=== PATIENT | male | born 1950 | race Two or more races ===

== ENCOUNTER 2019-01-28 14:30 | Inpatient (IN) | payer OTHER ==
[2019-01-28] VITALS (7 sets, daily range): BP systolic 115–148; BP diastolic 67–89
[~2019-01-28] VITALS: Ht 170.2 cm; Wt 76.2 kg
[2019-01-28] MEDS ORDERED: CARV25TA2 PO (14:55)
[2019-01-28] MEDS ORDERED: ALLO100T PO (14:55)
[2019-01-28] MEDS ORDERED: CALC100067 PO (14:55)
[2019-01-28] MEDS ORDERED: HYDR100T27 PO (14:55)
[2019-01-28] MEDS ORDERED: AMLO10TA4 PO (14:55)
[2019-01-28] MEDS ORDERED: BISA10SU61 RC (14:55)
[2019-01-28] MEDS ORDERED: PANTOPRAZOLE 40 MG VIAL IV ONE (15:00)
[2019-01-28] MEDS ORDERED: FOLI0.8T2 PO (15:18)
[2019-01-28] MEDS ORDERED: CALC667T2 PO (15:18)
[2019-01-28] MEDS ORDERED: SIMV20TA6 PO (15:18)
[2019-01-28] MEDS ORDERED: CLON0.1T PO (15:18)
[2019-01-28] MEDS ORDERED: NIFE30TA91 PO (15:18)
[2019-01-28] MEDS ORDERED: IPRA3AMP23 IH (15:18)
[2019-01-28] MEDS ORDERED: LOSA100T31 PO (15:18)
[2019-01-28] MEDS ORDERED: LISI40TA4 PO (15:18)
[2019-01-28] MEDS ORDERED: FURO-145 PO (15:18)
[2019-01-28 15:24] LABS: BASOPHILS % (AUTO) 0.3 % (0.0-2.0); EOSINOPHILS % (AUTO) 11.7 % (0.0-6.0); LYMPHOCYTES # (AUTO) 0.8 /CMM (0.8-4.8); LYMPHOCYTES % (AUTO) 6.2 % (20.0-44.0); MEAN CORPUSCULAR HGB CONC 34 g/dl (31.0-36.0); MEAN CORPUSCULAR VOLUME 88 fL (80-96); MONOCYTES % (AUTO) 7.7 % (2.0-12.0); NEUTROPHILS # (AUTO) 9.2 /CMM (1.8-8.9); NEUTROPHILS % (AUTO) 74.1 % (43.0-81.0); PLATELET COUNT (AUTO) 242 /CMM (150-450); RED BLOOD CELL COUNT(AUTO) 1.51 MIL/uL (4.5-6.0); WHITE BLOOD COUNT (AUTO) 12.4 K/uL (4.3-11.0)
[2019-01-28 15:25] LABS: CALCIUM, SERUM 7.8 mg/dL (8.5-10.1); CREATININE 2.8 mg/dL (0.6-1.3); HEMATOCRIT 13 % (39-51); HEMOGLOBIN 4.4 g/dL (13.5-17.5); POTASSIUM 3.3 mmol/L (3.5-5.1)
[2019-01-28 15:28] LABS: OCCULT BLOOD STOOL NEGATIVE (NEGATIVE)
[2019-01-28 15:30] LABS: ALBUMIN 1.8 g/dL (3.4-5.0); BILIRUBIN,DIRECT 0.3 mg/dL (0.0-0.2); BILIRUBIN,TOTAL 0.8 mg/dL (0.2-1.0); TOTAL PROTEIN, SERUM 6.6 g/dL (6.4-8.2)
[2019-01-28] MEDS ORDERED: ACETAMINOPHEN 650 MG/SUPP.RECT RC ONE ×2 (15:30→16:17)
[2019-01-28] MEDS ORDERED: IV NS 0.9% 500 ML BAG IV ONE (15:30)
[2019-01-28] MEDS ORDERED: PIPERACILLIN /TAZOBACTAM 3.375 G in IV D5W 50 ML IV ONE (16:00)
[2019-01-28] MEDS ORDERED: VANCOMYCIN 1 GM in IV D5W 250 ML IV ONE (16:00)
--- NOTE | 2019-01-28 16:11 | NUR ---
CALLED FOR [facility] BED ([phone]), TURNED IN MOVE SHEET
--- NOTE | 2019-01-28 16:14 | NUR ---
PICC Nurse Nolan here for insertion of PICC line XRays done for confirmation
[2019-01-28] MEDS ORDERED: PANTOPRAZOLE 40 MG VIAL ONE (16:17)
--- NOTE | 2019-01-28 17:06 | NUR ---
CALLED FOR DR GURPREET ZENDEJAS IN FLEET MANAGER/DISPATCH
--- NOTE | 2019-01-28 17:30 | NUR ---
Pt going to 112 Dr Glover at bedside to see pt. Blood transfusion pending. Nurse Knowledge Exchange with PETROS Hicks. Transported to floor with RT and PETROS Amaya. No obvious distress
--- NOTE | 2019-01-28 17:40 | NUR ---
RECEIVED PT FROM ER VIA DELORES. NON VERBAL, ON TRACH, VENT, GTUBE IN PLACE, L AC SHUNT, JAYE CATH ON RIGHT UPPER CHEST, PICC LINE PLACED IN ER ON RIGHT UPPER ARM G18. VANCOMYCIN INFUSING INTO YESI. PATIENT IN CONTRACTED POSITION. PHOTOS TAKEN OF ALL SKIN ULCERS, PRINTED, PLACED INTO CHART.
[2019-01-28 17:48] LABS: EOSINOPHILS % (MANUAL) 10 % (0-4); LYMPHOCYTES % (MANUAL) 7 % (16-48); MONOCYTES % (MANUAL) 6 % (0-11.0); NEUTROPHILS % (MANUAL) 77 (42-76)
--- NOTE | 2019-01-28 18:14 | NUR ---
RT Pt transported to [facility]. Vent plugged into red outlet w [facility] @ [facility]. Alarms are set and audible. Pt stable. Will continue to monitor. Addendum: 01/28/19 at 1816 by CAMPOS CHAUDHARY RT Amended: Links added.
--- NOTE | 2019-01-28 19:30 | NUR ---
1902 BEGAN TRANSFUSION OF 1 UNIT RBC INTO RIGHT PICC LINE G18. VERIFIED WITH NURSE KRISHAN. VITALS UPON RBC TRANSFUSION 120/67, HR 86, 02 SAT 100%, TEMP 99.0, RR 18. MONITORED FOR 15MIN. TOLERATING WELL. ENDORSED REPORT TO NOC SHIFT NURSE. PT IN STABLE CONDITION.
[2019-01-28] MEDS ORDERED: DOSING PER PHARMACY-AMIKACI IV XX PRN (20:00)
--- NOTE | 2019-01-28 20:00 | NUR ---
RN ADMITTING NOTE RECEIVED PT ON TRACH, VDRF,MAINTAINED ON VENT SETTING, AC 18 TV 500 FIO2 40% AND PEEP 5, WELL TOLERATED, AWAKE NONVERBAL, ABNORMAL LABS NOTED AND REPORTED, H&H 4.4, AM RN TRANSFUSING PRBC 3 UNITS ORDERED. DIALYSIS NURSE AT BEDSIDE FOR START HD. PRBC TO BE TRANSFUSED BY DIALYSIS NUSRE, 1 UNIT PER 30 MINUTES, VS STABLE, TOLERATING WELL, NO EARLY A/R NOTED. SKIN ISSUES NOTED, PICTURES TAKEN, ALL ADMITTING ORDERS ENTERED BY TINA PERALTA PER PROTOCOL, SAFETY EASURES IN PLACE. WILL CONT' TO MONITOR.
[2019-01-28] MEDS ORDERED: FEE PK DOSING 1 MIN EA MC ONE ×2 (20:03)
[2019-01-28] MEDS ORDERED: AMIKACIN 400 MG in IV D5W 100 ML IV ONE (20:30)
[2019-01-28] MEDS ORDERED: ZOLPIDEM TARTRATE 5 MG TABLET PO PRN (20:30)
[2019-01-28] MEDS ORDERED: Z GUARD REMEDY 2 OZ OINT TP PRN (20:30)
[2019-01-28] MEDS ORDERED: MAGNESIUM HYDROXIDE 30 ML UDC PO PRN (20:30)
[2019-01-28] MEDS ORDERED: ONDANSETRON HCL/PF 4 MG/2 ML VIAL IVP PRN (20:30)
[2019-01-28] MEDS ORDERED: AMIKACIN 400 MG in IV D5W 100 ML IV PRN (20:30)
--- NOTE | 2019-01-28 22:00 | NUR ---
RN [facility] NOTE DIALYSIS DONE 1.5 CC O/P TAKEN OUT, PRBC REPLACED, WELL PRINCESS', WILL CONT' TO MONITOR FOR A/R.
[2019-01-29] MEDS: ACETAMINOPHEN 325 MG TABLET PO PRN ×2 (00:34→16:35)
[2019-01-29] MEDS: PIPERACILLIN /TAZOBACTAM 2.25 G in IV D5W 50 ML IV SCH ×3 (00:34→12:58)
[2019-01-29] MEDS: NEPRO 1,000 ML BOTTLE GT PRN ×2 (00:35→21:46)
--- NOTE | 2019-01-29 06:25 | NUR ---
SUPERVISOR WATERWORKS CLOSING NOTE ENDORSED PT AWAKE NONVERBAL, MAINTAINED ON VENT, NO EPISODE OF DISTRESS, HOB ELEVATED FOR ASPIRATION PRECAUTION, GTF NEPRO RESUMED@50CC/HR WELL TOLERATED, S/P DIALYSIS 1.5 O/P TAKEN, TRANSFUSED 3 UNITS OF PRBC, NO DELAYED A/R NOTED, WOUND CARE DONE, CONSULT AND SPECIAL BED ORDERED.
[2019-01-29 06:46] LABS: ALBUMIN 1.7 g/dL (3.4-5.0); CALCIUM, SERUM 7.9 mg/dL (8.5-10.1); CREATININE 2.6 mg/dL (0.6-1.3); PHOSPHORUS 2.4 mg/dL (2.5-4.9); POTASSIUM 3.6 mmol/L (3.5-5.1); TOTAL PROTEIN, SERUM 6.2 g/dL (6.4-8.2)
[2019-01-29 07:15] LABS: BASOPHILS % (AUTO) 0.3 % (0.0-2.0); EOSINOPHILS % (AUTO) 8.9 % (0.0-6.0); HEMATOCRIT 21 % (39-51); HEMOGLOBIN 7.1 g/dL (13.5-17.5); LYMPHOCYTES # (AUTO) 0.6 /CMM (0.8-4.8); LYMPHOCYTES % (AUTO) 6.6 % (20.0-44.0); MEAN CORPUSCULAR HGB CONC 35 g/dl (31.0-36.0); MEAN CORPUSCULAR VOLUME 87 fL (80-96); MONOCYTES % (AUTO) 10.5 % (2.0-12.0); NEUTROPHILS # (AUTO) 7.2 /CMM (1.8-8.9); NEUTROPHILS % (AUTO) 73.7 % (43.0-81.0); PLATELET COUNT (AUTO) 188 /CMM (150-450); RED BLOOD CELL COUNT(AUTO) 2.35 MIL/uL (4.5-6.0); WHITE BLOOD COUNT (AUTO) 9.7 K/uL (4.3-11.0)
--- NOTE | 2019-01-29 07:30 | NUR ---
911 telecommunicator opening notes received pt in bed, awake, but not responding to name. on mech vent to trach. tolerating vent settings. no sob noted. nepro running at 50ml/hr. franki picc line patent, on 5ml tko. bed in locked/lowest position. call light in reach. will cont to monitor.
[2019-01-29 08:00] VITALS: BP 133/69
[2019-01-29 08:44] LABS: ABG BASE EXCESS 2.2 mmol/L; ABG OXYGEN SATURATION 98.3 % (92.0-98.5); ABG PCO2 34.2 mmHg (35.0-45.0); ABG PH 7.492 (7.350-7.450); ABG PO2 187.3 mmHg (75.0-100.0); AaDO2 58.6 mmHg; COHb 0.3 % (0.5-1.5); MetHb 1.6 % (0.0-1.5); O2Hb 96.4 % (94.0-97.0); PEEP,BG 5 cm H2O; SITE, ABG Right Radial; VT, ABG 500 mL
[2019-01-29] MEDS ORDERED: NEUTRA PHOS 1 POWD.PACKET NG ONE (10:00)
[2019-01-29] MEDS ORDERED: EPOETIN ALFA (10,000 UNIT) 10,000 UNIT/ML VIAL IV ONE (12:00)
[2019-01-29] MEDS: LACTOBACILLUS RHAMNOSUS GG 1 EACH CAP.SPRINK PO SCH ×2 (12:58→16:35)
--- NOTE | 2019-01-29 13:08 | NUR ---
telephone operator notes called dr martinez to make him aware that medications need to be reviewed. said he will reconcile.
--- NOTE | 2019-01-29 15:00 | NUR ---
relay telegrapher notes per pharmacy, hold amikacin post hd d/t trough 15.4.
[2019-01-29] MEDS: VANCOMYCIN 500 MG in IV D5W 100 ML IV PRN (15:17)
--- NOTE | 2019-01-29 19:04 | NUR ---
television writer end of shift notes pt stable on vent. obtunded. tolerated HD today with 1 L out. hgb stable. no s/sx of active bleeding noted. still awaiting med reconciliated. dr martinez aware. will endorse to pm nurse for dana.
--- NOTE | 2019-01-29 19:48 | NUR ---
RN INITIAL TELE NOTE, RECEDED PATIENT ON BED, VDRF, MAINTAINED ON VENT SETTINGS ORDER, WELL TOLERATED, NO EPISODE OF DISTRESS OR FACIAL GRIMACING NOTICED, GT FEEDING RUNNING @50 ML/HR, WELL TOLERATED , HOB ELEVATED FOR ASPIRATION PRECAUTION, HENRIK CHAU, TKO RUNNING, PATIENT CLEAN AND DRY, WELL REPOSITION, SAFETY MASSEURS IN PLACE, WILL CONTINUE MONITOR THE PATIENT.
[2019-01-29] MEDS: HYDROCODONE/APAP 5/325MG 1 EACH TABLET PO PRN (21:42)
[2019-01-29 22:00] VITALS: BP 172/92
[2019-01-30 06:16] LABS: CALCIUM, SERUM 7.9 mg/dL (8.5-10.1); CREATININE 2.6 mg/dL (0.6-1.3); POTASSIUM 3.5 mmol/L (3.5-5.1)
--- NOTE | 2019-01-30 07:04 | NUR ---
RN CLOSING TELE NOTE, ENDORSED PATIENT ON BED, VDRF, MAINTAINED ON VENT SETTINGS ORDER, WELL TOLERATED, NO EPISODE OF DISTRESS OR FACIAL GRIMACING NOTICED, GT FEEDING RUNNING @50 ML/HR, WELL TOLERATED , HOB ELEVATED FOR ASPIRATION PRECAUTION, HENRIK CHAU, TKO RUNNING, PATIENT CLEAN AND DRY, WELL REPOSITION, SAFETY MASSEURS IN PLACE, ENDORSED PATIENT FOR CONTINUOUS MONITOR .
--- NOTE | 2019-01-30 07:30 | NUR ---
telephone instrument supervisor opening notes pt received in bed, awake but not oriented. on mech vent to trach. settings tolerated well. rhonchi auscultated throughout lung vora. anirudh midline flushed/patent/blood return noted. still with pitting edema on extremities. wound consult ordered. on tube feeding at 50ml/hr. no residual at this time. pt has low grade fever. bed in locked/lowest position. call light in reach. will cont to monitor.
--- NOTE | 2019-01-30 07:33 | NUR ---
RT SPARE TRACH AND AMBU BAG PLACED AT BEDSIDE. AIRWAY SECURED AND PATENT. NO SIGNS OF DISTRESS NOTED AT THIS TIME. WILL CONTINUE TO MONITOR THE PATIENT CLOSELY FOR ANY CHANGES. Addendum: 01/30/19 at 1617 by PAUL TINSLEY RT Amended: Links added.
[2019-01-30 08:00] VITALS: BP 151/88
[2019-01-30] MEDS: ACETAMINOPHEN 325 MG TABLET PO PRN (08:15)
[2019-01-30] MEDS: LACTOBACILLUS RHAMNOSUS GG 1 EACH CAP.SPRINK PO SCH ×2 (08:15→16:54)
--- NOTE | 2019-01-30 08:45 | NUR ---
telecommunications officer notes dr martinez rounded with pt. notified of continuing low grade fevers. per md, meds have been reviewed. will cont to monitor.
[2019-01-30] MEDS ORDERED: Medication Not On Formulary EA (Ipratropium/Albuterol Sulfate (Duoneb 2.5-0.5 Mg/3 Ml So IH SCH (09:00)
[2019-01-30] MEDS ORDERED: BISACODYL SUPP (10 MG) 10 MG/SUPP.RECT SUPP.RECT RC PRN (09:00)
[2019-01-30] MEDS: VIT B CMPLX 3/FA/VIT C/BIOTIN 1 TAB TABLET PO SCH (10:23)
[2019-01-30] MEDS: LISINOPRIL (20MG) 20 MG TABLET PO SCH (10:23)
[2019-01-30] MEDS: CARVEDILOL 12.5 MG TABLET PO SCH ×2 (10:24→21:24)
[2019-01-30] MEDS: LOSARTAN POTASSIUM 50 MG TABLET PO SCH (10:24)
[2019-01-30] MEDS: AMLODIPINE BESYLATE 10 MG TABLET PO SCH (10:25)
[2019-01-30] MEDS: ALLOPURINOL 100 MG TABLET PO SCH (10:25)
[2019-01-30] MEDS ORDERED: IPRATROPIUM NEB FS 0.5 MG/2.5 ML AMPUL.NEB NEB PRN (11:30)
[2019-01-30] MEDS ORDERED: ALBUTEROL FS 2.5 MG/3 ML VIAL.NEB NEB PRN (11:30)
[2019-01-30 12:00] VITALS: BP 145/81
[2019-01-30] MEDS: NIFEdipine XL (30MG) 30 MG TAB PO SCH (12:00)
[2019-01-30] MEDS: hydrALAZINE HCL 50 MG TABLET PO SCH ×2 (12:55→16:54)
--- NOTE | 2019-01-30 12:57 | NUR ---
telecommunications facility examiner notes will clarify with re: nifedipine. slow release. pharmacy aware. pt has gt meds crushed.
[2019-01-30] MEDS ORDERED: CALCIUM ACETATE 667 MG TABLET PO SCH (13:00)
[2019-01-30] MEDS: ALBUTEROL FS 2.5 MG/3 ML VIAL.NEB NEB SCH ×2 (13:36→19:35)
[2019-01-30] MEDS: IPRATROPIUM NEB FS 0.5 MG/2.5 ML AMPUL.NEB NEB SCH ×2 (13:36→19:35)
[2019-01-30 16:00] VITALS: BP 151/77
--- NOTE | 2019-01-30 16:00 | NUR ---
telemetry rn notes 3 beats vtach reported by environmental monitoring technician, at 0858. pt is asymptomatic. vs stable. will cont to monitor.
[2019-01-30] MEDS: HYDROCODONE/APAP 5/325MG 1 EACH TABLET PO PRN (16:54)
--- NOTE | 2019-01-30 19:00 | NUR ---
telemetry rn end of shift notes pt resting in bed, asleep but arouses easily. stable on vent. all treatments given as per md order. family updated with poc. endorsed to pm nurse for dana.
--- NOTE | 2019-01-30 19:30 | NUR ---
RN OPENING NOTES, PATIENT IN BED ASLEEP BUT EASILY AROUSES TO VERBAL/TACTILE STIMULI, ON MECHANICAL VENTILATOR, NO SOB/ACUTE DISTRESS NOTED AT THIS TIME, NSR IN THE MONITOR WITH HR IN 90S AT THIS TIME, RIGHT UPPER ARM PICC LIE IN PLACE S/L PATENT AND INTACT, WELL REPOSITIONED, DRY AND CLEAN AT THIS TIME, BED LOCKED AND LOW POSITION, WILL CONTINUE TO MONITOR CLOSELY.
[2019-01-30 20:00] VITALS: BP 111/64
[2019-01-30] MEDS: CALCIUM CARBONATE 500 MG TAB.CHEW PO SCH (21:23)
[2019-01-30] MEDS: SIMVASTATIN 20 MG TABLET PO SCH (22:03)
[2019-01-30] MEDS: NEPRO 1,000 ML BOTTLE GT PRN (22:25)
[2019-01-31] VITALS (10 sets, daily range): BP systolic 106–177; BP diastolic 70–96
[2019-01-31] MEDS: ALBUTEROL FS 2.5 MG/3 ML VIAL.NEB NEB SCH ×4 (01:42→19:45)
[2019-01-31] MEDS: IPRATROPIUM NEB FS 0.5 MG/2.5 ML AMPUL.NEB NEB SCH ×4 (01:42→19:45)
[2019-01-31 06:13] LABS: CALCIUM, SERUM 8.5 mg/dL (8.5-10.1); CREATININE 4.1 mg/dL (0.6-1.3); POTASSIUM 3.9 mmol/L (3.5-5.1)
--- NOTE | 2019-01-31 06:43 | NUR ---
RN NOTES, PATIENT IN BED WITH EYES CLOSED, ON MECHANICAL VENTILATOR, TOLERATED SETTING WELL, NO SOB/ACUTE DISTRESS NOTED AT THIS TIME, NO SIGNIFICANT CHANGE IN CONDITION DURING THE NIGHT, KEPT DRY AND CLEAN BED LOCKED AND LOW POSITION, WILL ENDORSE CONTINUITY OF CARE TO ONCOMING NURSE.
--- NOTE | 2019-01-31 07:30 | NUR ---
LEAD PL SQL DEVELOPER AM NOTES RECEIVED PATIENT IN BED, OBTUNDED, OPENS EYES, ON SHILEY 8 TO [facility] VENT SETTINGS - AC 18 TV 500 FIO2 40% PEEP 5. BREATHING EQUAL AND UNLABORED, NO DISTRESS/NO SIGNS OF PAIN. SINUS TACH HR 104, NO GRIMACING. YESI PICC LINE FLUSHES WELL, SITE CLEAR, CDI DRESSING, HENRIK SHUNT [OLD] WITH THRILL PALPABLE, RCW PERMACATH WITH CDI DRESSING. FOR HD TODAY. NEPRO AT 50 ML/HR ONGOING. CHECKED FOR PLACEMENT. 0 RESIDUAL. SEE NURSING FLOWSHEET FOR SKIN ISSUES. FOR WOUND CONSULT. SAFETY MEASURES IN PLACE. HOB ELEVATED AT ALL TIMES. PRESSURE AREAS OFF LOADED. WITH PILLOWS, WILL TURN AND REPOSITION Q 2HOURS. SAFETY MEASURES IN PLACE. CALL LIGHT WITHIN REACH. WILL CONTINUE TO MONITOR.
[2019-01-31 07:54] LABS: BASOPHILS % (AUTO) 0.3 % (0.0-2.0); EOSINOPHILS % (AUTO) 11.2 % (0.0-6.0); LYMPHOCYTES # (AUTO) 0.9 /CMM (0.8-4.8); LYMPHOCYTES % (AUTO) 6.9 % (20.0-44.0); MEAN CORPUSCULAR HGB CONC 33 g/dl (31.0-36.0); MEAN CORPUSCULAR VOLUME 89 fL (80-96); MONOCYTES # (AUTO) 0.9 /CMM (0.1-1.30); MONOCYTES % (AUTO) 6.9 % (2.0-12.0); NEUTROPHILS % (AUTO) 74.7 % (43.0-81.0); PLATELET COUNT (AUTO) 204 /CMM (150-450); RED BLOOD CELL COUNT(AUTO) 2.15 MIL/uL (4.5-6.0); WHITE BLOOD COUNT (AUTO) 13.5 K/uL (4.3-11.0)
[2019-01-31 07:59] LABS: HEMOGLOBIN 6.4 g/dL (13.5-17.5)
[2019-01-31 08:00] LABS: HEMATOCRIT 19 % (39-51)
--- NOTE | 2019-01-31 08:12 | NUR ---
ERECTOR OPERATOR NOTES HGB LEVEL OF 6.4, DR. RAY NOTIFIED. ORDER TO TRANSFUSE 1 UNIT PRBC WITH HD.
[2019-01-31 08:25] LABS: BAND % (MANUAL) 5 % (0.0-5.0); EOSINOPHILS % (MANUAL) 15 % (0-4); LYMPHOCYTES % (MANUAL) 7 % (16-48); MONOCYTES % (MANUAL) 9 % (0-11.0); NEUTROPHILS % (MANUAL) 64 (42-76)
--- NOTE | 2019-01-31 08:49 | NUR ---
WOUND CARE CONSULT: PT PRESENTS WITH MULTIPLE SKIN ISSUES, SCARS AND WOUNDS, PRESENT ON ADMISSION INCLUDING STAGE 4 ULCER TO SACRUM, STAGE 3 ULCER TO LEFT BUTTOCK, MULTIPLE SCARS ON HIPS, THIGHS AND LEGS WITH SOME CLOSED BLISTERS, 4+ PITTING EDEMA NOTED TO BE GENERALIZED, RT MEDIAL FOOT INTACT DEEP TISSUE INJURY NOTED AND OPEN WOUND NOTED TO LEFT 4TH TOE. RECOMMEND DPM CONSULT AND SURGICAL CONSULT. RECOMMENDATIONS MADE FOR SKIN PROTECTION. DISCUSSED WITH NURSING STAFF. DEFER TO SURGICAL/PODIATRY TEAM FOR WOUND TREATMENT PLAN. FIRST STEP CIRRUS LOW AIRLOSS MATTRESS TO BE PLACED. PT ON DIALYSIS AT THIS TIME. PT NOTED TO HAVE LIQUID STOOL. WILL SEE PRN. MARY IN AGREEMENT WITH PLAN OF CARE. Addendum: 01/31/19 at 0852 by BRAULIO SALINAS Amended: Links added. Addendum: 01/31/19 at [address] LOMAX AND DR BAIRD NOTIFIED OF SURGICAL/DPM CONSULTN REQUESTS.
[2019-01-31] MEDS: LOSARTAN POTASSIUM 50 MG TABLET PO SCH (09:00)
[2019-01-31] MEDS: AMLODIPINE BESYLATE 10 MG TABLET PO SCH (09:00)
[2019-01-31] MEDS: CARVEDILOL 12.5 MG TABLET PO SCH ×2 (09:00→21:43)
[2019-01-31] MEDS: hydrALAZINE HCL 50 MG TABLET PO SCH ×3 (09:00→16:34)
[2019-01-31] MEDS: LISINOPRIL (20MG) 20 MG TABLET PO SCH (09:00)
[2019-01-31] MEDS: ALLOPURINOL 100 MG TABLET PO SCH (09:14)
[2019-01-31] MEDS: VIT B CMPLX 3/FA/VIT C/BIOTIN 1 TAB TABLET PO SCH (09:14)
[2019-01-31] MEDS: LACTOBACILLUS RHAMNOSUS GG 1 EACH CAP.SPRINK PO SCH ×2 (09:19→16:34)
--- NOTE | 2019-01-31 09:30 | NUR ---
ASSISTANT ENGINEER NOTES DUE MEDS GIVEN EXCEPT BLOOD PRESSURE MEDICATION. PT WILL HAVE HD.
[2019-01-31] MEDS: VANCOMYCIN 500 MG in IV D5W 100 ML IV PRN (11:33)
--- NOTE | 2019-01-31 12:48 | NUR ---
TURPENTINE DISTILLER NOTES HD COMPLETED. 3000 ML OUT. 1 UNIT PRBC GIVEN WITH HD VANCOMYCIN IV GIVEN POST HD
[2019-01-31] MEDS ORDERED: NEPRO 1,000 ML BOTTLE GT PRN (14:36)
--- NOTE | 2019-01-31 17:00 | NUR ---
PATCH SETTER NOTES RECHECKED BP 152/78
--- NOTE | 2019-01-31 18:28 | NUR ---
BIOTECHNOLOGIST CLOSING NOTES PATIENT IN BED, OBTUNDED, OPENS EYES, RESTING COMFORTABLY, ON SHILEY 8 TO [facility] VENT SETTINGS - AC 18 TV 500 FIO2 40% PEEP 5. BREATHING EQUAL AND UNLABORED, NO DISTRESS/NO SIGNS OF PAIN. SINUS TACH HR LOW 100s. NO GRIMACING. YESI PICC LINE FLUSHES WELL, SITE CLEAR, CDI DRESSING, HENRIK SHUNT [OLD] WITH THRILL PALPABLE, RCW PERMACATH WITH CDI DRESSING. NEPRO AT 50 ML/HR ONGOING. CHECKED FOR PLACEMENT. 0 RESIDUAL. SAFETY MEASURES IN PLACE. HOB ELEVATED AT ALL TIMES. PRESSURE AREAS OFF LOADED. WITH PILLOWS, TURNED AND REPOSITIONED Q 2HOURS. SAFETY MEASURES IN PLACE. CALL LIGHT WITHIN REACH. ALL NEEDS MET. WILL ENDORSE TO NEXT SHIFT FOR NICKY.
[2019-01-31 20:21] LABS: HEMOGLOBIN 8.1 g/dL (13.5-17.5)
--- NOTE | 2019-01-31 20:38 | NUR ---
RN INITIAL TELE NOTES RECEIVED PATIENT IN BED, OBTUNDED, OPENS EYES, ON TRACH S #8, TO [facility] VENT SETTINGS - AC 18 TV 500 FIO2 40% PEEP 5, NO DISTRESS/NO SIGNS OF PAIN. SINUS TACH HR 109, NO GRIMACING. YESI PICC LINE FLUSHES WELL, SITE CLEAR, CDI DRESSING, HENRIK SHUNT [OLD] WITH THRILL PALPABLE, RCW PERMACATH WITH CDI DRESSING. S/P HD 3 L O/P. NEPRO AT 50 ML/HR ONGOING. CHECKED FOR PLACEMENT. 0 RESIDUAL. SAFETY MEASURES IN PLACE. HOB ELEVATED AT ALL TIMES. WELL REPOSITIONED Q [address] ME[address] IN PL[address]. CALL LIGHT WITHIN REACH. WILL CONTINUE TO MONITOR. Addendum: 01/31/19 at 2102 by LAKHWINDER KELLEY RN S/P 1 UNIT OF PRBC, REPEAT H&H ORDERED START, LAB CALLED WITH 1 UNIT OF PRBC READY, BASED ON AM LAB RESULTS.
--- NOTE | 2019-01-31 21:02 | NUR ---
RN [facility] NOTE CALLED LAB, TO HOLD OFF ON TRANSFUSION OF 1 UNIT OF PRBC, SPOKE TO Bonnie MONTOYA&H 8.1, FLUME MAKER POP NOTIFIED.
--- NOTE | 2019-01-31 21:17 | NUR ---
RN BRAYDEN NOTE MD BEDOYA NOTIFIED OF PENDING TRANSFUSION, NEW H&H OF 8.1 RELAYED OKAY TO CANCEL ORDER.
[2019-01-31] MEDS: CALCIUM CARBONATE 500 MG TAB.CHEW PO SCH (21:43)
[2019-01-31] MEDS: SIMVASTATIN 20 MG TABLET PO SCH (21:43)
[2019-01-31] MEDS: ACETAMINOPHEN 325 MG TABLET PO PRN (21:47)
[2019-01-31] MEDS: HYDROGEL DRESSING 90 GM TUBE TP SCH (22:01)
[2019-02-01] MEDS: IPRATROPIUM NEB FS 0.5 MG/2.5 ML AMPUL.NEB NEB SCH ×3 (00:46→14:09)
[2019-02-01] MEDS: ALBUTEROL FS 2.5 MG/3 ML VIAL.NEB NEB SCH ×3 (00:46→14:10)
[2019-02-01 04:23] VITALS: BP 113/60
--- NOTE | 2019-02-01 06:45 | NUR ---
RN CLOSING TELE NOTES ENDORSED PATIENT IN BED, OBTUNDED, OPENS EYES, ON TRACH S #8, TO [facility] VENT SETTINGS - AC 18 TV 500 FIO2 40% PEEP 5, NO DISTRESS/NO SIGNS OF PAIN. SINUS TACH HR 78, NO GRIMACING. YESI PICC LINE FLUSHES WELL, SITE CLEAR, CDI DRESSING, HENRIK SHUNT [OLD] WITH THRILL PALPABLE, RCW PERMACATH WITH CDI DRESSING. S/P HD 3 L O/P. NEPRO AT 50 ML/HR ONGOING. CHECKED FOR PLACEMENT. 0 RESIDUAL. SAFETY MEASURES IN PLACE. HOB ELEVATED AT ALL TIMES. WELL REPOSITIONED Q [address] H[address] ME[address] IN PLACE. CALL LIGHT WITHIN REACH. WILL ENDORSE TO FOR NICKY.
--- NOTE | 2019-02-01 07:20 | NUR ---
INSPECTOR SALVAGE OPENING NOTES RECEIVED REPORT FROM PM NURSE.PATIENT IN BED. OPENS EYES, MOVE EXTREMITIES.ON TRACH WITH MECH VENT TOLERATING SETTINGS ORDERED.NO DISTRESS/NO SIGNS OF PAIN NOTED. ON TELE MONITOR SR HR 88. YESI PICC LINE FLUSHES WELL, SITE CLEAR, CDI DRESSING, HENRIK SHUNT [OLD] WITH THRILL PALPABLE, RCW PERMCATH WITH CDI DRESSING. ON GT FEEDING NEPRO AT 50 ML/HR ONGOING. SAFETY MEASURES IN PLACE. HOB ELEVATED AT ALL TIMES. CALL LIGHT WITHIN REACH.BED ALARM ON. WILL CONTINUE TO MONITOR.
[2019-02-01 07:41] LABS: CALCIUM, SERUM 8.9 mg/dL (8.5-10.1); CREATININE 3.9 mg/dL (0.6-1.3); POTASSIUM 4.3 mmol/L (3.5-5.1)
[2019-02-01 08:00] VITALS: BP 153/72
[2019-02-01] MEDS: CARVEDILOL 12.5 MG TABLET PO SCH (08:23)
[2019-02-01] MEDS: LACTOBACILLUS RHAMNOSUS GG 1 EACH CAP.SPRINK PO SCH ×2 (08:23→16:23)
[2019-02-01] MEDS: VIT B CMPLX 3/FA/VIT C/BIOTIN 1 TAB TABLET PO SCH (08:23)
[2019-02-01] MEDS: AMLODIPINE BESYLATE 10 MG TABLET PO SCH (08:24)
[2019-02-01] MEDS: ALLOPURINOL 100 MG TABLET PO SCH (08:24)
[2019-02-01] MEDS: hydrALAZINE HCL 50 MG TABLET PO SCH ×3 (08:27→16:23)
[2019-02-01] MEDS: HYDROGEL DRESSING 90 GM TUBE TP SCH (08:28)
[2019-02-01] MEDS: NIFEdipine XL (30MG) 30 MG TAB PO SCH (09:00)
[2019-02-01] MEDS ORDERED: CADEXOMER IODINE 40 GM TUBE TP SCH (09:00)
[2019-02-01] MEDS: LISINOPRIL (20MG) 20 MG TABLET PO SCH (09:52)
[2019-02-01] MEDS: LOSARTAN POTASSIUM 50 MG TABLET PO SCH (09:52)
--- NOTE | 2019-02-01 11:30 | NUR ---
LIGHT INDUSTRIAL SUPERVISOR NOTE SEEN BY UPDATED ABOUT PATIENT CONDITION,GOT NEW ORDER TO DISCHARGE AND DO H/H PRIO TO DISCHARGE.CHIEF LENDING OFFICER IS MADE AWARE .
[2019-02-01 12:00] VITALS: BP_SYST 125; BP_SYST 149; BP_DIAS 62; BP_DIAS 72
--- NOTE | 2019-02-01 12:30 | NUR ---
VIDEO SURVEILLANCE TECHNICIAN NOTE GOT ORDER TO SALES PROMOTION DIRECTOR PATIENT AT 1500,PLACED ORDER FOR H/H @1300.REPORT GIVEN TO DORIAN MORRELL AT ALL SAINTS.TO KEEP PIC LINE IN PER REQUEST.
[2019-02-01 12:50] VITALS: BP 125/62
[2019-02-01 13:04] LABS: HEMOGLOBIN 8.1 g/dL (13.5-17.5)
--- NOTE | 2019-02-01 15:00 | NUR ---
PHOTOGRAPHERS' MODEL NOTE RELAYED H/H RESULT TO .NATHEN TO DISCHARGE.
[2019-02-01 16:00] VITALS: BP 149/72
[2019-02-01 16:23] VITALS: BP 149/72
--- NOTE | 2019-02-01 18:13 | NUR ---
EXECUTIVE MANAGERDIET THERAPIST NOTE PATIENT D/C TO ALL SAINTS IN STABLE CONDITION.NO SOB NO DISTRESS NOTED.NO BELONGINGS EXCEPT THE BOOTS.EXIT CARE GIVEN,PATIENT UNABLE TO UNDERSTAND.DISCHARGE SUMMARY GIVEN TO PARAMEDICS WITH REPORT.GT FLUSHED.IV LINE IS INTACT AND PATENT.WOUND CARE DONE.CALL MADE TO CONTACT IN THE CHART.UNABLE TO REACH FAMILY.UNABLE TO LEAVE MESSAGE.
== END 2019-02-01 18:10 | DRG 470 ==
LOC: ER 14:33 → TELE-TD 17:11 → TELE1 20:51
PROVIDERS: ADMIT Internal Medicine; ATTEND Family Medicine
PROC: 5A1D70Z Performance of Urinary Filtration, Intermittent, Less than 6 Hours Per Day (ICD-10-PCS; principal; 2019-01-28)
PROC: B548ZZA Ultrasonography of Superior Vena Cava, Guidance (ICD-10-PCS; principal; 2019-01-28)
PROC: 30233N1 Transfusion of Nonautologous Red Blood Cells into Peripheral Vein, Percutaneous Approach (ICD-10-PCS; principal; 2019-01-28)
PROC: 5A1955Z Respiratory Ventilation, Greater than 96 Consecutive Hours (ICD-10-PCS; principal; 2019-01-28)
PROC: 02HV33Z Insertion of Infusion Device into Superior Vena Cava, Percutaneous Approach (ICD-10-PCS; principal; 2019-01-28)
PROC: 5A1D70Z Performance of Urinary Filtration, Intermittent, Less than 6 Hours Per Day (ICD-10-PCS; 2019-01-29)
PROC: 0JB70ZZ Excision of Back Subcutaneous Tissue and Fascia, Open Approach (ICD-10-PCS; 2019-01-31)
PROC: 5A1D70Z Performance of Urinary Filtration, Intermittent, Less than 6 Hours Per Day (ICD-10-PCS; 2019-01-31)
DX: I12.0 Hypertensive chronic kidney disease with stage 5 chronic kidney disease or end stage renal disease (principal); I21.A1 Myocardial infarction type 2; Z99.11 Dependence on respirator [ventilator] status; G93.1 Anoxic brain damage, not elsewhere classified; L89.154 Pressure ulcer of sacral region, stage 4; J96.10 Chronic respiratory failure, unspecified whether with hypoxia or hypercapnia; Z93.0 Tracheostomy status; L89.323 Pressure ulcer of left buttock, stage 3; N18.6 End stage renal disease; D63.1 Anemia in chronic kidney disease; Z99.2 Dependence on renal dialysis; I25.10 Atherosclerotic heart disease of native coronary artery without angina pectoris; R13.10 Dysphagia, unspecified; Z93.1 Gastrostomy status; M24.562 Contracture, left knee; M24.561 Contracture, right knee; Z74.01 Bed confinement status; F09 Unspecified mental disorder due to known physiological condition; E88.09 Other disorders of plasma-protein metabolism, not elsewhere classified
CPT/HCPCS: 31720; 36415; 36600; 71045-TC; 80048-TC; 80053-TC; 80061-TC; 80076-TC; 80150; 80202-TC; 82272-TC; 82803-TC; 83540-TC; 83605-TC; 83735-TC; 84100-TC; 84484-TC; 85025-TC; 85027-TC; 85730-TC; 86706; 86850-TC; 86921-TC; 87040-TC; 87081-TC; 87340; 90935-TC; 94002-TC; 94003-TC; 94760-TC; 94762-TC; 94799-TC; 99082-TC; A4623; A6248; A6253; A6403; C1751; C9113; G0378; J0278; J0885; J2543; J3370; J7040; J7060; P9016-BL

== ENCOUNTER 2019-03-14 16:35 | Inpatient (IN) | payer OTHER ==
[~2019-03-14] VITALS: Ht 172.7 cm; Wt 60.8 kg
[~2019-03-14 16:35] MED LIST: ALLO100T PO; AMLO10TA4 GT; BISA10SU61 RC; CALC100067 PO; CALC667T2 GT; CARV25TA2 GT; CLON0.1T GT; FOLI0.8T2 GT; FURO-145 GT; HYDR100T27 GT; IPRA3AMP23 IH; LISI40TA4 PO; LOSA100T31 GT; NIFE30TA91 PO; SIMV-46 GT
--- NOTE | 2019-03-14 16:45 | NUR ---
"BIBPA, FROM [facility], SENT BY PMD DUE TO HGB OF 6.9" PT VENT AND TRACHE DEPENDENT, PT ON MONITOR, VSS, NAD NOTED, PENDING MD ELY
--- NOTE | 2019-03-14 17:06 | NUR ---
BLOOD DRAWN AND SENT TO LAB
[2019-03-14] MEDS ORDERED: LORA-259 GT (17:07)
[2019-03-14] MEDS ORDERED: METO-295 PO (17:07)
[2019-03-14] MEDS ORDERED: PANT40TA4 PO (17:07)
[2019-03-14] MEDS ORDERED: PROT946L PO (17:07)
[2019-03-14] MEDS ORDERED: ACET-73 PO (17:07)
[2019-03-14] MEDS ORDERED: ONDA4TAB5 GT (17:07)
[2019-03-14 17:11] LABS: EOSINOPHILS % (AUTO) 9.8 % (0.0-6.0); HEMATOCRIT 22 % (39-51); HEMOGLOBIN 7.1 g/dL (13.5-17.5); LYMPHOCYTES # (AUTO) 0.4 /CMM (0.8-4.8); LYMPHOCYTES % (AUTO) 3.1 % (20.0-44.0); MEAN CORPUSCULAR HGB CONC 33 g/dl (31.0-36.0); MEAN CORPUSCULAR VOLUME 86 fL (80-96); MONOCYTES # (AUTO) 0.7 /CMM (0.1-1.30); MONOCYTES % (AUTO) 5.2 % (2.0-12.0); NEUTROPHILS # (AUTO) 10.5 /CMM (1.8-8.9); NEUTROPHILS % (AUTO) 81.9 % (43.0-81.0); PLATELET COUNT (AUTO) 219 /CMM (150-450); RED BLOOD CELL COUNT(AUTO) 2.52 MIL/uL (4.5-6.0); WHITE BLOOD COUNT (AUTO) 12.8 K/uL (4.3-11.0)
--- NOTE | 2019-03-14 17:12 | NUR ---
RT NOTE PT PLACED ON VENT PER MD ORDER. SETTINGS ENDORSED BY TRANSPORT RT AC 18 500 40% +5. PT HAS SHILEY 8 DCT CUFFED TRACHEOSTOMY IN PLACE. CUFF INFLATED. TRACH TUBE MIDLINE AND SECURE. ALARMS SET PER PROTOCOL AND AUDIBLE. VENT PLUGGED IN TO RED OUTLET. AMBU BAG AT BED SIDE. NO DISTRESS NOTED. Addendum: 03/14/19 at 1714 by ESHA WILSON RT Amended: Links added.
[2019-03-14 17:21] LABS: CARBON DIOXIDE 29 mmol/L (21-32); CHLORIDE 97 mmol/L (98-107); CREATININE 2.3 mg/dL (0.6-1.3); GLUCOSE 97 mg/dL (74-106); POTASSIUM 3.4 mmol/L (3.5-5.1); SODIUM SERUM 133 mmol/L (136-145); UREA NITROGEN, BLOOD 41 mg/dL (7-18)
[2019-03-14 17:27] LABS: ALANINE AMINOTRANSFERASE 33 U/L (12-78); ALBUMIN 2.2 g/dL (3.4-5.0); ALKALINE PHOSPHATASE 176 U/L (46-116); ASPARTATE AMINOTRANSFERASE 58 U/L (15-37); BILIRUBIN,DIRECT 0.3 mg/dL (0.0-0.2); BILIRUBIN,TOTAL 0.6 mg/dL (0.2-1.0)
--- NOTE | 2019-03-14 17:38 | NUR ---
DR CHATO STEWART
[2019-03-14] MEDS ORDERED: VANCOMYCIN 1 GM in IV D5W 250 ML IV ONE (18:00)
[2019-03-14] MEDS ORDERED: PIPERACILLIN /TAZOBACTAM 3.375 G in IV D5W 50 ML IV ONE (18:00)
--- NOTE | 2019-03-14 18:10 | NUR ---
CALLED NURSING SUP FOR TELE BED
--- NOTE | 2019-03-14 20:30 | NUR ---
PELT SALTER OPENING/ADMITTING NOTES RECEIVED PATIENT VIA GURNEY FROM ER. FAMILY AT BEDSIDE. ON MECHANICAL VENT TRACH SETTINGS ORDERED, NO RESPIRATORY OR CARDIAC DISTRESS NOTED, SATURATING 100%. PT NONVERBAL, UNABLE TO MAKE NEEDS KNOWN. VITAL SIGNS WNL. SKIN ASSESSMENT DONE AND RECORDED (SEE FLOWSHEET AND PICTURES IN CHART). IV SITE LEFT AC 18G, FLUSHING AND PATENT, SITE C/D/I, S/L. PATIENT KEPT CLEAN, DRY, AND COMFORTABLE. SAFETY MEASURES IN PLACE; CALL LIGHT WITHIN REACH, BED LOCKED AND IN LOWEST POSITION, SIDE RAILS UP X2, BED ALARM ON, HOB ELEVATED, SUCTION EQUIPMENT AT BEDSIDE. WILL ATTEND TO MD ADMITTING ORDERS. WILL CONT TO MONITOR PT CLOSELY.
--- NOTE | 2019-03-14 20:39 | NUR ---
REPORT GIVEN TO SCOTT MORRELL FOR NICKY PT WILL BE TRANDPORTED TO [address] [place] [address] [facility]
[2019-03-14 20:52] VITALS: BP 141/42
[2019-03-14] MEDS: PIPERACILLIN /TAZOBACTAM 2.25 G in IV D5W 50 ML IV SCH (21:00)
[2019-03-14] MEDS ORDERED: DEXTROSE 50%-WATER 50 ML DISP.SYRIN IV PRN (21:00)
--- NOTE | 2019-03-14 21:00 | NUR ---
INDUSTRIAL EQUIPMENT MECHANIC NOTES CALLED PHARMACY AFTER HOURS FOR PATIENT ZOSYN DUE AT 2100. PATIENT RECEIVED ZOSYN IN ER BEFORE TRANSFER TO [facility]. PHARMACY STATED TO SKIP THIS DOSE FOR NOW. WILL CONT TO MONITOR PT.
[2019-03-14] MEDS: NEPRO 1,000 ML BOTTLE GT PRN (23:56)
[2019-03-15] VITALS (7 sets, daily range): BP systolic 90–161; BP diastolic 64–84
[2019-03-15] MEDS ORDERED: BLOOD SUGAR DIAGNOSTIC 1 EACH STRIP IN SCH
[2019-03-15] MEDS: BLOOD SUGAR DIAGNOSTIC 1 EACH STRIP IN SCH ×5 (00:06→23:28)
--- NOTE | 2019-03-15 04:32 | NUR ---
SENIOR INSIGHT MANAGER INTERNATIONAL NOTES PATIENT TEMP 101. COOLING MEASURES IN PLACE. WILL ADMINISTER TYLENOL PRN.
[2019-03-15] MEDS ORDERED: PIPERACILLIN /TAZOBACTAM 2.25 G VIAL IV ONE (04:39)
[2019-03-15] MEDS: ACETAMINOPHEN 650 MG/20.3 ML UDC GT PRN ×3 (05:03→22:08)
[2019-03-15] MEDS: PIPERACILLIN /TAZOBACTAM 2.25 G in IV D5W 50 ML IV SCH ×3 (05:03→20:13)
[2019-03-15] MEDS ORDERED: VANCOMYCIN 500 MG in IV D5W 100 ML IV PRN (06:00)
--- NOTE | 2019-03-15 06:31 | NUR ---
NUCLEAR LICENSING ENGINEER NOTES RECHECKED TEMP NOW 98.1. WILL CONT TO MONITOR.
[2019-03-15 06:42] LABS: BASOPHILS % (AUTO) 0.1 % (0.0-2.0); EOSINOPHILS % (AUTO) 13.9 % (0.0-6.0); HEMATOCRIT 22 % (39-51); HEMOGLOBIN 7.1 g/dL (13.5-17.5); LYMPHOCYTES # (AUTO) 0.7 /CMM (0.8-4.8); LYMPHOCYTES % (AUTO) 6.5 % (20.0-44.0); MEAN CORPUSCULAR HGB CONC 33 g/dl (31.0-36.0); MEAN CORPUSCULAR VOLUME 86 fL (80-96); MONOCYTES # (AUTO) 0.8 /CMM (0.1-1.30); MONOCYTES % (AUTO) 7.2 % (2.0-12.0); NEUTROPHILS % (AUTO) 72.3 % (43.0-81.0); PLATELET COUNT (AUTO) 236 /CMM (150-450); RED BLOOD CELL COUNT(AUTO) 2.56 MIL/uL (4.5-6.0); WHITE BLOOD COUNT (AUTO) 11.1 K/uL (4.3-11.0)
[2019-03-15] MEDS ORDERED: IPRATROPIUM NEB SCH (07:00)
[2019-03-15] MEDS ORDERED: MISCELLANEOUS MED 1 EA EA PO PRN (07:00)
[2019-03-15] MEDS ORDERED: ALBUTEROL NEB SCH (07:00)
[2019-03-15] MEDS ORDERED: BISACODYL SUPP (10 MG) 10 MG/SUPP.RECT SUPP.RECT RC PRN (07:00)
[2019-03-15] MEDS ORDERED: LORAZEPAM 1 MG TABLET PO PRN (07:00)
[2019-03-15] MEDS ORDERED: CLONIDINE HCL 0.1 MG TABLET PO PRN (07:00)
--- NOTE | 2019-03-15 07:00 | NUR ---
RN AM SHIFT NOTE PATIENT IN BED IV PATENT AND INTACT. PATIENT UNABLE TO COMMUNICATE. REPOSITIOINED PER PROTOCAL. BED IN LOW POSITION AND CALL LIGHT WITHIN REACH. MULTIPLE WOUNDS NOTED, WOUND TREATMENT TO BE DONE TODAY BY RN. NO DIALYSIS TODAY. ALL NEEDS MET AT THIS TIME CONTINUE TO MONITOR.
--- NOTE | 2019-03-15 07:25 | NUR ---
NUTRITION SERVICES WORKER CLOSING NOTES PATIENT RESTING IN BED, NONVERBAL. ON MECHANICAL VENT TRACH SETTINGS ORDERED, NO RESPIRATORY OR CARDIAC DISTRESS NOTED, SATURATING 100%. PATIENT AFEBRILE. WOUND CONSULT PENDING. IV SITE LEFT AC 18G, FLUSHING AND PATENT, SITE C/D/I, S/L. GTUBE FEEDING RUNNING ORDERED, TOLERATING WELL, MINIMAL RESIDUAL NOTED. PATIENT KEPT CLEAN, DRY, AND COMFORTABLE, REPOSITIONED Q2H. SAFETY MEASURES IN PLACE; CALL LIGHT WITHIN REACH, BED LOCKED AND IN LOWEST POSITION, SIDE RAILS UP X2, BED ALARM ON, HOB ELEVATED, SUCTION EQUIPMENT AT BEDSIDE. ALL ADMITTING ORDERS ATTENDED. ENDORSE TO AM RN FOR NICKY.
[2019-03-15] MEDS ORDERED: FEE PK DOSING 1 MIN EA MC ONE (07:40)
[2019-03-15] MEDS: CARVEDILOL 12.5 MG TABLET PO SCH ×2 (08:04→17:00)
[2019-03-15] MEDS: FUROSEMIDE 20 MG TABLET PO SCH (08:05)
[2019-03-15] MEDS: CALCIUM ACETATE 667 MG TABLET PO SCH ×3 (08:05→18:03)
[2019-03-15] MEDS: AMLODIPINE BESYLATE 10 MG TABLET PO SCH (08:06)
[2019-03-15] MEDS: PANTOPRAZOLE 40 MG TABLET.DR PO SCH ×2 (08:06→17:06)
[2019-03-15 08:07] LABS: CREATININE 3.2 mg/dL (0.6-1.3); MAGNESIUM 2.3 mg/dL (1.8-2.4); PHOSPHORUS 4.2 mg/dL (2.5-4.9); POTASSIUM 3.4 mmol/L (3.5-5.1)
--- NOTE | 2019-03-15 08:56 | NUR ---
WOUND CARE CONSULT: PT PRESENTS WITH MULTIPLE WOUNDS AND SKIN ISSUES, PRESENT ON ADMISSION. DEFER TO SURGICAL TEAM AND PODIATRY TEAM FOR WOUND TREATMENT PLAN. FIRST STEP LOW AIRLOSS MATTRESS ON ORDER. SKIN PROTECTION MEASURES IN PLACE AND DISCUSSED WITH NURSING STAFF. CURRENT PEDRO SCORE IS 10.
[2019-03-15] MEDS ORDERED: Z GUARD REMEDY 2 OZ OINT TP PRN (09:00)
[2019-03-15] MEDS: hydrALAZINE HCL 50 MG TABLET PO SCH ×3 (09:00→16:58)
[2019-03-15] MEDS: LISINOPRIL (20MG) 20 MG TABLET PO SCH (09:00)
[2019-03-15] MEDS: VIT B CMPLX 3/FA/VIT C/BIOTIN 1 TAB TABLET PO SCH (09:11)
[2019-03-15] MEDS: Z GUARD REMEDY 2 OZ OINT TP SCH (09:30)
[2019-03-15] MEDS ORDERED: VANCOMYCIN 1 GM in IV D5W 250 ML IV ONE (10:00)
[2019-03-15] MEDS ORDERED: ALBUTEROL FS 2.5 MG/0.5 ML VIAL.NEB NEB PRN (10:30)
[2019-03-15] MEDS ORDERED: IPRATROPIUM NEB FS 0.5 MG/2.5 ML AMPUL.NEB NEB PRN (10:30)
--- NOTE | 2019-03-15 11:15 | NUR ---
RN NOTE DIALSYSIS CAME FOR TX , AWARE POTASSIUM IS 3.[address] FOR PAST TWO DAYS. DR ARREGUIN WAS HERE THIS AM NO NEW ORDERS FOR POTASSIUM REPLACMENT. HD RN AWARE OF LOW POTASSIUM AND WILL ADJUST HIS LEVELS DURING DIALYSIS TODAY. WOUND TREATMENTS DONE BY RN AND CHOCOLATE PACKER TODAY WHEN CHANGING.
[2019-03-15] MEDS: METOCLOPRAMIDE HCL 10 MG TABLET PO SCH ×3 (11:46→23:30)
--- NOTE | 2019-03-15 12:30 | NUR ---
RN NOTE [facility]TR[facility] WAS CONTACTED ABOUT [facility] AND ARRIVAL. CENTRAL SUPPPLY STATED THE BED IS NOT IN AND WILL ARRIVE TONIGHT.
--- NOTE | 2019-03-15 14:40 | NUR ---
RN NOTE MOTOR BIKE MECHANIC DIALYSIS NURSE VERBALIZED TO RN HE REMOVED 0.8 LITERS DURING TX. BLOOD PRESSURE IS 122/68. PATIENT IS ASLEEP AT THIS TIME. RN ASSESSED PATIENT AFTER TX. FEEDING PATENT AND NO RESIDUAL, IV PATENT AND FLUSHING. CONTINUE TO MONITOR, PATIENT IN BED CALL LIGHT WITHIN REACH BED IN LOW POSITION.
--- NOTE | 2019-03-15 17:03 | NUR ---
RN NOTE C-DIFF SPECIMEN RN NOTED BOWEL MOVEMENT VERY FOWEL SMELL, LIQUID CONSISTENCY AND LARGE AMOUNT. STOOL SAMPLE COLLECTED AND SENT TO LAB FOR C-DIFF SPECIMEN
--- NOTE | 2019-03-15 17:15 | NUR ---
RN CONTACT MD MORRELL CALLED MD CHATO VÁZQUEZ OFFICE TO INFORM OF CIFF COLLLECTION AND ISOLATION OF PATIENT. MESSAGING SERVICE INFORMED RN THE WILL CONTACT CATHERINE HERNANDEZ WHEN SHE GETS THE MESSAGE.
--- NOTE | 2019-03-15 18:04 | NUR ---
RN CLOSING NOTE RN TO ENDORSE X2 MORE STOOL SAMPLES FFOR C-DIFF TO OYSTER CULTIVATOR. INFECTION CONTROLLED WAS NOTIFED AT 1810 OF ORDERS AND ISOLATION. PATIENT IN BED, ATIVAN VIA GTUBE HAS BEEN EFFECTIVE IN RELAXING PATIENT. HE APPEARS MORE CALM NOT PULLING AT TUBES. BED IN LOW POSITION, SIDE RAILS UP , ALL NEEDS MET AT THIS TIME. DIALYSIS NURSE REMOVED 0.88 LITERS DURING TX. LABS WILL BE DRAWN TOMORROW AND THERE IS STANDING ORDER TO TRANSFUSE IF HEMOGLOBIN DROPS BELOW 7.0. PATIENTS CURRRENT LABS TODAY WERE 7.1 HEMOGLOBIN, NO TRANSFUSION INITIATED PER MD ORDER. ALL NEEDS MET AT THIS TIME.
--- NOTE | 2019-03-15 19:15 | NUR ---
SENIOR MEDICAL TECHNOLOGIST NOTE PATIENT IN BED NON VERBAL IN VEGETATIVE STATE. PATIENT RESPONDS OCCASIONALLY TO LIGHT PAIN. PATIENT TOLERATING VENT SETTINGS NO S/S OF RESP DISTRESS. PATIENT SR ON THE MONITOR HR 98. PATIENT HAS 24 G IN LFA PATENT AND INTACT NO S/S OF INFECTION OR INFILTRATION. BED IN LOWEST LOCKED POSITION, HEELS OFFLOADED. PATIENT ON GTUBE FEEDING WITH MINIMAL RESIDUAL. RN WILL CONTINUE TO MONITOR NO S/S OF DISTRESS.
[2019-03-15] MEDS: NEOMY SULF/BACITRAC ZN/POLY 15 GM TUBE TP SCH (20:14)
[2019-03-15] MEDS: SIMVASTATIN 20 MG TABLET PO SCH (21:53)
--- NOTE | 2019-03-15 22:00 | NUR ---
HAND CLOTH EXAMINER NOTE PATIENT HYPERTENSIVE CLONIDINE GIVEN PRN.
--- NOTE | 2019-03-15 22:12 | NUR ---
SURVEYOR HELPER DURING REPOSITIONING PATIENT NOTED TO HAVE A FEVER OF 103, COOLING MEASURES IMPLEMENTED AND TYLENOL GIVEN. RN WILL EVALUATE TEMPERATURE IN 45 MIN
[2019-03-16] VITALS (7 sets, daily range): BP systolic 94–179; BP diastolic 56–94
--- NOTE | 2019-03-16 03:30 | NUR ---
PLATE GRAINER APPRENTICE NOTE WOUND CARE GIVEN ORDERED, BED BATH AND COMPLETE LINEN CHANGE DONE
[2019-03-16] MEDS: PIPERACILLIN /TAZOBACTAM 2.25 G in IV D5W 50 ML IV SCH ×2 (05:51→13:27)
[2019-03-16] MEDS: BLOOD SUGAR DIAGNOSTIC 1 EACH STRIP IN SCH ×4 (05:53→23:40)
[2019-03-16] MEDS: METOCLOPRAMIDE HCL 10 MG TABLET PO SCH ×4 (05:55→23:40)
[2019-03-16] MEDS ORDERED: VANCOMYCIN 500 MG in IV D5W 100 ML IV PRN (06:00)
[2019-03-16 07:08] LABS: BASOPHILS % (AUTO) 0.2 % (0.0-2.0); EOSINOPHILS % (AUTO) 21.4 % (0.0-6.0); HEMATOCRIT 25 % (39-51); HEMOGLOBIN 8.2 g/dL (13.5-17.5); LYMPHOCYTES # (AUTO) 0.9 /CMM (0.8-4.8); LYMPHOCYTES % (AUTO) 5.7 % (20.0-44.0); MEAN CORPUSCULAR HGB CONC 32 g/dl (31.0-36.0); MEAN CORPUSCULAR VOLUME 87 fL (80-96); MONOCYTES % (AUTO) 6.2 % (2.0-12.0); NEUTROPHILS # (AUTO) 10.7 /CMM (1.8-8.9); NEUTROPHILS % (AUTO) 66.5 % (43.0-81.0); PLATELET COUNT (AUTO) 241 /CMM (150-450); RED BLOOD CELL COUNT(AUTO) 2.91 MIL/uL (4.5-6.0); WHITE BLOOD COUNT (AUTO) 16.1 K/uL (4.3-11.0)
[2019-03-16 07:17] LABS: BILIRUBIN,TOTAL 0.4 mg/dL (0.2-1.0); CALCIUM, SERUM 10.1 mg/dL (8.5-10.1); CREATININE 2.8 mg/dL (0.6-1.3); MAGNESIUM 2.2 mg/dL (1.8-2.4); PHOSPHORUS 3.7 mg/dL (2.5-4.9); POTASSIUM 4.2 mmol/L (3.5-5.1); TOTAL PROTEIN, SERUM 7.8 g/dL (6.4-8.2)
--- NOTE | 2019-03-16 07:30 | NUR ---
RN OPENING NOTES REPORT RECEIVED FROM CONTRACT PARALEGAL RN. PT IS IN BED NO SIGNS OF PAIN OR SOB NOTED AT PRESENT TIME. WILL CONTINUE TO MONITOR PT. BED IS LOCKED AND IN LOWEST POSITION.
[2019-03-16] MEDS: CALCIUM ACETATE 667 MG TABLET PO SCH ×3 (08:27→17:23)
[2019-03-16] MEDS: FUROSEMIDE 20 MG TABLET PO SCH (08:27)
[2019-03-16] MEDS: PANTOPRAZOLE 40 MG TABLET.DR PO SCH ×2 (08:27→17:21)
[2019-03-16] MEDS: VIT B CMPLX 3/FA/VIT C/BIOTIN 1 TAB TABLET PO SCH (08:28)
[2019-03-16] MEDS: LISINOPRIL (20MG) 20 MG TABLET PO SCH (08:28)
[2019-03-16] MEDS: hydrALAZINE HCL 50 MG TABLET PO SCH ×3 (08:29→17:23)
[2019-03-16] MEDS: AMLODIPINE BESYLATE 10 MG TABLET PO SCH (08:29)
[2019-03-16] MEDS: CARVEDILOL 12.5 MG TABLET PO SCH ×2 (08:30→17:22)
[2019-03-16] MEDS: NEOMY SULF/BACITRAC ZN/POLY 15 GM TUBE TP SCH (08:30)
[2019-03-16] MEDS: Z GUARD REMEDY 2 OZ OINT TP SCH (08:30)
[2019-03-16] MEDS: NEPRO 1,000 ML BOTTLE GT PRN (12:24)
[2019-03-16] MEDS: ACETAMINOPHEN 650 MG/20.3 ML UDC GT PRN (17:22)
[2019-03-16] MEDS ORDERED: FEE PK DOSING 1 MIN EA MC ONE (18:56)
[2019-03-16] MEDS ORDERED: AMIKACIN 400 MG in IV D5W 100 ML IV PRN (19:00)
[2019-03-16] MEDS ORDERED: DOSING PER PHARMACY-AMIKACI IV XX PRN (19:00)
--- NOTE | 2019-03-16 19:20 | NUR ---
SHOWROOM MANAGER NOTE PATIENT IN BED NON VERBAL IN VEGETATIVE STATE. PATIENT RESPONDS OCCASIONALLY TO LIGHT PAIN. PATIENT TOLERATING VENT SETTINGS NO S/S OF RESP DISTRESS. PATIENT SR ON THE MONITOR HR 89. PATIENT HAS YESI MIDLINE PATENT AND INTACT NO S/S OF INFECTION OR INFILTRATION. BED IN LOWEST LOCKED POSITION, HEELS OFFLOADED. PATIENT ON GTUBE FEEDING WITH MINIMAL RESIDUAL. RN WILL CONTINUE TO MONITOR NO S/S OF DISTRESS.
--- NOTE | 2019-03-16 19:24 | NUR ---
RN CLOSING NOTES PT IS TOLERATING VENT SETTINGS WELL. REPORT GIVEN TO HAND PROFILER RN FOR CONTINUATION OF CARE.
[2019-03-16] MEDS ORDERED: AMIKACIN 400 MG in IV D5W 100 ML IV ONE (20:00)
--- NOTE | 2019-03-16 21:12 | NUR ---
DECKHAND NOTE TELEPHONE CONSENT OBTAINED FROM OF PATIENT MERA DOVE. CONSENT WAS WITNESSED BY PETROS BENNETT. CONSENT FILED IN CHART. Addendum: 03/16/19 at 2137 by CASEY BIRD RN CONSENT WAS FOR SERIAL DEBRIDEMENT OF SACRUM AND BUTTOCKS
[2019-03-16] MEDS: METRONIDAZOLE 500 MG TABLET PO SCH (21:22)
[2019-03-16] MEDS: HYDROGEL DRESSING 90 GM TUBE TP SCH (21:22)
[2019-03-16] MEDS: SIMVASTATIN 20 MG TABLET PO SCH (21:22)
[2019-03-17] VITALS (9 sets, daily range): BP systolic 75–139; BP diastolic 45–80
--- NOTE | 2019-03-17 00:30 | NUR ---
NURSING ASSISTANT NOTE CDIFF RECOLLECTION AND STOOL OB SAMPLES BROUGHT TO LAB, PATIENT GIVEN BATH AND WOUND CARE GIVEN.
[2019-03-17 02:27] LABS: OCCULT BLOOD STOOL NEGATIVE (NEGATIVE)
[2019-03-17] MEDS: METOCLOPRAMIDE HCL 10 MG TABLET PO SCH (05:22)
[2019-03-17] MEDS: BLOOD SUGAR DIAGNOSTIC 1 EACH STRIP IN SCH ×4 (05:22→23:48)
[2019-03-17] MEDS: METRONIDAZOLE 500 MG TABLET PO SCH (05:22)
[2019-03-17 06:57] LABS: EOSINOPHILS % (AUTO) 20.9 % (0.0-6.0); HEMATOCRIT 21 % (39-51); LYMPHOCYTES # (AUTO) 0.7 /CMM (0.8-4.8); LYMPHOCYTES % (AUTO) 4.4 % (20.0-44.0); MEAN CORPUSCULAR HGB CONC 32 g/dl (31.0-36.0); MEAN CORPUSCULAR VOLUME 87 fL (80-96); MONOCYTES # (AUTO) 0.3 /CMM (0.1-1.30); MONOCYTES % (AUTO) 2.1 % (2.0-12.0); NEUTROPHILS # (AUTO) 11.8 /CMM (1.8-8.9); NEUTROPHILS % (AUTO) 72.6 % (43.0-81.0); PLATELET COUNT (AUTO) 217 /CMM (150-450); RED BLOOD CELL COUNT(AUTO) 2.41 MIL/uL (4.5-6.0); WHITE BLOOD COUNT (AUTO) 16.3 K/uL (4.3-11.0)
--- NOTE | 2019-03-17 07:15 | NUR ---
JEWEL CORNER BRUSHING MACHINE OPERATOR NOTES RECIEVED BEDSIDE REPORT. PATIENT NON VERBAL VEGETATIVE STATE. TRACH AND VENT TOLERATING SETTINGS ORDERED.NO PAIN NOTED. SINUS ON MONITOR. GTF JEVITY 1.2 @ 55 ML/HR OFF AT THIS TIME TO RESUME @ 1000. LAV FISTULA CLOTTED RCW HD CATH FRO HD. YESI MIDLINE #18 GAUGE . SAFETY AND ASPIRATION PRECAUTIONS IN PLACE ON CDIFF PRECAUTION D/T HISTORY. WILL CONT TO MONITOR ACCORDINGLY Addendum: 03/17/19 at 1021 by SILVERIO SMILEY RN CORRECTION GTF NEPRO @ 55ML/HR X 18 HRS
[2019-03-17 07:24] LABS: HEMOGLOBIN 6.7 g/dL (13.5-17.5)
--- NOTE | 2019-03-17 07:28 | NUR ---
CRITICAL LAB HGB 6.7 WILL F/U WITH
[2019-03-17 07:29] LABS: CALCIUM, SERUM 9.8 mg/dL (8.5-10.1); CREATININE 4.1 mg/dL (0.6-1.3); MAGNESIUM 2.2 mg/dL (1.8-2.4); POTASSIUM 3.8 mmol/L (3.5-5.1)
[2019-03-17] MEDS: CALCIUM ACETATE 667 MG TABLET PO SCH (08:36)
[2019-03-17] MEDS: VIT B CMPLX 3/FA/VIT C/BIOTIN 1 TAB TABLET PO SCH (08:37)
[2019-03-17] MEDS: FUROSEMIDE 20 MG TABLET PO SCH (08:37)
[2019-03-17] MEDS: LISINOPRIL (20MG) 20 MG TABLET PO SCH (08:37)
[2019-03-17] MEDS: CARVEDILOL 12.5 MG TABLET PO SCH (08:38)
[2019-03-17] MEDS: hydrALAZINE HCL 50 MG TABLET PO SCH (08:38)
[2019-03-17] MEDS: AMLODIPINE BESYLATE 10 MG TABLET PO SCH (08:38)
[2019-03-17] MEDS: HYDROGEL DRESSING 90 GM TUBE TP SCH (08:39)
[2019-03-17] MEDS: Z GUARD REMEDY 2 OZ OINT TP SCH (08:39)
[2019-03-17] MEDS: NEOMY SULF/BACITRAC ZN/POLY 15 GM TUBE TP SCH (08:39)
--- NOTE | 2019-03-17 09:10 | NUR ---
LEFT MESSAGE WITH DR CHATO VÁZQUEZ IN REGARDS TO CRITICAL LAB OF HGB 6.7 STATED SHE IS NOT DOING ROUNDS ANT SOH CALL SERVICE
[2019-03-17 09:17] LABS: EOSINOPHILS % (MANUAL) 19 % (0-4); LYMPHOCYTES % (MANUAL) 7 % (16-48); MONOCYTES % (MANUAL) 1 % (0-11.0); NEUTROPHILS % (MANUAL) 73 (42-76)
[2019-03-17] MEDS: ESOMEPRAZOLE MAGNESIUM 40 MG SUSPDR.PKT GT SCH ×2 (10:06→21:27)
[2019-03-17] MEDS: NEPRO 1,000 ML BOTTLE GT PRN (10:07)
--- NOTE | 2019-03-17 10:24 | NUR ---
LEFT MESSAGE WITH [facility] IN REGARDS TO LOW HGB 6.7 DR KWONG PAGED
[2019-03-17] MEDS ORDERED: EPOETIN ALFA (10,000 UNIT) 10,000 UNIT/ML VIAL IV ONE (11:30)
[2019-03-17] MEDS: INSULIN REGULAR, HUMAN 100 UNIT/ML 3 ML VIAL SQ PRN ×2 (12:37→18:16)
[2019-03-17] MEDS ORDERED: LORAZEPAM 1 MG TABLET GT PRN (12:55)
[2019-03-17] MEDS ORDERED: CLONIDINE HCL 0.1 MG TABLET GT PRN (12:56)
[2019-03-17] MEDS ORDERED: PHARMACY TO CHANGE PO MEDS TO GT/NG XX PRN (13:00)
[2019-03-17] MEDS: METRONIDAZOLE 500 MG TABLET GT SCH ×2 (13:32→21:20)
[2019-03-17] MEDS: hydrALAZINE HCL 50 MG TABLET GT SCH ×2 (13:32→16:22)
[2019-03-17] MEDS: CALCIUM ACETATE 667 MG TABLET GT SCH ×2 (13:32→17:39)
--- NOTE | 2019-03-17 15:29 | NUR ---
RT RECEIVED PT TRACH'D ON [facility] VENT WITH SETTINGS PER MD ORDER. DERMATOLOGY SPECIALIST DONE. VENT PLUGGED INTO RED OUTLET. ALARMS ON AND AUDIBLE. SPARE TRACH AND AMBU BAG AT BEDSIDE. NO SOB OR SIGNS OF DISTRESS NOTED. WILL CONTINUE TO MONITOR FOR ANY CHANGES. Addendum: 03/17/19 at 1753 by PAUL TINSLEY RT Amended: Links added.
[2019-03-17] MEDS: CARVEDILOL 12.5 MG TABLET GT SCH (16:22)
[2019-03-17] MEDS: LACTOBACILLUS RHAMNOSUS GG 1 EACH CAP.SPRINK GT SCH (16:23)
--- NOTE | 2019-03-17 17:30 | NUR ---
BLOOD PICKED UP FROM LAB AND GIVEN TO HD TO ADMINISTER
[2019-03-17] MEDS: METOCLOPRAMIDE HCL 10 MG TABLET GT SCH ×2 (17:38→23:48)
--- NOTE | 2019-03-17 17:54 | NUR ---
BLOOD TRANSFUSION COMPLETE NO ADVERSE REACTION NOTED B/P IMPROVED
--- NOTE | 2019-03-17 18:43 | NUR ---
LABEL OPERATOR NOTES NO SIGNIFICANT CHANGES THROUGHOUT SHIFT PATIENT NON VERBAL VEGETATIVE STATE. TRACH AND VENT TOLERATING SETTINGS ORDERED.NO PAIN NOTED. SINUS ON MONITOR. GTF NEPRO @ 55 ML/HR NO VOMITING OR RESIDUAL NOTED BED BATH GIVEN ORAL CARE DONE ALL WOUND CARE DONE ORDERED.. LAV FISTULA CLOTTED RCW HD CATH FRO HD. YESI MIDLINE #18 GAUGE HD CURRENTLY IN PROGRESS 1 UNIT PRBC GIVEN DURING DIALYSIS ORDERED SAFETY AND ASPIRATION PRECAUTIONS IN PLACE BED IN LOW LOCKED POSITION WILL ENDORSE TO NOC
--- NOTE | 2019-03-17 19:55 | NUR ---
RN INITIAL TELE NOTES RECIEVED PATIENT NON VERBAL VEGETATIVE STATE. TRACH AND VENT TOLERATING SETTINGS ORDERED.NO PAIN NOTED, ON GOING DIALYSIS, WITH PRBC TRANSFUSED. SINUS ON MONITOR. GTF JEVITY 1.2 @ 55 ML/HR GOAL 18 HRS. LAV FISTULA CLOTTED RCW HD CATH FRO HD. YESI MIDLINE #18 GAUGE . SAFETY AND ASPIRATION PRECAUTIONS IN PLACE ON CDIFF PRECAUTION D/T HISTORY. WILL CONT TO MONITOR ACCORDINGLY
[2019-03-17] MEDS ORDERED: VANCOMYCIN 1 GM in IV D5W 250 ML IV ONE (20:00)
[2019-03-17] MEDS: SIMVASTATIN 20 MG TABLET GT SCH (21:20)
[2019-03-18 00:29] VITALS: BP 128/72
[2019-03-18 04:00] VITALS: BP 145/64
[2019-03-18] MEDS: METOCLOPRAMIDE HCL 10 MG TABLET GT SCH ×4 (05:25→23:25)
[2019-03-18] MEDS: METRONIDAZOLE 500 MG TABLET GT SCH ×3 (05:25→21:05)
[2019-03-18] MEDS ORDERED: VANCOMYCIN 500 MG in IV D5W 100 ML IV PRN (06:00)
[2019-03-18] MEDS: BLOOD SUGAR DIAGNOSTIC 1 EACH STRIP IN SCH ×4 (06:18→23:57)
--- NOTE | 2019-03-18 07:00 | NUR ---
MS RN CLOSING NOTE RECIEVED PATEINT IN BED AT 0400. AROUSABLE WHEN NAME CALLED. ON VENTILATOR. NO MANIFESTATION OF PAIN NOTED. IN NO APPARENT DISTRESS THROUGHOUT SHIFT. IV ACCESS IN YESI MIDLINE PATENT AND RUNING TKO. GTUBE IS MAINTAINED, NO RESIDUAL, POSITIVE PALCEMENT, NO FEEDING. BED IS LOW AND LOCKED, SIDE RAILS UP X2, HOB ELEVATED 40 DEGREES. ALL NURSING NEEDS MET, TURNED AND REPOSITIONED Q2HR. CALL LIGHT WITHIN REACH. WILL ENDORSE TO NEXT SHIFT FOR NICKY.
[2019-03-18 07:10] LABS: HEMATOCRIT 25 % (39-51); HEMOGLOBIN 8.1 g/dL (13.5-17.5); LYMPHOCYTES # (AUTO) 0.7 /CMM (0.8-4.8); LYMPHOCYTES % (AUTO) 5.1 % (20.0-44.0); MEAN CORPUSCULAR HGB CONC 32 g/dl (31.0-36.0); MEAN CORPUSCULAR VOLUME 87 fL (80-96); MONOCYTES # (AUTO) 0.6 /CMM (0.1-1.30); MONOCYTES % (AUTO) 4.1 % (2.0-12.0); NEUTROPHILS # (AUTO) 9.3 /CMM (1.8-8.9); NEUTROPHILS % (AUTO) 64.4 % (43.0-81.0); PLATELET COUNT (AUTO) 196 /CMM (150-450); RED BLOOD CELL COUNT(AUTO) 2.87 MIL/uL (4.5-6.0); WHITE BLOOD COUNT (AUTO) 14.4 K/uL (4.3-11.0)
[2019-03-18 07:13] LABS: EOSINOPHILS % (AUTO) 26.4 % (0.0-6.0)
--- NOTE | 2019-03-18 07:25 | NUR ---
RN OPENING NOTES PT IS IN BED TOLERATING VENT SETTING AND SHOWS NO SIGNS OF APPARENT DISTRESS. PT HAS A YESI MIDLINE TKO. PT IS ON MONITOR SR. PT HAS LAV FISTULA THAT IS CLOTTED AND HAS A RCW WHERE HE RECEIVES DIALYSIS. BED IS LOCKED AND IN LOWEST POSITION. WILL CONTINUE TO MONITOR.
[2019-03-18 07:27] LABS: CALCIUM, SERUM 9.3 mg/dL (8.5-10.1); CREATININE 3.1 mg/dL (0.6-1.3); MAGNESIUM 2.1 mg/dL (1.8-2.4); PHOSPHORUS 2.9 mg/dL (2.5-4.9); POTASSIUM 3.9 mmol/L (3.5-5.1)
[2019-03-18 07:50] LABS: EOSINOPHILS % (MANUAL) 28 % (0-4); LYMPHOCYTES % (MANUAL) 4 % (16-48); MONOCYTES % (MANUAL) 3 % (0-11.0); NEUTROPHILS % (MANUAL) 65 (42-76)
[2019-03-18 08:00] VITALS: BP 148/80
[2019-03-18] MEDS: FUROSEMIDE 20 MG TABLET GT SCH (08:24)
[2019-03-18] MEDS: VIT B CMPLX 3/FA/VIT C/BIOTIN 1 TAB TABLET GT SCH (08:24)
[2019-03-18] MEDS: CALCIUM ACETATE 667 MG TABLET GT SCH ×3 (08:24→17:53)
[2019-03-18] MEDS: LACTOBACILLUS RHAMNOSUS GG 1 EACH CAP.SPRINK GT SCH ×2 (08:24→16:53)
[2019-03-18] MEDS: LISINOPRIL (20MG) 20 MG TABLET GT SCH (08:25)
[2019-03-18] MEDS: AMLODIPINE BESYLATE 10 MG TABLET GT SCH (08:25)
--- NOTE | 2019-03-18 08:25 | NUR ---
RT NOTE PT RECEIVED ON [facility] VENT ON THE FOLLOWING NOTED SETTINGS. PT SX'D. PT'S TRACH IS PATENT AND SECURE. VENT IS PLUGGED INTO RED OUTLET AND ALARMS ARE ON AND AUDIBLE. AMBU BAG AND SPARE TRACH ARE AT BEDSIDE. WILL CONT TO MONITOR PT. Addendum: 03/18/19 at 0826 by LEMUEL HOPKINS RT Amended: Links added.
[2019-03-18] MEDS: CARVEDILOL 12.5 MG TABLET GT SCH ×2 (08:26→16:54)
[2019-03-18] MEDS: hydrALAZINE HCL 50 MG TABLET GT SCH ×3 (08:27→16:53)
[2019-03-18] MEDS: HYDROGEL DRESSING 90 GM TUBE TP SCH (08:27)
[2019-03-18] MEDS: NEOMY SULF/BACITRAC ZN/POLY 15 GM TUBE TP SCH (08:28)
[2019-03-18] MEDS: Z GUARD REMEDY 2 OZ OINT TP SCH (08:28)
[2019-03-18] MEDS: ESOMEPRAZOLE MAGNESIUM 40 MG SUSPDR.PKT GT SCH ×2 (08:35→21:05)
[2019-03-18 08:59] LABS: IRON, SERUM 35 ug/dl (50-175); TOTAL IRON BINDING CAPACITY 102 ug/dl (250-450)
--- NOTE | 2019-03-18 09:00 | NUR ---
DR. SNYDER REQUESTING ANOTHER OCCULT BLOOD SAMPLE. AWARE OF PREVIOUS SAMPLE. ALSO ORDERED IRON PANEL.
[2019-03-18] MEDS: NEPRO 1,000 ML BOTTLE GT PRN (10:33)
[2019-03-18 12:00] VITALS: BP 128/78
[2019-03-18 14:56] LABS: OCCULT BLOOD STOOL NEGATIVE (NEGATIVE)
[2019-03-18 16:00] VITALS: BP 140/80
--- NOTE | 2019-03-18 18:41 | NUR ---
RN CLOSING NOTES PT IS RESTING IN BED WITH G-TUBE RUNNING AT 55 MLS/HR . PT TOLERATING VENT SETTING AND YESI MIDLINE RUNNING NS TKO. PT HAD 2 BM. PT CARE DONE AND REPOSITIONING DONE. FAMILY WAS PRESENT AT BEDSIDE AND QUESTIONS ANSWERED. WOUND CARE DONE. WILL ENDORSE CONTINUATION OF CARE TO INSURANCE VERIFICATION SPECIALIST RN.
--- NOTE | 2019-03-18 19:30 | NUR ---
WOOD FURNITURE ASSEMBLER OPENING NOTE RECEIVED PATIENT A/O X1. PATIENT SHOWS NO SIGNS OF DISTRESS OR ANY SOB AT THE MOMENT. PATIENT IS ON VENT WITH AC 18, TV 550, FI02 AT 40%, AND PEEP AT 5. TOLERATING VENT WELL. PATIENT ON THE MONITOR IS SINUS RHYTHM. PATIENT HAS G-TUBE WITH NEPRO RUNNING AT 55ML/HR AND TOLERATING WELL. HAS A RIGHT CHEST WALL CATH ALL INTACT. YESI MIDLINE WITH TKO. ALL SAFETY PRECAUTIONS ARE APPLIED. SIDE RAILS UP X2. WILL CONTINUE TO MONITOR PATIENT.
[2019-03-18 20:00] VITALS: BP 132/69
[2019-03-18] MEDS: SIMVASTATIN 20 MG TABLET GT SCH (21:05)
[2019-03-18] MEDS: ACETAMINOPHEN 650 MG/20.3 ML UDC GT PRN (23:24)
[2019-03-19] VITALS: BP 145/74
[2019-03-19 04:00] VITALS: BP 131/76
[2019-03-19] MEDS: METOCLOPRAMIDE HCL 10 MG TABLET GT SCH ×3 (05:06→17:50)
[2019-03-19] MEDS: METRONIDAZOLE 500 MG TABLET GT SCH ×3 (05:06→21:17)
[2019-03-19] MEDS: BLOOD SUGAR DIAGNOSTIC 1 EACH STRIP IN SCH ×3 (05:06→18:07)
--- NOTE | 2019-03-19 07:30 | NUR ---
CARBON CUTTER INITIAL NOTES RECEIVED PT IN BED, TRACH TO VENT SETTINGS MD ORDERED. NO S/SX OF RESP DISTRESS. ON TELE SR. PT ASLEEP. ON TELE SR. YESI MIDLINE PATENT/FLUSHED. SAFETY MEASURES IN PLACE. CALL LIGHT IN REACH. WILL CONT TO MONITOR.
--- NOTE | 2019-03-19 07:41 | NUR ---
PHYSICIAN RELATIONS SPECIALIST CLOSING NOTE PATIENT IN BED WITH NO SIGNS OF DISTRESS. PATIENT TOLERATING THE VENT WELL AND NO SIGNS OF SOB. ALL SAFETY PRECAUTIONS ARE APPLIED. ENDORSED PATIENT TO MORNING NURSE.
[2019-03-19 07:56] LABS: CALCIUM, SERUM 9.7 mg/dL (8.5-10.1); CREATININE 4.1 mg/dL (0.6-1.3)
[2019-03-19 08:00] VITALS: BP 147/85
[2019-03-19] MEDS: ACETAMINOPHEN 650 MG/20.3 ML UDC GT PRN ×2 (09:23→21:16)
[2019-03-19] MEDS: FUROSEMIDE 20 MG TABLET GT SCH (09:23)
[2019-03-19] MEDS: VIT B CMPLX 3/FA/VIT C/BIOTIN 1 TAB TABLET GT SCH (09:23)
[2019-03-19] MEDS: CALCIUM ACETATE 667 MG TABLET GT SCH ×3 (09:24→17:49)
[2019-03-19] MEDS: ESOMEPRAZOLE MAGNESIUM 40 MG SUSPDR.PKT GT SCH ×2 (09:24→21:16)
[2019-03-19] MEDS: LISINOPRIL (20MG) 20 MG TABLET GT SCH (09:25)
[2019-03-19] MEDS: CARVEDILOL 12.5 MG TABLET GT SCH ×2 (09:25→17:50)
[2019-03-19] MEDS: hydrALAZINE HCL 50 MG TABLET GT SCH ×3 (09:26→17:50)
[2019-03-19] MEDS: LACTOBACILLUS RHAMNOSUS GG 1 EACH CAP.SPRINK GT SCH ×2 (09:27→17:49)
[2019-03-19] MEDS: AMLODIPINE BESYLATE 10 MG TABLET GT SCH (09:27)
[2019-03-19] MEDS: HYDROGEL DRESSING 90 GM TUBE TP SCH (09:40)
[2019-03-19] MEDS: Z GUARD REMEDY 2 OZ OINT TP SCH (09:40)
[2019-03-19] MEDS: NEPRO 1,000 ML BOTTLE GT PRN (11:29)
[2019-03-19 12:00] VITALS: BP 103/51
[2019-03-19] MEDS: NEOMY SULF/BACITRAC ZN/POLY 15 GM TUBE TP SCH (14:32)
[2019-03-19 16:00] VITALS: BP 121/67
--- NOTE | 2019-03-19 16:00 | NUR ---
HARD METALS ENGRAVER HAND NOTES PER PHARMACY, VANCO RANDOM TOO HIGH TO INFUSE POST HD. AMIKACIN TROUGH PENDING; PHARMACY WILL SEND ONCE LAB RESULT READ.
--- NOTE | 2019-03-19 16:31 | NUR ---
PRIVATE DUTY AIDE NOTES PER , PT HAS APPT 03/22/2019 TO PUT IN NEW HD ACCESS AT [facility]. NOTIFIED DR VÁZQUEZ, PER PT IS NOT STABLE TO BE DISCHARGED D/T [facility]. WANTED ME TO CALL ALL SAINTS AND UPDATE THEM SO THAT APPT AT [facility] CAN BE CANCELLED. SPOKE TO PETROS GAMEZ AT ALL [facility], HE WILL CANCEL APPT.
--- NOTE | 2019-03-19 19:16 | NUR ---
CHEMICAL PRODUCTION MACHINE OPERATOR END OF SHIFT NOTES PT STABLE ON VENT. NO S/SX OF RESP DISTRESS. SR ON TELE. NO SIGNIFICANT CHANGES NOTED. ENDORSED TO PM NURSE FOR NICKY. SAFETY MEASURES IN PLACE. CALL LIGHT IN REACH.
--- NOTE | 2019-03-19 19:41 | NUR ---
RT NOTE PT RECEIVED TRACHED ON [facility] VENT ON CHARTED SETTINGS. NO SIGNS OF RESP DISTRESS/SOB NOTED AT THIS TIME. AIRWAY PATENT AND SECURED. VICE SQUAD POLICE OFFICER DONE. PT SUCTIONED. ALARMS SET AND AUDIBLE. AMBUBAG AT BEDSIDE. VENT CONNECTED TO RED OUTLET. WILL CONT TO MONITOR. Addendum: 03/19/19 at 2020 by GAIL MATAMOROS RT Amended: Links added.
[2019-03-19 20:00] VITALS: BP 135/72
[2019-03-19] MEDS: SIMVASTATIN 20 MG TABLET GT SCH (21:17)
[2019-03-20] VITALS: BP 123/71
[2019-03-20] MEDS: BLOOD SUGAR DIAGNOSTIC 1 EACH STRIP IN SCH ×4 (00:43→17:03)
[2019-03-20] MEDS: METOCLOPRAMIDE HCL 10 MG TABLET GT SCH ×4 (00:45→17:04)
[2019-03-20 04:00] VITALS: BP 137/81
[2019-03-20] MEDS: METRONIDAZOLE 500 MG TABLET GT SCH ×3 (05:23→21:27)
[2019-03-20 07:10] LABS: BASOPHILS % (AUTO) 0.1 % (0.0-2.0); HEMATOCRIT 24 % (39-51); HEMOGLOBIN 7.8 g/dL (13.5-17.5); LYMPHOCYTES # (AUTO) 0.9 /CMM (0.8-4.8); LYMPHOCYTES % (AUTO) 5.7 % (20.0-44.0); MEAN CORPUSCULAR HGB CONC 33 g/dl (31.0-36.0); MEAN CORPUSCULAR VOLUME 88 fL (80-96); MONOCYTES # (AUTO) 0.7 /CMM (0.1-1.30); MONOCYTES % (AUTO) 4.1 % (2.0-12.0); NEUTROPHILS # (AUTO) 8.3 /CMM (1.8-8.9); NEUTROPHILS % (AUTO) 51.2 % (43.0-81.0); PLATELET COUNT (AUTO) 177 /CMM (150-450); RED BLOOD CELL COUNT(AUTO) 2.68 MIL/uL (4.5-6.0); WHITE BLOOD COUNT (AUTO) 16.3 K/uL (4.3-11.0)
[2019-03-20 07:14] LABS: CREATININE 3.5 mg/dL (0.6-1.3); MAGNESIUM 2.1 mg/dL (1.8-2.4); PHOSPHORUS 2.6 mg/dL (2.5-4.9)
[2019-03-20 07:19] LABS: EOSINOPHILS % (AUTO) 38.9 % (0.0-6.0)
[2019-03-20 08:00] VITALS: BP 120/72
--- NOTE | 2019-03-20 08:00 | NUR ---
TELE1/RN AM SHIFT INITIAL NOTES RECEIVED PT SLEEP IN BED, PT ALERT X 1, NON-VERBAL, NO GRIMACING OR NO ACUTE DISTRESS NOTED, ON VENTILATOR RATES SET PRESCRIBED, SATURATING @ 100%, RESPIRATIONS EVEN AND UNLABORED, SUCTIONED FOR AIRWAY CLEARANCE. ON TELE MONITORING, SINUS RHYTHM, HR 88. WITH ON GOING GTF @ 55CC/HR, NO GASTRIC RESIDUAL, FLUSHED, PATENT. IV SITE FLUSHED, PATENT WITH NO S/S, SL. PT IS COMFORTABLE, SCHEDULED AM MEDS TO BE GIVEN. CL WITHIN REACHED AND SAFETY MAINTAINED. ON GOING MONITORING.
[2019-03-20] MEDS: LACTOBACILLUS RHAMNOSUS GG 1 EACH CAP.SPRINK GT SCH ×2 (08:32→16:51)
[2019-03-20] MEDS: ESOMEPRAZOLE MAGNESIUM 40 MG SUSPDR.PKT GT SCH ×2 (08:32→21:27)
[2019-03-20] MEDS: VIT B CMPLX 3/FA/VIT C/BIOTIN 1 TAB TABLET GT SCH (08:33)
[2019-03-20] MEDS: CARVEDILOL 12.5 MG TABLET GT SCH ×2 (08:33→16:51)
[2019-03-20] MEDS: FUROSEMIDE 20 MG TABLET GT SCH (08:33)
[2019-03-20] MEDS: hydrALAZINE HCL 50 MG TABLET GT SCH ×3 (08:33→16:50)
[2019-03-20] MEDS: CALCIUM ACETATE 667 MG TABLET GT SCH ×3 (08:34→17:04)
[2019-03-20] MEDS: LISINOPRIL (20MG) 20 MG TABLET GT SCH (08:34)
[2019-03-20] MEDS: AMLODIPINE BESYLATE 10 MG TABLET GT SCH (08:34)
[2019-03-20] MEDS: HYDROGEL DRESSING 90 GM TUBE TP SCH (08:35)
[2019-03-20] MEDS: Z GUARD REMEDY 2 OZ OINT TP SCH (08:35)
[2019-03-20] MEDS: NEOMY SULF/BACITRAC ZN/POLY 15 GM TUBE TP SCH (08:35)
[2019-03-20] MEDS: NEPRO 1,000 ML BOTTLE GT PRN (09:54)
[2019-03-20 11:10] LABS: NEUTROPHILS % (MANUAL) 47 (42-76)
[2019-03-20 11:11] LABS: EOSINOPHILS % (MANUAL) 44 % (0-4); LYMPHOCYTES % (MANUAL) 5 % (16-48); MONOCYTES % (MANUAL) 4 % (0-11.0)
[2019-03-20 12:00] VITALS: BP 111/63
[2019-03-20] MEDS: ACETAMINOPHEN 650 MG/20.3 ML UDC GT PRN (12:15)
[2019-03-20 16:00] VITALS: BP 124/72
--- NOTE | 2019-03-20 19:23 | NUR ---
TELE1/RN AM SHIFT END NOTES ALL NEEDS MET. NO ACUTE CHANGE OF CONDITION NOTED DURING THE SHIFT. PT ENDORSED TO PM NURSE TO CONTINUE CARE. CL WITHIN REACHED AND SAFETY MAINTAINED.
--- NOTE | 2019-03-20 19:53 | NUR ---
CARBON FURNACE OPERATOR NOTE: RECEIVED PT ON BED ASLEEP BUT AROUSES EASILY TO VERBAL AND TACTILE STIMULI, PT NON VERBAL. NO ACUTE DISTRESS NOTED. NO FACIAL GRIMACING OR ANY SIGNS OF PAIN NOTED. ON [facility] VENT, SETTINGS ORDERED. SINUS RHYTHM ON TELE MONITOR HR 89 BPM. GT INTACT AND PATENT, NO RESIDUAL NOTED AT THIS TIME. RIGHT UPPER ARM MIDLINE INTACT AND PATENT, FLUSHING WELL. KEPT CLEAN, DRY AND COMFORTABLE. SAFETY AND FALL PRECAUTIONS OBSERVED AND MAINTAINED. WILL CONTINUE TO MONITOR PT.
[2019-03-20 20:00] VITALS: BP 127/74
[2019-03-20] MEDS: SIMVASTATIN 20 MG TABLET GT SCH (21:27)
[2019-03-21] VITALS: BP 139/77
[2019-03-21] MEDS: METOCLOPRAMIDE HCL 10 MG TABLET GT SCH ×4 (00:06→17:51)
[2019-03-21] MEDS: BLOOD SUGAR DIAGNOSTIC 1 EACH STRIP IN SCH ×4 (00:06→17:48)
[2019-03-21 04:00] VITALS: BP 127/69
[2019-03-21] MEDS: METRONIDAZOLE 500 MG TABLET GT SCH ×2 (05:37→12:36)
--- NOTE | 2019-03-21 05:48 | NUR ---
PATIENT RECEIVED ON TRACH TO VENT WITH SETTINGS OF AC 18, 500 VT, 40%, +5. SUCTIONED FOR MINIMAL, THIN, YELLOW SECRETIONS. AMBU BAG AT BEDSIDE. VENT AND PULSE OXIMETER ALARMS AUDIBLE AND VISIBLE. VENT IS PLUGGED INTO RED OUTLET. Addendum: 03/21/19 at 0549 by CHARLES MOELLER RT Amended: Links added.
[2019-03-21 06:14] LABS: CALCIUM, SERUM 9.6 mg/dL (8.5-10.1); CREATININE 4.6 mg/dL (0.6-1.3); MAGNESIUM 2.1 mg/dL (1.8-2.4); PHOSPHORUS 2.9 mg/dL (2.5-4.9)
[2019-03-21 06:33] LABS: BASOPHILS % (AUTO) 0.1 % (0.0-2.0); HEMATOCRIT 24 % (39-51); HEMOGLOBIN 7.8 g/dL (13.5-17.5); LYMPHOCYTES # (AUTO) 1.1 /CMM (0.8-4.8); LYMPHOCYTES % (AUTO) 6.2 % (20.0-44.0); MEAN CORPUSCULAR HGB CONC 33 g/dl (31.0-36.0); MEAN CORPUSCULAR VOLUME 89 fL (80-96); MONOCYTES # (AUTO) 0.6 /CMM (0.1-1.30); MONOCYTES % (AUTO) 3.4 % (2.0-12.0); NEUTROPHILS # (AUTO) 8.7 /CMM (1.8-8.9); NEUTROPHILS % (AUTO) 48.4 % (43.0-81.0); PLATELET COUNT (AUTO) 187 /CMM (150-450); RED BLOOD CELL COUNT(AUTO) 2.71 MIL/uL (4.5-6.0)
[2019-03-21 06:36] LABS: EOSINOPHILS % (AUTO) 41.9 % (0.0-6.0)
--- NOTE | 2019-03-21 06:36 | NUR ---
YARD PIPE GRADER NOTE: NO CHANGES NOTED THROUGHOUT THE SHIFT. NO APPARENT DISTRESS NOTED. NO FACIAL GRIMACING OR ANY SIGNS OF PAIN NOTED. SINUS RHYTHM ON TELE MONITOR HR 97 BPM. GT INTACT AND PATENT, ABLE TO TOLERATE FEEDING WELL. NO RESIDUAL NOTED AT THIS TIME. WOUND TX DONE. KEPT CLEAN, DRY AND COMFORTABLE. ALL NEEDS ATTENDED. WILL ENDORSE TO DAY SHIFT RN FOR CONTINUITY OF CARE
--- NOTE | 2019-03-21 07:59 | NUR ---
TELE1/RN AM SHIFT INITIAL NOTES RECEIVED PT SLEEP IN BED, PT ALERT, NON-VERBAL, NO GRIMACING OR NO ACUTE DISTRESS NOTED, ON VENTILATOR RATES SET PRESCRIBED, SATURATING @ 99%, RESPIRATIONS EVEN AND UNLABORED, SUCTIONED FOR AIRWAY CLEARANCE. ON TELE MONITORING, SINUS RHYTHM, HR 98. WITH ON GOING GTF @ 55CC/HR, NO GASTRIC RESIDUAL, FLUSHED, PATENT. IV SITE FLUSHED, PATENT WITH NO S/S, SL. PT IS COMFORTABLE, SCHEDULED AM BP MEDS TO BE HELD D/T SCHEDULED DIALYSIS TODAY. PT IS COMFORTABLE. CL WITHIN REACHED AND SAFETY MAINTAINED. ON GOING MONITORING.
[2019-03-21 08:00] VITALS: BP 117/67
--- NOTE | 2019-03-21 08:50 | NUR ---
TELE1/SPINDLE FRAME CARVER PT STARTED DIALYSIS TX, MONITORING.
[2019-03-21] MEDS: hydrALAZINE HCL 50 MG TABLET GT SCH ×3 (09:00→17:52)
[2019-03-21] MEDS: AMLODIPINE BESYLATE 10 MG TABLET GT SCH (09:00)
[2019-03-21] MEDS: CARVEDILOL 12.5 MG TABLET GT SCH ×2 (09:00→17:51)
--- NOTE | 2019-03-21 09:10 | NUR ---
TELE1/RN AMIKACIN LEVEL RECEIVED A CALL FROM SAM (LABORATORY) GAVE RESULT OF AMIKACIN LEVEL 14.2, DR. NEFF AND PHARMACIST NOTIFIED.
[2019-03-21] MEDS: CALCIUM ACETATE 667 MG TABLET GT SCH ×3 (09:12→17:51)
[2019-03-21] MEDS: FUROSEMIDE 20 MG TABLET GT SCH (09:13)
[2019-03-21] MEDS: LACTOBACILLUS RHAMNOSUS GG 1 EACH CAP.SPRINK GT SCH ×2 (09:13→17:51)
[2019-03-21] MEDS: VIT B CMPLX 3/FA/VIT C/BIOTIN 1 TAB TABLET GT SCH (09:14)
[2019-03-21] MEDS: ESOMEPRAZOLE MAGNESIUM 40 MG SUSPDR.PKT GT SCH ×2 (09:14→21:23)
[2019-03-21] MEDS: HYDROGEL DRESSING 90 GM TUBE TP SCH (09:14)
[2019-03-21] MEDS: NEOMY SULF/BACITRAC ZN/POLY 15 GM TUBE TP SCH (09:15)
[2019-03-21] MEDS: Z GUARD REMEDY 2 OZ OINT TP SCH (09:15)
[2019-03-21 10:13] LABS: EOSINOPHILS % (MANUAL) 31 % (0-4); LYMPHOCYTES % (MANUAL) 7 % (16-48); MONOCYTES % (MANUAL) 3 % (0-11.0); NEUTROPHILS % (MANUAL) 59 (42-76)
[2019-03-21 12:00] VITALS: BP 124/73
[2019-03-21] MEDS: SILVER SULFADIAZINE CREAM 25 GM TUBE TP SCH (12:36)
[2019-03-21] MEDS: NEPRO 1,000 ML BOTTLE GT PRN (14:15)
[2019-03-21] MEDS: EPOETIN ALFA (10,000 UNIT) 10,000 UNIT/ML VIAL SQ ONE ×2 (14:54→14:56)
[2019-03-21 16:00] VITALS: BP 125/68
[2019-03-21] MEDS: ACETAMINOPHEN 650 MG/20.3 ML UDC GT PRN (17:50)
--- NOTE | 2019-03-21 19:30 | NUR ---
VIDEO SURVEILLANCE TECHNICIAN NOTE: RECEIVED PT ON BED, NON VERBAL. AT BEDSIDE. NO ACUTE DISTRESS NOTED. NO FACIAL GRIMACING OR ANY SIGNS OF PAIN NOTED. ON [facility] VENT, SETTINGS ORDERED. SINUS RHYTHM ON TELE MONITOR HR 88 BPM. GT INTACT AND PATENT, NO RESIDUAL NOTED AT THIS TIME. RIGHT UPPER ARM MIDLINE FLUSHING WELL. KEPT CLEAN, DRY AND COMFORTABLE. SAFETY AND FALL PRECAUTIONS OBSERVED AND MAINTAINED. WILL CONTINUE TO MONITOR PT.
--- NOTE | 2019-03-21 19:45 | NUR ---
TELE1/RN AM SHIFT END NOTES ALL NEEDS MET, NO ACUTE CHANGE OF CONDITION NOTED DURING THE SHIFT. PT ENDORSED TO PM NURSE TO CONTINUE CARE. CL WITHIN REACHED AND SAFETY MAINTAINED.
--- NOTE | 2019-03-21 19:51 | NUR ---
RT NOTE PT RECEIVED TRACHED ON [facility] VENT ON CHARTED SETTINGS. NO SIGNS OF RESP DISTRESS/SOB NOTED AT THIS TIME. AIRWAY PATENT AND SECURED. SUPERVISOR SALVAGE DONE. PT SUCTIONED. ALARMS SET AND AUDIBLE. AMBUBAG AT BEDSIDE. VENT CONNECTED TO RED OUTLET. WILL CONT TO MONITOR. Addendum: 03/21/19 at 1950 by NEAL BECERRA RT Amended: Links added.
[2019-03-21 20:00] VITALS: BP 102/55
[2019-03-21] MEDS: SIMVASTATIN 20 MG TABLET GT SCH (21:23)
[2019-03-22] VITALS: BP_SYST 124; BP_SYST 146; BP_DIAS 82; BP_DIAS 84
[2019-03-22] MEDS: BLOOD SUGAR DIAGNOSTIC 1 EACH STRIP IN SCH ×5 (00:05→23:17)
[2019-03-22] MEDS: METOCLOPRAMIDE HCL 10 MG TABLET GT SCH ×5 (00:05→23:16)
[2019-03-22 04:00] VITALS: BP_SYST 117; BP_SYST 147; BP_DIAS 86; BP_DIAS 91
[2019-03-22 06:21] LABS: CALCIUM, SERUM 9.8 mg/dL (8.5-10.1); CREATININE 3.5 mg/dL (0.6-1.3); POTASSIUM 3.8 mmol/L (3.5-5.1)
--- NOTE | 2019-03-22 06:54 | NUR ---
LABORATORY ASSOCIATE NOTE: NO CHANGES NOTED THROUGHOUT THE SHIFT. NO APPARENT DISTRESS NOTED. NO FACIAL GRIMACING OR ANY SIGNS OF PAIN NOTED. SINUS RHYTHM ON TELE MONITOR HR 88 BPM. GT INTACT AND PATENT, ABLE TO TOLERATE FEEDING WELL. NO RESIDUAL NOTED AT THIS TIME. WOUND TX DONE. KEPT CLEAN, DRY AND COMFORTABLE. ALL NEEDS ATTENDED. WILL ENDORSE TO DAY SHIFT RN FOR CONTINUITY OF CARE
--- NOTE | 2019-03-22 07:48 | NUR ---
RT Pt received trached on the vent with noted settings. Pt is awake but does not follow commands. Vent alarms are set and audible with BVM by bedside. Vent is plugged into red outlet. No respiratory distress noted at this time. Addendum: 03/22/19 at 1914 by STEPHIE SMILEY RT Amended: Links added.
[2019-03-22 08:00] VITALS: BP 167/87
--- NOTE | 2019-03-22 08:00 | NUR ---
TELE1/RN AM SHIFT INITIAL NOTES RECEIVED PT SLEEP IN BED, PT ALERT, NON-VERBAL, NO ACUTE DISTRESS OR GRIMACING OR NOTED, ON VENTILATOR RATES SET PRESCRIBED, SATURATING @ 100%, RESPIRATIONS EVEN AND UNLABORED, SUCTIONED FOR AIRWAY CLEARANCE. ON TELE MONITORING, SINUS RHYTHM, HR 90. WITH ON GOING GTF @ 55CC/HR, NO GASTRIC RESIDUAL, FLUSHED, PATENT. IV SITE FLUSHED, PATENT WITH NO S/S, SL. PT IS COMFORTABLE, SCHEDULED AM MEDS TO BE GIVEN. CL WITHIN REACHED AND SAFETY MAINTAINED. ON GOING MONITORING.
[2019-03-22] MEDS: AMLODIPINE BESYLATE 10 MG TABLET GT SCH (08:22)
[2019-03-22] MEDS: CALCIUM ACETATE 667 MG TABLET GT SCH ×3 (08:22→17:26)
[2019-03-22] MEDS: FUROSEMIDE 20 MG TABLET GT SCH (08:22)
[2019-03-22] MEDS: ESOMEPRAZOLE MAGNESIUM 40 MG SUSPDR.PKT GT SCH ×2 (08:22→20:36)
[2019-03-22] MEDS: hydrALAZINE HCL 50 MG TABLET GT SCH ×3 (08:23→17:26)
[2019-03-22] MEDS: NEOMY SULF/BACITRAC ZN/POLY 15 GM TUBE TP SCH (08:23)
[2019-03-22] MEDS: HYDROGEL DRESSING 90 GM TUBE TP SCH (08:23)
[2019-03-22] MEDS: CARVEDILOL 12.5 MG TABLET GT SCH ×2 (08:23→17:27)
[2019-03-22] MEDS: LACTOBACILLUS RHAMNOSUS GG 1 EACH CAP.SPRINK GT SCH ×2 (08:23→17:27)
[2019-03-22] MEDS: VIT B CMPLX 3/FA/VIT C/BIOTIN 1 TAB TABLET GT SCH (08:23)
[2019-03-22] MEDS: Z GUARD REMEDY 2 OZ OINT TP SCH (08:24)
[2019-03-22] MEDS: SILVER SULFADIAZINE CREAM 25 GM TUBE TP SCH (08:30)
[2019-03-22 12:00] VITALS: BP 139/68
[2019-03-22] MEDS: PROSOURCE / PROSTAT (PYXIS) 30 ML UDC GT SCH ×2 (13:02→17:27)
[2019-03-22 16:00] VITALS: BP 131/69
[2019-03-22] MEDS: ACETAMINOPHEN 650 MG/20.3 ML UDC GT PRN (17:26)
[2019-03-22] MEDS: NEPRO 1,000 ML BOTTLE GT PRN (17:27)
--- NOTE | 2019-03-22 19:38 | NUR ---
TELE1/RN AM SHIFT END NOTES ALL NEEDS MET. NO ACUTE CHANGE OF CONDITION NOTED DURING THE SHIFT, PT ENDORSED TO PM NURSE TO CONTINUE CARE. CL WITHIN REACHED AND SAFETY MAINTAINED.
[2019-03-22 20:00] VITALS: BP 113/58
[2019-03-22] MEDS: SIMVASTATIN 20 MG TABLET GT SCH (21:39)
[2019-03-23] VITALS (9 sets, daily range): BP systolic 79–159; BP diastolic 41–79
--- NOTE | 2019-03-23 00:19 | NUR ---
SURVEILLANCE OBSERVER NOTE PATIENT REPOSITIONED. PATIENT HAD LARGE BOWEL MOVEMENT. PATIENT GIVEN BED BATH, COMPLETE LINEN CHANGE DONE AND WOUND CARE GIVEN.
[2019-03-23] MEDS: METOCLOPRAMIDE HCL 10 MG TABLET GT SCH ×4 (05:07→23:35)
[2019-03-23] MEDS: BLOOD SUGAR DIAGNOSTIC 1 EACH STRIP IN SCH ×4 (05:07→23:35)
--- NOTE | 2019-03-23 07:20 | NUR ---
SUPERINTENDENT SALES OPENING NOTES RECEIVED REPORT FROM PM NURSE.PATIENT IN BED,AWAKE, NON-VERBAL, OPEN EYES.NO ACUTE DISTRESS OR GRIMACING OR NOTED.ON VENTILATOR .TOLERATING SETTINGS ORDERED. RESPIRATIONS EVEN AND UNLABORED. ON TELE MONITOR. SINUS RHYTHM,HR 87. ON GTF @ 55CC/HR. IV SITE PATENT WITH NO S/S INFECTION OR INFILTRATION NOTED. BED IS LOW AND IN LOCKED POSITION.CALL LIGHT IN REACH.BED ALARM ON.WILL CONTINUE TO MONITOR.
[2019-03-23] MEDS: ESOMEPRAZOLE MAGNESIUM 40 MG SUSPDR.PKT GT SCH ×2 (09:01→21:14)
[2019-03-23] MEDS: CALCIUM ACETATE 667 MG TABLET GT SCH ×3 (09:02→17:58)
[2019-03-23] MEDS: LACTOBACILLUS RHAMNOSUS GG 1 EACH CAP.SPRINK GT SCH ×2 (09:02→17:58)
[2019-03-23] MEDS: FUROSEMIDE 20 MG TABLET GT SCH (09:02)
[2019-03-23] MEDS: CARVEDILOL 12.5 MG TABLET GT SCH ×2 (09:03→17:59)
[2019-03-23] MEDS: AMLODIPINE BESYLATE 10 MG TABLET GT SCH (09:03)
[2019-03-23] MEDS: VIT B CMPLX 3/FA/VIT C/BIOTIN 1 TAB TABLET GT SCH (09:04)
[2019-03-23] MEDS: PROSOURCE / PROSTAT (PYXIS) 30 ML UDC GT SCH ×2 (09:04→17:58)
[2019-03-23] MEDS: hydrALAZINE HCL 50 MG TABLET GT SCH ×3 (09:06→17:59)
[2019-03-23] MEDS: HYDROGEL DRESSING 90 GM TUBE TP SCH (09:07)
[2019-03-23] MEDS: SILVER SULFADIAZINE CREAM 25 GM TUBE TP SCH (09:08)
[2019-03-23] MEDS: Z GUARD REMEDY 2 OZ OINT TP SCH (09:08)
[2019-03-23] MEDS: NEOMY SULF/BACITRAC ZN/POLY 15 GM TUBE TP SCH (09:08)
[2019-03-23 09:42] LABS: BASOPHILS % (AUTO) 0.1 % (0.0-2.0); HEMATOCRIT 23 % (39-51); HEMOGLOBIN 7.5 g/dL (13.5-17.5); LYMPHOCYTES # (AUTO) 1.2 /CMM (0.8-4.8); LYMPHOCYTES % (AUTO) 7.1 % (20.0-44.0); MEAN CORPUSCULAR HGB CONC 32 g/dl (31.0-36.0); MEAN CORPUSCULAR VOLUME 89 fL (80-96); MONOCYTES # (AUTO) 0.6 /CMM (0.1-1.30); PLATELET COUNT (AUTO) 141 /CMM (150-450); RED BLOOD CELL COUNT(AUTO) 2.64 MIL/uL (4.5-6.0); WHITE BLOOD COUNT (AUTO) 16.3 K/uL (4.3-11.0)
[2019-03-23 09:58] LABS: EOSINOPHILS % (AUTO) 51.8 % (0.0-6.0)
[2019-03-23 10:15] LABS: ALBUMIN 1.8 g/dL (3.4-5.0); BILIRUBIN,TOTAL 0.4 mg/dL (0.2-1.0); CALCIUM, SERUM 9.9 mg/dL (8.5-10.1); CREATININE 4.8 mg/dL (0.6-1.3); MAGNESIUM 2.2 mg/dL (1.8-2.4); PHOSPHORUS 3.2 mg/dL (2.5-4.9); POTASSIUM 4.3 mmol/L (3.5-5.1)
[2019-03-23 10:53] LABS: EOSINOPHILS % (MANUAL) 55 % (0-4); LYMPHOCYTES % (MANUAL) 6 % (16-48); MONOCYTES % (MANUAL) 4 % (0-11.0); NEUTROPHILS % (MANUAL) 35 (42-76)
[2019-03-23] MEDS: ACETAMINOPHEN 650 MG/20.3 ML UDC GT PRN (12:06)
--- NOTE | 2019-03-23 14:00 | NUR ---
BPM ANALYST NOTE GOT NEW ORDER FOR BLOOD TRANSFUSION FROM [facility]GOT CONSENT FOR BLOOD TRANSFUSION FROM .2 RN CONSENTED.
--- NOTE | 2019-03-23 19:24 | NUR ---
MANAGER DRIVE CLOSING NOTES PATIENT IN BED,AWAKE, NON-VERBAL, OPEN EYES.NO ACUTE DISTRESS OR GRIMACING OR NOTED.ON VENTILATOR .TOLERATING SETTINGS ORDERED. RESPIRATIONS EVEN AND UNLABORED. ON TELE MONITOR. SINUS RHYTHM,HR 86. ON GTF @ 55CC/HR. IV SITE PATENT WITH NO S/S INFECTION OR INFILTRATION NOTED. BED IS LOW AND IN LOCKED POSITION.CALL LIGHT IN REACH.BED ALARM ON.FAMILY VISITED.ANSWERED ALL QUESTIONS.S/P HD AND BLOOD TRANSFUSION WITH HD.NO REACTIONS NOTED.VITAL SIGNS STABLE.H/H TRO BE DONE @1900.ENDORSED TO PM NURSE FOR NICKY.
--- NOTE | 2019-03-23 19:45 | NUR ---
GAS ENGINE OPERATOR NOTE: RECEIVED PT ON BED, NON VERBAL. NO ACUTE DISTRESS NOTED. NO FACIAL GRIMACING OR ANY SIGNS OF PAIN NOTED. ON [facility] VENT, SETTINGS ORDERED. SINUS RHYTHM ON TELE MONITOR HR 95 BPM. GT INTACT AND PATENT, NO RESIDUAL NOTED AT THIS TIME. RIGHT UPPER ARM MIDLINE INTACT AND PATENT, FLUSHING WELL. KEPT CLEAN, DRY AND COMFORTABLE. SAFETY AND FALL PRECAUTIONS OBSERVED AND MAINTAINED. WILL CONTINUE TO MONITOR PT.
[2019-03-23 21:07] LABS: HEMATOCRIT 26 % (39-51); HEMOGLOBIN 8.5 g/dL (13.5-17.5); MEAN CORPUSCULAR HGB CONC 33 g/dl (31.0-36.0); MEAN CORPUSCULAR VOLUME 86 fL (80-96); PLATELET COUNT (AUTO) 112 /CMM (150-450); RED BLOOD CELL COUNT(AUTO) 3.03 MIL/uL (4.5-6.0); WHITE BLOOD COUNT (AUTO) 11.9 K/uL (4.3-11.0)
[2019-03-23] MEDS: SIMVASTATIN 20 MG TABLET GT SCH (21:13)
[2019-03-24] VITALS: BP 128/89
--- NOTE | 2019-03-24 00:23 | NUR ---
RT NOTE PT REMAINS MECHANICALLY VENTILATED VIA CUFFED TRACHEOSTOMY TUBE. CUFF INFLATED. TRACH TUBE MIDLINE AND SECURE. VENTILATOR SETTINGS PRESCRIBED. ALARMS SET PER PROTOCOL AND AUDIBLE. VENT PLUGGED IN TO RED OUTLET. AMBU BAG AT BED SIDE. NO DISTRESS NOTED. Addendum: 03/24/19 at 0024 by ESHA WILSON RT Amended: Links added.
[2019-03-24 04:00] VITALS: BP 122/56
[2019-03-24] MEDS: NEPRO 1,000 ML BOTTLE GT PRN (04:34)
[2019-03-24] MEDS: METOCLOPRAMIDE HCL 10 MG TABLET GT SCH ×2 (05:06→12:21)
[2019-03-24] MEDS: BLOOD SUGAR DIAGNOSTIC 1 EACH STRIP IN SCH ×2 (05:06→12:21)
--- NOTE | 2019-03-24 06:34 | NUR ---
PROVIDER ENGAGEMENT EXECUTIVE NOTE: NO CHANGES NOTED THROUGHOUT THE SHIFT. NO APPARENT DISTRESS NOTED. NO FACIAL GRIMACING OR ANY SIGNS OF PAIN NOTED. SINUS RHYTHM ON TELE MONITOR HR 85 BPM. GT INTACT AND PATENT, ABLE TO TOLERATE FEEDING WELL. NO RESIDUAL NOTED AT THIS TIME. WOUND TX DONE. KEPT CLEAN, DRY AND COMFORTABLE. ALL NEEDS ATTENDED. WILL ENDORSE TO DAY SHIFT RN FOR CONTINUITY OF CARE
[2019-03-24] MEDS ORDERED: METO-295 PO (06:37)
[2019-03-24] MEDS ORDERED: Hydrogel Dressing TP (06:37)
--- NOTE | 2019-03-24 07:15 | NUR ---
STORE STANDARDS ASSOCIATE OPENING NOTES RECEIVED REPORT FROM PM NURSE.PATIENT IN BED,AWAKE, NON-VERBAL, OPEN EYES.NO ACUTE DISTRESS OR GRIMACING OR NOTED.ON VENTILATOR .TOLERATING SETTINGS ORDERED. RESPIRATIONS EVEN AND UNLABORED. ON TELE MONITOR. SINUS RHYTHM,HR 86. ON GTF @ 55CC/HR. IV SITE PATENT WITH NO S/S INFECTION OR INFILTRATION NOTED. BED IS LOW AND IN LOCKED POSITION.CALL LIGHT IN REACH.BED ALARM ON.WILL CONTINUE TO MONITOR.
[2019-03-24 08:00] VITALS: BP 143/83
--- NOTE | 2019-03-24 08:00 | NUR ---
SHERIFF DEPUTY NOTE SEEN BY [facility]GOT ORDER FOR DISCHARGE THE PATIENT.
[2019-03-24] MEDS: PROSOURCE / PROSTAT (PYXIS) 30 ML UDC GT SCH (08:45)
[2019-03-24] MEDS: LACTOBACILLUS RHAMNOSUS GG 1 EACH CAP.SPRINK GT SCH (08:45)
[2019-03-24] MEDS: VIT B CMPLX 3/FA/VIT C/BIOTIN 1 TAB TABLET GT SCH (08:45)
[2019-03-24] MEDS: ESOMEPRAZOLE MAGNESIUM 40 MG SUSPDR.PKT GT SCH (08:45)
[2019-03-24] MEDS: CALCIUM ACETATE 667 MG TABLET GT SCH ×2 (08:45→12:21)
[2019-03-24] MEDS: CARVEDILOL 12.5 MG TABLET GT SCH (08:46)
[2019-03-24] MEDS: AMLODIPINE BESYLATE 10 MG TABLET GT SCH (08:46)
[2019-03-24] MEDS: hydrALAZINE HCL 50 MG TABLET GT SCH ×2 (08:47→12:21)
[2019-03-24] MEDS: HYDROGEL DRESSING 90 GM TUBE TP SCH (08:47)
[2019-03-24] MEDS: Z GUARD REMEDY 2 OZ OINT TP SCH (08:48)
[2019-03-24] MEDS: NEOMY SULF/BACITRAC ZN/POLY 15 GM TUBE TP SCH (08:48)
[2019-03-24] MEDS: SILVER SULFADIAZINE CREAM 25 GM TUBE TP SCH (08:48)
[2019-03-24] MEDS: FUROSEMIDE 20 MG TABLET GT SCH (09:04)
[2019-03-24 12:00] VITALS: BP 126/81
[2019-03-24 12:21] VITALS: BP 126/81
--- NOTE | 2019-03-24 15:35 | NUR ---
CREEL OPERATOR OPENING NOTES RECEIVED REPORT FROM PM NURSE.PATIENT IN BED,AWAKE, NON-VERBAL, OPEN EYES.NO ACUTE DISTRESS OR GRIMACING OR NOTED.ON VENTILATOR .TOLERATING SETTINGS ORDERED. RESPIRATIONS EVEN AND UNLABORED. ON TELE MONITOR. SINUS RHYTHM,HR 86. ON GTF @ 55CC/HR. IV SITE PATENT WITH NO S/S INFECTION OR INFILTRATION NOTED. BED IS LOW AND IN LOCKED POSITION.CALL LIGHT IN REACH.BED ALARM ON.D/C PLANNING.WILL CONTINUE TO MONITOR. Addendum: 03/24/19 at 1536 by NIRU FLORENCE RN WRONG TIME [id number]
--- NOTE | 2019-03-24 15:40 | NUR ---
DEPUTY DISTRICT CUSTOMS DIRECTOR NOTE PATIENT DISCHARGED TO [facility] IN STABLE CONDITION,NO SOB NO DISTRESS NOTED.VITAL SIGNS STABLE.H/H 8.11/14.ALL BELONGINGS TAKEN.REPORT GIVEN TO ERICKA RN AT FACILITY. VENANCIO MADE AWARE ABOUT TRANSFER.WOUND CARE DONE.PATIENT CLEAN AND DRY.MIDLINE KEPT IN PLACE PER REQUEST FROM NURSE.DRESSING INTACT AND CLEAN.
[2019-04-28] MEDS ORDERED: EPOE200011 IJ (11:59)
== END 2019-03-24 15:45 | DRG 470 ==
LOC: ER 16:43 → TELE1 19:40
PROVIDERS: ADMIT Internal Medicine; ATTEND Internal Medicine
PROC: 5A1955Z Respiratory Ventilation, Greater than 96 Consecutive Hours (ICD-10-PCS; 2019-03-14)
PROC: 5A1D70Z Performance of Urinary Filtration, Intermittent, Less than 6 Hours Per Day (ICD-10-PCS; 2019-03-15)
PROC: 05H533Z Insertion of Infusion Device into Right Subclavian Vein, Percutaneous Approach (ICD-10-PCS; 2019-03-16)
PROC: 30233N1 Transfusion of Nonautologous Red Blood Cells into Peripheral Vein, Percutaneous Approach (ICD-10-PCS; principal; 2019-03-17)
PROC: 0JB70ZZ Excision of Back Subcutaneous Tissue and Fascia, Open Approach (ICD-10-PCS; principal; 2019-03-17)
PROC: 0JB90ZZ Excision of Buttock Subcutaneous Tissue and Fascia, Open Approach (ICD-10-PCS; principal; 2019-03-17)
DX: I12.0 Hypertensive chronic kidney disease with stage 5 chronic kidney disease or end stage renal disease (principal); Z99.11 Dependence on respirator [ventilator] status; G93.1 Anoxic brain damage, not elsewhere classified; L89.154 Pressure ulcer of sacral region, stage 4; J96.11 Chronic respiratory failure with hypoxia; R40.3 Persistent vegetative state; L89.323 Pressure ulcer of left buttock, stage 3; R13.10 Dysphagia, unspecified; N18.6 End stage renal disease; L89.610 Pressure ulcer of right heel, unstageable; L89.622 Pressure ulcer of left heel, stage 2; D64.9 Anemia, unspecified; B35.1 Tinea unguium; Z93.1 Gastrostomy status; I25.10 Atherosclerotic heart disease of native coronary artery without angina pectoris; Z86.73 Personal history of transient ischemic attack (TIA), and cerebral infarction without residual deficits; Z99.2 Dependence on renal dialysis; F09 Unspecified mental disorder due to known physiological condition; M24.542 Contracture, left hand; M24.541 Contracture, right hand; S70.322A Blister (nonthermal), left thigh, initial encounter; S70.321A Blister (nonthermal), right thigh, initial encounter; S50.822A Blister (nonthermal) of left forearm, initial encounter; X58.XXXA Exposure to other specified factors, initial encounter; Y93.9 Activity, unspecified; S60.422A Blister (nonthermal) of right middle finger, initial encounter; S20.319A Abrasion of unspecified front wall of thorax, initial encounter; L98.8 Other specified disorders of the skin and subcutaneous tissue; S90.511A Abrasion, right ankle, initial encounter; S90.822A Blister (nonthermal), left foot, initial encounter; S81.811A Laceration without foreign body, right lower leg, initial encounter; D72.829 Elevated white blood cell count, unspecified; D63.1 Anemia in chronic kidney disease; Y92.129 Unspecified place in nursing home as the place of occurrence of the external cause
CPT/HCPCS: 31720; 36415; 36569; 71045-TC; 80048-TC; 80053-TC; 80076-TC; 80150; 80202-TC; 82272-TC; 82962-TC; 83540-TC; 83605-TC; 83735-TC; 84100-TC; 84484-TC; 85025-TC; 85027-TC; 85730-TC; 86706; 86850-TC; 86921-TC; 87040-TC; 87081-TC; 87340; 90935-TC; 94002-TC; 94003-TC; 94760-TC; 94762-TC; 99082-TC; A4623; A6248; A6253; A6403; A7526; G0378; J0278; J0885; J1815; J2543; J3370; J7030; J7050; J7060; J8597; P9016-BL

== ENCOUNTER 2019-03-28 14:58 | Inpatient (IN) | payer OTHER ==
[~2019-03-28] VITALS: Ht 167.6 cm; Wt 75.1 kg
[~2019-03-28 14:58] MED LIST changes: +ACET-73 PO; -ALLO100T PO; -CALC100067 PO; +Hydrogel Dressing TP; +LORA-259 GT; +METO-295 PO; -NIFE30TA91 PO; +ONDA4TAB5 GT; +PANT40TA4 PO; +PROT946L PO
--- NOTE | 2019-03-28 15:10 | NUR ---
RT Pt brought into ER by ambulance, pt received trached on vent vent with noted settings. Pt switched over to hospital ventilator, alarms are set and audible with BVM by bedside. Pt does not follow commands. Vent is plugged into red outlet. No respiratory distress noted at this time. Addendum: 03/28/19 at 1534 by STEPHIE SMILEY RT Amended: Links added.
--- NOTE | 2019-03-28 15:20 | NUR ---
CHRISTOPH RODRIGUEZ FROM [facility] 68 YEAR OLD MALE SECONDARY TO HYPOTENSION PER REPORT. ALERT TO TACTILE STIMULI NON VERBAL. VENT/TRACH DEPENDENT SETTINGS AT 18/500/40%/5. NOTED WITH MUTILPLE SKIN SORES WITH TX DRESSINGS AND DISCOLORATION. WAITING TO BE SEEN BY
--- NOTE | 2019-03-28 15:45 | NUR ---
SANITARY AIDE AT BEDSIDE FOR CHEST X-RAY
[2019-03-28 15:48] LABS: BASOPHILS % (AUTO) 0.3 % (0.0-2.0); HEMATOCRIT 22 % (39-51); HEMOGLOBIN 7.2 g/dL (13.5-17.5); LYMPHOCYTES # (AUTO) 0.9 /CMM (0.8-4.8); MEAN CORPUSCULAR HGB CONC 33 g/dl (31.0-36.0); MEAN CORPUSCULAR VOLUME 87 fL (80-96); MONOCYTES % (AUTO) 6.5 % (2.0-12.0); NEUTROPHILS # (AUTO) 7.6 /CMM (1.8-8.9); NEUTROPHILS % (AUTO) 51.4 % (43.0-81.0); PLATELET COUNT (AUTO) 94 /CMM (150-450); RED BLOOD CELL COUNT(AUTO) 2.51 MIL/uL (4.5-6.0); WHITE BLOOD COUNT (AUTO) 14.8 K/uL (4.3-11.0)
[2019-03-28 15:49] LABS: EOSINOPHILS % (AUTO) 35.8 % (0.0-6.0)
[2019-03-28 15:51] LABS: CALCIUM, SERUM 8.4 mg/dL (8.5-10.1); CARBON DIOXIDE 31 mmol/L (21-32); CHLORIDE 98 mmol/L (98-107); CREATININE 3.9 mg/dL (0.6-1.3); GLUCOSE 102 mg/dL (74-106); POTASSIUM 3.5 mmol/L (3.5-5.1); SODIUM SERUM 134 mmol/L (136-145); UREA NITROGEN, BLOOD 63 mg/dL (7-18)
[2019-03-28 15:57] LABS: ALANINE AMINOTRANSFERASE 29 U/L (12-78); ALKALINE PHOSPHATASE 165 U/L (46-116); ASPARTATE AMINOTRANSFERASE 59 U/L (15-37); BILIRUBIN,DIRECT 0.2 mg/dL (0.0-0.2); BILIRUBIN,TOTAL 0.4 mg/dL (0.2-1.0); TOTAL PROTEIN, SERUM 7.2 g/dL (6.4-8.2)
--- NOTE | 2019-03-28 16:03 | NUR ---
CALLED [facility]PHR. PAGED PUBLIC ADDRESS TECHNICIAN
--- NOTE | 2019-03-28 16:07 | NUR ---
CALLED NURSING SUP FOR TELE BED
--- NOTE | 2019-03-28 16:36 | NUR ---
US TECH AT BEDSIDE
[2019-03-28] MEDS ORDERED: ONDANSETRON HCL/PF 4 MG/2 ML VIAL IVP PRN (17:00)
[2019-03-28] MEDS ORDERED: MAGNESIUM HYDROXIDE 30 ML UDC PO PRN (17:00)
[2019-03-28] MEDS ORDERED: Z GUARD REMEDY 2 OZ OINT TP PRN (17:00)
[2019-03-28] MEDS ORDERED: MAG HYDROX/AL HYDROX/SIMETH 30 ML UDC PO PRN (17:00)
[2019-03-28] MEDS: PANTOPRAZOLE 40 MG VIAL IV SCH (17:00)
[2019-03-28 17:15] LABS: EOSINOPHILS % (MANUAL) 33 % (0-4); LYMPHOCYTES % (MANUAL) 6 % (16-48); MONOCYTES % (MANUAL) 2 % (0-11.0); NEUTROPHILS % (MANUAL) 59 (42-76)
--- NOTE | 2019-03-28 17:18 | NUR ---
REPORT GIVEN TO TATO TO CONTINUE NICKY
--- NOTE | 2019-03-28 17:33 | NUR ---
US TECH AT [facility] FOR ECHO
[2019-03-28] MEDS ORDERED: NUTR100037 GT (17:35)
[2019-03-28] MEDS: CALCIUM ACETATE 667 MG TABLET PO SCH (18:00)
[2019-03-28] MEDS: PROSOURCE / PROSTAT (PYXIS) 30 ML UDC PO SCH (18:00)
[2019-03-28 18:02] VITALS: BP 144/80
[2019-03-28 18:17] VITALS: BP 149/79
--- NOTE | 2019-03-28 18:28 | NUR ---
BLOOD INITATED AT 1802 PATIENT IN STABLE CONDITION NO REACTIONS NOTED
--- NOTE | 2019-03-28 18:28 | NUR ---
TRANSPORTED PATIENT WITH RT TO BED 329 TATO REPORT WAS ALREADY GIVEN TO CONTINUE NICKY
[2019-03-28] MEDS ORDERED: ONDANSETRON 4 MG TAB.RAPDIS PO PRN (18:30)
[2019-03-28] MEDS ORDERED: IPRATROPIUM NEB FS 0.5 MG/2.5 ML AMPUL.NEB NEB PRN (18:30)
[2019-03-28] MEDS ORDERED: ALBUTEROL FS 2.5 MG/0.5 ML VIAL.NEB NEB PRN (18:30)
[2019-03-28 18:35] VITALS: BP 146/84
[2019-03-28] MEDS ORDERED: Medication Not On Formulary EA (Ipratropium/Albuterol Sulfate (Duoneb 2.5-0.5 Mg/3 Ml So IH SCH (19:00)
[2019-03-28 19:02] VITALS: BP 144/91
--- NOTE | 2019-03-28 19:40 | NUR ---
POSTAL SUPERINTENDENT NOTES Received patient A/O x1, nonverbal. On high Butler's position on bed with trach, vent settings noted, no SOB/respiratory distress noted, saturating well. With on going BT 1 unit PRBC @ 100ml/hr as ordered, no ASE noted at this time, vital signs stable, will monitor accordingly. With G-tube in place, no feeding noted at this time. Per AM RN, held feeding at this time due to possible GI Bleed. Put on tele monitor with NSR noted. No discomfort noted at this time. Kept on bed clean dry and comfortable. On fall precautions, call light at bedside. Will continue to monitor accordingly.
--- NOTE | 2019-03-28 19:45 | NUR ---
PIPE LAYER ADMITTING NOTES ADMITTED PATIENT TO UNIT [facility]IA [facility] FROM ER AT 1830 ACCOMPANIED BY Paramjit PRADHAN AND RESPIRATORY THERAPIST. PT NON-VERBAL, OPEN HIS EYES AND RESPONSIVE TO TACTILE STIMULI. ON MECHANICAL VENTILATOR @ PRESCRIBED PARAMETERS, TOLERATING SETTINGS WELL WITH NO SOB NOTED, SP02 NOTED AT 100%. PT WITH YESI MIDLINE IN PLACE WITH ONGOING BLOOD TRANSFUSION WITH NO ADVERSE REACTIONS NOTED. PT PLACED ON TELE-MONITORING WITH CURRENT READING OF SINUS RHYTHM AND HR ON THE 80'S, NO CARDIAC DISTRESS NOTED. PT WITH G-TUBE IN PLACE AND PATENT. SAFETY MEASURES INITIATED: BED PLACED IN LOW LOCKED POSITION WITH SIDE-RAILS UP X3. CALL LIGHT WITHIN REACH. CORPORATE ADMINISTRATIVE ASSISTANT ALEKSANDRA EL AWARE OF ADMISSION. ENDORSED TO LABORATORY ADMINISTRATIVE DIRECTOR NURSE TO CONTINUE ADMITTION PROCESS.
[2019-03-28 20:00] VITALS: BP 157/95
--- NOTE | 2019-03-28 20:48 | NUR ---
PT RCVD TRACH'D SHILEY 8 ON VENT WITH NOTED SETTINGS. SX DONE PRN. PT IS NON VERBAL AND RESPONDS TO STIMULI WHEN SUCTIONED NO RESPIRATORY DISTRESS NOTED. ANNEALING OVEN OPERATOR DONE. VENT PLUGGED INTO RED OUTLET, ALARMS SET AND AUDIBLE, AMBU BAG AT BEDSIDE. WILL CONTINUE TO MONITOR THE PT FOR ANY CHANGES.
--- NOTE | 2019-03-28 20:48 | NUR ---
BRAZING MACHINE SETTER NOTES SKIN ASSESSMENT DONE, PHOTOS TAKEN AND DOCUMENTED. PATIENT ON CONTINUOUS PULSE OX, SATURATING 100%. RCW PERMA CATH NOTED, COVERED WITH CLEAN DRY DRESSING, REMAINED INTACT.
--- NOTE | 2019-03-28 20:56 | NUR ---
HOSPICE HOME HEALTH AIDE NOTES TRANSFER OF CARE, ENDORSED TO PETROS MONK.
[2019-03-28 21:20] VITALS: BP 131/90
--- NOTE | 2019-03-28 21:20 | NUR ---
END BLOOD TRANSFUSION, TOLERATED WELL. NO RESPIRATORY DISTRESS OR SKIN RASHES NOTED. VITALS WNL. WILL CONTINUE TO MONITOR.
[2019-03-28] MEDS ORDERED: SIMVASTATIN 20 MG TABLET PO SCH (22:00)
[2019-03-29] VITALS: BP 133/75
[2019-03-29 04:00] VITALS: BP 136/80
--- NOTE | 2019-03-29 07:06 | NUR ---
JTAC NOTES PATIENT ASLEEP IN BED WITH NO DISTRESS NOTED. CALL LIGHT WITHIN REACH. TRACH INTACT AND PATENT AND BREATHING EASILY ON VENTILATOR. GT IN PLACE AND CLAMPED. NPO STATUS MAINTAINED. URINE AND STOOL COLLECTED AND AWAITING LAB HIGH SCHOOL TUTOR. SPUTUM SPECIMEN OBTAINED BY RT. LEFT ARM AV SHUNT IN PLACE WITH +4 EDEMA AND ELEVATED VIA PILLOWS. RUC PERMA CATH INTACT WITH NO BLEEDING, REDNESS, OR SWELLING NOTED. YESI MIDLINE INTACT AND PATENT. BED IN LOW LOCK SETTING. ROOM FREE OF CLUTTER AND BELONGINGS KEPT NEAR BEDSIDE. WILL CONTINUE TO MONITOR
--- NOTE | 2019-03-29 07:10 | NUR ---
MONTESSORI TEACHER OPENING NOTES RECEIVED PT LYING ON BED,ALERT/ORIENTED X0,NONVERBAL BUT REACTING TO TACTILE STIMULI.ON TELE HR IS 83 WITH NSR WITH MECHANICAL VENTILATOR,SATURATING WELL.NO SOB AND ACUTE DISTRESS NOTED.RIGHT UA MIDLINE,LEFT UA AV SHUNT AND RIGHT UA PERMA CATH PRESENT,SITE IS CLEAN,DRY AND INTACT.NO INFILTRATION NOTED.NO ACTIVE BLEEDING NOTED.SAFETY IS MAINTAINED AT ALL TIMES.BED IS IN LOW POSITION AND LOCKED,SIDERAILSX4.WILL CONTINUE TO MONITOR THE PT CLOSELY.
[2019-03-29 07:35] LABS: CALCIUM, SERUM 8.7 mg/dL (8.5-10.1); CREATININE 4.6 mg/dL (0.6-1.3); MAGNESIUM 2.2 mg/dL (1.8-2.4); PHOSPHORUS 3.3 mg/dL (2.5-4.9); POTASSIUM 3.9 mmol/L (3.5-5.1)
[2019-03-29 07:37] LABS: BASOPHILS % (AUTO) 0.3 % (0.0-2.0); HEMATOCRIT 27 % (39-51); HEMOGLOBIN 9.2 g/dL (13.5-17.5); LYMPHOCYTES # (AUTO) 0.9 /CMM (0.8-4.8); MEAN CORPUSCULAR HGB CONC 34 g/dl (31.0-36.0); MEAN CORPUSCULAR VOLUME 86 fL (80-96); MONOCYTES # (AUTO) 0.7 /CMM (0.1-1.30); MONOCYTES % (AUTO) 6.9 % (2.0-12.0); NEUTROPHILS # (AUTO) 4.6 /CMM (1.8-8.9); NEUTROPHILS % (AUTO) 43.6 % (43.0-81.0); PLATELET COUNT (AUTO) 163 /CMM (150-450); RED BLOOD CELL COUNT(AUTO) 3.14 MIL/uL (4.5-6.0); WHITE BLOOD COUNT (AUTO) 10.6 K/uL (4.3-11.0)
[2019-03-29 07:45] LABS: OCCULT BLOOD STOOL NEGATIVE (NEGATIVE)
[2019-03-29 07:49] LABS: EOSINOPHILS % (AUTO) 41.2 % (0.0-6.0)
[2019-03-29 08:00] VITALS: BP 128/73
[2019-03-29] MEDS: CALCIUM ACETATE 667 MG TABLET PO SCH ×3 (08:00→17:02)
[2019-03-29 08:05] LABS: THYROID STIMULATING HORMONE 6.024 uIU/mL (0.358-3.74)
[2019-03-29 08:09] LABS: APPEARANCE,URINE Clear (CLEAR); BILIRUBIN,URINE Negative (NEGATIVE); BLOOD, URINE Moderate Ery/uL (NEGATIVE); COLOR,URINE Yellow (YELLOW); KETONES,URINE Negative (NEGATIVE); LEUKOCYTE ESTERASE ,URINE Negative (NEGATIVE); NITRITE, URINE Negative (NEGATIVE); PROTEIN,URINE >=300 mg/dl (NEGATIVE); UGLUCOSE Negative (NEGATIVE); UROBILINOGEN,URINE 0.2 EU/dL (0.2)
[2019-03-29 08:10] LABS: PH,URINE >9.0 (5.0-8.0)
[2019-03-29] MEDS: PROSOURCE / PROSTAT (PYXIS) 30 ML UDC PO SCH ×2 (08:31→17:00)
[2019-03-29] MEDS: VIT B CMPLX 3/FA/VIT C/BIOTIN 1 TAB TABLET PO SCH (08:31)
[2019-03-29] MEDS: PANTOPRAZOLE 40 MG VIAL IV SCH ×2 (08:35→16:24)
[2019-03-29] MEDS ORDERED: PANTOPRAZOLE 40 MG TABLET.DR PO SCH (09:00)
[2019-03-29 10:49] LABS: EOSINOPHILS % (MANUAL) 35 % (0-4); LYMPHOCYTES % (MANUAL) 4 % (16-48); NEUTROPHILS % (MANUAL) 61 (42-76)
[2019-03-29 12:00] VITALS: BP 128/73
[2019-03-29 13:56] LABS: BACTERIA,URINE Rare /HPF (None Seen); SQUAMOUS EPITHELIAL CELL,UR Rare /HPF (None Seen)
[2019-03-29 16:00] VITALS: BP 140/86
[2019-03-29] MEDS: HYDROGEL DRESSING 90 GM TUBE TP SCH (17:05)
[2019-03-29] MEDS: SILVER SULFADIAZINE CREAM 25 GM TUBE TP SCH (17:05)
--- NOTE | 2019-03-29 17:30 | NUR ---
CRANE CREW SUPERVISOR NOTES RELAYED KUB RESULT TO MORRIS ABURTO,ORDERED TO RESUME THE TUBE FEEDING NEPRO @55 ML/HR STARTS AT LOW RATE AND REACH THE RATE TOLERATED AND RESUME THE G TUBE MEDICATIONS,RD CONSULTATION IN AM.NEW ORDERS NOTED AND CARRIED OUT.
--- NOTE | 2019-03-29 17:40 | NUR ---
HAND SCUDDER NOTES SO PHARMACIST OLENA ORDERED TO CHANGE ALL THE MEDICATIONS FROM PO TO G TUBE ROUTE IN Aug.
--- NOTE | 2019-03-29 17:47 | NUR ---
RT Patient received trach'd and on ventilator with ordered settings. Vent is plugged into the red outlet w bmv @ hob. Patient suctioned with no adverse reactions. Patient is stable. No respiratory distress noted though out shift. Peep and fio2 titrated per Dr. Funk. Will pass on report to studio hand RT. Addendum: 03/29/19 at 1849 by CAMPOS CHAUDHARY RT Amended: Links added.
[2019-03-29] MEDS: NEPRO 1,000 ML BOTTLE GT PRN (18:07)
--- NOTE | 2019-03-29 18:07 | NUR ---
LOG CHAIN FEEDER NOTES TUBE FEEDING NEPRO @10CC/HR IS STARTED,TOLERATING WELL.MINIMAL GASTRIC RESIDUAL NOTED.
--- NOTE | 2019-03-29 18:36 | NUR ---
LITERATURE TEACHER CLOSING NOTES PT IS LYING ON BED WITH MECHANICAL VENTILATOR,TOLERATING WELL.NO SOB AND ACUTE DISTRESS NOTED.G TUBE FEEDING IS RUNNING,TOLERATING WELL.MINIMAL GASTRIC RESIDUAL NOTED.MIDLINE AND PERMA CATH IS IN PLACE.NO SIGNIFICANT CHANGES NOTED IN THE SHIFT.VITAL SIGNS ARE STABLE.WILL ENDORSE TO CONFIGURATION CONSULTANT RN FOR NICKY.
--- NOTE | 2019-03-29 19:48 | NUR ---
DENTAL THERAPIST NOTES PATIENT AWAKE IN BED WITH NO DISTRESS NOTED. CALL LIGHT WITHIN REACH. DIALYSIS INITIATED BY DIALYSIS NURSE. TRACH INTACT AND PATENT AND BREATHING EASILY ON VENTILATOR. GTF NEPHRO RUNNING @ 10ML/HR AND TOLERATING WELL. LEFT ARM AV SHUNT IN PLACE WITH +4 EDEMA AND ELEVATED VIA PILLOWS. RUC PERMA CATH INTACT WITH NO BLEEDING, REDNESS, OR SWELLING NOTED. YESI MIDLINE INTACT AND PATENT. BED IN LOW LOCK SETTING. ROOM FREE OF CLUTTER AND BELONGINGS KEPT NEAR BEDSIDE. WILL CONTINUE TO MONITOR
--- NOTE | 2019-03-29 20:06 | NUR ---
OBTAINED POLST ORDER FROM [facility]. SPOKE WITH , VENANCIO DOVE, AND PER WOULD LIKE TO MAINTAIN DNR/DNI ORDER. DR. HIGH MADE AWARE WITH ORDER FOR DNR/DNI AND COSIGNED WITH CHARGE NURSE. POLST FILED IN CHART.
--- NOTE | 2019-03-29 22:00 | NUR ---
END DIALYSIS, 500ML OUT. PATIENT IN STABLE CONDITION. VITALS WNL. AND SON AT BEDSIDE.
[2019-03-29] MEDS: SIMVASTATIN 20 MG TABLET GT SCH (22:54)
[2019-03-30 00:18] VITALS: BP 159/86
[2019-03-30 04:01] VITALS: BP 174/93
[2019-03-30] MEDS: HYDROCODONE/APAP 5/325MG 1 EACH TABLET PO PRN (05:31)
--- NOTE | 2019-03-30 05:49 | NUR ---
RT NOTE PATIENT RECEIVED ON MECHANICAL VENT. WITH NOTED SETTINGS. VENTILATOR IS PLUGGED TO RED OUTLET AND ALARMS ARE SET AND AUDIBLE. TRACH IS PATENT AND SECURED. SPARE TRACH AND BMV AT BEDSIDE. SUCTION SMALL WHITE THIN SECRETIONS THROUGH OUT THE NIGHT. BREATH SOUNDS WERE COARSE BEFORE SUCTION AND CLEAR AFTER SUCTION. PATIENT MAINTAINED HEART RATE, RESPIRATORY RATE, AND O2 SATURATIONS WITHIN NORMAL RANGES. NO SOB NOTED. REPORT WILL BE GIVEN TO DAY SHIFT. Addendum: 03/30/19 at 0551 by NIELS DICKINSON RT Amended: Links added.
--- NOTE | 2019-03-30 06:48 | NUR ---
FUEL CONVERSION TECHNICIAN NOTES PATIENT ASLEEP IN BED WITH NO DISTRESS NOTED. CALL LIGHT WITHIN REACH. TRACH INTACT AND PATENT AND BREATHING EASILY ON VENTILATOR. GTF NEPHRO RUNNING @ 30ML/HR AND TOLERATING WELL. LEFT ARM AV SHUNT IN PLACE WITH +4 EDEMA AND ELEVATED VIA PILLOWS. RUC PERMA CATH INTACT WITH NO BLEEDING, REDNESS, OR SWELLING NOTED. YESI MIDLINE INTACT AND PATENT. WOUND CARE RENDERED AND TOLERATED WELL. BED IN LOW LOCK SETTING. ROOM FREE OF CLUTTER AND BELONGINGS KEPT NEAR BEDSIDE. WILL CONTINUE TO MONITOR
--- NOTE | 2019-03-30 06:55 | NUR ---
WOUND CARE CONSULT WOUND CARE RECEIVED CONSULT FOR WOUNDS. WOUND CARE WILL DEFER CONSULT AND ALL TREATMENT PLANS TO PLASTIC SURGICAL TEAM INCLUDING DPHellen CLARK WHO ARE ALL CURRENTLY FOLLOWING THIS PATIENT. PATIENT WITH PEDRO AT 9, ALL PRESSURE ULCER PREVENTION MEASURES ARE NOTED TO BE IN PLACE. WILL SEE PRN.
--- NOTE | 2019-03-30 07:30 | NUR ---
RN MS NOTES PT IN BED, AWAKE, NON VERBAL, NO SIGN OF PAIN OR DISTRESS, ON TRACH/VENT, GT FEEDING INFUSING WELL, TURNED AND REPOSITIONED FOR COMFORT, KEPT WARM AND COMFORTABLE IN BED.
[2019-03-30 08:00] VITALS: BP 145/75
[2019-03-30 08:12] LABS: ALBUMIN 2.1 g/dL (3.4-5.0); BILIRUBIN,DIRECT 0.2 mg/dL (0.0-0.2); BILIRUBIN,TOTAL 0.4 mg/dL (0.2-1.0); TOTAL PROTEIN, SERUM 7.5 g/dL (6.4-8.2)
[2019-03-30] MEDS ORDERED: SILVER SULFADIAZINE CREAM 25 GM TUBE TP SCH (09:00)
[2019-03-30] MEDS: VIT B CMPLX 3/FA/VIT C/BIOTIN 1 TAB TABLET PO SCH (09:07)
[2019-03-30] MEDS: PANTOPRAZOLE 40 MG VIAL IV SCH ×2 (09:07→17:52)
[2019-03-30] MEDS: CALCIUM ACETATE 667 MG TABLET PO SCH ×3 (09:07→19:27)
[2019-03-30] MEDS: PROSOURCE / PROSTAT (PYXIS) 30 ML UDC PO SCH ×2 (09:08→17:52)
[2019-03-30] MEDS: HYDROGEL DRESSING 90 GM TUBE TP SCH (09:08)
[2019-03-30] MEDS: SILVER SULFADIAZINE CREAM 25 GM TUBE TP SCH (09:08)
--- NOTE | 2019-03-30 11:41 | NUR ---
DIRECTOR OF MARKETING NOTES PT IN BED, ASLEEP, EASY TO AROUSE, NOT IN DISTRESS, NO FACIAL GRIMACING, GT FEEDING TOLERATING WELL, REPOSITIONED FOR COMFORT.
[2019-03-30 16:00] VITALS: BP 154/81
[2019-03-30] MEDS: ACETAMINOPHEN 325 MG TABLET PO PRN (18:07)
--- NOTE | 2019-03-30 18:44 | NUR ---
DURABLE MEDICAL EQUIPMENT TECHNICIAN NOTES PT IN BED, RESTING, NO SIGN OF PAIN OR DISTRESS, TOLERATING GT FEEDING WELL, SEEN BY DR. CLARK, SKIN TREATMENTS DONE, PM CARE PROVIDED, TURNED AND REPOSITIONED Q2 HOURS, PM MEDS GIVEN, ALL NEEDS ATTENDED.
--- NOTE | 2019-03-30 19:35 | NUR ---
RN Notes Received patient asleep, on mechanical vent with settings in place and tolerated well. No signs of distress and discomfort noted. Telemonitor reads Sinus rhythm with PVC's with heart rate at 94. Right upper arm midline patent and intact.. GT intact with ongoing feeding and tolerated well. Noted with multiple scattered blisters. Laft arm edema noted and kept elevated on pillows. Bilateral heels dressing intact and kept offloaded, will turn and reposition per protocol. Multiple scattered small wound covered with mepilex. Kept patient clean and dry. Will continue to monitor.
[2019-03-30 20:30] VITALS: BP 163/96
[2019-03-30] MEDS: SIMVASTATIN 20 MG TABLET GT SCH (21:15)
[2019-03-30 22:00] VITALS: BP 163/96
[2019-03-30] MEDS ORDERED: SIMVASTATIN 20 MG TABLET GT SCH (22:00)
[2019-03-31] VITALS (7 sets, daily range): BP systolic 155–181; BP diastolic 90–104
[2019-03-31] MEDS: NEPRO 1,000 ML BOTTLE GT PRN ×2 (00:17→22:34)
--- NOTE | 2019-03-31 00:48 | NUR ---
PT RCVD CHUCK'D ON MECHANICAL VENT WITH CHARTED SETTINGS. SX DONE. PT CHUCK IS PATENT AND SECURE. VENT PLUGGED INTO RED OUTLET. VENT ALARMS ARE ON AND AUDIBLE. AMBU BAG AT BEDSIDE. Addendum: 03/31/19 at 0049 by VIVIANE COLLIER RT Amended: Links added.
[2019-03-31] MEDS: HYDROCODONE/APAP 5/325MG 1 EACH TABLET PO PRN ×3 (04:59→17:17)
--- NOTE | 2019-03-31 04:59 | NUR ---
RN Notes Vinton 5/325 mg tab given via GT prior to wound care and sponge bath. Will continue to monitor patient.
--- NOTE | 2019-03-31 05:48 | NUR ---
RN Notes Patient stable overnight, afebrile. Mechanical vent tolerated well, suction secretions PRN. Tele monitor reads Sinus Rhythm with heart rate at 92. GT feeding tolerated well, increase feeding to goal rate 55ml/hr. Wound care done, turned and repositioned per protocol. Premedicated prior to wound care and sponge bath. Kept patient clean and dry.All needs attended. Will continue to monitor.
--- NOTE | 2019-03-31 08:00 | NUR ---
SINGLE RESOURCE BOSS Notes Received patient asleep, on mechanical vent with settings in place and tolerated well. No signs of distress and discomfort noted. Telemonitor reads Sinus rhythm with PVC's with heart rate at 94. Right upper arm midline patent and intact.. GT intact with ongoing feeding and tolerated well. HOB elevated.Suctioned secretions orally and via trach as needed. Noted with multiple scattered blisters. Left arm edema noted and kept elevated on pillows. Bilateral heels dressing intact and kept offloaded, will turn and reposition per protocol. Multiple scattered small wound covered with mepilex. Kept patient clean and dry. Will continue to monitor.
[2019-03-31] MEDS: PANTOPRAZOLE 40 MG VIAL IV SCH ×2 (08:32→17:02)
[2019-03-31] MEDS: CALCIUM ACETATE 667 MG TABLET PO SCH ×3 (08:32→17:02)
[2019-03-31] MEDS: PROSOURCE / PROSTAT (PYXIS) 30 ML UDC PO SCH ×2 (08:32→17:02)
[2019-03-31] MEDS: VIT B CMPLX 3/FA/VIT C/BIOTIN 1 TAB TABLET PO SCH (08:32)
[2019-03-31] MEDS: HYDROGEL DRESSING 90 GM TUBE TP SCH (08:33)
[2019-03-31] MEDS: SILVER SULFADIAZINE CREAM 25 GM TUBE TP SCH (08:33)
[2019-03-31] MEDS: LORAZEPAM 1 MG TABLET PO PRN (12:00)
--- NOTE | 2019-03-31 12:45 | NUR ---
PT IS HAVING EPISODESOF A FLUTTER WITH V RUNS,HIGH PVCS WITH HR 149 THEN GOES BACK TO HR 90'S,ASYMPTOMATIC.NOTIFIED DR ERASMO KWONG WITH ORDER TO DO STAT EKG.PT IS AWAKE BUT CALM WITH NO SOB OR ANY DISTRESS NOTED.
--- NOTE | 2019-03-31 15:30 | NUR ---
PT IS HAVING A FLUTTER WITH V RUNS MOSTLY FLUTTER WITH HR 147 THE HIGHEST.STAT EKG DONE SAYING ABNORMAL EKG WITH POSSIBLE LATERAL INFARCT. IT'S SR AT THIS TIME HR 87 AND ALTERNATES TO A FLUTTER.BP 156/97 HR 88 RR 18 O2 SAT 100%.PT IS ASYMPTOMATIC WITH NO S/S OF PAIN OR DISTRESS. NOTIFIED DR ERASMO KWONG WITH ORDERS TO NOTIFY THE MASTER FIRE CONTROL TECHNICIAN,DR VASQUES.PAGED DR VASQUES.AWAITING TO RETURN CALL.
--- NOTE | 2019-03-31 15:39 | NUR ---
DR VASQUES RETURNED CALL AND MADE AWARE OF PT'S CONDITION WITH NO NEW ORDER.
--- NOTE | 2019-03-31 18:51 | NUR ---
PT MADE SOFT YELLOW BM 2X.GOOD PERICARE DONE.WOUND TX DONE AGAIN DUE TO SOILAGE. TURNED AND REPOSITIONED EVERY TWO HRS.HOB ELEVATED.SUCTIONED ORAL AND TRACH SECRETIONS PRN.NO S/S OF PAIN OR DISTRESS.ON TELE MONITOR WITH SR HR 97.
--- NOTE | 2019-03-31 19:00 | NUR ---
pneumatic riveter notes Received Pt from morning nurse. Pt is resting in bed comfortably. Pt is on mechanical vent with settings in placed. No SOB. No S/S of distress noted. clinical research monitor showed sinus rhytm 92 bpm. Right upper arm midline is intact, and patent. Right upper chest permacath is intact and patent. GT is intact, patent and running nephro 55 ml/hr. Pt tolerated well. Repositioning and turning Q 2hr. bilateral heels and elbow kept offloaded. Noted with multiple blisters and edema on left arm and keep elevated with pillows. Suctions secretion orally and via trach as needed. Pt is schedule to have hemodialysis today and consent is signed and placed in Pt's chart. Safety precautions is maintained. Bed at low position, brakes locked, side rails up X3 and call light is within reach. Will continue to monitor.
--- NOTE | 2019-03-31 20:04 | NUR ---
drama critic notes HD at bedside. head golf professional is PETROS Alvarenga.
[2019-03-31] MEDS: SIMVASTATIN 20 MG TABLET GT SCH (22:07)
--- NOTE | 2019-03-31 22:10 | NUR ---
marketing lead notes Hemodialysis is done. Output 1.5 L per dialysis nurse. Pt tolerated activity well. VS is stable. Cardiac monitored showed sinus rhytm 92 bpm. Will continue to monitor.
[2019-04-01] VITALS (8 sets, daily range): BP systolic 144–175; BP diastolic 78–103
[2019-04-01] MEDS: HYDROCODONE/APAP 5/325MG 1 EACH TABLET PO PRN
--- NOTE | 2019-04-01 06:20 | NUR ---
PETROS [place] notes Contacted and informed Dr. Marin to get an order for ENT to change trach to XLT. Charge nurse Maribell is informed and aware. Will continue to monitor. Addendum: 04/01/19 at 0624 by DEISY FORREST RN It's wrong Pt.
--- NOTE | 2019-04-01 07:00 | NUR ---
FASHION DIRECTOR closing notes Pt is resting in bed comfortably. Pt is on mechanical vent. No SOB. No S/S of distress noted. Suctions oral and vent as needed. GT is intact, patent and running nephro @ 55 ml/hr. Pt tolerated well. Routine meds were given as ordered. Tele monitor showed sinus rhytm 85 bpm. Wound care is provided.Turned and repositioned Q 2hr. Kept Pt clean, dry, warm and comfortable. All needs met and attended. Safety precautions is maintained. Will endorse to morning nurse for NICKY.
--- NOTE | 2019-04-01 08:00 | NUR ---
LAND EXAMINER Notes Received patient asleep, on mechanical vent with settings in place and tolerated well. No signs of distress and discomfort noted. Telemonitor reads Sinus rhythm heart rate at 94. Right upper arm midline patent and intact.. GT intact with ongoing feeding and tolerated well. HOB elevated.Suctioned secretions orally and via trach as needed. Noted with multiple scattered blisters. Left arm edema noted and kept elevated on pillows. Bilateral heels dressing intact and kept offloaded, will turn and reposition per protocol. Multiple scattered small wound covered with mepilex. Kept patient clean and dry. Will continue to monitor.
--- NOTE | 2019-04-01 08:08 | NUR ---
PT RCVD CHUCK'D ON MECHANICAL VENT WITH CHARTED SETTINGS. SX DONE. PT CHUCK IS PATENT AND SECURE. VENT PLUGGED INTO RED OUTLET. VENT ALARMS ARE ON AND AUDIBLE. AMBU BAG AT BEDSIDE. Addendum: 04/01/19 at 0808 by VIVIANE COLLIER RT Amended: Links added.
[2019-04-01] MEDS: PANTOPRAZOLE 40 MG VIAL IV SCH (09:00)
[2019-04-01] MEDS: CALCIUM ACETATE 667 MG TABLET PO SCH ×3 (09:00→17:14)
[2019-04-01] MEDS: PROSOURCE / PROSTAT (PYXIS) 30 ML UDC PO SCH ×2 (09:00→17:14)
[2019-04-01] MEDS: VIT B CMPLX 3/FA/VIT C/BIOTIN 1 TAB TABLET PO SCH (09:00)
[2019-04-01] MEDS: SILVER SULFADIAZINE CREAM 25 GM TUBE TP SCH (09:02)
[2019-04-01] MEDS: HYDROGEL DRESSING 90 GM TUBE TP SCH (09:02)
[2019-04-01 09:29] LABS: BASOPHILS # (AUTO) 0.1 /CMM (0.0-0.2); BASOPHILS % (AUTO) 0.6 % (0.0-2.0); HEMATOCRIT 27 % (39-51); HEMOGLOBIN 8.9 g/dL (13.5-17.5); LYMPHOCYTES # (AUTO) 0.7 /CMM (0.8-4.8); LYMPHOCYTES % (AUTO) 6.6 % (20.0-44.0); MEAN CORPUSCULAR HGB CONC 33 g/dl (31.0-36.0); MEAN CORPUSCULAR VOLUME 87 fL (80-96); MONOCYTES % (AUTO) 9.3 % (2.0-12.0); NEUTROPHILS # (AUTO) 4.8 /CMM (1.8-8.9); NEUTROPHILS % (AUTO) 42.7 % (43.0-81.0); PLATELET COUNT (AUTO) 176 /CMM (150-450); RED BLOOD CELL COUNT(AUTO) 3.13 MIL/uL (4.5-6.0); WHITE BLOOD COUNT (AUTO) 11.2 K/uL (4.3-11.0)
[2019-04-01 09:32] LABS: EOSINOPHILS % (AUTO) 40.8 % (0.0-6.0)
[2019-04-01 09:41] LABS: BILIRUBIN,TOTAL 0.4 mg/dL (0.2-1.0); CALCIUM, SERUM 9.4 mg/dL (8.5-10.1); CREATININE 4.1 mg/dL (0.6-1.3); PHOSPHORUS 2.9 mg/dL (2.5-4.9); POTASSIUM 3.5 mmol/L (3.5-5.1)
[2019-04-01 09:49] LABS: LYMPHOCYTES % (MANUAL) 8 % (16-48); MONOCYTES % (MANUAL) 3 % (0-11.0); NEUTROPHILS % (MANUAL) 45 (42-76)
[2019-04-01 09:50] LABS: EOSINOPHILS % (MANUAL) 44 % (0-4)
--- NOTE | 2019-04-01 11:07 | NUR ---
PHARMACIST,TERRY WAS ASKING IF WE NEED TO TREAT PT WITH PT'S MICROBIO C/S RESULTS FROM RESP C/S :NIKOLAS POTTS. NOTIFIED DR ERASMO KWONG WHO STATED THAT HE WILL.
[2019-04-01] MEDS ORDERED: FEE PK DOSING 1 MIN EA MC ONE (16:28)
[2019-04-01] MEDS ORDERED: VANCOMYCIN 500 MG in IV D5W 100 ML IV PRN (16:30)
[2019-04-01] MEDS ORDERED: PIPERACILLIN /TAZOBACTAM 2.25 G in IV D5W 50 ML IV SCH (17:00)
[2019-04-01] MEDS ORDERED: VANCOMYCIN 1 GM in IV D5W 250 ML IV ONE (18:00)
[2019-04-01] MEDS ORDERED: DOSING PER PHARMACY-AMIKACI IV XX PRN (18:30)
[2019-04-01] MEDS ORDERED: AMPICILLIN 1 GM in IV NS 0.9% 50 ML IV ONE (18:30)
[2019-04-01] MEDS ORDERED: AMIKACIN 400 MG in IV D5W 100 ML IV PRN (18:30)
[2019-04-01] MEDS: NEPRO 1,000 ML BOTTLE GT PRN (18:37)
[2019-04-01] MEDS ORDERED: AMIKACIN 400 MG in IV D5W 100 ML IV ONE (20:00)
--- NOTE | 2019-04-01 20:58 | NUR ---
TELE/RN ON INITIAL ROUNDING AT 1930, PATIENT APPEARED SLEEPING, APPEAR COMFORTABLE, NO DISTRESS NOTED, ON [facility] VENTILATOR, HOB ELEVATED, GT FEEDING INFUSING, WILL MONITOR.
[2019-04-02] VITALS: BP 148/87
[2019-04-02] MEDS: AMPICILLIN 1 GM in IV NS 0.9% 50 ML IV SCH ×4 (00:13→17:43)
[2019-04-02 04:00] VITALS: BP 150/84
--- NOTE | 2019-04-02 06:24 | NUR ---
MS/RN PATIENT IS AWAKE AT THIS TIME, APPEAR COMFORTABLE, NO SIGNS OF DISTRESS NOTED, HOB ELEVATED, MECH VENT WORKING WELL, ALL NEEDS ATTENDED AT THIS TIME, WILL CONTINUE TO MONITOR.
[2019-04-02 07:30] VITALS: BP 140/89
--- NOTE | 2019-04-02 08:00 | NUR ---
COOKIE PADDER Notes Received patient asleep, on mechanical vent with settings in place and tolerated well. No signs of distress and discomfort noted. Telemonitor reads Sinus rhythm with heart rate at 95. Right upper arm midline patent and intact.. GT intact with ongoing feeding and tolerated well. HOB elevated.Suctioned secretions orally and via trach as needed. Noted with multiple scattered blisters. Left arm edema noted and kept elevated on pillows. Bilateral heels dressing intact and kept offloaded, will turn and reposition per protocol. Multiple scattered small wound covered with mepilex. Kept patient clean and dry. Will continue to monitor.
[2019-04-02] MEDS: CALCIUM ACETATE 667 MG TABLET PO SCH ×3 (09:58→17:43)
[2019-04-02] MEDS: VIT B CMPLX 3/FA/VIT C/BIOTIN 1 TAB TABLET PO SCH (09:58)
[2019-04-02] MEDS: PROSOURCE / PROSTAT (PYXIS) 30 ML UDC PO SCH ×2 (09:58→16:30)
[2019-04-02] MEDS: ACIDOPHILUS/BULGARICUS 1 EACH TAB.CHEW PO SCH ×3 (09:59→16:30)
[2019-04-02] MEDS: SILVER SULFADIAZINE CREAM 25 GM TUBE TP SCH (09:59)
[2019-04-02] MEDS: HYDROGEL DRESSING 90 GM TUBE TP SCH (10:00)
[2019-04-02] MEDS ORDERED: EPOETIN ALFA (10,000 UNIT) 10,000 UNIT/ML VIAL IV ONE (11:00)
--- NOTE | 2019-04-02 12:57 | NUR ---
Pt will have his hemodialysis soon.We'll administer epogen during hemodialysis
[2019-04-02] MEDS ORDERED: AMIKACIN 500 MG in IV D5W 100 ML IV PRN (13:00)
--- NOTE | 2019-04-02 14:47 | NUR ---
BLOOD DRAWN FOR AMIKACIN TROUGH WAS TAKEN DURING HEMODIALYSIS.
--- NOTE | 2019-04-02 15:08 | NUR ---
Pt undergoing hemodialysis at this time.
[2019-04-02 16:00] VITALS: BP 146/65
--- NOTE | 2019-04-02 16:19 | NUR ---
PT COMPLETED HIS HEMODIALYSIS PROCEDURE.WITH 1 LITER OUTPUT.STABLE V/S AND PT TOLERATED WELL.
--- NOTE | 2019-04-02 17:03 | NUR ---
RT NOTE PATIENT RECEIVED ON MECHANICAL VENT WITH NOTED SETTINGS. VENTILATOR IS PLUGGED TO RED OUTLET AND ALARMS ARE SET AND AUDIBLE. BVM IS AT BEDSIDE WITH SPARE TRACH. TRACH IS PATENT AND SECURED. PATIENT WAS PRODUCTIVE THROUGH OUT THE DAY SUCTIONED SMALL THIN WHITE SECRETIONS. PATIENT HAS EQUAL BILATERAL CHEST RISE WITH COARSE BILATERAL BREATH SOUNDS. SUCTION MODERATE AMOUNT OF CLEAR THIN ORAL SECRETIONS. NO SOB NOTED. REPORT WILL BE PASSED TO DIETARY TECH. Addendum: 04/02/19 at 1705 by NEILS DICKINSON RT Amended: Links added.
[2019-04-02] MEDS: NEPRO 1,000 ML BOTTLE GT PRN (17:16)
--- NOTE | 2019-04-02 18:00 | NUR ---
DR SIN VASCULAR SURGEON CALLED AND GAVE ORDERS FOR CATHETER REMOVAL TOMORROW AND TO OBTAIN CONSENT AND PREPARE LIDOCAINE AND LACERATION TRAY AT THE BEDSIDE.PT'S DAUGHTER ARRIVED AND MADE AWARE OF THE PROCEDURE.DAUGHTER STATED TO WAIT FOR HER MOM TO SIGN THE CONSENT.ENDORSED TO NIGHT NURSE CARE.
[2019-04-02] MEDS ORDERED: LIDOCAINE HCL/PF 1% 30 ML SDV IJ ONE (18:30)
[2019-04-02 20:00] VITALS: BP 124/88
--- NOTE | 2019-04-02 20:27 | NUR ---
TELE/RN AT 1930, RECEIVED PATIENT APPEAR SLEEPING, APPEAR COMFORTABLE, NO DISTRESS NOTED, MECH VENT WORKING, GT FEEDING INFUSING, HOB ELEVATED, WILL MONITOR.
--- NOTE | 2019-04-02 22:08 | NUR ---
MS/RN PATIENT ATTEMPTING TO REMOVE TRACH AND PERM CATH, OBTAINED ORDER FOR MITTENS RT. HAND. WILL MONITOR PER PROTOCOL.
--- NOTE | 2019-04-02 22:37 | NUR ---
MS/RN ASSISTED DR. SIN TO REMOVE THE PERMA CATH. WILL MONITOR FOR BLEEDING.
[2019-04-03 00:18] VITALS: BP 171/96
[2019-04-03] MEDS: AMPICILLIN 1 GM in IV NS 0.9% 50 ML IV SCH ×4 (00:30→17:14)
[2019-04-03 04:26] VITALS: BP 155/95
--- NOTE | 2019-04-03 05:10 | NUR ---
RT NOTE: RECEIVED PT ON CURRENT ORDERED NOTED 2 VENT SETTINGS. NO RESPIRATORY DISTRESS NOTED. TRACH CHECKED SECURE AND PATENT. SXD AND LAVAGED PT Q ROUND AND NEEDED. TRACH CARE DONE. EMERGENCY EQUIPMENT @ BEDSIDE. ALARMS CHECKED AND AUDIBLE. VENT PLUGGED INTO RED OUTLET.
--- NOTE | 2019-04-03 06:30 | NUR ---
MS/RN PATIENT IS AWAKE, APPEAR COMFORTABLE, NO SIGNS OF DISTRESS NOTED, MECH VENT WORKING WELL, GT FEEDING INFUSING, HOB ELEVATED, MORNING CARE HAS BEEN DONE, WOUND CARE DONE, REPOSITIONED TO COMFORT, ALL NEEDS ATTENDED AT THIS TIME, WILL CONTINUE TO MONITOR.
--- NOTE | 2019-04-03 07:16 | NUR ---
MS/RN TERRY, PHARMACIST, WAS MADE AWARE ABOUT THE AMIKACIN THAT WAS GIVEN YESTERDAY POST DIALYSIS WITH AMIKACIN TROUGH OF 9.2. PER TERRY, IT IS OK.
[2019-04-03 07:27] LABS: CALCIUM, SERUM 10.9 mg/dL (8.5-10.1); CREATININE 4.4 mg/dL (0.6-1.3); MAGNESIUM 2.3 mg/dL (1.8-2.4); PHOSPHORUS 2.4 mg/dL (2.5-4.9); POTASSIUM 4.1 mmol/L (3.5-5.1)
--- NOTE | 2019-04-03 07:30 | NUR ---
CRYSTAL FINISHER OPENING NOTES RECEIVED PATIENT IN BED RESTING COMFORTABLY IN MODERATE HIGH BACK REST. OBTUNDED. ON MECH VENT, WORKING WELL. NO S/S OF DISTRESS NOTED AT THIS TIME. ON GT FEEDING INFUSING @55 ML/HR. IV ACCESS ON YESI, PATENT AND INTACT. SAFETY MEASURES IN PLACE, BED IN LOW LOCKED POSITION WITH SIDE RAILS UP X 2. CALL LIGHT WITHIN EASY REACH. WILL CONTINUE TO MONITOR.
[2019-04-03 07:45] LABS: BASOPHILS # (AUTO) 0.1 /CMM (0.0-0.2); BASOPHILS % (AUTO) 0.5 % (0.0-2.0); HEMATOCRIT 29 % (39-51); HEMOGLOBIN 9.4 g/dL (13.5-17.5); LYMPHOCYTES # (AUTO) 1.1 /CMM (0.8-4.8); LYMPHOCYTES % (AUTO) 9.5 % (20.0-44.0); MEAN CORPUSCULAR HGB CONC 32 g/dl (31.0-36.0); MEAN CORPUSCULAR VOLUME 88 fL (80-96); MONOCYTES # (AUTO) 0.8 /CMM (0.1-1.30); MONOCYTES % (AUTO) 7.5 % (2.0-12.0); NEUTROPHILS # (AUTO) 4.9 /CMM (1.8-8.9); NEUTROPHILS % (AUTO) 43.9 % (43.0-81.0); PLATELET COUNT (AUTO) 167 /CMM (150-450); RED BLOOD CELL COUNT(AUTO) 3.34 MIL/uL (4.5-6.0); WHITE BLOOD COUNT (AUTO) 11.2 K/uL (4.3-11.0)
[2019-04-03 08:00] VITALS: BP 155/98
[2019-04-03 08:06] LABS: EOSINOPHILS % (AUTO) 38.6 % (0.0-6.0)
[2019-04-03] MEDS: ACIDOPHILUS/BULGARICUS 1 EACH TAB.CHEW PO SCH ×3 (08:34→17:14)
[2019-04-03] MEDS: hydrALAZINE HCL 25 MG TABLET GT PRN (08:34)
[2019-04-03] MEDS: VIT B CMPLX 3/FA/VIT C/BIOTIN 1 TAB TABLET PO SCH (08:35)
[2019-04-03] MEDS: CALCIUM ACETATE 667 MG TABLET PO SCH ×2 (08:35→12:14)
[2019-04-03] MEDS: PROSOURCE / PROSTAT (PYXIS) 30 ML UDC PO SCH ×2 (08:35→17:15)
[2019-04-03] MEDS: HYDROGEL DRESSING 90 GM TUBE TP SCH (08:36)
[2019-04-03] MEDS: SILVER SULFADIAZINE CREAM 25 GM TUBE TP SCH (08:36)
[2019-04-03 09:31] LABS: EOSINOPHILS % (MANUAL) 38 % (0-4); LYMPHOCYTES % (MANUAL) 4 % (16-48); MONOCYTES % (MANUAL) 5 % (0-11.0); NEUTROPHILS % (MANUAL) 53 (42-76)
--- NOTE | 2019-04-03 13:10 | NUR ---
RN NOTES PATIENT'S BP IS ELEVATED: 170/100 WITH HR OF 104. NOTED WITH EPISODE OF V-TACH. DR. VÁZQUEZ MADE AWARE WITH ORDERS OF BLOOD CULTURE X2 AND TRANDATE 100 MG Q12H GT. ORDERS MADE AND CARRIED OUT. WILL CONTINUE TO MONITOR.
[2019-04-03] MEDS: LABETALOL HCL (100MG) 100 MG TABLET GT SCH ×2 (13:17→20:41)
[2019-04-03] MEDS: NEPRO 1,000 ML BOTTLE GT PRN (13:37)
--- NOTE | 2019-04-03 14:00 | NUR ---
RN NOTES CHECKED THE BP AND IT WENT DOWN TO 120/90, HR OF 97. WILL CONTINUE TO MONITOR.
[2019-04-03 16:00] VITALS: BP 122/97
--- NOTE | 2019-04-03 18:51 | NUR ---
DEEP FRYER ASSEMBLER CLOSING NOTES PATIENT IN BED RESTING COMFORTABLY IN MODERATE HIGH BACK REST. OBTUNDED. ON [facility], WORKING WELL. NO S/S OF DISTRESS NOTED AT THIS TIME. ON TELE MONITORING WITH CURRENT READING OF SR, HR OF 90'S. ON GT FEEDING INFUSING @55 ML/HR. IV ACCESS ON YESI, PATENT AND INTACT. SAFETY MEASURES IN PLACE, BED IN LOW LOCKED POSITION WITH SIDE RAILS UP X 2. CALL LIGHT WITHIN EASY REACH. WILL ENDORSE TO MEDICAL RECEPTION NURSE FOR NICKY.
--- NOTE | 2019-04-03 19:30 | NUR ---
RN OPEN NOTES RECEIVED PATIENT RESTING IN BED WITH FAMILY AT BEDSIDE. OBTUNDED. NO SIGNS OF DISTRESS OR DISCOMFORT. BREATHING EVEN AND UNLABORED. [facility] WITH SETTINGS ORDERED. HAS YESI MIDLINE, PATENT AND INTACT, NO SIGNS OF REDNESS OR INFILTRATION. HAS HENRIK AV SHUNT INTACT. HAS GTUBE INTACT WITH FEEDING RUNNING, PATIENT TOLERATING WELL. ON TELE MONITORING WITH SR 95 NOTED. BED IN LOW LOCKED POSITION WITH SIDE RAILS X2. CALL LIGHT WITHIN REACH. WILL CONTINUE TO MONITOR.
[2019-04-03 20:00] VITALS: BP 182/96
--- NOTE | 2019-04-03 20:10 | NUR ---
RT NOTES: PT RECEIVED TRACHED ON [facility] VENT ON CHARTED SETTINGS. NO SIGNS OF REP DISTRESS/SOB NOTED AT THIS TIME. AIRWAY PATENT AND SECURED. CARE COORDINATOR DONE. PT SUCTIONED. ALARMS SET AND AUDIBLE. AMBUBABG AT BEDSIDE. VENT CONNECTED TO RED OUTLET. WILL CONT TO MONITOR. Addendum: 04/03/19 at 2105 by GAIL MATAMOROS RT Amended: Links added.
[2019-04-03 21:15] VITALS: BP 124/93
[2019-04-04] VITALS (8 sets, daily range): BP systolic 150–179; BP diastolic 84–105
[2019-04-04] MEDS: hydrALAZINE HCL 25 MG TABLET GT PRN ×2 (00:52→14:54)
[2019-04-04] MEDS: AMPICILLIN 1 GM in IV NS 0.9% 50 ML IV SCH ×4 (00:53→17:50)
[2019-04-04] MEDS: HYDROCODONE/APAP 5/325MG 1 EACH TABLET PO PRN ×2 (02:36→14:55)
[2019-04-04] MEDS: LORAZEPAM 1 MG TABLET PO PRN (03:41)
--- NOTE | 2019-04-04 07:25 | NUR ---
RN CLOSING NOTES PATIENT RESTING IN BED. OBTUNDED. NO SIGNS OF DISTRESS OR DISCOMFORT. BREATHING EVEN AND UNLABORED. ON MECH VENT WITH SETTINGS ORDERED. HAS YESI MIDLINE, PATENT AND INTACT, NO SIGNS OF REDNESS OR INFILTRATION. HAS H[employer] AV SHUNT INTACT. HAS GTUBE INTACT WITH FEEDING RUNNING, PATIENT TOLERATING WELL. ON TELE MONITORING WITH SR 90 NOTED. ALL NEEDS MET. NO SIGNIFICANT CHANGES THROUGH THE NIGHT. PATIENT REPOSITIONED Q2H AND PRN. BED IN LOW LOCKED POSITION WITH SIDE RAILS X2. CALL LIGHT WITHIN REACH. ENDORSED TO AM SHIFT FOR NICKY.
[2019-04-04 07:28] LABS: BASOPHILS # (AUTO) 0.1 /CMM (0.0-0.2); BASOPHILS % (AUTO) 0.5 % (0.0-2.0); HEMATOCRIT 28 % (39-51); LYMPHOCYTES % (AUTO) 8.3 % (20.0-44.0); MEAN CORPUSCULAR HGB CONC 32 g/dl (31.0-36.0); MEAN CORPUSCULAR VOLUME 87 fL (80-96); MONOCYTES # (AUTO) 1.1 /CMM (0.1-1.30); MONOCYTES % (AUTO) 8.8 % (2.0-12.0); NEUTROPHILS % (AUTO) 49.8 % (43.0-81.0); PLATELET COUNT (AUTO) 144 /CMM (150-450); RED BLOOD CELL COUNT(AUTO) 3.23 MIL/uL (4.5-6.0)
[2019-04-04 07:29] LABS: EOSINOPHILS % (AUTO) 32.6 % (0.0-6.0)
[2019-04-04 07:52] LABS: CALCIUM, SERUM 12.2 mg/dL (8.5-10.1); CREATININE 5.3 mg/dL (0.6-1.3); MAGNESIUM 2.4 mg/dL (1.8-2.4); PHOSPHORUS 3.2 mg/dL (2.5-4.9)
[2019-04-04 07:59] LABS: EOSINOPHILS % (MANUAL) 30 % (0-4); LYMPHOCYTES % (MANUAL) 10 % (16-48); MONOCYTES % (MANUAL) 12 % (0-11.0); NEUTROPHILS % (MANUAL) 48 (42-76)
[2019-04-04] MEDS: SILVER SULFADIAZINE CREAM 25 GM TUBE TP SCH (09:27)
[2019-04-04] MEDS: LABETALOL HCL (100MG) 100 MG TABLET GT SCH ×2 (09:27→21:08)
[2019-04-04] MEDS: ACIDOPHILUS/BULGARICUS 1 EACH TAB.CHEW PO SCH ×3 (09:27→17:45)
[2019-04-04] MEDS: HYDROGEL DRESSING 90 GM TUBE TP SCH (09:27)
[2019-04-04] MEDS: VIT B CMPLX 3/FA/VIT C/BIOTIN 1 TAB TABLET PO SCH (09:27)
[2019-04-04] MEDS: NEPRO 1,000 ML BOTTLE GT PRN ×2 (09:59→14:55)
[2019-04-04] MEDS: PROSOURCE / PROSTAT (PYXIS) 30 ML UDC PO SCH ×2 (09:59→17:45)
--- NOTE | 2019-04-04 10:27 | NUR ---
RT NOTE RECEIVED PT MECHANICALLY VENTILATED VIA CUFFED TRACHEOSTOMY TUBE. CUFF INFLATED. TRACH TUBE MIDLINE AND SECURE. VENTILATOR SETTINGS PRESCRIBED. ALARMS SET PER PROTOCOL AND AUDIBLE. VENT PLUGGED IN TO RED OUTLET. AMBU BAG AT BED SIDE. NO DISTRESS NOTED AT MOMENT. Addendum: 04/04/19 at 1027 by ESHA WILSON RT Amended: Links added.
--- NOTE | 2019-04-04 19:30 | NUR ---
RN OPEN NOTES RECEIVED PATIENT RESTING IN BED. OBTUNDED. NO SIGNS OF DISTRESS OR DISCOMFORT. BREATHING EVEN AND UNLABORED. [facility] WITH SETTINGS ORDERED. HAS YESI MIDLINE, PATENT AND INTACT, NO SIGNS OF REDNESS OR INFILTRATION. HAS HENRI[employer] AV SHUNT INTACT. HAS GTUBE INTACT WITH FEEDING RUNNING, PATIENT TOLERATING WELL. ON TELE MONITORING WITH SR 94 NOTED. BED IN LOW LOCKED POSITION WITH SIDE RAILS X2. CALL LIGHT WITHIN REACH. WILL CONTINUE TO MONITOR.
[2019-04-05] VITALS: BP 173/91
[2019-04-05 00:01] VITALS: BP 169/93
[2019-04-05] MEDS: AMPICILLIN 1 GM in IV NS 0.9% 50 ML IV SCH ×5 (00:13→23:26)
[2019-04-05] MEDS: hydrALAZINE HCL 25 MG TABLET GT PRN ×2 (00:30→23:23)
[2019-04-05] MEDS: LORAZEPAM 1 MG TABLET PO PRN (03:46)
[2019-04-05 04:00] VITALS: BP_SYST 160; BP_SYST 163; BP_DIAS 90; BP_DIAS 97
[2019-04-05 06:35] LABS: BILIRUBIN,TOTAL 0.5 mg/dL (0.2-1.0); CALCIUM, SERUM 11.7 mg/dL (8.5-10.1); CREATININE 6.2 mg/dL (0.6-1.3); MAGNESIUM 2.4 mg/dL (1.8-2.4); PHOSPHORUS 4.1 mg/dL (2.5-4.9); POTASSIUM 4.3 mmol/L (3.5-5.1); TOTAL PROTEIN, SERUM 7.5 g/dL (6.4-8.2)
[2019-04-05 06:40] LABS: BASOPHILS # (AUTO) 0.1 /CMM (0.0-0.2); BASOPHILS % (AUTO) 0.7 % (0.0-2.0); HEMATOCRIT 28 % (39-51); HEMOGLOBIN 8.9 g/dL (13.5-17.5); LYMPHOCYTES # (AUTO) 1.1 /CMM (0.8-4.8); MEAN CORPUSCULAR HGB CONC 32 g/dl (31.0-36.0); MEAN CORPUSCULAR VOLUME 86 fL (80-96); MONOCYTES # (AUTO) 0.8 /CMM (0.1-1.30); MONOCYTES % (AUTO) 6.8 % (2.0-12.0); NEUTROPHILS # (AUTO) 4.7 /CMM (1.8-8.9); NEUTROPHILS % (AUTO) 41.1 % (43.0-81.0); PLATELET COUNT (AUTO) 119 /CMM (150-450); RED BLOOD CELL COUNT(AUTO) 3.21 MIL/uL (4.5-6.0); WHITE BLOOD COUNT (AUTO) 11.4 K/uL (4.3-11.0)
[2019-04-05 06:44] LABS: EOSINOPHILS % (AUTO) 41.4 % (0.0-6.0)
--- NOTE | 2019-04-05 07:25 | NUR ---
COMMUNITY SUPPORT ASSOCIATE NOTES PATIENT IN BED ALERT, OBTUNDED. NO ACUTE DISTRESS NOTED, BREATHING UNLABORED. NO SOB NOTED. IV ACCESS PATENT AND INTACT, NO REDNESS OR SWELLING NOTED.SAFETY MEASURES IN PLACE. CALL LIGHT WITHIN REACH. WILL CONTINUE TO MONITOR ACCORDINGLY.
--- NOTE | 2019-04-05 07:28 | NUR ---
RN CLOSING NOTES PATIENT RESTING IN BED. OBTUNDED. NO SIGNS OF DISTRESS OR DISCOMFORT. BREATHING EVEN AND UNLABORED. ON MECH VENT WITH SETTINGS ORDERED. HAS YESI MIDLINE, PATENT AND INTACT, NO SIGNS OF REDNESS OR INFILTRATION. HAS H[employer]RI[employer] AV SHUNT INTACT. HAS GTUBE INTACT WITH FEEDING RUNNING, PATIENT TOLERATING WELL. ON TELE MONITORING WITH SR 87 NOTED. ALL NEEDS MET. NO SIGNIFICANT CHANGES THROUGH THE NIGHT. PATIENT REPOSITIONED Q2H AND PRN. BED IN LOW LOCKED POSITION WITH SIDE RAILS X2. CALL LIGHT WITHIN REACH. WILL ENDORSE TO AM SHIFT FOR NICKY.
[2019-04-05 07:38] LABS: EOSINOPHILS % (MANUAL) 41 % (0-4); LYMPHOCYTES % (MANUAL) 11 % (16-48); MONOCYTES % (MANUAL) 1 % (0-11.0); NEUTROPHILS % (MANUAL) 47 (42-76)
[2019-04-05 08:00] VITALS: BP 179/111
[2019-04-05] MEDS: VIT B CMPLX 3/FA/VIT C/BIOTIN 1 TAB TABLET PO SCH (08:32)
[2019-04-05] MEDS: ACIDOPHILUS/BULGARICUS 1 EACH TAB.CHEW PO SCH ×3 (08:32→17:12)
[2019-04-05] MEDS: LABETALOL HCL (100MG) 100 MG TABLET GT SCH ×2 (08:33→20:18)
[2019-04-05] MEDS: PROSOURCE / PROSTAT (PYXIS) 30 ML UDC PO SCH ×2 (08:34→17:13)
[2019-04-05] MEDS: SILVER SULFADIAZINE CREAM 25 GM TUBE TP SCH (08:35)
[2019-04-05] MEDS: HYDROGEL DRESSING 90 GM TUBE TP SCH (08:36)
--- NOTE | 2019-04-05 09:30 | NUR ---
AUTOMOBILE WASHER STEAM NOTES PATIENT SEEN AND EVALUATED BY DR JACE NEFF, MADE AWARE OF LABORATORY TEST RESULT TODAY INCLUDING ELEVATED BUN, NO NEW ORDERS MADE AT THIS TIME.
[2019-04-05] MEDS: NEPRO 1,000 ML BOTTLE GT PRN (14:17)
[2019-04-05 16:00] VITALS: BP 174/109
--- NOTE | 2019-04-05 18:50 | NUR ---
CREATIVE PRODUCER NOTES PATIENT IN BED ALERT, OBTUNDED. NO ACUTE DISTRESS NOTED, BREATHING UNLABORED. NO SOB NOTED. IV ACCESS PATENT AND INTACT, NO REDNESS OR SWELLING NOTED.NEEDS ATTENDED AND ANTICIPATED. KEPT CLEAN DRY AND COMFORTABLE. REPOSITIONED EVERY 2 HOURS AND NEEDED. SAFETY MEASURES IN PLACE. CALL LIGHT WITHIN REACH. WILL ENDORSED TO NIGHT NURSE FOR CONTINUITY OF CARE.
[2019-04-05 20:00] VITALS: BP 154/88
--- NOTE | 2019-04-05 20:00 | NUR ---
TELE/RN NOTES RECEIVED PATIENT IN BED, HOB ELEVATED, OBTUNDED, CAN OPEN EYES AND REQUIRING EXTENSIVE ASSISTANCE IN REPOSITONING AND TURNING ON MECHANICAL VENT WITH REQUIRED SETTING,, GTUBE FEEDING LATER TODAY REPORTED BU AM RN, PATIENT WITH WOUND ON VARIOUS PART OF BODY AND NEED TO BE CHANGED, WILL MONITOR FOR ANY CHANGES. BED LOCKED, CALL LIGHTS WITHIN REACH, PATIENT ON SOFT RESTRAINT PULLING OUT TUBINGS,WILL MONITOR. TELE READING SR 87.
--- NOTE | 2019-04-05 23:34 | NUR ---
TELE/RN NOTES BLOOD PRESSURE CHECK PRIOR TO MIDNIGHT ELEVATED AT 176/101, SINUS RYTHM, PATIENT NEED MEDICATION FOR BLOOD PRESSURE GIVEN VIA GTUBE HYDRALAZINE 25 MG. WILL MONITOR AND RECHECK BLOOD PRESSURE.
[2019-04-06] VITALS (8 sets, daily range): BP systolic 151–180; BP diastolic 83–98
[2019-04-06] MEDS: HYDROCODONE/APAP 5/325MG 1 EACH TABLET PO PRN (00:42)
--- NOTE | 2019-04-06 00:42 | NUR ---
TELE/RN NOTES PATIENT RECHECK BLOOD PRESSURE STILL ELEVATE ABOVE SBP 170, OBSERVE SOME GRIMACE ABD TEARS IN EYES,NORCO 5-325 MG VIA GTUBE GIVEN TO MONITOR FOR ANY RELIEF.
--- NOTE | 2019-04-06 01:54 | NUR ---
TELE/RN NOTES RECHECK BLOOD PRESSURE AT 169/93.
--- NOTE | 2019-04-06 03:20 | NUR ---
MS/RN NOTES PATIENT WITH NEEDED ATIVAN 0.5 MG FOR S/S UNABLE TO RELAX, BLOOD PRESSURE ELEVATED WILL MONITOR.
[2019-04-06] MEDS: LORAZEPAM 1 MG TABLET PO PRN (03:23)
[2019-04-06] MEDS: AMPICILLIN 1 GM in IV NS 0.9% 50 ML IV SCH ×4 (05:07→23:40)
--- NOTE | 2019-04-06 08:15 | NUR ---
MS RN RECEIVED ON BED, TRACH PATIENT, VENT DEPENDENT,NOT IN ANY FORM OF DISTRESS, RESPIRATIONS EVEN AND UNLABORED,NO SOB NOTED. REPOSITIONED FOR COMFORT,ALL NEEDS ATTENDED.
--- NOTE | 2019-04-06 09:00 | NUR ---
MS RN HELD AM MEDS, THEY MIGHT PUT HD LINE TODAY AND HAVE HD.
--- NOTE | 2019-04-06 10:00 | NUR ---
MS RN WAS SEEN BY JACE HIDALGO, WILL NOT HAVE HD TODAY, WS ABLE TO SPOKE W/ THE .
--- NOTE | 2019-04-06 10:30 | NUR ---
MS MORRELL AM MEDS GIVEN VIA G TUBE,TOLERATED WELL.
[2019-04-06] MEDS: ACIDOPHILUS/BULGARICUS 1 EACH TAB.CHEW PO SCH ×3 (10:47→18:34)
[2019-04-06] MEDS: VIT B CMPLX 3/FA/VIT C/BIOTIN 1 TAB TABLET PO SCH (10:47)
[2019-04-06 11:16] LABS: BASOPHILS % (AUTO) 0.5 % (0.0-2.0); HEMATOCRIT 24 % (39-51); LYMPHOCYTES # (AUTO) 1.3 /CMM (0.8-4.8); LYMPHOCYTES % (AUTO) 12.1 % (20.0-44.0); MEAN CORPUSCULAR HGB CONC 33 g/dl (31.0-36.0); MEAN CORPUSCULAR VOLUME 86 fL (80-96); MONOCYTES # (AUTO) 0.9 /CMM (0.1-1.30); MONOCYTES % (AUTO) 8.4 % (2.0-12.0); NEUTROPHILS % (AUTO) 38.2 % (43.0-81.0); PLATELET COUNT (AUTO) 117 /CMM (150-450); WHITE BLOOD COUNT (AUTO) 10.6 K/uL (4.3-11.0)
[2019-04-06 11:33] LABS: BILIRUBIN,TOTAL 0.4 mg/dL (0.2-1.0); CALCIUM, SERUM 10.7 mg/dL (8.5-10.1); CREATININE 7.4 mg/dL (0.6-1.3); MAGNESIUM 2.6 mg/dL (1.8-2.4); PHOSPHORUS 4.6 mg/dL (2.5-4.9); POTASSIUM 4.3 mmol/L (3.5-5.1); TOTAL PROTEIN, SERUM 7.3 g/dL (6.4-8.2)
[2019-04-06] MEDS: PROSOURCE / PROSTAT (PYXIS) 30 ML UDC PO SCH ×2 (11:44→18:35)
[2019-04-06 11:52] LABS: EOSINOPHILS % (AUTO) 40.8 % (0.0-6.0)
[2019-04-06] MEDS: hydrALAZINE HCL 25 MG TABLET GT SCH ×3 (12:00→23:40)
[2019-04-06 12:26] LABS: EOSINOPHILS % (MANUAL) 43 % (0-4); LYMPHOCYTES % (MANUAL) 15 % (16-48); MONOCYTES % (MANUAL) 5 % (0-11.0); NEUTROPHILS % (MANUAL) 37 (42-76)
[2019-04-06] MEDS: NEPRO 1,000 ML BOTTLE GT PRN (18:35)
[2019-04-06] MEDS: HYDROGEL DRESSING 90 GM TUBE TP SCH (18:52)
[2019-04-06] MEDS: SILVER SULFADIAZINE CREAM 25 GM TUBE TP SCH (18:53)
--- NOTE | 2019-04-06 19:00 | NUR ---
ms rn on bed, no distress noted.
--- NOTE | 2019-04-06 19:48 | NUR ---
TELE/RN OPENING NOTES RECEIVED PATIENT IN BED, HOB ELEVATED, OBTUNDED, OPENS EYES, ON MECHANICAL VENT WITH PRESCRIBED SETTING, FAMILY WAS AT BEDSIDE. ON GTUBE FEEDING RUNNING AT 50CC/HR, PATIENT WITH NEEDED BREATHING TX, WITH MIDLINE ON RIGHT UPPER ARM, INCONTINENT, HAD BM AND ANURIC, WAS ON HD LAST October NEED FOLLOW UP WITH MD FOR HD SCHEDULE AND HD CATHETER PLACEMENT, RERQUIRE TREATMENT AND DRESSING OF WOUND IN AREAS OF BODY. WILL MONITOR.
--- NOTE | 2019-04-06 20:01 | NUR ---
RT NOTE: RECEIVED TRACH PT ON [facility] VENT ON NOTED SETTINGS PER MD ORDERS. TRACH IS PATENT AND SECURED. TRACH CARE DONE. GAS ENGINEER DONE. SX DONE PRN. VENT PLUGGED INTO RED OUTLET. ALARMS ON AND AUDIBLE. NATAN STAFFORD @ BEDSIDE. NO RESP DISTRESS AT THIS TIME. WILL CONT TO MONITOR PT. Addendum: 04/07/19 at 0514 by JODIE CHEW RT Amended: Links added.
[2019-04-06] MEDS: LABETALOL HCL (100MG) 100 MG TABLET GT SCH (20:03)
[2019-04-07 00:01] VITALS: BP 181/109
[2019-04-07] MEDS: LORAZEPAM 1 MG TABLET PO PRN (01:55)
[2019-04-07] MEDS: HYDROCODONE/APAP 5/325MG 1 EACH TABLET PO PRN (02:03)
--- NOTE | 2019-04-07 02:03 | NUR ---
MS/RN NOTES PATIENT PULLING OUT AND MOVING WITH ELEVATED BLOOD PRESSURE, REQUIRNG MEDICATION TO HELP HIM RELAX AND IMPROVE COMFORT.
--- NOTE | 2019-04-07 03:16 | NUR ---
TELE/RN NOTES PATIENT BP STILL ELEVATED EVEN AFTER GIVING BLOOD PRESSURE MEDICATION, ATIVAN AND NORCO 5-325 MG, MD WILLOUGHBY WAS MADE AWARE AND ORER TO MONITOR, REPOSITION AT THIS TIME/
[2019-04-07 04:00] VITALS: BP 177/117
[2019-04-07] MEDS: AMPICILLIN 1 GM in IV NS 0.9% 50 ML IV SCH ×4 (05:04→23:25)
[2019-04-07] MEDS: hydrALAZINE HCL 25 MG TABLET GT SCH ×3 (05:04→17:39)
--- NOTE | 2019-04-07 06:17 | NUR ---
329-1 TELE/RN NOTES PATIENT HOB ELECVATED, OBTUNDED, EXTENSIVE ASSISTANCE DUE TO BED BOUND, ON MECHANICAL VENT WITH PRESCRIBED SETTING, RESPIRATIONS EVEN AND UNLABORED, WITH DRY AND MULTIPLE SKIN BLISTERS, REQUIRE REPOSITIONING FOR COMFORT. INCONTINENT CARE PROVIDED. BD LOCKED, CALL LIGHTS WITHIN TRACH. WILL ENDORSE TO AM RN FOR NICKY
[2019-04-07 06:56] LABS: BASOPHILS % (AUTO) 0.4 % (0.0-2.0); HEMATOCRIT 25 % (39-51); HEMOGLOBIN 8.2 g/dL (13.5-17.5); LYMPHOCYTES # (AUTO) 1.1 /CMM (0.8-4.8); LYMPHOCYTES % (AUTO) 10.3 % (20.0-44.0); MEAN CORPUSCULAR HGB CONC 32 g/dl (31.0-36.0); MEAN CORPUSCULAR VOLUME 86 fL (80-96); MONOCYTES # (AUTO) 1.1 /CMM (0.1-1.30); MONOCYTES % (AUTO) 9.7 % (2.0-12.0); NEUTROPHILS # (AUTO) 4.9 /CMM (1.8-8.9); NEUTROPHILS % (AUTO) 44.2 % (43.0-81.0); PLATELET COUNT (AUTO) 90 /CMM (150-450); RED BLOOD CELL COUNT(AUTO) 2.95 MIL/uL (4.5-6.0); WHITE BLOOD COUNT (AUTO) 11.1 K/uL (4.3-11.0)
[2019-04-07 07:01] LABS: EOSINOPHILS % (AUTO) 35.4 % (0.0-6.0)
[2019-04-07 07:03] LABS: BILIRUBIN,TOTAL 0.5 mg/dL (0.2-1.0); CALCIUM, SERUM 10.5 mg/dL (8.5-10.1); MAGNESIUM 2.8 mg/dL (1.8-2.4); PHOSPHORUS 5.1 mg/dL (2.5-4.9); POTASSIUM 4.5 mmol/L (3.5-5.1); TOTAL PROTEIN, SERUM 7.5 g/dL (6.4-8.2)
[2019-04-07 07:06] LABS: CREATININE 8.2 mg/dL (0.6-1.3)
[2019-04-07 08:00] VITALS: BP 178/96
--- NOTE | 2019-04-07 08:20 | NUR ---
ms rn received on bed, awake, non verbal,vent dependent patient,not in any form of ditres, noted to have a g tube feeding, tolerating well,noted to have multiple wounds at this time, all needs attended.
[2019-04-07 08:43] LABS: EOSINOPHILS % (MANUAL) 36 % (0-4); LYMPHOCYTES % (MANUAL) 11 % (16-48); MONOCYTES % (MANUAL) 10 % (0-11.0); NEUTROPHILS % (MANUAL) 43 (42-76)
--- NOTE | 2019-04-07 10:00 | NUR ---
ms rn due meds given via g tube feeding, tolerated well.
[2019-04-07] MEDS: VIT B CMPLX 3/FA/VIT C/BIOTIN 1 TAB TABLET PO SCH (11:08)
[2019-04-07] MEDS: ACIDOPHILUS/BULGARICUS 1 EACH TAB.CHEW PO SCH ×3 (11:08→17:38)
[2019-04-07] MEDS: hydrALAZINE HCL 25 MG TABLET GT PRN (11:09)
[2019-04-07] MEDS: LABETALOL HCL (100MG) 100 MG TABLET GT SCH ×2 (11:10→21:43)
[2019-04-07] MEDS: HYDROGEL DRESSING 90 GM TUBE TP SCH (11:19)
[2019-04-07] MEDS: SILVER SULFADIAZINE CREAM 25 GM TUBE TP SCH (11:19)
[2019-04-07] MEDS: PROSOURCE / PROSTAT (PYXIS) 30 ML UDC PO SCH ×2 (11:19→17:39)
[2019-04-07 11:30] VITALS: BP 152/83
[2019-04-07 16:00] VITALS: BP 158/100
--- NOTE | 2019-04-07 16:11 | NUR ---
ms rn on bed, no distress noted,all needs attended.
[2019-04-07] MEDS: NEPRO 1,000 ML BOTTLE GT PRN (17:39)
--- NOTE | 2019-04-07 18:34 | NUR ---
MS RN RECEIVED A CALL FROM DR. SIN, WILL PUT PERMACATH TOMORROW AFTERNOON.
[2019-04-07 20:00] VITALS: BP 157/96
--- NOTE | 2019-04-07 20:01 | NUR ---
MS RN RECEIVE PT IN BED OBTUNDED, OPENS EYES, STABLE AND NOT IN DISTRESS. AT BEDSIDE, TOLERATING VENT SETTINGS ORDERED. 02 SAT AT 100%. GT FEEDING INFUSING. WILL CONT TO MTR
[2019-04-08] VITALS: BP 156/99
[2019-04-08] MEDS: hydrALAZINE HCL 25 MG TABLET GT SCH ×4 (00:57→18:37)
[2019-04-08 04:00] VITALS: BP 143/99
--- NOTE | 2019-04-08 06:00 | NUR ---
CALLED LAB FOR DRAW OF AMIKACIN LEVEL WILL CONT TO MTR UNABLE TO INFUSE ATB AWAITING RESULTS Addendum: 04/08/19 at 0620 by BRANDON FRANK RN MISTAKEN ENTRY DISREGARD THIS DOCUMENTATION MISTAKEN INTERVENTION
--- NOTE | 2019-04-08 06:16 | NUR ---
COUNSELING SPECIALIST NO SIGNIFICANT CHANGES. SR 87 HR IN TELE MONITOR. TOLERATING VENT SETTINGS ORDERED. AM CARE RENDERED. WOUND CARE ORDERED. REPOSITION Q2HR. NO S/S OF DISTRESS, NURSING CARE RENDERED, KEPT CLEAN AND DRY AND COMFORTABLE. NEEDS ATTENDED AND ANTICIPATED. SAFETY MEASURES AT ALL TIMES. ENDORSE TO THE NEXT SHIFT.
[2019-04-08] MEDS: AMPICILLIN 1 GM in IV NS 0.9% 50 ML IV SCH ×3 (06:24→18:37)
[2019-04-08 07:30] VITALS: BP 168/76
--- NOTE | 2019-04-08 07:30 | NUR ---
ELECTROTYPE FINISHER OPENING NOTES RECEIVED PATIENT IN BED RESTING COMFORTABLY IN MODERATE HIGH BACK REST. OBTUNDED. ON [facility] VENT, WORKING WELL. NO S/S OF DISTRESS NOTED AT THIS TIME. ON GT FEEDING CURRENTLY ON HOLD FOR PROCEDURE. IV ACCESS ON YESI, PATENT AND INTACT. SAFETY MEASURES IN PLACE, BED IN LOW LOCKED POSITION WITH SIDE RAILS UP X 2. CALL LIGHT WITHIN EASY REACH. WILL CONTINUE TO MONITOR.
[2019-04-08] MEDS ORDERED: hydrALAZINE HCL IV 20 MG VIAL IV ONE (08:30)
[2019-04-08] MEDS: ACIDOPHILUS/BULGARICUS 1 EACH TAB.CHEW PO SCH ×3 (08:55→17:00)
[2019-04-08] MEDS: PROSOURCE / PROSTAT (PYXIS) 30 ML UDC PO SCH ×2 (08:55→17:00)
[2019-04-08] MEDS: LABETALOL HCL (100MG) 100 MG TABLET GT SCH ×2 (08:55→21:00)
[2019-04-08] MEDS: VIT B CMPLX 3/FA/VIT C/BIOTIN 1 TAB TABLET PO SCH (08:55)
[2019-04-08] MEDS: HYDROGEL DRESSING 90 GM TUBE TP SCH (09:01)
[2019-04-08] MEDS: SILVER SULFADIAZINE CREAM 25 GM TUBE TP SCH (09:02)
--- NOTE | 2019-04-08 13:00 | NUR ---
AUTO FINANCE SALES REP NOTES RECEIVED A REPORT FROM LAB OF AMIKACIN TROUGH LEVEL OF 5.0. DR ARREGUIN MADE AWARE. NO NEW ORDERS AT THIS TIME.
[2019-04-08 16:15] VITALS: BP 161/91
[2019-04-08] MEDS ORDERED: HEPARIN SODIUM, PORCINE 1,000 UNIT/ML VIAL ONE (16:48)
[2019-04-08] MEDS ORDERED: LIDOCAINE HCL/PF 1% 30 ML SDV ONE (16:48)
--- NOTE | 2019-04-08 17:05 | NUR ---
SENIOR FIRMWARE ENGINEER NOTES PATIENT WAS PICKED UP BY 2 O.R STAFF FOR PERMA CATH INSERTION VIA HOSPITAL BED, ALSO ACCOMPANIED BY RT. PATIENT IN NO SIGNS OF DISTRESS.
[2019-04-08] MEDS ORDERED: IOHEXOL 240MG/ML 50 ML IV ONE (17:30)
--- NOTE | 2019-04-08 18:30 | NUR ---
HEATING UNIT INSTALLER NOTES PATIENT ARRIVED FROM O.R. ACCOMPANIED BY 3 O.R STAFF AND RT VIA HOSPITAL BED. S/P PERMA CATH INSERTION. NOT IN ANY SIGNS OF DISTRESS. WILL CONTINUE TO MONITOR.
[2019-04-08] MEDS: NEPRO 1,000 ML BOTTLE GT PRN (18:51)
--- NOTE | 2019-04-08 19:01 | NUR ---
FACING CUTTING MACHINE OPERATOR CLOSING NOTES PATIENT IN BED RESTING COMFORTABLY IN MODERATE HIGH BACK REST. OBTUNDED. [facility], WORKING WELL. NO S/S OF DISTRESS NOTED. ON GT FEEDING WITH NEPHRO @ 50ML/HR. S/P PERMA CATH INSERTION ON RIGHT UPPER CHEST. ON TELE MONITORING WITH CURRENT READING OF SR WITH HR OF 80'S. IV ACCESS ON YESI, PATENT AND INTACT. SAFETY MEASURES IN PLACE, BED IN LOW LOCKED POSITION WITH SIDE RAILS UP X 2. CALL LIGHT WITHIN EASY REACH. WILL ENDORSE TO PARALEGAL LEGAL SECRETARY NURSE FOR NICKY.
--- NOTE | 2019-04-08 19:15 | NUR ---
SITE MONITOR NOTES RECEIVED PT IN BED AND RESTING COMFORTABLY. PT OBTUNDED AND ON MECH VENT WITH NO S/S OF ACUTE DISTRESS NOTED. PT ON ON GT FEEDING WITH NEPHRO @ 50ML/HR. PT S/P PERMA CATH INSERTION ON RIGHT UPPER CHEST. PT TO HAVE DIALYSIS WITH DIALYSIS NUSRE AT BEDSIDE. PT ON TELE MONITORING AT SR WITH HR 90S. PT WITH IV ACCESS ON YESI, PATENT AND INTACT. SAFETY MEASURES IN PLACE, BED IN LOW LOCKED POSITION WITH SIDE RAILS UP X 2. CALL LIGHT WITHIN REACH. WILL CONTINUE TO MONITOR.
[2019-04-08 20:00] VITALS: BP 118/69
--- NOTE | 2019-04-08 22:10 | NUR ---
COMPUTER FORENSIC EXAMINER NOTES PT S/P DIALYSIS, 2L REMOVED. WILL CONTINUE TO MONITOR.
[2019-04-09] VITALS: BP 139/99
[2019-04-09] MEDS: AMPICILLIN 1 GM in IV NS 0.9% 50 ML IV SCH ×5 (00:15→23:48)
[2019-04-09] MEDS: hydrALAZINE HCL 25 MG TABLET GT SCH ×4 (00:16→17:36)
[2019-04-09 04:00] VITALS: BP 167/103
--- NOTE | 2019-04-09 07:35 | NUR ---
THREADER NOTES PT IN BED AND RESTING COMFORTABLY. PT OBTUNDED AND ON MECH VENT WITH NO S/S OF ACUTE DISTRESS NOTED THROUGHOUT SHIFT. PT ON ON GT FEEDING WITH NEPHRO @ 50ML/HR. PT S/P PERMA CATH INSERTION ON RIGHT UPPER CHEST. PT S/P DIALYSIS. PT ON TELE MONITORING AT SR WITH HR 90S. PT KEPT CLEAN, DRY, AND COMFORTABLE. TURNED PT Q2 HOURS THROUGHOUT SHIFT. PT WITH IV ACCESS ON YESI, PATENT AND INTACT. SAFETY MEASURES IN PLACE, BED IN LOW LOCKED POSITION WITH SIDE RAILS UP X 2. CALL LIGHT WITHIN REACH. WILL ENDORSE TO ONCOMING NURSE FOR NICKY.
--- NOTE | 2019-04-09 07:49 | NUR ---
BRICK SETTER OPERATOR OPENING NOTE PATIENT IN BED RESTING COMFORTABLY. PATIENT IN NO ACUTE DISTRESS. NO SOB NOTED. PATIENT BREATHING IS EVEN AND UNLABORED. PATIENT TOLERATING VENT SETTINGS WELL. SHILEY 5, PEEP 5, AC 18, FIO2 30 TV 500. PATIENT ON CARDIAC MONITORING SINUS RHYTHM HR 91. PATIENT HOB IS ELEVATED. SAFETY PRECAUTIONS IN PLACE. PATIENT ON GTUBE FEEDING WITH NEPHRO AT 50ML/ HR. PATIENT PERMACATH IN PLACE AND INTACT. PATIENT BED IS LOCKED AND IN LOWEST POSITION. CALL LIGHT WITHIN REACH. WILL CONTINUE TO MONITOR.
[2019-04-09 08:00] VITALS: BP 163/90
[2019-04-09] MEDS: PROSOURCE / PROSTAT (PYXIS) 30 ML UDC PO SCH ×2 (08:16→17:35)
[2019-04-09] MEDS: VIT B CMPLX 3/FA/VIT C/BIOTIN 1 TAB TABLET PO SCH (08:17)
[2019-04-09] MEDS: ACIDOPHILUS/BULGARICUS 1 EACH TAB.CHEW PO SCH ×3 (08:17→17:35)
[2019-04-09] MEDS: LABETALOL HCL (100MG) 100 MG TABLET GT SCH ×2 (08:17→20:33)
[2019-04-09] MEDS: HYDROGEL DRESSING 90 GM TUBE TP SCH (08:18)
[2019-04-09] MEDS: SILVER SULFADIAZINE CREAM 25 GM TUBE TP SCH (08:18)
[2019-04-09 12:00] VITALS: BP 162/90
--- NOTE | 2019-04-09 13:04 | NUR ---
MS MORRELL NOTE PATIENT IN NO ACUTE DISTRESS. FREQUENT CHECKS WITH RIGHT HAND MITTEN Q15 MINS. CIRCULATION PRESENT. NO REDNESS. NO SWELLING. PATIENT WITHOUT HAND MITTEN AT THIS TIME. Addendum: 04/09/19 at 1557 by ASHISH KIM RN KURT ALDRIDGE
--- NOTE | 2019-04-09 15:53 | NUR ---
SHEATHER NOTE PER DIALYSIS, DIALYSIS WILL COME AROUND 2030 TO PERFORM HEMODIALYSIS. Addendum: 04/09/19 at 1851 by ASHISH KIM RN EVERETT MCKEON RN DIALYSIS NURSE Addendum: 04/09/19 at 1858 by ASHISH KIM RN WILL ENDORSE FOR MOVEMENT ASSEMBLY FINAL INSPECTOR TO FOLLOW UP WITH HEMODIALYSIS.
[2019-04-09 16:00] VITALS: BP 147/86
[2019-04-09] MEDS: NEPRO 1,000 ML BOTTLE GT PRN (18:21)
--- NOTE | 2019-04-09 18:33 | NUR ---
SEATER GRINDER CLOSING NOTE PATIENT IN BED RESTING COMFORTABLY. PATIENT AT THE BEDSIDE. PATIENT BREATHING IS EVEN AND UNLABORED. PATIENT IN NO ACUTE DISTRESS. NO SOB NOTED. PATIENT TOLERATING VENT SETTINGS WELL. SHILEY 5, PEEP 5, AC 18, FIO2 30 TV 500. PATIENT WAS REPOSITIONED Q2H AND EXTREMITIES OFFLOADED ON PILLOWS. PATIENT HAS RIGHT HAND MITTEN, CHECKED Q15 MINS. PATIENT WITH NO REDNESS OR SWELLING. CIRCULATION PRESENT. PATIENT WOUND CARE PERFORMED ORDERED. PATIENT KEPT CLEAN DRY AND COMFORTABLE THROUGHOUT SHIFT. PATIENT PERMACATH IN PLACE AND INTACT. PATIENT IV INTACT. PATIENT ON CARDIAC MONITORING, SINUS RHYTHM HR 94. SAFETY PRECAUTIONS IN PLACE. WILL ENDORSE TO WORKERS COMPENSATION CLAIMS SUPERVISOR OF HEMODIALYSIS TO BE DONE AROUND 2029 BY LINDA MORRELL. HOB IS ELEVATED. PATIENT BED IS LOCKED AND IN LOWEST POSITION. CALL LIGHT WITHIN REACH. WILL ENDORSE CARE TO PM SHIFT FOR NICKY. Addendum: 04/09/19 at 1901 by ASHISH KIM RN ENDORSED TO WORKERS COMPENSATION CLAIMS SUPERVISOR RN FOR FOLLOW UP WITH HEMODIALYSIS TONIGHT AT 2029.
--- NOTE | 2019-04-09 19:15 | NUR ---
MS RN RECEIVE PT IN BED AWAKE OPENS EYES OBTUNDED, TOLERATING GT FEEDING, INFUSING ORDERED. TOLERATING VENT SETTINGS ORDERED. 02 SAT AT 100%. STABLE. WILL CONT TO MTR
--- NOTE | 2019-04-09 19:15 | NUR ---
ON CARDIAC MONITORING SR 89 IN TELE MTR
[2019-04-09 20:00] VITALS: BP 132/62
[2019-04-10] VITALS: BP 158/94
[2019-04-10] MEDS: hydrALAZINE HCL 25 MG TABLET GT SCH ×5 (00:12→23:35)
[2019-04-10 04:00] VITALS: BP 154/101
[2019-04-10] MEDS: AMPICILLIN 1 GM in IV NS 0.9% 50 ML IV SCH ×4 (05:00→23:35)
--- NOTE | 2019-04-10 05:42 | NUR ---
RT NOTES TRACH TUBE IN PLACE, PATENT, AND SECURED WITH TRACH TIE. ALARMS ON AND AUDIBLE. VENT PLUGGED IN TO THE RED OUTLET. BACK TRACH AND AMBU BAG BY THE BEDSIDE. NO SIGNS OF ANY DISTRESS AT THIS TIME. Addendum: 04/10/19 at 0542 by KEMAR SANCHEZ RT Amended: Links added.
--- NOTE | 2019-04-10 06:21 | NUR ---
MANAGER GAS PT ASLEEP, EASILY AWAKEN, OPENS EYES, ON CARDIAC MONITORING SR 89 HR IN TELE MONITOR. 02 SAT AT 100% TOLERATING VENT SETTINGS ORDERED. WOUND CARE ORDERED, AM CARE RENDERED, KEPT CLEAN AND DRY AND COMFORTABLE. NEEDS ATTENDED AND ANTICIPATED. SAFETY MEASURES AT ALL TIMES. ENDORSE TO THE NEXT SHIFT.
--- NOTE | 2019-04-10 07:27 | NUR ---
LINUX DEVOPS ENGINEER OPENING NOTES Patient received on a ventilator, shiley 8, and intact. Patient obtunded, anuric and had HD 1019. YESI midline remains present at this time. No s/s of pain at this time, no sob noted. Bed at the lowest setting, call light within reach, side rails up x2.
[2019-04-10 07:33] LABS: BASOPHILS % (AUTO) 0.3 % (0.0-2.0); HEMATOCRIT 23 % (39-51); HEMOGLOBIN 7.3 g/dL (13.5-17.5); LYMPHOCYTES # (AUTO) 0.7 /CMM (0.8-4.8); LYMPHOCYTES % (AUTO) 8.2 % (20.0-44.0); MEAN CORPUSCULAR HGB CONC 32 g/dl (31.0-36.0); MEAN CORPUSCULAR VOLUME 86 fL (80-96); MONOCYTES # (AUTO) 0.9 /CMM (0.1-1.30); MONOCYTES % (AUTO) 10.2 % (2.0-12.0); NEUTROPHILS # (AUTO) 5.1 /CMM (1.8-8.9); NEUTROPHILS % (AUTO) 60.3 % (43.0-81.0); PLATELET COUNT (AUTO) 52 /CMM (150-450); RED BLOOD CELL COUNT(AUTO) 2.61 MIL/uL (4.5-6.0); WHITE BLOOD COUNT (AUTO) 8.5 K/uL (4.3-11.0)
[2019-04-10 07:45] LABS: CALCIUM, SERUM 8.7 mg/dL (8.5-10.1); CREATININE 4.6 mg/dL (0.6-1.3); MAGNESIUM 2.3 mg/dL (1.8-2.4); PHOSPHORUS 3.8 mg/dL (2.5-4.9)
[2019-04-10 07:52] LABS: BAND % (MANUAL) 1 % (0.0-5.0); EOSINOPHILS % (MANUAL) 22 % (0-4); LYMPHOCYTES % (MANUAL) 8 % (16-48); MONOCYTES % (MANUAL) 9 % (0-11.0); NEUTROPHILS % (MANUAL) 60 (42-76)
[2019-04-10 08:00] VITALS: BP 144/82
[2019-04-10] MEDS: ACIDOPHILUS/BULGARICUS 1 EACH TAB.CHEW PO SCH ×3 (08:44→16:35)
[2019-04-10] MEDS: LABETALOL HCL (100MG) 100 MG TABLET GT SCH ×2 (08:45→20:01)
[2019-04-10] MEDS: VIT B CMPLX 3/FA/VIT C/BIOTIN 1 TAB TABLET PO SCH (08:45)
[2019-04-10] MEDS: HYDROGEL DRESSING 90 GM TUBE TP SCH (08:46)
[2019-04-10] MEDS: SILVER SULFADIAZINE CREAM 25 GM TUBE TP SCH (08:48)
[2019-04-10] MEDS: PROSOURCE / PROSTAT (PYXIS) 30 ML UDC PO SCH ×2 (08:49→16:39)
[2019-04-10 16:00] VITALS: BP 163/102
--- NOTE | 2019-04-10 18:24 | NUR ---
MS VINEYARD WORKER NOTES Patient remains on ventilator, SH 8, no sob noted, vital signs within patients baseline. SR 90's in the tele monitor. YESI midline remains patent. All needs attended to. Patient comfortable on his bed. Bed at the lowest setting, call light within reach, side rails up x2. Will give report to NOC RN for NICKY bedside.
[2019-04-10] MEDS: NEPRO 1,000 ML BOTTLE GT PRN (18:35)
--- NOTE | 2019-04-10 19:47 | NUR ---
TELE/RN OPENING NOTES RECEIVED PATIENT IN BED, OBTUNDED, ON VENT, REQUIRE EXTENSIVE ASSISTANCE IN VEGETATIVE STATE WITH MULTIPLE WOUNDS IN SACRAL AND UPPER AND LOWER EXTREMITIES, PATIENT ANURIC AND MORBID OBESE, ON GTUBE FEEDING , NEPHRO 50ML/R, MONITORING FOR ANY RESIDUAL. WIILL CONTINUE TO PROVIDE CARE AND MANAGE KEEP BLOOD PRESSURE IN STABLE READING WITH MD ORDER TO CHECK LABS IN AM WITH ORDER FOR HD IN AM. WILL MONITOR. BED LOCKED, CALL LIGHTS WITHIN REACH.
[2019-04-10 19:52] VITALS: BP 178/100
[2019-04-10] MEDS: HYDROCODONE/APAP 5/325MG 1 EACH TABLET PO PRN (22:24)
--- NOTE | 2019-04-10 22:29 | NUR ---
tele/rn notes observe patient with grimace and guarding . pain medication as needed given for comfort.
[2019-04-11] VITALS (14 sets, daily range): BP systolic 145–186; BP diastolic 0–108
[2019-04-11] MEDS: AMPICILLIN 1 GM in IV NS 0.9% 50 ML IV SCH ×4 (05:19→23:47)
[2019-04-11] MEDS: hydrALAZINE HCL 25 MG TABLET GT SCH ×4 (05:19→23:05)
--- NOTE | 2019-04-11 07:50 | NUR ---
MANAGER DISASTER RECOVERY NOTES PATIENT RESTING IN BED, HOB AT SEMI FOWLERS. PATIENT IN NO RESPIRATORY DISTRESS, VENT SETTINGS PRESCRIBED. PATIENT IN NO S/S OF PAIN AT THIS TIME. IV ACCESS SITE INTACT AND PATENT, NO REDNESS, NO INFILTRATION. GT FEEDING OF NEPHRO RUNNING AT 50ML/HR, TOLERATING WELL. PATIENT'S NEEDS ATTENDED. BED ON LOWEST LOCKED POSITION, CALL LIGHT WITHIN REACH. WILL CONTINUE TO MONITOR.
[2019-04-11] MEDS: ACIDOPHILUS/BULGARICUS 1 EACH TAB.CHEW PO SCH ×3 (08:09→17:41)
[2019-04-11] MEDS: LABETALOL HCL (100MG) 100 MG TABLET GT SCH ×2 (08:09→21:16)
[2019-04-11] MEDS: VIT B CMPLX 3/FA/VIT C/BIOTIN 1 TAB TABLET PO SCH (08:09)
[2019-04-11] MEDS: PROSOURCE / PROSTAT (PYXIS) 30 ML UDC PO SCH ×2 (08:13→17:43)
[2019-04-11] MEDS: HYDROGEL DRESSING 90 GM TUBE TP SCH (08:21)
[2019-04-11] MEDS: SILVER SULFADIAZINE CREAM 25 GM TUBE TP SCH (08:21)
--- NOTE | 2019-04-11 12:20 | NUR ---
PRACTICAL NURSE NOTES PATIENT GETTING DIALYSIS BY PETROS ALMONTE. HELD MEDICATIONS HYDRALAZINE AND LACTOBACILLUS. WILL GIVE AMPICILLIN IV AFTER DIALYSIS.
[2019-04-11 15:44] LABS: HEMOGLOBIN 7.1 g/dL (13.5-17.5)
--- NOTE | 2019-04-11 19:25 | NUR ---
MARKETING ACCOUNT MANAGER NOTES PATIENT RESTING IN BED, HOB ELEVATED. PATIENT IN NO RESPIRATORY DISTRESS, VENT SETTINGS PRESCRIBED. PATIENT'S SKIN WARM TO TOUCH. STILL WAITING FOR 1 UNIT OF PRBC ORDERED BY DR. KWONG. GT FEEDING OF NEPHRO RUNNING AT 50ML/HR, TOLERATING WELL. BED ON LOWEST LOCKED POSITION, CALL LIGHT WITHIN REACH. WILL ENDORSE TO ONCOMING NURSE.
--- NOTE | 2019-04-11 19:34 | NUR ---
PROGRAM ADVOCATE OPENING NOTES RECEIVED PT IN BED, OBTUNDED, OPENS EYES. TOLERATING CURRENT VENT SETTINGS, SR IN THE 80S. R UPPER ARM MIDLINE I PLACE, UPPER R CHEST WALL HD CATH. TOLERATING GT FEEDING NO RESIDUAL. IN NO APPARENT PAIN OR DISCOMFORT AT THIS TIME, BED IN LOWEST LOCKED POSITION, REPOSITION FOR COMFORT, WILL CONTINUE TO MONITOR
[2019-04-11] MEDS: ACETAMINOPHEN 325 MG TABLET PO PRN (23:05)
[2019-04-12 00:08] VITALS: BP 161/91
[2019-04-12] MEDS: NEPRO 1,000 ML BOTTLE GT PRN (01:36)
[2019-04-12 04:00] VITALS: BP 159/87
[2019-04-12] MEDS: AMPICILLIN 1 GM in IV NS 0.9% 50 ML IV SCH ×2 (05:42→12:13)
[2019-04-12] MEDS: hydrALAZINE HCL 25 MG TABLET GT SCH ×3 (05:44→17:04)
--- NOTE | 2019-04-12 06:09 | NUR ---
CANE PILER CLOSING NOTES PT REMAINS IN BED, OBTUNDED, OPENS EYES. TOLERATING CURRENT VENT SETTINGS, SR IN THE 80S. R UPPER ARM MIDLINE I PLACE, UPPER R CHEST WALL HD CATH. TOLERATING GT FEEDING NO RESIDUAL. IN NO APPARENT PAIN OR DISCOMFORT AT THIS TIME, BED IN LOWEST LOCKED POSITION, REPOSITION FOR COMFORT, WOUND DRESSINGS CHANGED, WILL ENDORSE TO DAY NURSE FOR NICKY
[2019-04-12 08:00] VITALS: BP 175/112
--- NOTE | 2019-04-12 08:00 | NUR ---
MS RN NOTES PATIENT IN BED RESTING OBTUNDED. PATIENT VENT DEPENDENT. VENT SETTINGS NOTED. PATIENT WITH MIDLINE INTACT PATENT ON RIGHT UPPER ARM. BED IN LOW LOCKED POSITION. CALL LIGHT WITHIN REACH. G- TUBE FEEDING ON CONTINUES FEEDING ORDERED. WILL CONTINUE TO MONITOR.
[2019-04-12] MEDS: LABETALOL HCL (100MG) 100 MG TABLET GT SCH (09:43)
[2019-04-12] MEDS: PROSOURCE / PROSTAT (PYXIS) 30 ML UDC PO SCH ×2 (09:44→17:05)
[2019-04-12] MEDS: ACIDOPHILUS/BULGARICUS 1 EACH TAB.CHEW PO SCH ×3 (09:44→17:01)
[2019-04-12] MEDS: VIT B CMPLX 3/FA/VIT C/BIOTIN 1 TAB TABLET PO SCH (09:44)
[2019-04-12] MEDS: HYDROGEL DRESSING 90 GM TUBE TP SCH (09:48)
[2019-04-12] MEDS: SILVER SULFADIAZINE CREAM 25 GM TUBE TP SCH (09:49)
[2019-04-12 12:06] LABS: HEMOGLOBIN 7.8 g/dL (13.5-17.5)
[2019-04-12] MEDS: hydrALAZINE HCL 25 MG TABLET GT PRN (14:38)
[2019-04-12 16:00] VITALS: BP 160/88
[2019-04-12] MEDS ORDERED: DOSING PER PHARMACY-AMIKACI IV XX PRN (17:00)
[2019-04-12 17:04] VITALS: BP 160/88
[2019-04-12] MEDS ORDERED: FEE PK DOSING 1 MIN EA MC ONE (17:14)
--- NOTE | 2019-04-12 17:30 | NUR ---
SELF SEALING FUEL TANK REPAIRER NOTES SPOKE TO ALFREDO INFECTION DISEASE TO CLARIFY ORDERS FOR DISCHARGE IV ATB. ORDERS OBTAINED TO DISREGARD NEW ORDERS, DISCHARGE PATIENT ON AMPICILLIN 1GM FOR 7 DAYS. ORDERS NOTED, PROCEEDED WITH DISCHARGE.
--- NOTE | 2019-04-12 17:45 | NUR ---
ADVISOR TO COMMAND IN COMBAT NOTES PATIENT DISCHARGED TO SNF PATIENT OBTUNDED. IN STABLE CONDITION. REPORT GIVEN TO MARY CARMEN MORRELL. PATIENTS MIDLINE LEFT IN PLACE FOR IV ATB AT SNF. DISCHARGE PROTOCOL FOLLOWED. DISCHARGE EDUCTION PROVED TO RN AT [facility] F[facility]ILITY. ALL WOUND CARE PERFORMED. PATIENT WITH NO BELONGINGS. PATIENT TRANSFERRED TO SNF VIA AMBULANCE.
[2019-04-12] MEDS ORDERED: VANCOMYCIN 1 GM in IV D5W 250 ML IV ONE (18:00)
[2019-04-12] MEDS ORDERED: AMIKACIN 400 MG in IV D5W 100 ML IV ONE (20:00)
[2019-04-13] MEDS ORDERED: VANCOMYCIN 500 MG in IV D5W 100 ML IV PRN (17:30)
[2019-04-13] MEDS ORDERED: AMIKACIN 500 MG in IV D5W 100 ML IV PRN (17:30)
[2019-04-28] MEDS ORDERED: EPOE200011 IJ (11:59)
== END 2019-04-12 18:11 | DRG 721 ==
LOC: ER 15:00 → TELE 17:49
PROVIDERS: ADMIT Registered Nurse; ATTEND Internal Medicine Nephrology
PROC: 30233N1 Transfusion of Nonautologous Red Blood Cells into Peripheral Vein, Percutaneous Approach (ICD-10-PCS; principal; 2019-03-28)
PROC: 5A1955Z Respiratory Ventilation, Greater than 96 Consecutive Hours (ICD-10-PCS; principal; 2019-03-28)
PROC: 05HC33Z Insertion of Infusion Device into Left Basilic Vein, Percutaneous Approach (ICD-10-PCS; 2019-03-29)
PROC: 5A1D70Z Performance of Urinary Filtration, Intermittent, Less than 6 Hours Per Day (ICD-10-PCS; 2019-03-29)
PROC: 05HM33Z Insertion of Infusion Device into Right Internal Jugular Vein, Percutaneous Approach (ICD-10-PCS; 2019-04-08)
PROC: 0JHD3XZ Insertion of Tunneled Vascular Access Device into Right Upper Arm Subcutaneous Tissue and Fascia, Percutaneous Approach (ICD-10-PCS; 2019-04-08)
PROC: B5131ZA Fluoroscopy of Right Jugular Veins using Low Osmolar Contrast, Guidance (ICD-10-PCS; 2019-04-08)
PROC: B50 Imaging, Veins, Plain Radiography (ICD-10-PCS; 2019-04-08)
DX: T80.211A Bloodstream infection due to central venous catheter, initial encounter (principal); A41.81 Sepsis due to Enterococcus; R65.21 Severe sepsis with septic shock; Z99.11 Dependence on respirator [ventilator] status; G93.1 Anoxic brain damage, not elsewhere classified; J90 Pleural effusion, not elsewhere classified; J96.11 Chronic respiratory failure with hypoxia; L89.323 Pressure ulcer of left buttock, stage 3; I95.3 Hypotension of hemodialysis; R40.3 Persistent vegetative state; D69.59 Other secondary thrombocytopenia; I12.0 Hypertensive chronic kidney disease with stage 5 chronic kidney disease or end stage renal disease; K92.2 Gastrointestinal hemorrhage, unspecified; N18.6 End stage renal disease; R13.10 Dysphagia, unspecified; F09 Unspecified mental disorder due to known physiological condition; D63.8 Anemia in other chronic diseases classified elsewhere; B35.1 Tinea unguium; I25.10 Atherosclerotic heart disease of native coronary artery without angina pectoris; Z99.2 Dependence on renal dialysis; Z86.73 Personal history of transient ischemic attack (TIA), and cerebral infarction without residual deficits; Z79.899 Other long term (current) drug therapy; D69.6 Thrombocytopenia, unspecified; L89.622 Pressure ulcer of left heel, stage 2; L89.890 Pressure ulcer of other site, unstageable; L89.520 Pressure ulcer of left ankle, unstageable; M62.462 Contracture of muscle, left lower leg; M62.461 Contracture of muscle, right lower leg; I48.92 Unspecified atrial flutter; L97.419 Non-pressure chronic ulcer of right heel and midfoot with unspecified severity; Z66 Do not resuscitate; M85.9 Disorder of bone density and structure, unspecified; S90.519A Abrasion, unspecified ankle, initial encounter; S81.811A Laceration without foreign body, right lower leg, initial encounter; S20.319A Abrasion of unspecified front wall of thorax, initial encounter; X58.XXXA Exposure to other specified factors, initial encounter; Y92.129 Unspecified place in nursing home as the place of occurrence of the external cause; Z93.0 Tracheostomy status; Z93.1 Gastrostomy status; Y84.8 Other medical procedures as the cause of abnormal reaction of the patient, or of later complication, without mention of misadventure at the time of the procedure
CPT/HCPCS: 31720; 36415; 71045-TC; 74018; 80048-TC; 80053-TC; 80061-TC; 80076-TC; 80150; 81000-TC; 82247-TC; 82248-TC; 82272-TC; 82962-TC; 83605-TC; 83735-TC; 84100-TC; 84443-TC; 84484-TC; 85025-TC; 85027-TC; 85730-TC; 86704; 86706; 86850-TC; 86921-TC; 87040-TC; 87070-TC; 87081-TC; 87086-TC; 87186-TC; 87340; 90935-TC; 93307-TC; 93971-TC; 94002-TC; 94003-TC; 94760-TC; 94762-TC; 94799-TC; A4216; A4623; A6248; A6253; A6403; A7526; C1750; C1769; C9113; G0378; J0278; J0290; J0360; J0885; J1644; J2543; J3370; J3490; J7050; J7060; P9016-BL; Q9966

== ENCOUNTER 2019-04-27 12:53 | Inpatient (IN) | payer OTHER ==
[~2019-04-27] VITALS: Ht 170.2 cm; Wt 59.0 kg
[~2019-04-27 12:53] MED LIST changes: -ACET-73 PO; -BISA10SU61 RC; -Hydrogel Dressing TP; -LISI40TA4 PO; -METO-295 PO; +NUTR100037 GT
--- NOTE | 2019-04-27 12:55 | NUR ---
RT Pt brought into ER trached on mechanical ventilation. Pt switched over to hospital ventilator with noted settings by transport RT. Pt is awake but does not follow commands. Vent is plugged into red outlet. No SOB or respiratory distress noted. Addendum: 04/27/19 at 1324 by STEPHIE SMILEY RT Amended: Links added.
--- NOTE | 2019-04-27 12:58 | NUR ---
AMELIA FROM ALL [facility] C/O LOW HEMOGLOBIN 6.6, TO ER BED 8, RT AT BEDSIDE, HOOKED PATIENT TO VENTILATOR. PATIENT IN HOSP GOWN, HOOKED TO MONITOR, VSS. AWAITING MD ELY
--- NOTE | 2019-04-27 12:58 | NUR ---
DR WOLFF AT BEDSIDE
--- NOTE | 2019-04-27 13:00 | NUR ---
VENTILATOR SETTINGS: AC 18 VT 500 O2 40% PEEP 5.0
[2019-04-27 13:32] LABS: MONOCYTES # (AUTO) 0.7 /CMM (0.1-1.30); MONOCYTES % (AUTO) 6.7 % (2.0-12.0)
[2019-04-27 13:35] LABS: BASOPHILS % (AUTO) 0.4 % (0.0-2.0); EOSINOPHILS % (AUTO) 12.9 % (0.0-6.0); HEMATOCRIT 21 % (39-51); LYMPHOCYTES # (AUTO) 0.9 /CMM (0.8-4.8); LYMPHOCYTES % (AUTO) 8.2 % (20.0-44.0); MEAN CORPUSCULAR HGB CONC 33 g/dl (31.0-36.0); MEAN CORPUSCULAR VOLUME 91 fL (80-96); NEUTROPHILS # (AUTO) 7.5 /CMM (1.8-8.9); NEUTROPHILS % (AUTO) 71.8 % (43.0-81.0); PLATELET COUNT (AUTO) 103 /CMM (150-450); WHITE BLOOD COUNT (AUTO) 10.5 K/uL (4.3-11.0)
[2019-04-27 13:45] LABS: ALBUMIN 2.4 g/dL (3.4-5.0); BILIRUBIN,DIRECT 0.2 mg/dL (0.0-0.2); BILIRUBIN,TOTAL 0.5 mg/dL (0.2-1.0); CALCIUM, SERUM 9.3 mg/dL (8.5-10.1); CREATININE 6.6 mg/dL (0.6-1.3); POTASSIUM 3.8 mmol/L (3.5-5.1); TOTAL PROTEIN, SERUM 7.4 g/dL (6.4-8.2)
--- NOTE | 2019-04-27 13:57 | NUR ---
CALLED NURSING SUP FOR BED
--- NOTE | 2019-04-27 14:06 | NUR ---
CALLED [facility] V[facility]ZQUE[facility] STATES DR KWONG IS CUSTOMER RELATIONS SPECIALIST AND PAGED.
--- NOTE | 2019-04-27 14:57 | NUR ---
SPOKE TO SUSIE (ADMISSION NURSE OF [facility]) FOR CLINICAL INFORMATION
--- NOTE | 2019-04-27 15:00 | NUR ---
COMMERCIAL SPECIALIST/MED RECON UNABLE TO UPDATE HOME MEDICATION LIST AT THIS TIME. PATIENT FROM ALL [facility] [phone], SPOKE WITH RN-TOLL GATE TENDER FOR MEDICATION LIST. CALLED X2, STILL WAITING FOR FAX.
[2019-04-27] MEDS ORDERED: MAGN400O6 GT (15:21)
[2019-04-27] MEDS ORDERED: ACID1TAB12 GT (15:21)
[2019-04-27] MEDS ORDERED: AMIN30LI2 GT (15:21)
[2019-04-27] MEDS ORDERED: PANT40SU2 GT (15:21)
[2019-04-27] MEDS ORDERED: HYDR100T27 GT (15:21)
[2019-04-27] MEDS ORDERED: ACET650S26 GT (15:21)
[2019-04-27] MEDS ORDERED: BISA10SU11 RC (15:21)
--- NOTE | 2019-04-27 15:28 | NUR ---
REPORT GIVEN TO DEMARCO OF MS UNIT
--- NOTE | 2019-04-27 16:11 | NUR ---
PATIENT WHEELED OUT VIA GURNEY TO TELE UNIT, WITH RN, KONG AND RT.
--- NOTE | 2019-04-27 16:20 | NUR ---
RN AM SHIFT NOTE PATIENT BROUGHT FROM EMERGENCY ROOM VIA GURNEY. VITAL WNL RESPIRATORY AT BEDSIDE. SIDE RAILS UP PICC LINE PATENT AND FLUSHING WELL. DR LUIS FONG ON THE CASE. SPREADER OPERATOR SASKIA AWARE OF ADMITTING ORDERS TO BE PUT IN. TYPE AND SCREEN DONE EPOOGEN TO BE GIVEN WITH DIALYSIS. MEDICATON RECON DONE BY ER NURSE FRANSICO. ALL NEEDS MET DIALYSIS NURSE ARRIVED AT 1620 TODAY . RN UNABLE TO DOCUMENT WOUNDS SITES DUE TO TREATMENT. ENDORSED TO NIGHT NURSE, AWARE OF DOCUMENTATION NEED AND AGREE TO FINISH WOUND PICTURES.
[2019-04-27] MEDS ORDERED: ONDANSETRON HCL/PF 4 MG/2 ML VIAL IVP PRN (16:30)
[2019-04-27] MEDS ORDERED: Z GUARD REMEDY 2 OZ OINT TP PRN (16:30)
[2019-04-27] MEDS ORDERED: ACETAMINOPHEN 325 MG TABLET PO PRN (16:30)
[2019-04-27 17:00] VITALS: BP 134/74
[2019-04-27] MEDS ORDERED: EPOETIN ALFA (10,000 UNIT) 10,000 UNIT/ML VIAL IV ONE (17:00)
--- NOTE | 2019-04-27 17:00 | NUR ---
BLADDER TRIMMER NOTE PATIENT TX COMPLETED VITALS WNL. NO FLUID TAKEN OFF BY DIALYSIS NURSE. ALL NEEDS MET.
--- NOTE | 2019-04-27 19:05 | NUR ---
HEAVY EQUIPMENT SALES MANAGER NOTE PATIENT TRANSFERED FROM ER UPON ARRIVAL EMERGENCY DIALYSIS WAS ORDERED, RN UNABLE TO TAKE WOUND PICTURES ON ADMISSION AND ENDORSED TO NIGHT NURSE.
--- NOTE | 2019-04-27 19:06 | NUR ---
RN SHIFT NOTE PATIENT BROUGHT FROM EMERGENCY ROOM VIA GURNEY. VITAL WNL RESPIRATORY AT BEDSIDE. SIDE RAILS UP PICC LINE PATENT AND FLUSHING WELL. DR LUIS FONG ON THE CASE. PASTA PRESS OPERATOR SASKIA AWARE OF ADMITTING ORDERS TO BE PUT IN. TYPE AND SCREEN DONE EPOOGEN TO BE GIVEN WITH DIALYSIS. MEDICATON RECON DONE BY ER NURSE FRANSICO. ALL NEEDS MET DIALYSIS NURSE ARRIVED AT 1620 TODAY . RN UNABLE TO DOCUMENT WOUNDS SITES DUE TO TREATMENT. ENDORSED TO NIGHT NURSE, AWARE OF DOCUMENTATION NEED AND AGREE TO FINISH WOUND PICTURES.
--- NOTE | 2019-04-27 19:20 | NUR ---
OIL WELL ENGINEER NOTES RECEIVED PT ON BED. A/O X 1. ON TELE MONITOR SR 80. ON [facility] VENT SETTING NO RESPIRATORY DISTRESS NOTED.IV ACCESS ON RIGHT UPPER ARM PICC AND HD ACCESS ON RIGHT CHEST WALL. HEAD OF BED ELEVATED. SIDE RAILS UP. CALL LIGHT WITHIN REACH. BED ALARM ON. WILL CONTINUE TO MONITOR PT CLOSELY.
[2019-04-27] MEDS ORDERED: INSULIN REGULAR, HUMAN 100 UNIT/ML 3 ML VIAL SQ PRN (20:30)
[2019-04-27] MEDS ORDERED: DEXTROSE 50%-WATER 50 ML DISP.SYRIN IV PRN (20:30)
[2019-04-27 21:00] VITALS: BP 119/88
[2019-04-27] MEDS ORDERED: NEPRO 1,000 ML BOTTLE GT PRN (21:00)
[2019-04-27] MEDS: BLOOD SUGAR DIAGNOSTIC 1 EACH STRIP IN SCH (23:12)
[2019-04-28] VITALS (8 sets, daily range): BP systolic 148–186; BP diastolic 75–101
[2019-04-28] MEDS: BLOOD SUGAR DIAGNOSTIC 1 EACH STRIP IN SCH ×2 (05:06→12:24)
--- NOTE | 2019-04-28 07:08 | NUR ---
COTTON CHOPPER NOTES NO ACUTE CHANGES NOTED DURING THE SHIFT. PROVIDED COMFORT AND SAFETY. NO ACTIVE BLEEDING NOTED. WILL ENDORSE TO THE AM NURSE FOR CONTINUITY OF CARE.
--- NOTE | 2019-04-28 07:15 | NUR ---
CARD ROOM MANAGER OPENING NOTE: RECEIVED PATIENT IN BED. AWAKE, ALERT AND ORIENTED X1. EYE TRACKING NOTED. NO PAIN NOTED WITH PATIENT. APPEARS, RELAXED AND COMFORTABLE. NOT IN ACUTE DISTRESS. WITH CARDIAC MONITORING WITH RHYTHM @ 80S NOTED. PERMACATH AT RIGHT SHOULDER AREA, DRESSING IS CLEAN AND INTACT. ON MECHANICAL VENTILATOR WITH SHILEY 8 WITH SETTINGS OF AC:18. TV:500, FIO2:40%, PEEP:5 AND TOLERATING WELL. WITH GTUBE, IN PLACE AND PATENT, NO RESIDUAL NOTED. FEEDING OG NOVASOURCE ORDERED @ 55CC/HR @ 18HRS, CURRENTLY ON 40CC/HR TO START, TOLERATING WELL. RIGHT UPPER ARM PICC LINE IN PLACE AND PATENT, SITE CLEAN, INTACT AND DRY. LUNG SOUNDS CLEAR, NORMOACTIVE BOWEL SOUNDS PRESENT. PATIENT WITH MULTIPLE WOUND SITES, L HAND AND ARM NOTED WITH PITTING +2 EDEMA, CONTRACTED ON BILATERAL LEGS AND RIGHT ARM RIGIDITY NOTED. WILL CONTINUE TO MONITOR PATIENT CLOSELY ON SHIFT. Addendum: 04/28/19 at 0823 by BENI ARMENTA RN BED IN LOW POSITION, LOCKED AND AT SEMI-FOWLERS. CALL LIGHT IN REACH.
[2019-04-28 07:25] LABS: BASOPHILS % (AUTO) 0.5 % (0.0-2.0); EOSINOPHILS % (AUTO) 11.5 % (0.0-6.0); HEMATOCRIT 22 % (39-51); HEMOGLOBIN 7.2 g/dL (13.5-17.5); LYMPHOCYTES % (AUTO) 10.5 % (20.0-44.0); MEAN CORPUSCULAR HGB CONC 33 g/dl (31.0-36.0); MEAN CORPUSCULAR VOLUME 91 fL (80-96); MONOCYTES # (AUTO) 0.8 /CMM (0.1-1.30); MONOCYTES % (AUTO) 8.5 % (2.0-12.0); NEUTROPHILS # (AUTO) 6.4 /CMM (1.8-8.9); PLATELET COUNT (AUTO) 106 /CMM (150-450); RED BLOOD CELL COUNT(AUTO) 2.36 MIL/uL (4.5-6.0); WHITE BLOOD COUNT (AUTO) 9.3 K/uL (4.3-11.0)
[2019-04-28 07:33] LABS: ALBUMIN 2.4 g/dL (3.4-5.0); BILIRUBIN,TOTAL 0.5 mg/dL (0.2-1.0); CREATININE 5.5 mg/dL (0.6-1.3); MAGNESIUM 2.3 mg/dL (1.8-2.4); PHOSPHORUS 4.6 mg/dL (2.5-4.9); POTASSIUM 3.9 mmol/L (3.5-5.1); TOTAL PROTEIN, SERUM 7.4 g/dL (6.4-8.2)
[2019-04-28 07:43] LABS: THYROID STIMULATING HORMONE 7.823 uIU/mL (0.358-3.74)
[2019-04-28] MEDS ORDERED: SILVER SULFADIAZINE 50 GM JAR TP SCH (09:00)
[2019-04-28] MEDS ORDERED: EPOE200011 IJ (11:59)
[2019-04-28] MEDS ORDERED: AMLODIPINE BESYLATE 10 MG TABLET GT SCH (12:00)
[2019-04-28] MEDS ORDERED: SILVER SULFADIAZINE CREAM 25 GM TUBE TP SCH (12:16)
[2019-04-28] MEDS ORDERED: hydrALAZINE HCL 50 MG TABLET GT ONE (12:30)
--- NOTE | 2019-04-28 13:24 | NUR ---
teletypesetter note per dilatation feeding rate changed to 40 ml per hour ,will f\u
[2019-04-28] MEDS ORDERED: NEPRO 1,000 ML BOTTLE GT PRN (13:30)
--- NOTE | 2019-04-28 13:58 | NUR ---
television agent note called to snf report given to pola gonzalez
[2019-04-28] MEDS ORDERED: HYDROGEL DRESSING 90 GM TUBE TP SCH (14:00)
[2019-04-28] MEDS ORDERED: SILVER SULFADIAZINE 50 GM JAR TP PRN (14:00)
--- NOTE | 2019-04-28 15:12 | NUR ---
ART CRITIC NOTE: SPOKE WITH DR. HIGH AND NOTIFIED THAT BP IS 180/96. HYDRALAZINE WAS GIVEN EARLIER ALREADY. STILL OK TO TRANSFER SNF. WILL CONTINUE TO MONITOR PATIENT'S CONDITION.
--- NOTE | 2019-04-28 15:46 | NUR ---
DIE REPAIRER FORGING NOTE: LEFT VM FOR TO INFORM PATIENT OF DISCHARGE. AWAITING FOR CALL BACK
--- NOTE | 2019-04-28 15:57 | NUR ---
AUTOMATION AND CONTROLS MANAGER NOTE AMBULANCE ARRIVED, REPORT GIBRM OK TO LEAVE PICC LINE , BP CHECKED 148/78 SAT 100 %
--- NOTE | 2019-04-28 16:05 | NUR ---
IMPORTER OR EXPORTERAGRICULTURAL AIRCRAFT PILOT NOTE: PATIENT LEFT WITH 2 EMT AND 1 RT IN STABLE CONDITION. PATIENT'S STILL HAS NOT CALLED BACK.
--- NOTE | 2019-04-28 16:45 | NUR ---
MUD PLANT OPERATOR NOTE PATIENT TRANSFERRED TO SNF WITH STABLE CONDITION
[2019-04-28] MEDS ORDERED: PROSOURCE / PROSTAT (PYXIS) 30 ML UDC GT SCH (17:00)
[2019-04-29] MEDS ORDERED: VIT B CMPLX 3/FA/VIT C/BIOTIN 1 TAB TABLET GT SCH (09:00)
== END 2019-04-28 16:45 | DRG 194 ==
LOC: ER 12:57 → TELE1 15:48
PROVIDERS: ADMIT Nurse Practitioner Acute Care; ATTEND Nurse Practitioner Acute Care
PROC: 5A1D70Z Performance of Urinary Filtration, Intermittent, Less than 6 Hours Per Day (ICD-10-PCS; principal; 2019-04-27)
PROC: 5A1945Z Respiratory Ventilation, 24-96 Consecutive Hours (ICD-10-PCS; principal; 2019-04-27)
PROC: 0JB70ZZ Excision of Back Subcutaneous Tissue and Fascia, Open Approach (ICD-10-PCS; 2019-04-28)
DX: I13.2 Hypertensive heart and chronic kidney disease with heart failure and with stage 5 chronic kidney disease, or end stage renal disease (principal); Z99.11 Dependence on respirator [ventilator] status; G93.1 Anoxic brain damage, not elsewhere classified; L89.154 Pressure ulcer of sacral region, stage 4; J96.11 Chronic respiratory failure with hypoxia; Z93.0 Tracheostomy status; L89.323 Pressure ulcer of left buttock, stage 3; L89.519 Pressure ulcer of right ankle, unspecified stage; L89.623 Pressure ulcer of left heel, stage 3; L89.613 Pressure ulcer of right heel, stage 3; N18.6 End stage renal disease; I50.32 Chronic diastolic (congestive) heart failure; Z99.2 Dependence on renal dialysis; Z93.1 Gastrostomy status; D63.1 Anemia in chronic kidney disease; I25.10 Atherosclerotic heart disease of native coronary artery without angina pectoris; Z86.73 Personal history of transient ischemic attack (TIA), and cerebral infarction without residual deficits; R13.10 Dysphagia, unspecified; L98.8 Other specified disorders of the skin and subcutaneous tissue; L89.899 Pressure ulcer of other site, unspecified stage; M24.574 Contracture, right foot; M24.575 Contracture, left foot; S70.322A Blister (nonthermal), left thigh, initial encounter; S70.321A Blister (nonthermal), right thigh, initial encounter; S50.822A Blister (nonthermal) of left forearm, initial encounter; S50.821A Blister (nonthermal) of right forearm, initial encounter; S30.821A Blister (nonthermal) of abdominal wall, initial encounter; S20.329A Blister (nonthermal) of unspecified front wall of thorax, initial encounter; X58.XXXA Exposure to other specified factors, initial encounter; Y93.9 Activity, unspecified; Y92.129 Unspecified place in nursing home as the place of occurrence of the external cause
CPT/HCPCS: 31720; 36415; 71045-TC; 80048-TC; 80053-TC; 80061-TC; 80076-TC; 82962-TC; 83540-TC; 83735-TC; 84100-TC; 84443-TC; 85025-TC; 85730-TC; 86704; 86706; 86850-TC; 87081-TC; 87340; 90935-TC; 94002-TC; 99082-TC; A6248; A6253; A6403; G0378; J0885; J1815

== ENCOUNTER 2019-05-16 12:59 | Inpatient (IN) | payer OTHER ==
[~2019-05-16] VITALS: Ht 170.2 cm; Wt 72.6 kg
[2019-05-16] VITALS (8 sets, daily range): BP systolic 114–151; BP diastolic 60–86
[~2019-05-16 12:59] MED LIST changes: +ACET650S26 GT; +ACID1TAB12 GT; +AMIN30LI2 GT; +BISA10SU11 RC; +EPOE200011 IJ; +MAGN400O6 GT; +PANT40SU2 GT; -PANT40TA4 PO; -PROT946L PO
--- NOTE | 2019-05-16 13:10 | NUR ---
PT AMELIA, FROM [facility], SNF CALLED DUE TO ABNORMAL LAB HGB OF 6.6. PT LETHARGIC, VSS, RT AT BEDSIDE. BLOOD DRAWN FROM PICC LINE. PT CONNECTED TO THE GRAIN TRIMMER AND POX.
--- NOTE | 2019-05-16 13:11 | NUR ---
BLOOD DRAWN AND SENT TO LAB
--- NOTE | 2019-05-16 13:27 | NUR ---
RT NOTE, PT. REC @0596 69 Y OLD MALE AWAKE NON VERBAL, TRACH'D SHILEY # 8, PLACED ON VENT WITH NOTED AC SETTINGS. PER MD ORDER. EQUAL CHEST RISE NOTED B/S BILATERALLY RALES SUX'D FOR MINIMAL AMT OF WHITE THICK SECRETIONS, ROLL SLICING MACHINE TENDER DONE. ALARMS ARE SET AND FUNCTIONAL. PT. VENT PLUGGED INTO RED OUT LET. AMBU BAG AT THE BEDSIDE. WILL CONTINUE TO MONITOR. PT. STABLE AND VITAL SIGN WITHIN NORMAL RANGE. Addendum: 05/16/19 at 1328 by ANJELICA SHAH RT Amended: Links added.
[2019-05-16 13:35] LABS: BASOPHILS # (AUTO) 0.1 /CMM (0.0-0.2); BASOPHILS % (AUTO) 0.6 % (0.0-2.0); EOSINOPHILS % (AUTO) 17.3 % (0.0-6.0); LYMPHOCYTES # (AUTO) 0.8 /CMM (0.8-4.8); LYMPHOCYTES % (AUTO) 9.2 % (20.0-44.0); MEAN CORPUSCULAR HGB CONC 34 g/dl (31.0-36.0); MEAN CORPUSCULAR VOLUME 89 fL (80-96); MONOCYTES # (AUTO) 0.7 /CMM (0.1-1.30); MONOCYTES % (AUTO) 8.2 % (2.0-12.0); NEUTROPHILS # (AUTO) 5.8 /CMM (1.8-8.9); NEUTROPHILS % (AUTO) 64.7 % (43.0-81.0); PLATELET COUNT (AUTO) 168 /CMM (150-450); RED BLOOD CELL COUNT(AUTO) 2.23 MIL/uL (4.5-6.0); WHITE BLOOD COUNT (AUTO) 8.9 K/uL (4.3-11.0)
[2019-05-16 13:37] LABS: HEMOGLOBIN 6.8 g/dL (13.5-17.5)
[2019-05-16 13:38] LABS: HEMATOCRIT 20 % (39-51)
[2019-05-16 13:51] LABS: ALANINE AMINOTRANSFERASE 44 U/L (12-78); ALBUMIN 2.3 g/dL (3.4-5.0); ALKALINE PHOSPHATASE 152 U/L (46-116); ASPARTATE AMINOTRANSFERASE 76 U/L (15-37); BILIRUBIN,DIRECT 0.1 mg/dL (0.0-0.2); BILIRUBIN,TOTAL 0.4 mg/dL (0.2-1.0); CALCIUM, SERUM 9.5 mg/dL (8.5-10.1); CARBON DIOXIDE 28 mmol/L (21-32); CHLORIDE 91 mmol/L (98-107); CREATININE 5.3 mg/dL (0.6-1.3); GLUCOSE 83 mg/dL (74-106); POTASSIUM 3.6 mmol/L (3.5-5.1); SODIUM SERUM 125 mmol/L (136-145); TOTAL PROTEIN, SERUM 7.8 g/dL (6.4-8.2)
[2019-05-16 13:53] LABS: UREA NITROGEN, BLOOD 105 mg/dL (7-18)
[2019-05-16] MEDS ORDERED: SEVE0.8P3 PO (13:56)
[2019-05-16] MEDS ORDERED: ACID1TAB12 GT (13:56)
[2019-05-16 14:07] LABS: EOSINOPHILS % (MANUAL) 11 % (0-4); LYMPHOCYTES % (MANUAL) 9 % (16-48); MONOCYTES % (MANUAL) 7 % (0-11.0); NEUTROPHILS % (MANUAL) 73 (42-76)
--- NOTE | 2019-05-16 14:10 | NUR ---
Dr. Wanda grewal for consult
--- NOTE | 2019-05-16 15:01 | NUR ---
called nursing sup for bed
--- NOTE | 2019-05-16 15:50 | NUR ---
REPORT GIVEN TO [facility].
--- NOTE | 2019-05-16 16:15 | NUR ---
PT TRANSFERRED TO BED 119 W/ EMT, RT, AND RN
--- NOTE | 2019-05-16 16:25 | NUR ---
TD ADMITTING NOTES RECEIVED PATIENT FROM ER VIA REOLIA, FROM [facility] AND ALL [facility], DX SEVERE ANEMIA PER DR. LAWSON. OBTUNDED, WITH SHILEY 8 TO MECHANICAL VENT. SETTING AC 18, TV 500, FIO2 40% PEEP 5. BREATHING EVEN AND UNLABORED. SINUS RHYTHM ON MONITOR. NO SIGNS OF PAIN. WITH YESI PICC LINE, CDI DRESSING, RCW JAYE CATH CDI DRESSING, HENRIK OLD SHUNT THRILL PRESENT. PATIENT IS CONTRACTED WITH MULTIPLE SKIN ISSUES. SEE NURSING FLOWSHEET. PHOTOS TAKEN AND PLACED IN CHART, GT CLAMPED, CHECKED FOR PLACEMENT, O RESIDUAL. DR. STALEY AWARE OF ADMISSION. ORDERS CARRIED OUT. PATIENT MADE COMFORTABLE, VITAL SIGNS TAKEN, STABLE AT THIS TIME. ALL NEEDS ANTICIPATED. WILL CONTINUE TO MONITOR.
[2019-05-16] MEDS ORDERED: CARVEDILOL 25 MG TABLET GT SCH (17:00)
[2019-05-16] MEDS ORDERED: CLONIDINE HCL 0.1 MG TABLET GT PRN (17:00)
[2019-05-16] MEDS ORDERED: Z GUARD REMEDY 2 OZ OINT TP PRN (17:30)
[2019-05-16] MEDS ORDERED: HYDROCODONE/APAP 5/325MG 1 EACH TABLET PO PRN (17:30)
[2019-05-16] MEDS ORDERED: ONDANSETRON HCL/PF 4 MG/2 ML VIAL IVP PRN (17:30)
[2019-05-16] MEDS ORDERED: MAG HYDROX/AL HYDROX/SIMETH 30 ML UDC PO PRN (17:30)
[2019-05-16] MEDS ORDERED: ACETAMINOPHEN 325 MG TABLET PO PRN (17:30)
[2019-05-16] MEDS ORDERED: hydrALAZINE HCL 50 MG TABLET GT PRN (17:30)
[2019-05-16] MEDS ORDERED: ZOLPIDEM TARTRATE 5 MG TABLET PO PRN (17:30)
[2019-05-16] MEDS ORDERED: MAGNESIUM HYDROXIDE 30 ML UDC PO PRN (17:30)
[2019-05-16] MEDS: PANTOPRAZOLE 40 MG/PACK PACK GT SCH (18:33)
[2019-05-16] MEDS: ACIDOPHILUS/BULGARICUS 1 EACH TAB.CHEW GT SCH (18:33)
[2019-05-16] MEDS: SEVELAMER CARBONATE 0.8 GM POWD.PACK PO SCH (18:33)
[2019-05-16] MEDS: LOSARTAN POTASSIUM 50 MG TABLET GT SCH (18:34)
[2019-05-16 18:45] LABS: IRON, SERUM 41 ug/dl (50-175); TOTAL IRON BINDING CAPACITY 157 ug/dl (250-450)
--- NOTE | 2019-05-16 19:25 | NUR ---
RN NOTES PATIENT MADE COMFORTABLE. RESTING. PLACED A CALL TO ALL [facility] DUE TO CONCERNS OF GENERALIZED SCARRING FROM BLISTER AND CURRENT WOUNDS. PER THEIR STAFF, PATIENT IF FOR DERMATOLOGY CONSULT IF POSSIBLE AND THEY JUST CONTINUOUSLY TREATING THE WOUND. PICTURES OF RIGHT CHEST WALL AND BOTH FOOT/HEELS PICTURES OF SKIN ISSUES ENDORSED AND TO BE TAKEN BY DANNA MORRELL PIECE HAND. PATIENT FOR TRANSFUSION 2 UNITS PRBC. PER CHARGE NURSE SOON, OKAY FOR NEXT SHIFT TO GIVE. ALL NEEDS MET AT THIS TIME. ENDORSED TO DANNA MORRELL FOR NICKY.
[2019-05-16] MEDS ORDERED: ALBUTEROL FS 2.5 MG/0.5 ML VIAL.NEB NEB PRN (19:30)
[2019-05-16] MEDS: HEPARIN SODIUM, PORCINE 5000 UNITS/1 ML VIAL SQ SCH (21:00)
[2019-05-16] MEDS: SIMVASTATIN 20 MG TABLET GT SCH (22:18)
[2019-05-16] MEDS: CARVEDILOL 12.5 MG TABLET PO SCH (22:20)
[2019-05-17] VITALS (8 sets, daily range): BP systolic 90–145; BP diastolic 55–76
--- NOTE | 2019-05-17 | NUR ---
RN NOTES DR CRAIG IS IN THE UNIT AND WE DISCUSSED PATIENT'S DIET ORDER. PER DR CRAIG ORDER WE SHOULD FOLLOW DR LUÍS DE OLIVEIRA'S NOTES AND RESUME GTF. WILL RESUME GTF AND F/U WITH THE DR. STALEY IN THE MORNING.
[2019-05-17] MEDS: NEPRO 1,000 ML BOTTLE GT PRN (00:30)
--- NOTE | 2019-05-17 05:49 | NUR ---
RT NOTE Pt rec'd trached on [facility] vent on AC mode. No resp distress or sob noted. trach is patent and secured. sx'd for mod amt of pale yellow secretions. alarms are set and audible. vent plugged into red outlet. ambu bag bedside. will continue to monitor. Addendum: 05/17/19 at 0553 by ALAINA SUTTON RT Amended: Links added.
[2019-05-17 06:16] LABS: BASOPHILS # (AUTO) 0.1 /CMM (0.0-0.2); BASOPHILS % (AUTO) 0.9 % (0.0-2.0); EOSINOPHILS % (AUTO) 20.1 % (0.0-6.0); HEMATOCRIT 22 % (39-51); HEMOGLOBIN 7.6 g/dL (13.5-17.5); LYMPHOCYTES % (AUTO) 12.4 % (20.0-44.0); MEAN CORPUSCULAR HGB CONC 35 g/dl (31.0-36.0); MEAN CORPUSCULAR VOLUME 88 fL (80-96); MONOCYTES # (AUTO) 0.7 /CMM (0.1-1.30); MONOCYTES % (AUTO) 8.8 % (2.0-12.0); NEUTROPHILS # (AUTO) 4.6 /CMM (1.8-8.9); NEUTROPHILS % (AUTO) 57.8 % (43.0-81.0); PLATELET COUNT (AUTO) 153 /CMM (150-450); RED BLOOD CELL COUNT(AUTO) 2.49 MIL/uL (4.5-6.0)
[2019-05-17 06:37] LABS: CALCIUM, SERUM 8.7 mg/dL (8.5-10.1); CREATININE 5.9 mg/dL (0.6-1.3); MAGNESIUM 2.8 mg/dL (1.8-2.4); PHOSPHORUS 5.6 mg/dL (2.5-4.9)
--- NOTE | 2019-05-17 07:00 | NUR ---
MEN'S LEATHER DRESS BELT MAKER NOTES PATIENT IS OBTUNDED. ON TELE MONITOR SR IN THE 70'S PATIENT IS ON TRACH SA# 8 AC18 TV500 FIO2 40% PEEP 5 . PATIENT IS SATURATING WELL AT 100 %. PATIENT HAS BILATERAL EDEMA. PATIENT IS CURRENTLY BED BOUND. PATIENT IS CURRENTLY NEPRO @ 45 ML AN HOUR AND TOLERATING WELL. PATIENT HAS ZERO RESIDUAL. PATIENT WAS ON BEARHUGGER / WARMING BLANKET PATIENT CURRENT TEAM WAS 95 . PATIENT SHOWS NO SIGNS OF RESPIRATORY . NO PAIN ON FLACC SCALE. BED LOWEST AND LOCKED POSITION. 2X RAILS UP CALL LIGHT WITH IN REACH . SAFETY PRECAUTION PRE HOSPITAL PROTOCOL
[2019-05-17 07:53] LABS: EOSINOPHILS % (MANUAL) 21 % (0-4); LYMPHOCYTES % (MANUAL) 15 % (16-48); MONOCYTES % (MANUAL) 5 % (0-11.0); NEUTROPHILS % (MANUAL) 59 (42-76)
[2019-05-17] MEDS: HEPARIN SODIUM, PORCINE 5000 UNITS/1 ML VIAL SQ SCH ×2 (09:00→21:04)
[2019-05-17] MEDS: LOSARTAN POTASSIUM 50 MG TABLET GT SCH (09:00)
[2019-05-17] MEDS: SEVELAMER CARBONATE 0.8 GM POWD.PACK PO SCH ×3 (09:35→17:15)
[2019-05-17] MEDS: CARVEDILOL 12.5 MG TABLET PO SCH ×2 (09:36→20:56)
[2019-05-17] MEDS: VIT B CMPLX 3/FA/VIT C/BIOTIN 1 TAB TABLET GT SCH (09:36)
[2019-05-17] MEDS: AMLODIPINE BESYLATE 10 MG TABLET GT SCH (09:37)
[2019-05-17] MEDS: PANTOPRAZOLE 40 MG/PACK PACK GT SCH ×2 (09:38→17:15)
[2019-05-17] MEDS: ACIDOPHILUS/BULGARICUS 1 EACH TAB.CHEW GT SCH ×3 (09:38→17:15)
[2019-05-17] MEDS: PROSOURCE / PROSTAT (PYXIS) 30 ML UDC GT SCH ×3 (09:43→17:15)
[2019-05-17] MEDS: FUROSEMIDE 20 MG TABLET GT SCH (09:55)
--- NOTE | 2019-05-17 09:55 | NUR ---
PIECE JOBBER NOTES NON ADMINISTER COZAAR DUE TO BP 105/55
--- NOTE | 2019-05-17 12:57 | NUR ---
CAPACITY MANAGER NOTES HELD HEPARIN , NOTIFIED MEAT BUTCHER ASSIGNED TO PATIENT.
--- NOTE | 2019-05-17 15:00 | NUR ---
ERECTION SHOP SUPERVISOR NOTES FANTASMA REMOVED PATIENT TEMP 99.6
[2019-05-17] MEDS: HYDROGEL DRESSING 90 GM TUBE TP SCH (15:07)
[2019-05-17] MEDS: SILVER SULFADIAZINE CREAM 25 GM TUBE TP SCH (15:07)
--- NOTE | 2019-05-17 19:30 | NUR ---
GLASS CUT OFF TENDER NOTES PATIENT SHOWS NO SIGNS OF RESPIRATORY DISTRESS. PATIENT IS SATURATING WELL. PATIENT IS ON TELE MONITOR SR 70'S .PATIENTS WOUNDS CHANGED PER MD ORDER. TURNED AND REPOSITION Q2H . BED LOWEST AND LOCK POSITION, CALL LIGHT WITH IN REACH . SAFETY PRECAUTION MAINTAINED. ENDORSED TO PM SHIFT
--- NOTE | 2019-05-17 19:45 | NUR ---
METAL INSPECTOR NOTE: RECEIVED PT ON BED OBTUNDED WITH NO APPARENT DISTRESS NOTED. NO FACIAL GRIMACING OR ANY SIGNS OF PAIN NOTED. ON [facility] VENT, SETTINGS ORDERED. NO SOB NOTED. SATURATING WELL. SINUS RHYTHM ON TELE MONITOR HR 85 BPM. GT INTACT AND PATENT, NO RESIDUAL NOTED AT THIS TIME. GTF NEPRO RUNNING AT 45ML/HR, GOAL 55ML/HR. KEPT CLEAN, DRY AND COMFORTABLE. SAFETY AND FALL PRECAUTIONS OBSERVED AND MAINTAINED. WILL CONTINUE TO MONITOR PT.
[2019-05-17] MEDS: SIMVASTATIN 20 MG TABLET GT SCH (21:05)
[2019-05-18] VITALS: BP 109/61
[2019-05-18 04:00] VITALS: BP 125/63
[2019-05-18 06:38] LABS: BASOPHILS % (AUTO) 0.5 % (0.0-2.0); EOSINOPHILS % (AUTO) 11.5 % (0.0-6.0); HEMATOCRIT 22 % (39-51); HEMOGLOBIN 7.4 g/dL (13.5-17.5); LYMPHOCYTES # (AUTO) 1.7 /CMM (0.8-4.8); LYMPHOCYTES % (AUTO) 17.4 % (20.0-44.0); MEAN CORPUSCULAR HGB CONC 34 g/dl (31.0-36.0); MEAN CORPUSCULAR VOLUME 88 fL (80-96); MONOCYTES # (AUTO) 1.1 /CMM (0.1-1.30); MONOCYTES % (AUTO) 11.2 % (2.0-12.0); NEUTROPHILS # (AUTO) 5.8 /CMM (1.8-8.9); NEUTROPHILS % (AUTO) 59.4 % (43.0-81.0); PLATELET COUNT (AUTO) 161 /CMM (150-450); RED BLOOD CELL COUNT(AUTO) 2.45 MIL/uL (4.5-6.0); WHITE BLOOD COUNT (AUTO) 9.8 K/uL (4.3-11.0)
[2019-05-18 06:41] LABS: CALCIUM, SERUM 8.9 mg/dL (8.5-10.1); CREATININE 6.9 mg/dL (0.6-1.3); MAGNESIUM 3.1 mg/dL (1.8-2.4); PHOSPHORUS 6.7 mg/dL (2.5-4.9); POTASSIUM 4.3 mmol/L (3.5-5.1)
--- NOTE | 2019-05-18 07:00 | NUR ---
STUDIO MODEL NOTES RECIVED PT ON BED, PATIENT IS OBTUNDED BUT RESPONSED TO LIGHT PAIN. PATIENT HAS NO SIGNS OF ACUTE DISTRESS, PATIENT IS ON MECH VENT , SETTINGS ORDERED BY MD. PATIENT SATURTING WELL AT 100%, WITH NO SIGNS ON SOB. . PATIENT IS ON POULTRY CULLER ON TELE AT SR 80'S PATIENT HAS GTUBE FEEDING AT 45 ML/HR WITH GOAL OF 55 ML/HR. NO RESIDUAL NOTED AT THIS TIME . PATIENT KEPT COMFORABLE, BED LOCKED AND LOWEST POSITION, CALL LIGHT WITH IN REACH 2X SIDE RAILS UP
--- NOTE | 2019-05-18 07:42 | NUR ---
PLYWOOD MATCHER NOTES PT IN BED OBTUNDED WITH NO APPARENT DISTRESS NOTED. NO S/S OF PAIN NOTED AT THIS TIME. ON [facility] VENT, SETTINGS ORDERED. NO SOB NOTED. GT INTACT AND PATENT, NO RESIDUAL NOTED AT THIS INFUSING GTF NEPRO AT 45ML/HR, GOAL 55ML/HR. PT KEPT CLEAN, DRY AND COMFORTABLE. PT TURNED Q2 HRS THROUGHOUT SHIFT. SAFETY MEASURES IN PLACE WITH BED IN LOWEST LOCKED POSITION WITH SIDE RAILS UP X2. CALL LIGHT WITHIN REACH. WILL ENDORSE TO ONCOMING NURSE FOR NICKY.
[2019-05-18 08:00] VITALS: BP 126/69
--- NOTE | 2019-05-18 08:30 | NUR ---
SUPERVISOR WRAPPING ROOM NOTES PATIENT CURRENTLY ON HD . MEDICATIONS HELD
--- NOTE | 2019-05-18 08:36 | NUR ---
WOUND CARE CONSULT: PT FOLLOWED BY PLASTIC SURGERY AND PODIATRY TEAMS FOR WOUND CARE. DEFER TO SURGICAL TEAMS FOR WOUND TREATMENT PLAN. WILL SEE PRN. DISCUSSED SKIN PROTECTION WITH NURSING STAFF. PT ON TARIK ISOFLEX LOW AIRLOSS BED.
[2019-05-18] MEDS: HEPARIN SODIUM, PORCINE 5000 UNITS/1 ML VIAL SQ SCH ×2 (08:42→20:19)
[2019-05-18] MEDS: LOSARTAN POTASSIUM 50 MG TABLET GT SCH (09:00)
[2019-05-18] MEDS: SEVELAMER CARBONATE 0.8 GM POWD.PACK PO SCH ×4 (09:00→17:24)
[2019-05-18] MEDS: PANTOPRAZOLE 40 MG/PACK PACK GT SCH ×3 (09:00→17:24)
[2019-05-18] MEDS: CARVEDILOL 12.5 MG TABLET PO SCH ×3 (09:00→20:27)
[2019-05-18] MEDS: PROSOURCE / PROSTAT (PYXIS) 30 ML UDC GT SCH ×4 (09:00→17:24)
[2019-05-18] MEDS: ACIDOPHILUS/BULGARICUS 1 EACH TAB.CHEW GT SCH ×4 (09:00→17:24)
[2019-05-18] MEDS: AMLODIPINE BESYLATE 10 MG TABLET GT SCH (09:51)
[2019-05-18] MEDS: FUROSEMIDE 20 MG TABLET GT SCH (09:51)
[2019-05-18] MEDS: VIT B CMPLX 3/FA/VIT C/BIOTIN 1 TAB TABLET GT SCH (09:51)
[2019-05-18] MEDS: HYDROGEL DRESSING 90 GM TUBE TP SCH ×2 (10:07)
[2019-05-18] MEDS: SILVER SULFADIAZINE CREAM 25 GM TUBE TP SCH (10:08)
[2019-05-18 12:00] VITALS: BP 133/61
[2019-05-18] MEDS: NEPRO 1,000 ML BOTTLE GT PRN (12:33)
[2019-05-18 16:00] VITALS: BP_SYST 134; BP_DIAS 71; BP_DIAS 92
--- NOTE | 2019-05-18 17:00 | NUR ---
CANDLE WRAPPING MACHINE OPERATOR NOTES PATIENT COMPLETED HD - 1 L
--- NOTE | 2019-05-18 19:16 | NUR ---
FINANCIAL INVESTIGATOR NOTES PATIENT OBTUNDED, PATIENT SHOWS NO SIGNS OF DISTRESS BREATH EVEN AND UNLABORDED. PATIENT WOUNDS CHANGED PER MD ORDER. MEDICATIONS GIVEN PER MD ORDERS , PATIENT TURN Q2H . BED LOCKED AND LOWEST POSTION. CALL LIGHT WITH IN REACH 2X SIDE RAILS UP. STOPPED BY AND ASK FOR UPDATES. PATIENT WAS UPDATED WITH PLAN OF CARE AND TREATMENT PLAN
[2019-05-18 20:00] VITALS: BP 136/69
--- NOTE | 2019-05-18 20:19 | NUR ---
BACK TENDER CYLINDER NOTE PER COATER ASSOCIATE FARTUN NOTE HOLDING BLOOD THINNERS UNTIL RESULTS FOR OB COME BACK FOR POSSIBLE BLEED.
--- NOTE | 2019-05-18 20:21 | NUR ---
CALCINE FURNACE LOADER NOTE PATIENT NOTED TO HAVE MINOR FEVER, COOLING MEASURES AND TYLENOL GIVEN.
--- NOTE | 2019-05-18 20:34 | NUR ---
DIGITAL MEDIA PLANNER NOTE PATIENT RECEIVED IN BED OBTUNDED. NO S/S OF RESP DISTRESS. PATIENT TOLERATING CURRENT VENT SETTINGS. BREATHING EVEN AND UNLABORED TRACH MIDLINE. PATIENT HR SR ON THE MONITOR HR IN THE 90'S. NO S/S OF ACUTE DISTRESS AT THIS TIME. PATIENT FEEDING AT 55 ML/HR NO NOTED RESIDUAL. PATIENT REPOSITIONED FOR COMFORT. ORAL CARE AND TRACH CARE GIVEN. RN WILL CONTINUE TO MONITOR FOR CHANGES. SAFETY/ ASPIRATION PRECAUTIONS IN PLACE. RESTRAINT CIRCULATION CHECK DONE. R SOFT WRIST RESTRAINT IN PLACE. R HAND AND ARM WARM AND DRY. SIDE RAILS UP X 2.
[2019-05-18] MEDS: SIMVASTATIN 20 MG TABLET GT SCH (22:08)
[2019-05-18 22:21] LABS: OCCULT BLOOD STOOL NEGATIVE (NEGATIVE)
[2019-05-19] VITALS: BP 125/64
[2019-05-19 04:00] VITALS: BP 141/70
--- NOTE | 2019-05-19 05:08 | NUR ---
RT NOTE PATIENT RECEIVED ON TRACH WITH MECHANICAL VENT. WITH NOTED SETTINGS. TRACH IS PATENT AND SECURED. ALARMS ARE SET AND AUDIBLE. VENT IS PLUGGED TO RED OUTLET. AMBU BAG AND SPARE TRACH IS AT BEDSIDE. TRACH CARE WAS PERFORMED. SUCTION MODERATE AMOUNT OF THICK BLOOD TINGED SECRETIONS. PATIENT HAS EQUAL CHEST RISE WITH COARSE AND CLEAR BILATERAL BREATH SOUNDS. NO SOB NOTED AND PATIENT IS IN SYNC AND COMFORTABLE ON THE VENT. WILL PASS REPORT TO DAY SHIFT. Addendum: 05/19/19 at 0509 by NIELS DICKINSON RT Amended: Links added.
--- NOTE | 2019-05-19 07:00 | NUR ---
OUTSOLE FLEXER NOTES OPENING . PATIENT RECIVED IN BED OBTUNDED . PATIENT SHOWS NO SIGNS OF RESPIRATORY DISTRESS. PATIENT IS CURRENTLY TOLERATING VENT SETTINGS. PATIENTS CHEST EQUAL RISE AND FALL, UNLABORDED BREATHING. SATURATING 100 % PATIENT ON TELE MONITOR WITH SR IN THE 90'S . PATIENT SHOWS NO SIGNS OF ACUTE DISTRESS AT THIS TIME. PATIENT FEEING AT 55 ML/HR ORDERED. PATIENT REPOSITION PER HOSPITAL PROTOCOL. R SOFT WRIST RESTAINT IN PLACE. RIGHT HAND AND ARM WARM AND DRY. PATIENT BED LOCKED AND LOWEST POSITION CALL LIGHT WITH IN REACH. BED SIDE RAILS UP 2 X
[2019-05-19 07:16] LABS: BASOPHILS % (AUTO) 0.4 % (0.0-2.0); EOSINOPHILS % (AUTO) 14.5 % (0.0-6.0); HEMATOCRIT 24 % (39-51); LYMPHOCYTES # (AUTO) 1.1 /CMM (0.8-4.8); LYMPHOCYTES % (AUTO) 13.2 % (20.0-44.0); MEAN CORPUSCULAR HGB CONC 34 g/dl (31.0-36.0); MEAN CORPUSCULAR VOLUME 89 fL (80-96); MONOCYTES % (AUTO) 11.7 % (2.0-12.0); NEUTROPHILS # (AUTO) 5.2 /CMM (1.8-8.9); NEUTROPHILS % (AUTO) 60.2 % (43.0-81.0); PLATELET COUNT (AUTO) 132 /CMM (150-450); RED BLOOD CELL COUNT(AUTO) 2.65 MIL/uL (4.5-6.0); WHITE BLOOD COUNT (AUTO) 8.5 K/uL (4.3-11.0)
[2019-05-19 07:48] LABS: CREATININE 5.6 mg/dL (0.6-1.3); MAGNESIUM 2.8 mg/dL (1.8-2.4); PHOSPHORUS 5.4 mg/dL (2.5-4.9); POTASSIUM 3.7 mmol/L (3.5-5.1)
[2019-05-19 08:00] VITALS: BP 146/76
[2019-05-19] MEDS: HEPARIN SODIUM, PORCINE 5000 UNITS/1 ML VIAL SQ SCH (09:00)
--- NOTE | 2019-05-19 09:24 | NUR ---
REAL ESTATE OFFICER NOTES MEDICATIONS HELD DUE TO HD
[2019-05-19] MEDS: PANTOPRAZOLE 40 MG/PACK PACK GT SCH ×2 (10:51→18:08)
[2019-05-19] MEDS: VIT B CMPLX 3/FA/VIT C/BIOTIN 1 TAB TABLET GT SCH (10:53)
[2019-05-19] MEDS: ACIDOPHILUS/BULGARICUS 1 EACH TAB.CHEW GT SCH ×3 (10:53→18:08)
[2019-05-19] MEDS: CARVEDILOL 12.5 MG TABLET PO SCH (10:55)
[2019-05-19] MEDS: LOSARTAN POTASSIUM 50 MG TABLET GT SCH (10:56)
[2019-05-19] MEDS: FUROSEMIDE 20 MG TABLET GT SCH (10:56)
[2019-05-19] MEDS: SEVELAMER CARBONATE 0.8 GM POWD.PACK PO SCH ×3 (10:56→18:09)
[2019-05-19] MEDS: AMLODIPINE BESYLATE 10 MG TABLET GT SCH (10:57)
[2019-05-19] MEDS: PROSOURCE / PROSTAT (PYXIS) 30 ML UDC GT SCH ×3 (10:58→18:08)
--- NOTE | 2019-05-19 11:27 | NUR ---
LEGAL BILLING CLERK NOTES HEPRIN HOLD PER HOSPITALIST ORDERS - WAITING FOR STOOL RESULTS
[2019-05-19] MEDS: SILVER SULFADIAZINE CREAM 25 GM TUBE TP SCH (11:29)
[2019-05-19] MEDS: HYDROGEL DRESSING 90 GM TUBE TP SCH ×2 (11:29→11:30)
[2019-05-19 12:00] VITALS: BP 153/81
[2019-05-19 16:00] VITALS: BP 141/61
[2019-05-19] MEDS ORDERED: Hydrogel Dressing TP (17:15)
[2019-05-19] MEDS ORDERED: Silver Sulfadiazine Cream TP (17:15)
[2019-05-19] MEDS: NEPRO 1,000 ML BOTTLE GT PRN (18:09)
--- NOTE | 2019-05-19 19:30 | NUR ---
MANAGER VAN NOTES PATIENT DISCHARGE TO ALL [facility]. PATIENT WAS ENDORSED TO [facility]ICK[facility] AT FACILITY .
== END 2019-05-19 20:30 | DRG 470 ==
LOC: ER 13:01 → TELE-TD 16:34 → TELE1 20:48
PROVIDERS: ADMIT Hospitalist; ATTEND Nurse Practitioner Acute Care
PROC: 5A1945Z Respiratory Ventilation, 24-96 Consecutive Hours (ICD-10-PCS; principal; 2019-05-16)
PROC: 5A1D70Z Performance of Urinary Filtration, Intermittent, Less than 6 Hours Per Day (ICD-10-PCS; principal; 2019-05-16)
PROC: 30233N1 Transfusion of Nonautologous Red Blood Cells into Peripheral Vein, Percutaneous Approach (ICD-10-PCS; principal; 2019-05-16)
DX: I12.0 Hypertensive chronic kidney disease with stage 5 chronic kidney disease or end stage renal disease (principal); E43 Unspecified severe protein-calorie malnutrition; Z99.11 Dependence on respirator [ventilator] status; L89.154 Pressure ulcer of sacral region, stage 4; G93.1 Anoxic brain damage, not elsewhere classified; J96.11 Chronic respiratory failure with hypoxia; R40.3 Persistent vegetative state; L89.323 Pressure ulcer of left buttock, stage 3; D50.9 Iron deficiency anemia, unspecified; L89.623 Pressure ulcer of left heel, stage 3; L89.613 Pressure ulcer of right heel, stage 3; L89.893 Pressure ulcer of other site, stage 3; N18.6 End stage renal disease; E87.1 Hypo-osmolality and hyponatremia; Z99.2 Dependence on renal dialysis; I25.10 Atherosclerotic heart disease of native coronary artery without angina pectoris; R53.2 Functional quadriplegia; J98.11 Atelectasis; Z93.0 Tracheostomy status; Z93.1 Gastrostomy status; R13.10 Dysphagia, unspecified; D63.8 Anemia in other chronic diseases classified elsewhere; Z68.25 Body mass index [BMI] 25.0-25.9, adult; M24.571 Contracture, right ankle; M24.572 Contracture, left ankle; S20.329A Blister (nonthermal) of unspecified front wall of thorax, initial encounter; S80.222A Blister (nonthermal), left knee, initial encounter; S80.221A Blister (nonthermal), right knee, initial encounter; S40.822A Blister (nonthermal) of left upper arm, initial encounter; S40.821A Blister (nonthermal) of right upper arm, initial encounter; X58.XXXA Exposure to other specified factors, initial encounter; Y93.9 Activity, unspecified; Y92.129 Unspecified place in nursing home as the place of occurrence of the external cause; D63.1 Anemia in chronic kidney disease
CPT/HCPCS: 31720; 36415; 71045-TC; 80048-TC; 80061-TC; 80076-TC; 82272-TC; 82962-TC; 83540-TC; 83735-TC; 84100-TC; 84484-TC; 85025-TC; 85730-TC; 86850-TC; 86921-TC; 87081-TC; 90935-TC; 94002-TC; 94003-TC; 94760-TC; 94762-TC; 99082-TC; A4217; A4623; A6248; A6253; A6403; A7526; G0378; J1644; J7030; J7050; P9016-BL

== ENCOUNTER 2019-06-06 16:16 | Inpatient (IN) | payer OTHER ==
[~2019-06-06] VITALS: Ht 170.2 cm; Wt 62.1 kg
--- NOTE | 2019-06-06 08:10 | NUR ---
RN NOTES, ENDORSED PATIENT TO [facility] FOR CONTINUATION OF CARE.
[~2019-06-06 16:16] MED LIST changes: -ACET650S26 GT; -BISA10SU11 RC; -CALC667T2 GT; -EPOE200011 IJ; +Hydrogel Dressing TP; -LORA-259 GT; -MAGN400O6 GT; -ONDA4TAB5 GT; +SEVE0.8P3 PO; +Silver Sulfadiazine Cream TP
--- NOTE | 2019-06-06 16:20 | NUR ---
JASON RODRIGUEZ FROM DIALYSIS CENTER DUE TO LOW H/H. PATIENT OBTUNDED, NOTED WITH RIGHT CHEST WALL JAYE CATH, TRACHE VENT DEPENDENT, NEEDS ATTENDED.
--- NOTE | 2019-06-06 16:32 | NUR ---
RT Pt received from EMT. Brought in from dialysis for abnormal labs. Placed on [facility] vent with charted settings. Pt sx'd w no adverse reactions. Thick white secretions noted. Vent is plugged into red outlet w [facility]. Alarms are set and audible. Will continue to monitor. Addendum: 06/06/19 at 1705 by CAMPOS CHAUDHARY RT Amended: Links added.
[2019-06-06 16:47] LABS: BASOPHILS % (AUTO) 0.2 % (0.0-2.0); EOSINOPHILS % (AUTO) 0.5 % (0.0-6.0); LYMPHOCYTES # (AUTO) 0.2 /CMM (0.8-4.8); LYMPHOCYTES % (AUTO) 1.2 % (20.0-44.0); MEAN CORPUSCULAR HGB CONC 33 g/dl (31.0-36.0); MEAN CORPUSCULAR VOLUME 87 fL (80-96); MONOCYTES # (AUTO) 0.4 /CMM (0.1-1.30); MONOCYTES % (AUTO) 2.5 % (2.0-12.0); NEUTROPHILS # (AUTO) 16.4 /CMM (1.8-8.9); NEUTROPHILS % (AUTO) 95.6 % (43.0-81.0); PLATELET COUNT (AUTO) 146 /CMM (150-450); RED BLOOD CELL COUNT(AUTO) 2.15 MIL/uL (4.5-6.0); WHITE BLOOD COUNT (AUTO) 17.2 K/uL (4.3-11.0)
[2019-06-06 16:50] LABS: HEMATOCRIT 19 % (39-51); HEMOGLOBIN 6.2 g/dL (13.5-17.5)
[2019-06-06 16:57] LABS: CALCIUM, SERUM 7.9 mg/dL (8.5-10.1)
[2019-06-06 16:58] LABS: POTASSIUM 2.8 mmol/L (3.5-5.1)
[2019-06-06] MEDS ORDERED: IPRA3AMP23 IH (17:16)
[2019-06-06] MEDS ORDERED: ZINC1CAP2 GT (17:16)
[2019-06-06] MEDS ORDERED: ACET-868 GT (17:16)
[2019-06-06] MEDS ORDERED: BISA10SU11 RC (17:16)
[2019-06-06] MEDS ORDERED: ONDA4TAB5 GT (17:16)
[2019-06-06] MEDS ORDERED: LORA-259 GT (17:16)
--- NOTE | 2019-06-06 17:17 | NUR ---
CONTACT # FOR VENANCIO DOVE (SPOUSE) [phone]
--- NOTE | 2019-06-06 17:20 | NUR ---
ATTEMPTED TO CONTACT SPOUSE, LEFT A VOICEMAIL ON HER CELLPHONE.
--- NOTE | 2019-06-06 17:21 | NUR ---
CALLED [facility]ED DR AJY
--- NOTE | 2019-06-06 17:45 | NUR ---
PATIENT ACCEPTED BY GISSELLE RODRIGUEZ DNP. SEEN AND EVALUATED.
--- NOTE | 2019-06-06 17:46 | NUR ---
ICU 253
--- NOTE | 2019-06-06 18:06 | NUR ---
REQUESTED [facility]
--- NOTE | 2019-06-06 18:17 | NUR ---
REPORT GIVEN TO RASHI MORRELL. BLOOD UNIT NOT READY YET.
[2019-06-06] MEDS ORDERED: MORPHINE SULFATE INJ 2 MG/ML DISP.SYRIN IV PRN (18:30)
[2019-06-06] MEDS ORDERED: ONDANSETRON HCL/PF 4 MG/2 ML VIAL IVP PRN (18:30)
[2019-06-06] MEDS ORDERED: MAG HYDROX/AL HYDROX/SIMETH 30 ML UDC PO PRN (18:30)
[2019-06-06] MEDS ORDERED: MAGNESIUM HYDROXIDE 30 ML UDC PO PRN (18:30)
[2019-06-06 18:37] LABS: BAND % (MANUAL) 26 % (0.0-5.0); LYMPHOCYTES % (MANUAL) 1 % (16-48); METAMYELOCYTES % 2 % (0-0); MONOCYTES % (MANUAL) 3 % (0-11.0); NEUTROPHILS % (MANUAL) 68 (42-76)
--- NOTE | 2019-06-06 18:39 | NUR ---
PATIENT TRANSFERRED TO [facility] BED 111-1 VIA ACLS PROTOCOL.NO DISTRESS NOTED. ENDORSED TO RASHI MORRELL.
--- NOTE | 2019-06-06 18:47 | NUR ---
APPLICATIONS SYSTEM ANALYST NOTE RECEIVED REPORT FROM PETROS BUSTAMANTE. PATIENT CAME IN VIA GURNEY. ON VENT, SATING WELL AT 100%. OBTUNDED. HGB WAS AT 6.2. CONSENT SIGNED AND OBTAINED BY ER NURSE VIA PHONE. WAITING FOR BLOOD FROM LAB. LAST HD TODAY. [facility]. HAS MULTIPLE WOUNDS. HAS A RIGHT KNEE #18 SL. HAS A RIGHT CW JAYE CATH AND AND OLD LEFT ARM AV SHUNT. PATIENT WAS CLEANED. CHANGED TO A NEW GOWN. BED LOCKED AND IN LOWEST POSITION. WILL ENDORSE TO PETROS PARRY FOR NICKY AND ADMISSION.
[2019-06-06] MEDS ORDERED: LORAZEPAM INJ 2 MG/ML VIAL IV PRN (19:30)
--- NOTE | 2019-06-06 19:30 | NUR ---
COPY MANAGER NOTE RECEIVED PT IN BED, OBTUNDED. ON VENT/TRACH TOLERATING THE SETTINGS WELL. SUCTIONED HIM WHITE THICK SECRETIONS NOTED. HOB ELEVATED. ADMITTED PT WITH THE DX OF ACUTE ANEMIA AND POSSIBLE GI BLEED. ON TELE MONITOR SR 89. JAYE CATH ON [facility] WALL. INTACT. SL IN RT BELOW KNEE. #18 G INTACT AND PATENT. WILL DO SKIN ASSESSMENT LATER. GT INTACT AND PATENT CLAMPED. ADMITTING ORDERS CHECKED AND CARRIED OUT. SIDE RAILS UP X 2 AND CALL LIGHT WITHIN REACH. VSS. CONTINUE TO MONITOR HIM.
--- NOTE | 2019-06-06 19:35 | NUR ---
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
--- NOTE | 2019-06-06 21:00 | NUR ---
MIXER OPERATOR RAW SALT NOTE SKIN ASSESSMENT DONE. PICTURES TAKEN AND PLACE THEM IN THE CHART. ALSO WOUND AND DIETARY CONSULT TRIGGERED.
--- NOTE | 2019-06-06 21:10 | NUR ---
2110 RECEIVED ORDERS FROM MORRIS RODRIGUEZ TO START PATIENT ON ZOSYN AND DO BLOOD AND SPUTUM CULTURE. ORDERS NOTED. Addendum: 06/07/19 at 0206 by MOHSEN RIVERA RN GISSELLE ALSO INFORMED K 2.8 AND PROCALCITONIN 84.42
[2019-06-06] MEDS: PANTOPRAZOLE 40 MG VIAL IV SCH (23:19)
[2019-06-06] MEDS ORDERED: PIPERACILLIN /TAZOBACTAM 2.25 G in IV D5W 50 ML IV SCH (23:30)
[2019-06-06] MEDS ORDERED: PIPERACILLIN /TAZOBACTAM 2.25 G VIAL IV ONE (23:43)
[2019-06-06] MEDS: ACETAMINOPHEN 325 MG TABLET PO PRN (23:57)
[2019-06-07] VITALS (12 sets, daily range): BP systolic 91–134; BP diastolic 49–77
--- NOTE | 2019-06-07 01:10 | NUR ---
IRRIGATION EQUIPMENT MECHANIC NOTE 1 UNIT OF PRBC STARTED. VSS.
--- NOTE | 2019-06-07 01:15 | NUR ---
GOVERNMENT SERVICES PROFESSIONAL NOTE START 1 UNIT OF PRBC. VSS. CONTINUE TO MONITOR HIM.
--- NOTE | 2019-06-07 03:10 | NUR ---
CHRONIC MANAGER NOTE BLOOD TRANSFUSION FINISHED. NO A/R NOTED. VSS. PT IN NO DISTRESS OR DISCOMFORT NOTED.
[2019-06-07] MEDS ORDERED: PIPERACILLIN /TAZOBACTAM 2.25 G in IV D5W 50 ML IV SCH ×5 (05:00→09:00)
[2019-06-07 07:54] LABS: CALCIUM, SERUM 8.1 mg/dL (8.5-10.1); CREATININE 3.7 mg/dL (0.6-1.3); MAGNESIUM 2.1 mg/dL (1.8-2.4); PHOSPHORUS 2.7 mg/dL (2.5-4.9); POTASSIUM 3.3 mmol/L (3.5-5.1)
[2019-06-07] MEDS: PANTOPRAZOLE 40 MG VIAL IV SCH ×2 (08:24→16:02)
[2019-06-07 08:52] LABS: BASOPHILS % (AUTO) 0.1 % (0.0-2.0); EOSINOPHILS % (AUTO) 0.4 % (0.0-6.0); HEMATOCRIT 21 % (39-51); LYMPHOCYTES # (AUTO) 0.7 /CMM (0.8-4.8); LYMPHOCYTES % (AUTO) 3.8 % (20.0-44.0); MEAN CORPUSCULAR HGB CONC 32 g/dl (31.0-36.0); MEAN CORPUSCULAR VOLUME 89 fL (80-96); MONOCYTES # (AUTO) 1.8 /CMM (0.1-1.30); MONOCYTES % (AUTO) 9.5 % (2.0-12.0); NEUTROPHILS % (AUTO) 86.2 % (43.0-81.0); PLATELET COUNT (AUTO) 121 /CMM (150-450); RED BLOOD CELL COUNT(AUTO) 2.35 MIL/uL (4.5-6.0); WHITE BLOOD COUNT (AUTO) 18.6 K/uL (4.3-11.0)
[2019-06-07 08:57] LABS: HEMOGLOBIN 6.8 g/dL (13.5-17.5)
--- NOTE | 2019-06-07 09:06 | NUR ---
WOUND CARE CONSULT: PT FOLLOWED BY SURGICAL AND PODIATRY TEAMS FOR WOUNDS. DEFER TO SURGICAL TEAMS FOR WOUND TREATMENT PLAN. DISCUSSED SKIN PROTECTION WITH NURSING STAFF. WILL SEE PRN. FIRST STEP LOW AIRLOSS MATTRESS ON ORDER.
[2019-06-07] MEDS ORDERED: DEXTROSE 50%-WATER 50 ML DISP.SYRIN ONE (09:13)
[2019-06-07] MEDS ORDERED: Z GUARD REMEDY 2 OZ OINT TP PRN (09:30)
[2019-06-07] MEDS ORDERED: DEXTROSE 50%-WATER 50 ML DISP.SYRIN IV PRN (09:30)
[2019-06-07] MEDS ORDERED: DEXTROSE 50%-WATER 50 ML DISP.SYRIN IVP ONE (09:30)
--- NOTE | 2019-06-07 09:32 | NUR ---
CHASSIS ENGINEER NOTE GOT CALL FROM LAB PATIENT BLOOD SUGAR LOW.ACCU CHECK DONE.BS 30 SECOND TOME 31.DEXTROSE 50% IVP GIVEN FROM [employer].REPEATED ACCU CHECK.BS 246.DR MCCORMICK MADE AWARE.GOT NEW ORDERS.WILL CONTINUE TO MONITOR.
[2019-06-07 10:22] LABS: BAND % (MANUAL) 11 % (0.0-5.0); EOSINOPHILS % (MANUAL) 2 % (0-4); LYMPHOCYTES % (MANUAL) 3 % (16-48); MONOCYTES % (MANUAL) 11 % (0-11.0); NEUTROPHILS % (MANUAL) 73 (42-76)
[2019-06-07] MEDS: Z GUARD REMEDY 2 OZ OINT TP SCH (10:35)
[2019-06-07] MEDS: Sodium Chloride 77 MEQ in IV 10% DEXTROSE 1,000 ML IV PRN (10:50)
[2019-06-07] MEDS ORDERED: FEE PK DOSING 1 MIN EA MC ONE (11:18)
--- NOTE | 2019-06-07 11:30 | NUR ---
LEAD RIDER NOTE GOT CALL FROM .UPDATED ABOUT PATIENT CONDITION WITH LABS.NOT PLANNING ANY PROCEDURE NOW.F/U WITH PRIMARY DOCTOR FOR BLOOD TRANSFUSION.WILL CONTINUE TO MONITOR.
[2019-06-07] MEDS ORDERED: CEFEPIME 2 GM in IV NS 0.9% 50 ML IV SCH (12:00)
--- NOTE | 2019-06-07 12:00 | NUR ---
GLOBAL COMPENSATION ANALYST NOTE SEEN BY .UPDATED ABOUT PATIENT CONDITION WITH LABS.GOT NEW ORDERS FOR TRANSFUSE 1 PRBC AND OK TO START GT FEEDING.MADE AWARE ABOUT GI OPINION FORM PRASHANT.NOT PLANNING TO DO ANY PROCEDURE THIS TIME.WILL CONTINUE E TO MONITOR
[2019-06-07] MEDS: BLOOD SUGAR DIAGNOSTIC 1 EACH STRIP IN SCH ×2 (12:29→17:42)
[2019-06-07] MEDS ORDERED: VANCOMYCIN 1 GM in IV D5W 250 ML IV ONE (13:00)
[2019-06-07] MEDS: CEFEPIME 2 GM in IV D5W 100 ML IV SCH (13:44)
--- NOTE | 2019-06-07 14:30 | NUR ---
EQUIPMENT STERILIZER NOTE ON GOING DIALYSIS.BLOOD GIVEN TO DIALYSIS NURSE FOR TRANSFUSION.STARTED TRANSFUSION 1350.COMPLETED 1420.VITAL SIGNS STABLE.NO REACTIONS NOTED.WILL CONTINUE TO MONITOR.
--- NOTE | 2019-06-07 15:00 | NUR ---
NITROGLYCERIN NITRATOR OPERATOR BATCH NOTE SEEN BY SYSTEMS ANALYST ENGINEER.GOT ORDER FOR CONSENT FOR WOUND DEBRIDEMENT.LEFT MESSAGE TO .AWAITING TO CALL BACK.
[2019-06-07] MEDS: NEPRO 1,000 ML BOTTLE GT PRN (16:00)
[2019-06-07] MEDS: HYDROGEL DRESSING 90 GM TUBE TP SCH (17:42)
[2019-06-07] MEDS: HYDROCODONE/APAP 5/325MG 1 EACH TABLET GT PRN (17:44)
[2019-06-07 18:43] LABS: HEMOGLOBIN 8.8 g/dL (13.5-17.5)
--- NOTE | 2019-06-07 19:00 | NUR ---
plate inspector notes Received Pt from morning nurse. Pt is obtunded, non verbal and on vent and sat 100% . Pt is resting in bed comfortably. No SOB. No S/S of distress noted. Right below knee# 18 is clean, intact, patent. Right CW thomas cath clean, intact and patent. left upper arm old av shunt. R upperarm midline is clean, intact and patent and infusing well sodium chloride @30 ml/hr. G-tube feeding nephro @ 30 ml/hr. Tele monitor showed sinus rhytm. Safety precautions is maintained. Bed at low position, brakes locked, side rails upX3 and call light is within reach. Will continue to monitor.
--- NOTE | 2019-06-07 19:10 | NUR ---
BOAT LOADER CLOSING NOTE PATIENT IN BED.AWAKE.NO SOB NO DISTRESS NOTED.IV LINES ARE INTACT AND PATENT.HAS TRACH.VENT DEPENDANT.TOLERATING SETTINGS WELL.S/P MIDLINE INSERTION ON YESI.BED IS LOCKED AND IN LOW POSITION.CALL LIGHT IN REACH.BED ALARM ON .SRX3.LEFT MESSAGE FOR TO CALL BACK FOR CONSENT FOR DIALYSIS AND WOUND DEBRIDEMENT.ENDORSED TO PM NURSE FOR NICKY.
--- NOTE | 2019-06-07 20:13 | NUR ---
core maker helper notes Got a phone call from harshad Dominguez. Pt's blood culture preliminary + gram cocci in cluster on gram stain. Charge nurse is aware and informed.
--- NOTE | 2019-06-07 21:26 | NUR ---
rn otolaryngology notes Pt procalcitonin was 84.42 and now 66.45. Charge nurse is informed and aware. Will continue to monitor.
--- NOTE | 2019-06-07 21:33 | NUR ---
director of programming notes Informed and called Dr. Forman regarding Pt procalcitonin and positive blood culture preliminary + gram cocci in cluster on gram stain. Md stated just continue on ABX. No order received. Will continue to monitor. Charge nurse is aware and informed.
[2019-06-08] VITALS: BP 121/67
[2019-06-08] MEDS: BLOOD SUGAR DIAGNOSTIC 1 EACH STRIP IN SCH ×4 (00:47→18:34)
[2019-06-08 04:00] VITALS: BP_SYST 97; BP_DIAS 51; BP_DIAS 57
[2019-06-08] MEDS: ACETAMINOPHEN 325 MG TABLET PO PRN ×2 (04:38→17:23)
--- NOTE | 2019-06-08 04:39 | NUR ---
monitoring manager notes Pt has a fever 100.2. Administered tylenol 325 mg/2 tabs as ordered for fever. Cooling measured is in placed. Will continue to monitor.
[2019-06-08 04:45] LABS: BASOPHILS % (AUTO) 0.3 % (0.0-2.0); EOSINOPHILS % (AUTO) 2.8 % (0.0-6.0); HEMATOCRIT 24 % (39-51); HEMOGLOBIN 8.3 g/dL (13.5-17.5); LYMPHOCYTES # (AUTO) 0.7 /CMM (0.8-4.8); LYMPHOCYTES % (AUTO) 5.9 % (20.0-44.0); MEAN CORPUSCULAR HGB CONC 34 g/dl (31.0-36.0); MEAN CORPUSCULAR VOLUME 88 fL (80-96); MONOCYTES % (AUTO) 8.5 % (2.0-12.0); NEUTROPHILS % (AUTO) 82.5 % (43.0-81.0); PLATELET COUNT (AUTO) 106 /CMM (150-450); RED BLOOD CELL COUNT(AUTO) 2.74 MIL/uL (4.5-6.0); WHITE BLOOD COUNT (AUTO) 12.1 K/uL (4.3-11.0)
[2019-06-08 04:58] LABS: CALCIUM, SERUM 8.3 mg/dL (8.5-10.1); CREATININE 3.5 mg/dL (0.6-1.3)
--- NOTE | 2019-06-08 05:33 | NUR ---
track repairer helper notes Pt's temp 98.5. VS is stable. Will continue to monitor
--- NOTE | 2019-06-08 06:05 | NUR ---
bead machine operator notes Contacted Dr. Baker regarding Pt's potassium is 3.0. Received order for K dur 40 meq/po/one time. Order carried out.
[2019-06-08] MEDS ORDERED: POTASSIUM CHLORIDE 20 MEQ TAB.PRT.SR PO ONE (06:30)
--- NOTE | 2019-06-08 06:45 | NUR ---
mica miner closing notes Pt is resting in bed comfortably. No SOB. No S/S of distress noted. YESI midline is clean, intact and patent. peripheral IV is clean, intact and patent. RCW thomas cath is clean, intact and patent. VS is stable. Afebrile. Tele monitor showed sinus rhtym at 92. G-tube feeding nephro @ 45 ml/hr. Pt tolerated well. Kept Pt clean, dry and comfortable. Skin care provided. Safety precautions is maintained. Bed at low position, brakes locked, side rails upX3 and call light is within reach. Will endorse to morning nurse for NICKY.
[2019-06-08 08:00] VITALS: BP 122/62
--- NOTE | 2019-06-08 08:04 | NUR ---
RN OPENING NOTES RECEIVED PATIENT RESTING IN BED COMFORTABLY. HE IS OBTUNDED, NON-VERBAL, AND BED BOUND. HE IS ON MECHANICAL VENT VIA SHILEY 8 TRACH, TOLERATING VENT SETTINGS WELL, NO S/SX OF RESP DISTRESS OR SOB. TELE MONITOR SHOWING SR. PT HAS MULTIPLE WOUNDS, WILL ADDRESS PER WOUNDCARE. HE IS ON GTUBE FEEDING, NEPRO AT 45 ML/HR, TOLERATING WELL NO RESIDUAL. R BELOW KNEE 18 G IS PATENT AND INTACT, R SUBCLAVIAN JAYE CAR IS INTACT. L UPPER ARM AV SHUNT. R UPPERARM MIDLINE 18 G INFUSING SODIUM CHLORIDE AT 30 ML.HR. SAFETY MEASURES HAVE BEEN IMPLEMENTED, CALL LIGHT IS WITHIN REACH, BED IS IN LOWEST AND LOCKED POSITION, SIDE RAILS UP X2, WILL CONTINUE TO MONITOR FOR ANY CHANGE.
[2019-06-08] MEDS: PANTOPRAZOLE 40 MG VIAL IV SCH ×2 (08:57→17:23)
[2019-06-08] MEDS: DAKINS QUARTER STRENGTH (0.125%) 480 ML BOTTLE TOP SCH (08:59)
[2019-06-08] MEDS: HYDROGEL DRESSING 90 GM TUBE TP SCH (09:00)
[2019-06-08] MEDS: Z GUARD REMEDY 2 OZ OINT TP SCH (09:00)
--- NOTE | 2019-06-08 09:00 | NUR ---
RN NOTES ATTEMPTED TO CALL PT TO OBTAIN CONSENT FOR DIALYSIS AND DEBRIDEMENT OF WOUNDS, NO ANSWER. WILL TRY AGAIN LATER
--- NOTE | 2019-06-08 10:39 | NUR ---
RN NOTES BLOOD CULTURE RESULTED, TESTED POSITIVE FOR MRSA. DR. CRAIG MADE AWARE.
[2019-06-08] MEDS: CEFEPIME 2 GM in IV D5W 100 ML IV SCH (11:50)
[2019-06-08 12:00] VITALS: BP 102/60
[2019-06-08] MEDS ORDERED: VANCOMYCIN 500 MG in IV D5W 100 ML IV ONE (13:00)
[2019-06-08 16:00] VITALS: BP 100/55
[2019-06-08] MEDS: INSULIN REGULAR, HUMAN 100 UNIT/ML 3 ML VIAL SQ PRN (18:34)
--- NOTE | 2019-06-08 19:02 | NUR ---
RN CLOSING NOTES PATIENT IS RESTING COMFORTABLY IN BED AT THIS TIME WITH AT BEDSIDE. CONSENT FORMS FOR WOUND CARE AND HD HAVE BEEN DONE. PT TEMP SLIGHTLY ELEVATED, COOLING MEASURES IMPLEMENTED. NO ACUTE CHANGES OCCURRED THROUGHOUT THE SHIFT, PT NEEDS HAVE BEEN MET. TOLERATING VENT SETTINGS WELL. SAFETY MEASURES HAVE BEEN IMPLEMENTED, CALL LIGHT IS WITHIN REACH, SIDE RAILS UP X2, BED IS IN LOWEST AND LOCKED POSITION, PT HAS BEEN ENDORSED TO NIGHTSHIFT RN FOR CONTINUITY OF CARE.
--- NOTE | 2019-06-08 19:20 | NUR ---
TELE TN Addendum: 06/08/19 at 1927 by NORMAN TAYLOR RN PHOTORESIST CONTACT PRINTER OPENING NOTE RECEIVED PATIENT IN BED. PATIENT ON CONTACT ISOLATION FOR MRSA IN BLOOD. PATIENT OBTUNDED. ON MECHANICAL VENTILATOR, SHILEY #8, AC 18, TV 500 FIO2 30% PEEP 5. NO S/S OF ANY PAIN. IV ACCESS RIGHT BELOW THE KNEE #18 PATENT AND SL, YESI MIDLINE PATENT AND SL, RIGHT SUBCLAVIAN JAYE CATH, HENRIK OLD AV SHUNT. GTUBE IS PRESENT, ASPIRATED, NO RESIDUAL, AUSCULTATED, POSITIVE PLACEMENT, RUNNING NEPRO @50ML/HR. FAMILY AT [facility], BED IS LOW AND LOCKED, HOB ELEVATED IN SEMIFOWLERS, SIDE RAILS UP X2, BED ALARM ON, CALL LIGHT WITHIN REACH. WILL CONTINUE TO MONITOR. Addendum: 06/08/19 at 1933 by NORMAN TAYLOR RN EXTERNAL TELE MONITOR MARY SR WITH 1ST DEGREE AVB, IN NO APPARENT DISTRESS AT THIS TIME.
[2019-06-08 20:00] VITALS: BP 110/55
[2019-06-08] MEDS: NEPRO 1,000 ML BOTTLE GT PRN (23:36)
[2019-06-09] VITALS: BP 104/57
[2019-06-09 04:00] VITALS: BP 112/63
[2019-06-09] MEDS: BLOOD SUGAR DIAGNOSTIC 1 EACH STRIP IN SCH ×4 (05:41→18:33)
[2019-06-09 06:25] LABS: BASOPHILS % (AUTO) 0.2 % (0.0-2.0); EOSINOPHILS % (AUTO) 2.8 % (0.0-6.0); HEMATOCRIT 25 % (39-51); HEMOGLOBIN 8.4 g/dL (13.5-17.5); LYMPHOCYTES # (AUTO) 1.1 /CMM (0.8-4.8); LYMPHOCYTES % (AUTO) 6.9 % (20.0-44.0); MEAN CORPUSCULAR HGB CONC 33 g/dl (31.0-36.0); MEAN CORPUSCULAR VOLUME 90 fL (80-96); MONOCYTES # (AUTO) 1.4 /CMM (0.1-1.30); MONOCYTES % (AUTO) 8.5 % (2.0-12.0); NEUTROPHILS # (AUTO) 13.3 /CMM (1.8-8.9); NEUTROPHILS % (AUTO) 81.6 % (43.0-81.0); PLATELET COUNT (AUTO) 106 /CMM (150-450); RED BLOOD CELL COUNT(AUTO) 2.83 MIL/uL (4.5-6.0); WHITE BLOOD COUNT (AUTO) 16.4 K/uL (4.3-11.0)
--- NOTE | 2019-06-09 06:40 | NUR ---
RADIOGRAPHER MAMMOGRAPHER CLOSING NOTE PATIENT IN BED. PATIENT EMAINS ON CONTACT ISOLATION FOR MRSA IN BLOOD. PATIENT REMAINS OBTUNDED. ON MECHANICAL VENTILATOR, SHILEY #8, AC 18, TV 500 FIO2 30% PEEP 5. NO S/S OF ANY PAIN THROUGHOUT SHIFT . EXTERNAL TELE MONITOR READS SR WITH 1ST DEGREE AVB. IV ACCESS MAINTAINED RIGHT BELOW THE KNEE #18 PATENT AND SL, YESI MIDLINE PATENT AND SL, RIGHT SUBCLAVIAN JAYE CATH, HENRIK OLD AV SHUNT. GTUBE IS MAINTAINED, FEEDING TOLERATED RUNNING NEPRO @50ML/HR. BED IS LOW AND LOCKED, HOB ELEVATED IN SEMI FOWLERS, SIDE RAILS UP X2, BED ALARM ON, CALL LIGHT WITHIN REACH. WILL ENDORSE TO NEXT SHIFT
[2019-06-09 06:57] LABS: CALCIUM, SERUM 9.3 mg/dL (8.5-10.1); CREATININE 4.4 mg/dL (0.6-1.3); POTASSIUM 3.2 mmol/L (3.5-5.1)
--- NOTE | 2019-06-09 07:20 | NUR ---
DEVELOPMENT EXPERT OPENING NOTE: RECEIVED PATIENT IN BED. OBTUNDED AND NON-VERBAL. ON CONTACT ISOLATION FOR MRSA OF BLOOD, STAFF AWARE AND COMPLIANCE OBSERVED. ON MECHANICAL VENTILATION AND SETTINGS BEING TOLERATED WELL. GTUBE IN PLACE, PATENT WITH NEPRO @ 50MLS/HR, NO RESIDUAL NOTED. RIGHT SUBCLAVIAN JAYE CATHETER SITE FOR HD CLEAN AND SECURE. IV SITE ON R BELOW THE KNEE G18 AND R UPPER ARM MIDLINE PATENT, CLEAN AND SECURE. NO PAIN NOTED. ON CARDIAC MONITORING WITH SINUS RHYTHM NOTED. CALL LIGHT IN REACH, SIDE RAILS UP, BED LOCKED, LOW AND AT SEMI-STEVENS'S POSITION. WILL CONTINUE TO MONITOR.
[2019-06-09 08:00] VITALS: BP_SYST 112; BP_DIAS 61; BP_DIAS 63
[2019-06-09] MEDS: PANTOPRAZOLE 40 MG VIAL IV SCH ×2 (08:58→17:13)
[2019-06-09] MEDS: Z GUARD REMEDY 2 OZ OINT TP SCH (09:11)
[2019-06-09] MEDS: HYDROGEL DRESSING 90 GM TUBE TP SCH (09:11)
[2019-06-09] MEDS: DAKINS QUARTER STRENGTH (0.125%) 480 ML BOTTLE TOP SCH (09:11)
[2019-06-09] MEDS: CEFEPIME 2 GM in IV D5W 100 ML IV SCH (11:12)
[2019-06-09 12:00] VITALS: BP 120/76
[2019-06-09] MEDS ORDERED: POTASSIUM CHLORIDE 20 MEQ POWDER PACKET GT ONE (12:30)
[2019-06-09 16:00] VITALS: BP 118/68
[2019-06-09] MEDS: HYDROCODONE/APAP 5/325MG 1 EACH TABLET GT PRN (17:13)
[2019-06-09] MEDS: VANCOMYCIN 500 MG in IV D5W 100 ML IV PRN (17:16)
[2019-06-09] MEDS: Sodium Chloride 77 MEQ in IV 10% DEXTROSE 1,000 ML IV PRN (17:16)
--- NOTE | 2019-06-09 19:15 | NUR ---
PRINT LINE INSPECTOR CLOSING NOTE: PATIENT IN BED. OBTUNDED AND NON-VERBAL. ON CONTACT ISOLATION FOR MRSA OF BLOOD, STAFF AWARE AND COMPLIANCE OBSERVED. ON MECHANICAL VENTILATION AND SETTINGS BEING TOLERATED WELL. GTUBE IN PLACE, PATENT WITH NEPRO @ 50MLS/HR, NO RESIDUAL NOTED. RIGHT SUBCLAVIAN JAYE CATHETER SITE FOR HD CLEAN AND SECURE. IV SITE ON R BELOW THE KNEE G18 AND R UPPER ARM MIDLINE PATENT, CLEAN AND SECURE. NO PAIN NOTED. ON CARDIAC MONITORING WITH SINUS RHYTHM NOTED. HEMODIALYSIS DONE ON SHIFT, 1300ML OUT. CALL LIGHT IN REACH, SIDE RAILS UP, BED LOCKED, LOW AND AT SEMI-STEVENS'S POSITION. ENDORSED TO ONCOMING SHIFT FOR NICKY.
--- NOTE | 2019-06-09 19:30 | NUR ---
FINANCE ASSISTANT NOTES RECEIVED ON BED NON VERBAL,OBTUNDED,DNR/DNI STATUS.ON TRACH TO VENT,SETTINGS TOLERATED WELL, WITH RIGHT SUB CLAVIAN JAYE CATH FOR HD ACCESS.HAD TREATMENT TODAY,TOOK OUT 1300ML .WITH LEFT UPPER ARM OLD AV SHUNT,RIGHT UPPER ARM MIDLINE #18 FOR MEDS,RIGHT BELOW KNEE#18 INTACT AND PATENT.IVF D10 AT 30ML/HR RATE INFUSING VIA IV PUMP.WITH GT FEEDING OF NEPRO AT 50ML/HR RATE,HOB ELEVATED FOR ASPIRATION PRECAUTION.WILL CONTINUE TO MONITOR STATUS.
[2019-06-09 20:00] VITALS: BP 118/69
--- NOTE | 2019-06-09 20:00 | NUR ---
GLOVE WRAPPER NOTES MITTENS NOTED ON RIGHT HAND,FOR SAFETY ,PULLING TUBES,IV TUBINGS
[2019-06-10] MEDS: BLOOD SUGAR DIAGNOSTIC 1 EACH STRIP IN SCH ×4 (00:15→18:26)
--- NOTE | 2019-06-10 00:27 | NUR ---
PAGINATOR NOTES ACCU-CHECK BLOOD SUGAR CHECK 100,NO INSULIN COVERAGE.
[2019-06-10 04:00] VITALS: BP 121/71
--- NOTE | 2019-06-10 05:37 | NUR ---
RT NOTES: PT REMAIN TRACHED ON [facility] VENT ON CHARTED SETTINGS W/O SIGNS OF RESP DISTRESS/SOB NOTED T/O SHIFT. AIRWAY PATENT AND SECURED. PT SUCTIONED. ALARMS SET AND AUDIBLE. AMBUBAG AND SPARE TRACH AT BEDSIDE. VENT CONT TO RED OUTLET. WILL CONT TO MONITOR. Addendum: 06/10/19 at 0543 by GAIL MATAMOROS RT Amended: Links added.
[2019-06-10] MEDS: NEPRO 1,000 ML BOTTLE GT PRN (05:44)
--- NOTE | 2019-06-10 06:37 | NUR ---
AD OPERATIONS SPECIALIST NOTES NO SIGNIFICANT CHANGE IN STATUS.GT FEEDING TOLERATED WELL.NO N/V/D NOTED.REPOITION PER PROTOCOL,IN NO ACUTE DISTRESS.WILL ENDORSE TO DAY NURSE FOR NICKY.
[2019-06-10 07:09] LABS: BASOPHILS % (AUTO) 0.2 % (0.0-2.0); HEMATOCRIT 24 % (39-51); HEMOGLOBIN 8.1 g/dL (13.5-17.5); LYMPHOCYTES # (AUTO) 1.2 /CMM (0.8-4.8); LYMPHOCYTES % (AUTO) 9.6 % (20.0-44.0); MEAN CORPUSCULAR HGB CONC 34 g/dl (31.0-36.0); MEAN CORPUSCULAR VOLUME 89 fL (80-96); MONOCYTES # (AUTO) 1.1 /CMM (0.1-1.30); MONOCYTES % (AUTO) 9.2 % (2.0-12.0); NEUTROPHILS # (AUTO) 9.2 /CMM (1.8-8.9); PLATELET COUNT (AUTO) 103 /CMM (150-450); RED BLOOD CELL COUNT(AUTO) 2.73 MIL/uL (4.5-6.0); WHITE BLOOD COUNT (AUTO) 12.3 K/uL (4.3-11.0)
[2019-06-10 07:28] LABS: CALCIUM, SERUM 9.4 mg/dL (8.5-10.1); CREATININE 4.3 mg/dL (0.6-1.3); POTASSIUM 3.9 mmol/L (3.5-5.1)
[2019-06-10 08:00] VITALS: BP 139/75
[2019-06-10] MEDS: PANTOPRAZOLE 40 MG VIAL IV SCH ×2 (09:32→18:22)
[2019-06-10] MEDS: DAKINS QUARTER STRENGTH (0.125%) 480 ML BOTTLE TOP SCH (09:33)
[2019-06-10] MEDS: HYDROGEL DRESSING 90 GM TUBE TP SCH (09:33)
[2019-06-10] MEDS: Z GUARD REMEDY 2 OZ OINT TP SCH (09:33)
--- NOTE | 2019-06-10 11:40 | NUR ---
RT NOTE RECEIVED PT MECHANICALLY VENTILATED VIA CUFFED TRACHEOSTOMY TUBE. CUFF INFLATED. TRACH TUBE MIDLINE AND SECURE. VENTILATOR SETTINGS PRESCRIBED. ALARMS SET PER PROTOCOL AND AUDIBLE. VENT PLUGGED IN TO RED OUTLET. AMBU BAG AT BED SIDE. NO DISTRESS NOTED. Addendum: 06/10/19 at 1142 by ESHA WILSON RT Amended: Links added.
[2019-06-10] MEDS: CEFEPIME 2 GM in IV D5W 100 ML IV SCH (11:53)
[2019-06-10 12:00] VITALS: BP 147/82
[2019-06-10 16:00] VITALS: BP 142/74
[2019-06-10] MEDS: INSULIN REGULAR, HUMAN 100 UNIT/ML 3 ML VIAL SQ PRN (18:33)
[2019-06-10 20:00] VITALS: BP 143/86
--- NOTE | 2019-06-10 20:37 | NUR ---
VICE PRESIDENT OF ACADEMIC AFFAIRS NOTES RECEIVED PATIENT ASLEEP IN BED WITH NO DISTRESS NOTED. CALL LIGHT WITHIN REACH. AT BEDSIDE. TRACH INTACT ANT PATENT WITH VENT SETTING SAME ORDERED. FLEXI SEAL INTACT AND PATENT. HENRIK AV SHUNT IN PLACE. RUC P. CATH INTACT, STERILE DRESSING IN PLACE WITH NO BLEEDING, SWELLING, OR REDNESS NOTED. MIDLINE INTACT AND PATENT. GTF RUNNING AT 50ML/HR AND TOLERATING WELL. CONTACT ISOLATION MAINTAINED AT ALL TIMES. BED IN LOW LOCK SETTING. ALL BELONGINGS KEPT NEAR BEDSIDE. WILL CONTINUE TO MONITOR.
[2019-06-11 00:18] VITALS: BP 154/82
[2019-06-11] MEDS: BLOOD SUGAR DIAGNOSTIC 1 EACH STRIP IN SCH ×4 (00:18→17:19)
--- NOTE | 2019-06-11 02:26 | NUR ---
RT NOTE Pt rec'd trached on [facility] vent on AC mode. No resp distress or sob noted. Trach is patent and secured. Pt sx'd for thick mod amt of blood tinged secretions. Alarms are set and audible. Vent plugged into red outlet. Ambu bag bedside. Will continue to monitor. Addendum: 06/11/19 at 0228 by ALAINA SUTTON RT Amended: Links added.
[2019-06-11 04:00] VITALS: BP 161/82
[2019-06-11] MEDS: NEPRO 1,000 ML BOTTLE GT PRN (04:30)
[2019-06-11] MEDS: ACETAMINOPHEN 325 MG TABLET PO PRN ×2 (04:30→21:50)
[2019-06-11] MEDS: Sodium Chloride 77 MEQ in IV 10% DEXTROSE 1,000 ML IV PRN (04:30)
--- NOTE | 2019-06-11 07:00 | NUR ---
PUBLIC AFFAIRS MANAGER NOTES PATIENT IS OBTUNDED. PATIENT DOES OPEN OPEN HIS EYES WHEN YOU WAKE THE PATIENT. PATIENT IS ON VENT WITH MAIK # 8 . PATIENT IS ANURIC . AND HAS A FLEXISEAL IT INTACT AND PATENT. PATIENT IS ON ISOLATION. PATIENT HAS MULTIPLE WOUNDS . AND BLISTERS. PATIENT HAS RIGHT HAND RESTRAINT. PATIENT IS ON 50@ ML/HR. PATIENT HAS A YESI MIDLINE. AND R KNEE 18 PATENT AND INTACT. BED LOCKED AND LOWEST POSITION. ALL SAFETY MEASURE IMPLEMENTED PER HOSPITAL PROTOCOL.
[2019-06-11 08:00] VITALS: BP 142/76
[2019-06-11 08:12] LABS: BASOPHILS % (AUTO) 0.2 % (0.0-2.0); EOSINOPHILS % (AUTO) 11.1 % (0.0-6.0); HEMATOCRIT 27 % (39-51); HEMOGLOBIN 8.9 g/dL (13.5-17.5); LYMPHOCYTES # (AUTO) 1.1 /CMM (0.8-4.8); LYMPHOCYTES % (AUTO) 9.4 % (20.0-44.0); MEAN CORPUSCULAR HGB CONC 33 g/dl (31.0-36.0); MEAN CORPUSCULAR VOLUME 90 fL (80-96); NEUTROPHILS # (AUTO) 8.1 /CMM (1.8-8.9); NEUTROPHILS % (AUTO) 70.3 % (43.0-81.0); PLATELET COUNT (AUTO) 113 /CMM (150-450); RED BLOOD CELL COUNT(AUTO) 3.04 MIL/uL (4.5-6.0); WHITE BLOOD COUNT (AUTO) 11.5 K/uL (4.3-11.0)
[2019-06-11 08:21] LABS: CALCIUM, SERUM 9.7 mg/dL (8.5-10.1); CREATININE 5.3 mg/dL (0.6-1.3)
[2019-06-11] MEDS: PANTOPRAZOLE 40 MG VIAL IV SCH ×2 (11:01→17:21)
[2019-06-11] MEDS: DAKINS QUARTER STRENGTH (0.125%) 480 ML BOTTLE TOP SCH (11:03)
[2019-06-11] MEDS: Z GUARD REMEDY 2 OZ OINT TP SCH (11:03)
[2019-06-11] MEDS: HYDROGEL DRESSING 90 GM TUBE TP SCH (11:03)
[2019-06-11 12:00] VITALS: BP 131/76
[2019-06-11] MEDS: INSULIN REGULAR, HUMAN 100 UNIT/ML 3 ML VIAL SQ PRN (12:23)
--- NOTE | 2019-06-11 13:48 | NUR ---
FINANCIAL SERVICES OFFICER - HD BP 131/70 DIALYSIS NURSE TOOK 1LITER OUT
[2019-06-11] MEDS: CEFEPIME 2 GM in IV D5W 100 ML IV SCH (13:50)
[2019-06-11 14:02] LABS: BAND % (MANUAL) 3 % (0.0-5.0); EOSINOPHILS % (MANUAL) 10 % (0-4); LYMPHOCYTES % (MANUAL) 11 % (16-48); MONOCYTES % (MANUAL) 6 % (0-11.0); NEUTROPHILS % (MANUAL) 70 (42-76)
[2019-06-11 16:00] VITALS: BP 145/74
--- NOTE | 2019-06-11 19:19 | NUR ---
UTILIZATION MANAGEMENT RN NOTES PATIENT IS OBTUNDED . PATIENT IS ON VENT. WITH VENT SETTING PER DOCTORS ORDERS . NO SOB, EVEN AND UNLABORED BREATHING . BED LOCKED AND LOWEST POSITION CALL LIGHT WITH IN REACH. ALL SAFETY MEASURE IMPLEMENTED PER HOSPITAL POLICY
--- NOTE | 2019-06-11 19:25 | NUR ---
TELE/RN NOTES, PATIENT RECEIVED IN BED, OBTUNDED, OPEN EYES, IN NO ACUTE DISTRESS, BREATHING EVEN AND UNLABORED. NO SHORTNESS OF BREATH NOTED. TRACH INTACT, PATENT CONNECTED TO VENT WITH PRESCRIBED SETTINGS, NO S/S OF OF PAIN NOTED, NO FACIAL GRIMACING, ON TELE MONITORING WITH SINUS RHYTHM/SINUS TACHY. PATIENT WITH MULTIPLE WOUNDS, NOTED ACTIVE BLEEDING FROM HIS MOUTH, PER DAY SHIFT NURSE PATIENT BITE ON HIS LIPS, CLEAN SITE WILL CONTINUE TO MONITOR. RECTAL TUBE IN PLACE, PATENT, IV LINES PATENT, SITE WITH NO S/S OF INFECTION/INFILTRATION. G-TUBE IN PLACE, PATENT CONNECTED TO FEEDING ORDERED. HOB ELEVATED. SAFETY MAINTAINED, BED AT THE LOWEST LOCKED POSITION. CALL LIGHT WITHIN REACH. WILL CONTINUE TO MONITOR PER PLAN OF CARE.
[2019-06-11 20:00] VITALS: BP_SYST 146; BP_SYST 154; BP_DIAS 76; BP_DIAS 83
--- NOTE | 2019-06-11 21:49 | NUR ---
PATIENT TEMPERATURE 101.4 AXILLARY AT THIS TIME, PRN TYLENOL GIVEN, COOLING MEASURES INITIATED
--- NOTE | 2019-06-11 22:20 | NUR ---
PATIENT TEMPERATURE DOWN TO 99.4 AXILLARY AT THIS TIME, CONTINUE WITH COOLING MEASURES, IN NO ACUTE DISTRESS
[2019-06-12] VITALS (7 sets, daily range): BP systolic 109–197; BP diastolic 66–105
[2019-06-12] MEDS: BLOOD SUGAR DIAGNOSTIC 1 EACH STRIP IN SCH ×4 (00:15→17:04)
[2019-06-12] MEDS: INSULIN REGULAR, HUMAN 100 UNIT/ML 3 ML VIAL SQ PRN ×2 (00:17→12:23)
[2019-06-12] MEDS: NEPRO 1,000 ML BOTTLE GT PRN (02:59)
[2019-06-12 06:29] LABS: BASOPHILS % (AUTO) 0.1 % (0.0-2.0); EOSINOPHILS % (AUTO) 12.2 % (0.0-6.0); HEMATOCRIT 26 % (39-51); HEMOGLOBIN 8.8 g/dL (13.5-17.5); MEAN CORPUSCULAR HGB CONC 33 g/dl (31.0-36.0); MEAN CORPUSCULAR VOLUME 89 fL (80-96); MONOCYTES % (AUTO) 9.2 % (2.0-12.0); NEUTROPHILS # (AUTO) 7.7 /CMM (1.8-8.9); NEUTROPHILS % (AUTO) 69.5 % (43.0-81.0); PLATELET COUNT (AUTO) 107 /CMM (150-450); RED BLOOD CELL COUNT(AUTO) 2.96 MIL/uL (4.5-6.0); WHITE BLOOD COUNT (AUTO) 11.1 K/uL (4.3-11.0)
[2019-06-12 06:37] LABS: CALCIUM, SERUM 9.3 mg/dL (8.5-10.1); CREATININE 4.6 mg/dL (0.6-1.3); POTASSIUM 3.7 mmol/L (3.5-5.1)
--- NOTE | 2019-06-12 06:52 | NUR ---
TELE/RN EXIT NOTES, PATIENT REMAINED IN BED, OBTUNDED, OPEN EYES, IN NO ACUTE DISTRESS, BREATHING EVEN AND UNLABORED. NO SHORTNESS OF BREATH NOTED. TRACH INTACT, PATENT CONNECTED TO VENT WITH PRESCRIBED SETTINGS, NO S/S OF OF PAIN NOTED, NO FACIAL GRIMACING, ON TELE MONITORING WITH SINUS RHYTHM/SINUS TACHY. RECTAL TUBE IN PLACE, PATENT, IV LINES PATENT, SITE WITH NO S/S OF INFECTION/INFILTRATION. G-TUBE IN PLACE, PATENT CONNECTED TO FEEDING ORDERED. HOB ELEVATED. SAFETY MAINTAINED, BED AT THE LOWEST LOCKED POSITION. CALL LIGHT WITHIN REACH. WILL ENDORSE TO AM SHIFT NURSE FOR NICKY.
[2019-06-12 07:38] LABS: BAND % (MANUAL) 1 % (0.0-5.0); EOSINOPHILS % (MANUAL) 18 % (0-4); LYMPHOCYTES % (MANUAL) 7 % (16-48); MONOCYTES % (MANUAL) 7 % (0-11.0); NEUTROPHILS % (MANUAL) 67 (42-76)
--- NOTE | 2019-06-12 08:00 | NUR ---
TELE 1/RN AM INITIAL NOTES RECEIVED PATIENT IN BED. PT IN SUPINE POSITION. OBTUNDED WITH OCCASIONAL EYE OPENING. PT HAS A TRACH WITH VENT SETTING. O2 SAT @ 100%. PT SUCTIONED AND ORAL CARE PROVIDED. PT IS OOZING BLOOD FROM HIS MOUTH. PT IS ON TELE MONITOR. SR WITH FIRST DEGREE AV BLOCK. MULTIPLE WOUNDS NOTED, APPROPRIATE SKIN CARE WILL BE PROVIDED. PITTING EDEMA NOTED. PT HAS A FLEXI SEAL. G TUBE FEEDING IN PLACE. TOLERATING WELL. ANURIC. IV SITES INTACT. FLUSHED AND PATENT. D10 @ 30 ML/HR. SAFETY MAINTAINED. BED ON THE LOWEST SETTING. CL IN REACH. WILL CONTINUE MONITORING.
[2019-06-12] MEDS: PANTOPRAZOLE 40 MG VIAL IV SCH ×2 (09:17→16:07)
[2019-06-12] MEDS: HYDROCODONE/APAP 5/325MG 1 EACH TABLET GT PRN (09:21)
[2019-06-12] MEDS: DAKINS QUARTER STRENGTH (0.125%) 480 ML BOTTLE TOP SCH (09:27)
[2019-06-12] MEDS: Z GUARD REMEDY 2 OZ OINT TP SCH (09:27)
[2019-06-12] MEDS: HYDROGEL DRESSING 90 GM TUBE TP SCH (09:28)
--- NOTE | 2019-06-12 11:00 | NUR ---
senior telecommunications engineer note andbeni aware that noted bleeding from mouth, no other order given at this time , mouth care done
[2019-06-12] MEDS: CEFEPIME 2 GM in IV D5W 100 ML IV SCH (11:46)
[2019-06-12] MEDS ORDERED: RXVAN XX (12:11)
[2019-06-12] MEDS ORDERED: CEFE2PIG2 IV (12:11)
--- NOTE | 2019-06-12 12:32 | NUR ---
CRYPTOLOGICAL TECHNICIAN NOTES DR CRAIG NOTIFIED THAT BP 197/92 AND MANUAL BP IS 165/78. WITH ORDER GIVE CLONIDINE 0.2MG IF SYSTOLIC BP IS ABOVE 160 PRIOR TO DISCHARGE TO SNF. WILL FOLLOW UP.
[2019-06-12] MEDS: VANCOMYCIN 500 MG in IV D5W 100 ML IV PRN (12:52)
--- NOTE | 2019-06-12 14:07 | NUR ---
telephone order clerk note report given to ricardo gonzalez from snf ,ok to leave mid line fo d\c to snf
--- NOTE | 2019-06-12 14:25 | NUR ---
television parts tester note called to daughter notified that will be transfer to snf
[2019-06-12] MEDS ORDERED: CLONIDINE HCL 0.1 MG TABLET GT ONE (14:30)
--- NOTE | 2019-06-12 16:29 | NUR ---
VEHICLE FARE COLLECTOR NOTE RT AT BEDSIDE .RR 30 .BP 151/78 SAT 100 % ATIVAN IVP GIVEN ORDERED WILL CONT TO MONITOR
--- NOTE | 2019-06-12 18:58 | NUR ---
tele rnnnote per dr taylor cardenas to change to d51/2 ns at 30 ml perrr hour, will f\u, called to shelter case manager omer notified that ambulance not here, stated will check it out Addendum: 06/12/19 at 1905 by MOSES DU RN Received call from ambulance they will be an hour late. Unable to remove restraint because pt is still at risk of pulling the lines.
[2019-06-12] MEDS ORDERED: IV D5/0.45 NACL 1,000 ML IV PRN (19:00)
--- NOTE | 2019-06-12 19:15 | NUR ---
CELLULAR PHONE REPAIRER NOTE PATIENT RECEIVED IN BED OBTUNDED OPENS EYES, RESPONDS TO PAIN. PATIENT TOLERATING CURRENT VENT SETTINGS. NO S/S OF RESP DISTRESS. PATIENT NOTED TO HAVE PINK TINGED ORAL SECRETIONS FROM CUT ON UPPER LIP. MD AWARE. PATIENT HR 95 ON MONITOR. PATIENT TOLERATING TUB FEEDING. FLEXI SEAL DRAINING TO GRAVITY. RN AWRE OF PATIENTS PLAN FOR D/C. TRANSPORTATION SCHEDULED TO ARRIVE AT 1999. REPORT GIVEN TO OLAYINKA AT ALL SAINTS. RN WILL CONTINUE TO MONITOR FOR CHANGES. SAFETY/ ASPIRATION PRECAUTIONS IN PLACE.
--- NOTE | 2019-06-12 22:30 | NUR ---
RAG BALER NOTE TRANSPORTATION TEAM ARRIVED. REPORT GIVEN TO RN, PATIENT D/C VITAL SIGNS 151/76, HR HR 95. TEMP 98 SATURATION 99%. PATIENT TOLERATING TRANSPORTATION VENT. TRANSFER OF CARE GIVEN OVER. SPOKE TO ANCELMO REY THE AIRCRAFT INSTRUMENT TESTER AT [facility] TO NOTIFY OF PATIENT WIRE MESH GATE ASSEMBLER AND PENDING ARRIVAL. PATIENT D/C'D FROM UNIT.
== END 2019-06-12 22:43 | DRG 951 ==
LOC: ER 16:18 → TELE-TD 18:25 → TELE1 20:58
PROVIDERS: ADMIT Nurse Practitioner Acute Care; ATTEND Family Medicine
PROC: 5A1955Z Respiratory Ventilation, Greater than 96 Consecutive Hours (ICD-10-PCS; 2019-06-06)
PROC: 05H533Z Insertion of Infusion Device into Right Subclavian Vein, Percutaneous Approach (ICD-10-PCS; principal; 2019-06-07)
PROC: 5A1D70Z Performance of Urinary Filtration, Intermittent, Less than 6 Hours Per Day (ICD-10-PCS; principal; 2019-06-07)
PROC: 30233N1 Transfusion of Nonautologous Red Blood Cells into Peripheral Vein, Percutaneous Approach (ICD-10-PCS; principal; 2019-06-07)
PROC: B546ZZA Ultrasonography of Right Subclavian Vein, Guidance (ICD-10-PCS; principal; 2019-06-07)
PROC: 0KBM0ZZ Excision of Perineum Muscle, Open Approach (ICD-10-PCS; 2019-06-09)
PROC: 0JB70ZZ Excision of Back Subcutaneous Tissue and Fascia, Open Approach (ICD-10-PCS; 2019-06-09)
PROC: 0JBQ0ZZ Excision of Right Foot Subcutaneous Tissue and Fascia, Open Approach (ICD-10-PCS; 2019-06-10)
DX: K92.2 Gastrointestinal hemorrhage, unspecified (principal); G93.41 Metabolic encephalopathy; Z99.11 Dependence on respirator [ventilator] status; I13.2 Hypertensive heart and chronic kidney disease with heart failure and with stage 5 chronic kidney disease, or end stage renal disease; G93.1 Anoxic brain damage, not elsewhere classified; J15.6 Pneumonia due to other Gram-negative bacteria; J96.11 Chronic respiratory failure with hypoxia; L89.154 Pressure ulcer of sacral region, stage 4; L89.623 Pressure ulcer of left heel, stage 3; L89.613 Pressure ulcer of right heel, stage 3; N18.6 End stage renal disease; D64.9 Anemia, unspecified; R53.2 Functional quadriplegia; I25.10 Atherosclerotic heart disease of native coronary artery without angina pectoris; Z99.2 Dependence on renal dialysis; E87.1 Hypo-osmolality and hyponatremia; E87.6 Hypokalemia; D72.829 Elevated white blood cell count, unspecified; R13.10 Dysphagia, unspecified; M24.571 Contracture, right ankle; R40.3 Persistent vegetative state; M24.572 Contracture, left ankle; M24.542 Contracture, left hand; M24.541 Contracture, right hand; L90.5 Scar conditions and fibrosis of skin; S70.322A Blister (nonthermal), left thigh, initial encounter; S70.321A Blister (nonthermal), right thigh, initial encounter; S30.820A Blister (nonthermal) of lower back and pelvis, initial encounter; S80.222A Blister (nonthermal), left knee, initial encounter; S80.221A Blister (nonthermal), right knee, initial encounter; S40.822A Blister (nonthermal) of left upper arm, initial encounter; S40.821A Blister (nonthermal) of right upper arm, initial encounter; X58.XXXA Exposure to other specified factors, initial encounter; Y93.9 Activity, unspecified; Y92.129 Unspecified place in nursing home as the place of occurrence of the external cause; S31.501A Unspecified open wound of unspecified external genital organs, male, initial encounter; Z74.01 Bed confinement status; Z93.1 Gastrostomy status; D62 Acute posthemorrhagic anemia; D63.1 Anemia in chronic kidney disease
CPT/HCPCS: 31720; 36415; 71045-TC; 80048-TC; 80202-TC; 82962-TC; 83605-TC; 83735-TC; 84100-TC; 85025-TC; 85027-TC; 86850-TC; 86921-TC; 87040-TC; 87070-TC; 87081-TC; 87186-TC; 90935-TC; 93307-TC; 94002-TC; 94003-TC; 94640-TC; 94760-TC; 94762-TC; 99082-TC; A4216; A4217; A6248; A6253; A6403; C9113; G0378; J0692; J1815; J2060; J2543; J3370; J3490; J7050; J7060; P9016-BL

== ENCOUNTER 2019-06-21 14:24 | Inpatient (IN) | payer OTHER ==
[~2019-06-21] VITALS: Ht 165.1 cm; Wt 59.9 kg
[~2019-06-21 14:24] MED LIST changes: +ACET-868 GT; +BISA10SU11 RC; +CEFE2PIG2 IV; -Hydrogel Dressing TP; +LORA-259 GT; +ONDA4TAB5 GT; +RXVAN XX; -Silver Sulfadiazine Cream TP; +ZINC1CAP2 GT
--- NOTE | 2019-06-21 14:48 | NUR ---
BIB EMS FOR ABNORMAL LABS, HEMOGLOBIN 6.5. TO ER BED 8, PATIENT NOTED W TRACHEOSTOMY, VENTILATOR DEPENDEDNT. ON DIALYSIS DURING THU-THU-THU. WAS NOT ABLE TO BE DIALYZED TODAY. PATIENT ON HOSP GOWN. RT AT BEDSIDE. PROVIDED W WARM BLANKET, DR MA AT BEDSIDE
--- NOTE | 2019-06-21 14:50 | NUR ---
CALLED FOR TELE BED & TURNED IN MOVE SHEET TO ADMITTING
--- NOTE | 2019-06-21 14:50 | NUR ---
RT END OF THE SHIFT REPORT Pt. rec. @1450 in ER trach'd Valentin # 8 placed on ventilator with noted settings. per transport team, Vent alarms are set and audible with ambu bag by bedside. CEMENT MASON MAINTENANCE cuff pressure done, HME changed. Vent is plugged into red outlet. No Respiratory distress noted extra trach at the bedside. bilaterally rales b/s noted and sux'd for minimal amount of pinky secretions, sputum sent to lab. equal chest rise noted. pt. stable and continue to monitor. Addendum: 06/21/19 at 1745 by ANJELICA SHAH RT Amended: Links added.
[2019-06-21] MEDS ORDERED: ARGI1POW13 GT (15:04)
[2019-06-21] MEDS ORDERED: INSU100V30 IJ (15:04)
--- NOTE | 2019-06-21 15:06 | NUR ---
VENT SETTINGS: AC 18 VT 500 FiO2 30% PEEP +5
[2019-06-21 15:23] LABS: BASOPHILS # (AUTO) 0.1 /CMM (0.0-0.2); BASOPHILS % (AUTO) 0.5 % (0.0-2.0); EOSINOPHILS % (AUTO) 16.1 % (0.0-6.0); LYMPHOCYTES # (AUTO) 0.8 /CMM (0.8-4.8); LYMPHOCYTES % (AUTO) 7.2 % (20.0-44.0); MEAN CORPUSCULAR HGB CONC 32 g/dl (31.0-36.0); MEAN CORPUSCULAR VOLUME 92 fL (80-96); MONOCYTES % (AUTO) 8.9 % (2.0-12.0); NEUTROPHILS # (AUTO) 7.5 /CMM (1.8-8.9); NEUTROPHILS % (AUTO) 67.3 % (43.0-81.0); PLATELET COUNT (AUTO) 168 /CMM (150-450); RED BLOOD CELL COUNT(AUTO) 2.08 MIL/uL (4.5-6.0); WHITE BLOOD COUNT (AUTO) 11.1 K/uL (4.3-11.0)
[2019-06-21 15:28] LABS: HEMATOCRIT 19 % (39-51); HEMOGLOBIN 6.2 g/dL (13.5-17.5)
[2019-06-21 15:45] LABS: BILIRUBIN,DIRECT 0.1 mg/dL (0.0-0.2); BILIRUBIN,TOTAL 0.4 mg/dL (0.2-1.0); CREATININE 4.9 mg/dL (0.6-1.3); POTASSIUM 4.8 mmol/L (3.5-5.1)
[2019-06-21 15:47] LABS: ALBUMIN 1.4 g/dL (3.4-5.0)
--- NOTE | 2019-06-21 15:47 | NUR ---
BUN 111 ALBUMIN 1.4
--- NOTE | 2019-06-21 16:00 | NUR ---
SHILA MA MD SIGNED CONSENT FOR BLOOD TRANSFUSION
[2019-06-21 16:03] LABS: BAND % (MANUAL) 1 % (0.0-5.0); EOSINOPHILS % (MANUAL) 20 % (0-4); LYMPHOCYTES % (MANUAL) 4 % (16-48); MONOCYTES % (MANUAL) 9 % (0-11.0); NEUTROPHILS % (MANUAL) 66 (42-76)
--- NOTE | 2019-06-21 16:24 | NUR ---
received verbal auth from Sindy BROWNE from [facility].
[2019-06-21] MEDS ORDERED: LORAZEPAM 1 MG TABLET GT PRN (17:00)
[2019-06-21] MEDS ORDERED: BISACODYL SUPP (10 MG) 10 MG/SUPP.RECT SUPP.RECT RC PRN (17:00)
[2019-06-21] MEDS ORDERED: ACETAMINOPHEN 325 MG TABLET MC PRN (17:00)
[2019-06-21] MEDS ORDERED: Medication Not On Formulary EA (Ipratropium/Albuterol Sulfate (Duoneb 2.5-0.5 Mg/3 Ml So IH PRN (17:00)
[2019-06-21] MEDS ORDERED: CLONIDINE HCL 0.1 MG TABLET GT PRN (17:00)
[2019-06-21] MEDS ORDERED: Medication Not On Formulary EA (Ondansetron Hcl (Zofran) 4 MG) GT PRN (17:00)
--- NOTE | 2019-06-21 17:29 | NUR ---
CALLED FOR TELE BED
[2019-06-21] MEDS ORDERED: Z GUARD REMEDY 2 OZ OINT TP PRN (17:30)
[2019-06-21] MEDS ORDERED: INSULIN REGULAR, HUMAN 100 UNIT/ML 3 ML VIAL SQ PRN (17:30)
[2019-06-21] MEDS ORDERED: ONDANSETRON HCL/PF 4 MG/2 ML VIAL IVP PRN (17:30)
[2019-06-21] MEDS ORDERED: MAG HYDROX/AL HYDROX/SIMETH 30 ML UDC PO PRN (17:30)
[2019-06-21] MEDS ORDERED: MAGNESIUM HYDROXIDE 30 ML UDC PO PRN (17:30)
[2019-06-21] MEDS ORDERED: *INSULIN REGULAR(HUMULIN R)HUM 100 UNIT/ML VIAL SQ PRN (17:30)
[2019-06-21] MEDS ORDERED: DEXTROSE 50%-WATER 50 ML DISP.SYRIN IV PRN (17:30)
--- NOTE | 2019-06-21 17:45 | NUR ---
BLOOD PRODUCT VERIFIED WITH SARAH MORRELL. BLOOD PRODUCT MATCHED PATIENT INFORMATION. PRE TRANSFUSION VS TAKEN, VSS.
--- NOTE | 2019-06-21 17:50 | NUR ---
BLOOD TRANSFUSION STARTED AT 100ML/HR. CLOSE MONITORING AT BEDSIDE TO WOF ADVERSE REACTION.
--- NOTE | 2019-06-21 17:58 | NUR ---
GOT BED 113-1
--- NOTE | 2019-06-21 18:05 | NUR ---
NO BLOOD TRANSFUSION ADVERSE REACTION NOTED. VSS.
--- NOTE | 2019-06-21 18:12 | NUR ---
REPORT GIVEN TO NIRU OF TELE UNIT
--- NOTE | 2019-06-21 18:14 | NUR ---
TERMINOLOGIST NOTE RECEIVED REPORT FROM ARTURO MORRELL
[2019-06-21] MEDS ORDERED: hydrALAZINE HCL 50 MG TABLET GT PRN (18:30)
[2019-06-21] MEDS ORDERED: IPRATROPIUM NEB FS 0.5 MG/2.5 ML AMPUL.NEB NEB PRN (18:30)
[2019-06-21] MEDS ORDERED: ALBUTEROL FS 2.5 MG/0.5 ML VIAL.NEB NEB PRN (18:30)
[2019-06-21] MEDS ORDERED: PANTOPRAZOLE 40 MG VIAL IV SCH (18:30)
[2019-06-21] MEDS: BLOOD SUGAR DIAGNOSTIC 1 EACH STRIP VI SCH ×2 (19:00→22:37)
[2019-06-21] MEDS: SEVELAMER CARBONATE 0.8 GM POWD.PACK PO SCH (19:00)
--- NOTE | 2019-06-21 19:00 | NUR ---
TABLE WORKER OPENING NOTES RECEIVED PATIENT RESTING IN BED, NONVERBAL/OBTUNDED, ABLE TO OPEN EYES. ON TELE MONITOR SR WITH HR 80'S. ON MECHANICAL VENT TRACH SETTINGS: SHILEY #8, AC 18, TV 500, FIO2 30%, PEEP OF 5; TOLERATING WELL, SATURATING 100% AT THE MOMENT. NO SOB OR RESPIRATORY DISTRESS NOTED. IV SITE RIGHT HAND 20G, FLUSHING AND PATENT, SITE C/D/I. ON GOING BLOOD TRANSFUSION STARTED IN ER, NO INFILTRATION NOTED. RIGHT CHEST WALL PERM-A-CATH NOTED AND INTACT. LEFT UA AV FISTULA NOTED. G-TUBE FLUSHING AND PATENT, MINIMAL RESIDUAL NOTED. NPO STATUS NOTED. SKIN ASSESSMENT DONE (SEE FLOWSHEET). KEPT PATIENT CLEAN, DRY, AND COMFORTABLE. SAFETY MEASURES IN PLACE; BED LOCKED AND IN LOWEST POSITION, CALL LIGHT WITHIN REACH, SIDE RAILS UP X2, HOB ELEVATED. WILL CONTINUE TO MONITOR PT CLOSELY.
--- NOTE | 2019-06-21 19:10 | NUR ---
RN NOTE RECEIVED PATIENT FROM ER @1850.VSS.PATIENT AWAKE.OPEN EYES.NOT FOLLOWING ANY COMMANDS.TRACH TO VENT DEPENDANT.NO SOB NO DISTRESS NOTED.BED IS LOCKED AND IN LOW POSITION.CALL LIGHT IN REACH.BED ALRM ON.SRX3.ENDORSED BEA PM NURSE TO DO ADMISSION PROCESS.
[2019-06-21] MEDS: ALBUTEROL FS 2.5 MG/0.5 ML VIAL.NEB NEB SCH (19:16)
[2019-06-21] MEDS: IPRATROPIUM NEB FS 0.5 MG/2.5 ML AMPUL.NEB NEB SCH (19:17)
[2019-06-21] MEDS ORDERED: Medication Not On Formulary EA (Ipratropium/Albuterol Sulfate (Duoneb 2.5-0.5 Mg/3 Ml So IH SCH (19:30)
[2019-06-21 20:00] VITALS: BP 140/70
--- NOTE | 2019-06-21 20:00 | NUR ---
RN NOTES BLOOD TRANSFUSION DONE AT 1999. VITAL SIGNS: BP 140/70, HR 80, RR 20, O2SAT 100%, TEMP 98.2. NO ADVERSE EFFECT NOTED. WILL CONT TO MONITOR PT.
[2019-06-21] MEDS: CARVEDILOL 12.5 MG TABLET PO SCH (21:00)
[2019-06-21] MEDS: LOSARTAN POTASSIUM 50 MG TABLET GT SCH (21:20)
[2019-06-21] MEDS ORDERED: GELATIN SPONGE,ABSORBABLE 1 SPONGE SPONGE TP ONE (23:25)
--- NOTE | 2019-06-21 23:30 | NUR ---
2330 NOTED LARGE AMOUNT OF BLEEDING FROM PATIENT'S LEFT HEEL AND SACROCOCCYX WOUNDS DURING DRESSING CHANGE. CLEANSED AREAS WITH NS, APPLIED SURGIFOAM AND REINFORCED WITH ABDOMINAL PADS. MORRIS RODRIGUEZ MADE AWARE WITH NO ORDER BUT TO MONITOR.
[2019-06-22] VITALS: BP 136/70
[2019-06-22] MEDS: IPRATROPIUM NEB FS 0.5 MG/2.5 ML AMPUL.NEB NEB SCH ×4 (01:09→19:57)
[2019-06-22] MEDS: ALBUTEROL FS 2.5 MG/0.5 ML VIAL.NEB NEB SCH ×4 (01:10→19:57)
[2019-06-22 04:00] VITALS: BP 131/66
--- NOTE | 2019-06-22 04:09 | NUR ---
RT NOTE: RECEIVED TRACH PT ON ORDERED AC VENT SETTINGS. NO RESPIRATORY DISTRESS NOTED. TRACH CHECKED SECURE AND PATENT. SXD AND LAVAGED Q ROUND AND NEEDED. BLOOD-TINGED/BROWN SECRETIONS NOTED. RN AWARE. TXS INITIATED AND GIVEN ORDERED WITH NO ADVERSE REACTIONS NOTED. TRACH CARE DONE. SPARE TRACH AND AMBU BAG @ BEDSIDE. ALARMS CHECKED ON AND AUDIBLE. VENT PLUGGED INTO RED OUTLET.
[2019-06-22 06:11] LABS: CALCIUM, SERUM 9.1 mg/dL (8.5-10.1); CREATININE 5.4 mg/dL (0.6-1.3); MAGNESIUM 2.6 mg/dL (1.8-2.4); PHOSPHORUS 5.9 mg/dL (2.5-4.9); POTASSIUM 4.9 mmol/L (3.5-5.1)
--- NOTE | 2019-06-22 06:55 | NUR ---
TOWER SWITCH OPERATOR CLOSING NOTES PATIENT RESTING IN BED, NONVERBAL/OBTUNDED, ABLE TO OPEN EYES. ON TELE MONITOR SR WITH HR 80'S. ON MECHANICAL VENT TRACH SETTINGS ORDERED, TOLERATING WELL, SATURATING 100% AT THE MOMENT. NO SOB OR RESPIRATORY DISTRESS NOTED. IV SITE RIGHT HAND 20G, FLUSHING AND PATENT, SITE C/D/I, S/L. RIGHT CHEST WALL PERM-A-CATH NOTED AND INTACT. LEFT UA AV FISTULA NOTED. G-TUBE FLUSHING AND PATENT, CLAMPED. NPO STATUS NOTED. REPOSITIONED Q2H. KEPT PATIENT CLEAN, DRY, AND COMFORTABLE. SAFETY MEASURES IN PLACE; BED LOCKED AND IN LOWEST POSITION, CALL LIGHT WITHIN REACH, SIDE RAILS UP X2, HOB ELEVATED. ALL MD ORDERS ATTENDED. WILL CONTINUE TO MONITOR PT CLOSELY. WILL ENDORSE TO AM RN FOR NICKY.
[2019-06-22 07:19] LABS: BASOPHILS % (AUTO) 0.5 % (0.0-2.0); EOSINOPHILS % (AUTO) 12.9 % (0.0-6.0); HEMATOCRIT 24 % (39-51); HEMOGLOBIN 8.1 g/dL (13.5-17.5); LYMPHOCYTES # (AUTO) 1.2 /CMM (0.8-4.8); LYMPHOCYTES % (AUTO) 13.7 % (20.0-44.0); MEAN CORPUSCULAR HGB CONC 34 g/dl (31.0-36.0); MEAN CORPUSCULAR VOLUME 90 fL (80-96); MONOCYTES % (AUTO) 11.5 % (2.0-12.0); NEUTROPHILS # (AUTO) 5.3 /CMM (1.8-8.9); NEUTROPHILS % (AUTO) 61.4 % (43.0-81.0); PLATELET COUNT (AUTO) 154 /CMM (150-450); RED BLOOD CELL COUNT(AUTO) 2.66 MIL/uL (4.5-6.0); WHITE BLOOD COUNT (AUTO) 8.7 K/uL (4.3-11.0)
[2019-06-22 08:00] VITALS: BP 134/67
[2019-06-22] MEDS: AMLODIPINE BESYLATE 10 MG TABLET GT SCH (09:00)
[2019-06-22] MEDS: CARVEDILOL 12.5 MG TABLET PO SCH ×2 (09:00→23:24)
[2019-06-22] MEDS ORDERED: EPOETIN ALFA (10,000 UNIT) 10,000 UNIT/ML VIAL IV SCH (09:00)
[2019-06-22] MEDS: BLOOD SUGAR DIAGNOSTIC 1 EACH STRIP VI SCH (09:25)
--- NOTE | 2019-06-22 10:00 | NUR ---
rn note pt did not get bp meds this AM because he will have HD today.
[2019-06-22] MEDS ORDERED: DEXTROSE 50%-WATER 50 ML DISP.SYRIN IV PRN (11:00)
[2019-06-22] MEDS: SEVELAMER CARBONATE 0.8 GM POWD.PACK PO SCH ×3 (11:15→17:17)
[2019-06-22 12:00] VITALS: BP 116/69
[2019-06-22] MEDS: BLOOD SUGAR DIAGNOSTIC 1 EACH STRIP IN SCH ×2 (12:10→17:17)
[2019-06-22 16:00] VITALS: BP 125/65
--- NOTE | 2019-06-22 16:03 | NUR ---
Spoke with dr Ambrosio, re GI consult, he will see the pt tomorrow, may resume tube feeding today. will carry out the order.
[2019-06-22 20:00] VITALS: BP 136/69
--- NOTE | 2019-06-22 20:00 | NUR ---
rn note endorsed to manager shift nurse that CT head needs to be done, bleeding sacral wound, tracheal suction is bloody, and liquid stool. that tube feeding may be resumed per dr Ambrosio, and pt pending wound consult and [employer] matress, was requested from central suply, but never delivered.
[2019-06-22] MEDS: LOSARTAN POTASSIUM 50 MG TABLET GT SCH (23:19)
[2019-06-23] VITALS: BP 137/75
[2019-06-23] MEDS: BLOOD SUGAR DIAGNOSTIC 1 EACH STRIP IN SCH ×4 (00:23→17:31)
[2019-06-23] MEDS: NEPRO 1,000 ML BOTTLE GT PRN ×2 (00:47→20:46)
[2019-06-23] MEDS ORDERED: NEPRO 1,000 ML BOTTLE GT PRN (01:00)
[2019-06-23] MEDS: IPRATROPIUM NEB FS 0.5 MG/2.5 ML AMPUL.NEB NEB SCH ×4 (02:00→19:50)
[2019-06-23] MEDS: ALBUTEROL FS 2.5 MG/0.5 ML VIAL.NEB NEB SCH ×4 (02:00→19:50)
[2019-06-23 04:00] VITALS: BP_SYST 127; BP_SYST 136; BP_DIAS 69; BP_DIAS 74
[2019-06-23] MEDS: INSULIN REGULAR, HUMAN 100 UNIT/ML 3 ML VIAL SQ PRN (06:18)
[2019-06-23 06:23] LABS: BASOPHILS % (AUTO) 0.6 % (0.0-2.0); EOSINOPHILS % (AUTO) 15.3 % (0.0-6.0); HEMATOCRIT 21 % (39-51); HEMOGLOBIN 7.3 g/dL (13.5-17.5); LYMPHOCYTES # (AUTO) 1.1 /CMM (0.8-4.8); LYMPHOCYTES % (AUTO) 13.4 % (20.0-44.0); MEAN CORPUSCULAR HGB CONC 34 g/dl (31.0-36.0); MEAN CORPUSCULAR VOLUME 89 fL (80-96); MONOCYTES # (AUTO) 1.2 /CMM (0.1-1.30); MONOCYTES % (AUTO) 14.8 % (2.0-12.0); NEUTROPHILS # (AUTO) 4.4 /CMM (1.8-8.9); NEUTROPHILS % (AUTO) 55.9 % (43.0-81.0); PLATELET COUNT (AUTO) 177 /CMM (150-450); WHITE BLOOD COUNT (AUTO) 7.9 K/uL (4.3-11.0)
[2019-06-23 06:25] LABS: CALCIUM, SERUM 8.7 mg/dL (8.5-10.1); CREATININE 4.9 mg/dL (0.6-1.3); POTASSIUM 4.5 mmol/L (3.5-5.1)
--- NOTE | 2019-06-23 07:00 | NUR ---
RN AM SHIFT NOTE PATIENT IN BED OBTUNDED. SINUS RHYTHM ON MONITOR. BLE +3. DIAPER CONTRACTED AND REPOSITIONED BY RN. TUBE FEEDING RUNNING FLUSHED AND IV PATENT AND FLUSHED. WOUNDS CLEAN AND DRY DRESSING CLEAN AND NOT SOILED. CRITICAL LAB VALUE CALLED IN 94 MD AWARE. CALL LIGHT WITHIN REACH BED IN LOW POSITION ALL NEEDS MET AT THIS TIME.
[2019-06-23 07:30] VITALS: BP 131/75
[2019-06-23] MEDS: SEVELAMER CARBONATE 0.8 GM POWD.PACK PO SCH ×3 (08:15→17:03)
[2019-06-23] MEDS: CARVEDILOL 12.5 MG TABLET PO SCH ×2 (08:16→21:13)
[2019-06-23] MEDS: AMLODIPINE BESYLATE 10 MG TABLET GT SCH (08:17)
[2019-06-23 12:00] VITALS: BP 135/73
--- NOTE | 2019-06-23 12:00 | NUR ---
RN NOTE DEBRIDEMENT PATIENTS FAMILY CONSENTED FOR DEBRIDMENT OF SACRAL BUTTOCKS AND HEELS. WOUND DRS NOTIFED TO DO AT BEDSIDE WITH RN.
[2019-06-23] MEDS: SILVER SULFADIAZINE CREAM 25 GM TUBE TP SCH ×2 (14:56→17:03)
[2019-06-23] MEDS: HYDROGEL DRESSING 90 GM TUBE TP SCH (17:03)
--- NOTE | 2019-06-23 18:08 | NUR ---
RN CLOSING NOTE PATIENT IN BED OBTUNDED GTUBE FLUSHEND AND RUNNING NO RESIDUAL NOTED. IV PATENT AND WORKING WELL. SINUS TACHY 100'S TODAY. NO URINE / ANURIC CONTRACTED, WOUND DRESSINGS DONE, COSMETIC ACCOUNT COORDINATOR DID WOUND DEBRIEMENT TODAY TOLERATED WELL. BLOOD SUGARS WNL NO COVERAGE NEEDED. RENAL MD AWARE OF CRITICAL LAB VALUE BUN 94. AM LABS TO BE DRAWN. CONTINUE HOSPITALIZATION AND MONITORING. BED IN LOW POSITION HOB ELEVATED AT SEMI FOWLERS, OFFLOAD HEELS CALL LIGHT WITHIN REACH. MONITOR FOR S/S OF HYPOTENSION/ANEMIA DUE TO ACTIVE BLEEDING TO BE ENDORSED TO NIGHT NURSE. LABS TO BE ASSESED IN AM FOR HEMOGLOBIN AND HEMATOCRIT PER MD ORDER.
--- NOTE | 2019-06-23 19:25 | NUR ---
TELE/RN notes, Received patient in bed, Obtunded/ Non-verbal, In no acute distress, breathing even and unlabored on prescribed vent settings, Trach intact, patent, No S/S of pain noted, No facial grimacing noted, IV site with no S/S of infection/ Infiltration, RCW perma cath intact, G-tube in place, patent, connected to feeding as ordered, tolerating well. HOB elevated to Semi-clifton position. Safety maintained, bed at the lowest locked position. Call light within reach. Will continue to monitor as per plan of care.
[2019-06-23 20:00] VITALS: BP 133/77
[2019-06-23] MEDS: LOSARTAN POTASSIUM 50 MG TABLET GT SCH (21:12)
[2019-06-24] VITALS (7 sets, daily range): BP systolic 116–144; BP diastolic 54–85
[2019-06-24] MEDS: BLOOD SUGAR DIAGNOSTIC 1 EACH STRIP IN SCH ×4 (00:52→17:54)
[2019-06-24] MEDS: IPRATROPIUM NEB FS 0.5 MG/2.5 ML AMPUL.NEB NEB SCH ×4 (01:23→19:47)
[2019-06-24] MEDS: ALBUTEROL FS 2.5 MG/0.5 ML VIAL.NEB NEB SCH ×4 (01:23→19:47)
--- NOTE | 2019-06-24 06:16 | NUR ---
RT Pt received trach'd and on [facility] vent with ordered settings. Vent is plugged into red outlet w ever @ hob. Alarms are set and audible. Pt is stable. No respiratory distress noted t/o shift. Addendum: 06/24/19 at 0617 by CAMPOS CHAUDHARY RT Amended: Links added.
[2019-06-24 06:29] LABS: BASOPHILS % (AUTO) 0.3 % (0.0-2.0); EOSINOPHILS % (AUTO) 21.4 % (0.0-6.0); HEMATOCRIT 21 % (39-51); HEMOGLOBIN 7.1 g/dL (13.5-17.5); LYMPHOCYTES # (AUTO) 1.4 /CMM (0.8-4.8); MEAN CORPUSCULAR HGB CONC 34 g/dl (31.0-36.0); MEAN CORPUSCULAR VOLUME 90 fL (80-96); MONOCYTES # (AUTO) 1.3 /CMM (0.1-1.30); MONOCYTES % (AUTO) 15.6 % (2.0-12.0); NEUTROPHILS # (AUTO) 3.9 /CMM (1.8-8.9); NEUTROPHILS % (AUTO) 45.7 % (43.0-81.0); PLATELET COUNT (AUTO) 175 /CMM (150-450); RED BLOOD CELL COUNT(AUTO) 2.33 MIL/uL (4.5-6.0); WHITE BLOOD COUNT (AUTO) 8.5 K/uL (4.3-11.0)
--- NOTE | 2019-06-24 06:52 | NUR ---
TELE/RN notes, patient remained in bed, Obtunded/ Non-verbal, In no acute distress, breathing even and unlabored on prescribed vent settings, Trach intact, patent, in midline, No S/S of pain noted, No facial grimacing noted, IV site with no S/S of infection/ Infiltration, RCW perma cath intact, G-tube in place, patent, connected to feeding as ordered, tolerating well. HOB elevated to Semi-clifton position. no residual noted, On tele monitoring with sinus rhythm. Safety maintained, bed at the lowest locked position. Call light within reach. Will Endorse to Am shift nurse for NICKY. .
[2019-06-24 07:31] LABS: CALCIUM, SERUM 9.1 mg/dL (8.5-10.1); CREATININE 5.7 mg/dL (0.6-1.3); MAGNESIUM 2.6 mg/dL (1.8-2.4); PHOSPHORUS 5.6 mg/dL (2.5-4.9); POTASSIUM 4.6 mmol/L (3.5-5.1)
--- NOTE | 2019-06-24 07:47 | NUR ---
STREET VENDOR NOTES PATIENT RECEIVED RESTING ON BED, OBTUNDED. TOLERATING VENT SETTINGS. NO ACUTE DISTRESS. ONGOING GTF. MAINTAINED ASPIRATION PRECAUTIONS. HD ONGOING AND PATIENT TOLERATING WELL. MILL REPRESENTATIVE IN PLACE. SR 82. WILL CONTINUE TO MONITOR. BED LOCKED AND IN LOW POSITION. SIDE RAILS UP X 3. CALL LIGHT WITHIN EASY REACH
[2019-06-24] MEDS: AMLODIPINE BESYLATE 10 MG TABLET GT SCH (08:41)
[2019-06-24] MEDS: CARVEDILOL 12.5 MG TABLET PO SCH ×2 (08:41→21:19)
--- NOTE | 2019-06-24 08:42 | NUR ---
PERSONAL INJURY LITIGATION PARALEGAL NOTES ONGOING HD. WILL HOLD BP MEDS. MD AWARE AND OK. WILL CONTINUE TO MONITOR
--- NOTE | 2019-06-24 08:50 | NUR ---
WOUND CARE CONSULT:PT FOLLOWED BY PLASTIC SURGERY AND PODIATRY TEAMS FOR WOUNDS. DEFER TO SURGICAL TEAMS FOR WOUND TREATMENT PLAN. WILL SEE PRN. DISCUSSED SKIN PROTECTION WITH NURSING STAFF. FIRST STEP LOW AIRLOSS MATTRESS ON ORDER.
[2019-06-24] MEDS: SEVELAMER CARBONATE 0.8 GM POWD.PACK PO SCH ×3 (09:12→17:54)
[2019-06-24] MEDS: SILVER SULFADIAZINE CREAM 25 GM TUBE TP SCH ×2 (09:14→09:15)
[2019-06-24] MEDS: HYDROGEL DRESSING 90 GM TUBE TP SCH (09:15)
[2019-06-24 09:34] LABS: EOSINOPHILS % (MANUAL) 21 % (0-4); LYMPHOCYTES % (MANUAL) 20 % (16-48); MONOCYTES % (MANUAL) 11 % (0-11.0); NEUTROPHILS % (MANUAL) 48 (42-76)
--- NOTE | 2019-06-24 10:04 | NUR ---
WINCH DERRICK OPERATOR NOTES S/P HD. PATIENT TOLERATED WELL. NO ACUTE DISTRESS NOTED. 2L OUT. WILL CONTINUE TO MONITOR
[2019-06-24] MEDS: ACETAMINOPHEN 325 MG TABLET PO PRN (11:12)
--- NOTE | 2019-06-24 18:46 | NUR ---
POUNCER NOTES PATIENT RESTING INSIDE ROOM. NO ACUTE DISTRESS. CONTINUE ON VENT TOLERATING CURRENT SETTINGS. PATIENT KEPT CLEAN, DRY AND COMFORTABLE. MAINTAINED ASPIRATION PRECAUTIONS. WOUND TX DONE ORDERED. TURNED AND REPOSITIONED WITH POSITIONING PILLOWS FOR CIRCULATION AND COMFORT. WILL ENDORSE TO INCOMING SHIFT FOR NICKY. BED LOCKED AND IN LOW POSITION. SIDE RAILS UP X 3. CALL LIGHT WITHIN EASY REACH
--- NOTE | 2019-06-24 20:56 | NUR ---
RT NOTE PT RECEIVED TRACHED ON MECHANICAL VENTILATION. AMBU BAG/BACK UP TRACH @ BEDSIDE. TX GIVEN, NO ADVERSE REACTIONS NOTED. SX DONE, MODERATE THICK BLOODY SECRETIONS NOTED. RN, JUSTIN, YASH. NO SOB NOTED. CONT. PULSE OX CONNECTED. WILL MONITOR T/O SHIFT. Addendum: 06/24/19 at 2057 by ZAHIRA KISER RT Amended: Links added.
[2019-06-24] MEDS: LOSARTAN POTASSIUM 50 MG TABLET GT SCH (21:20)
[2019-06-25] VITALS: BP 117/66
[2019-06-25] MEDS: NEPRO 1,000 ML BOTTLE GT PRN (00:38)
[2019-06-25] MEDS: BLOOD SUGAR DIAGNOSTIC 1 EACH STRIP IN SCH ×5 (00:38→23:57)
[2019-06-25] MEDS: ACETAMINOPHEN 325 MG TABLET PO PRN ×2 (00:43→20:29)
[2019-06-25] MEDS: INSULIN REGULAR, HUMAN 100 UNIT/ML 3 ML VIAL SQ PRN ×2 (00:44→06:08)
--- NOTE | 2019-06-25 00:45 | NUR ---
tyelenol administered as ordered patient has very low fever of 100.1 axillary temperature. pt noted to be warm to touch and perspiring. deckhand clam dredge to give patient complete bed bath. will cont to monitor.
[2019-06-25] MEDS: ALBUTEROL FS 2.5 MG/0.5 ML VIAL.NEB NEB SCH ×4 (02:02→19:25)
[2019-06-25] MEDS: IPRATROPIUM NEB FS 0.5 MG/2.5 ML AMPUL.NEB NEB SCH ×4 (02:02→19:25)
[2019-06-25 04:00] VITALS: BP 115/65
--- NOTE | 2019-06-25 07:46 | NUR ---
PRESS WRITER OPENING NOTE PATIENT IN BED RESTING COMFORTABLY. PATIENT IN NO ACUTE DISTRESS. NO SOB NOTED. PATIENT BREATHING IS EVEN AND UNLABORED. PATIENT TOLERATING VENT SETTINGS WELL. PATIENT GTUBE PATENT AND INTACT. PATIENT ON CARDIAC MONITORING READING SINUS RHYTHM HR 82. PATIENT BED ALARM IS ON. HOB IS ELEVATED. PATIENT BED IS LOCKED AND IN LOWEST POSITION. CALL LIGHT WITHIN REACH. WILL CONTINUE TO MONITOR.
[2019-06-25 08:00] VITALS: BP 110/68
[2019-06-25] MEDS: AMLODIPINE BESYLATE 10 MG TABLET GT SCH (09:09)
[2019-06-25] MEDS: CARVEDILOL 12.5 MG TABLET PO SCH ×2 (09:09→20:30)
[2019-06-25] MEDS: SEVELAMER CARBONATE 0.8 GM POWD.PACK PO SCH ×3 (09:09→17:19)
[2019-06-25] MEDS: SILVER SULFADIAZINE CREAM 25 GM TUBE TP SCH ×2 (09:10)
[2019-06-25] MEDS: HYDROGEL DRESSING 90 GM TUBE TP SCH (09:11)
--- NOTE | 2019-06-25 11:39 | NUR ---
CONFERENCE PLANNING MANAGER NOTE PATIENT BLOOD SUGAR IS 111, NO INSULIN COVERAGE PER PROTOCOL.
[2019-06-25 12:00] VITALS: BP 120/72
[2019-06-25 16:00] VITALS: BP 130/68
--- NOTE | 2019-06-25 17:22 | NUR ---
TARGET DEVELOPER NOTES PATIENT BLOOD SUGAR IS 95, NO INSULIN COVERAGE NEEDED PER PROTOCOL.
--- NOTE | 2019-06-25 19:17 | NUR ---
RURAL ROUTE MAIL CARRIER CLOSING NOTE PATIENT IN BED RESTING COMFORTABLY. PATIENT IN NO ACUTE DISTRESS. NO SOB NOTED. PATIENT BREATHING IS EVEN AND UNLABORED. PATIENT TOLERATING VENT SETTINGS WELL. PATIENT GTUBE PATENT AND INTACT. PATIENT ON CARDIAC MONITORING READING SINUS RHYTHM HR 92. PATIENT BED ALARM IS ON. HOB IS ELEVATED. PATIENT TURNED AND REPOSITIONED Q2H. PATIENT EXTREMITIES OFFLOADED ON PILLOWS. WOUND CARE PROVIDED ORDERED. PATIENT BED IS LOCKED AND IN LOWEST POSITION. CALL LIGHT WITHIN REACH. WILL ENDORSE CARE TO PM SHIFT FOR NICKY.
--- NOTE | 2019-06-25 19:25 | NUR ---
PT RECEIVED TRACHED ON [facility] VENT ON CHARTED SETTINGS. NO SIGNS OF RESP DISTRESS/SOB NOTED AT THIS TIME. AIRWAY PATENT AND SECURED. MORTAR WORKER DONE. PT SUCTIONED. HHN TREATED GIVEN. NO ADVERSE REACTIONS NOTED. AMBUBAG AND SPARE TRACH PRESENT. VENT CONNECTED TO RED OUTLET. WILL CONT TO MONITOR. Addendum: 06/25/19 at 2254 by GAIL MATAMOROS RT Amended: Links added.
[2019-06-25 20:00] VITALS: BP 123/74
[2019-06-25] MEDS: LOSARTAN POTASSIUM 50 MG TABLET GT SCH (21:46)
[2019-06-26] VITALS: BP 110/61
[2019-06-26] MEDS: IPRATROPIUM NEB FS 0.5 MG/2.5 ML AMPUL.NEB NEB SCH ×4 (01:32→19:30)
[2019-06-26] MEDS: ALBUTEROL FS 2.5 MG/0.5 ML VIAL.NEB NEB SCH ×4 (01:32→19:30)
[2019-06-26] MEDS: NEPRO 1,000 ML BOTTLE GT PRN (02:05)
[2019-06-26 04:00] VITALS: BP 120/71
[2019-06-26] MEDS: BLOOD SUGAR DIAGNOSTIC 1 EACH STRIP IN SCH ×3 (05:44→18:32)
[2019-06-26] MEDS: INSULIN REGULAR, HUMAN 100 UNIT/ML 3 ML VIAL SQ PRN (05:47)
--- NOTE | 2019-06-26 05:47 | NUR ---
RN NOTE BLOOD SUGAR AT THIS TIME IS 101 MG/DL. NO INSULIN COVERAGE PER SLIDING SCALE.
[2019-06-26 07:27] LABS: BASOPHILS % (AUTO) 0.6 % (0.0-2.0); EOSINOPHILS % (AUTO) 20.3 % (0.0-6.0); HEMATOCRIT 25 % (39-51); HEMOGLOBIN 8.2 g/dL (13.5-17.5); LYMPHOCYTES # (AUTO) 1.3 /CMM (0.8-4.8); LYMPHOCYTES % (AUTO) 15.4 % (20.0-44.0); MEAN CORPUSCULAR HGB CONC 33 g/dl (31.0-36.0); MEAN CORPUSCULAR VOLUME 90 fL (80-96); MONOCYTES # (AUTO) 0.9 /CMM (0.1-1.30); MONOCYTES % (AUTO) 11.1 % (2.0-12.0); NEUTROPHILS # (AUTO) 4.4 /CMM (1.8-8.9); NEUTROPHILS % (AUTO) 52.6 % (43.0-81.0); PLATELET COUNT (AUTO) 195 /CMM (150-450); RED BLOOD CELL COUNT(AUTO) 2.74 MIL/uL (4.5-6.0); WHITE BLOOD COUNT (AUTO) 8.4 K/uL (4.3-11.0)
[2019-06-26 07:40] LABS: CALCIUM, SERUM 9.4 mg/dL (8.5-10.1); CREATININE 5.9 mg/dL (0.6-1.3); MAGNESIUM 2.7 mg/dL (1.8-2.4); PHOSPHORUS 6.7 mg/dL (2.5-4.9); POTASSIUM 4.7 mmol/L (3.5-5.1)
[2019-06-26 08:00] VITALS: BP 116/69
[2019-06-26] MEDS: SEVELAMER CARBONATE 0.8 GM POWD.PACK PO SCH ×3 (08:23→18:27)
[2019-06-26 08:58] LABS: EOSINOPHILS % (MANUAL) 24 % (0-4); LYMPHOCYTES % (MANUAL) 16 % (16-48); MONOCYTES % (MANUAL) 11 % (0-11.0); NEUTROPHILS % (MANUAL) 49 (42-76)
[2019-06-26] MEDS: SILVER SULFADIAZINE CREAM 25 GM TUBE TP SCH ×2 (09:00)
[2019-06-26] MEDS: CARVEDILOL 12.5 MG TABLET PO SCH ×2 (09:00→21:55)
[2019-06-26] MEDS: HYDROGEL DRESSING 90 GM TUBE TP SCH (09:00)
[2019-06-26] MEDS: AMLODIPINE BESYLATE 10 MG TABLET GT SCH (09:00)
[2019-06-26 12:00] VITALS: BP 136/75
[2019-06-26 16:00] VITALS: BP 135/70
--- NOTE | 2019-06-26 19:13 | NUR ---
PATENTED HOGSHEAD ASSEMBLER Closing No significant changes throughout shift. Patient remains obtunded, attached to mech vent and tele monitor. no SOB or acute distress noted.
--- NOTE | 2019-06-26 19:30 | NUR ---
RT NOTES PT RECEIVED TRACHED ON [facility] VENT ON CHARTED SETTINGS. NO SIGNS OF RESP DISTRESS/SOB NOTED AT THIS TIME. AIRWAY PATENT AND SECURED. MEDICAL MICROBIOLOGIST DONE. PT SUCTIONED. HHN TREATED GIVEN. NO ADVERSE REACTIONS NOTED. AMBUBAG AND SPARE TRACH PRESENT. VENT CONNECTED TO RED OUTLET. WILL CONT TO MONITOR. Addendum: 06/26/19 at 6 by GAIL MATAMOROS RT Amended: Links added.
[2019-06-26 20:00] VITALS: BP 145/84
[2019-06-26] MEDS: LOSARTAN POTASSIUM 50 MG TABLET GT SCH (21:55)
--- NOTE | 2019-06-26 22:39 | NUR ---
REPORT TO KELLY MORRELL FOR CONT OF CARE.
--- NOTE | 2019-06-26 22:40 | NUR ---
RN NOTES Received patient asleep, easily awaken to touch and pain. On vent with settings noted. No respiratory distress or discomfort noted at this time. Kept on bed clean, dry and comfortable. On fall and aspiration precautions. Will continue to monitor closely.
[2019-06-27] VITALS (7 sets, daily range): BP systolic 104–148; BP diastolic 64–81
[2019-06-27] MEDS: BLOOD SUGAR DIAGNOSTIC 1 EACH STRIP IN SCH ×4 (00:16→17:32)
[2019-06-27] MEDS: INSULIN REGULAR, HUMAN 100 UNIT/ML 3 ML VIAL SQ PRN (00:19)
[2019-06-27] MEDS: ALBUTEROL FS 2.5 MG/0.5 ML VIAL.NEB NEB SCH ×4 (01:42→19:48)
[2019-06-27] MEDS: IPRATROPIUM NEB FS 0.5 MG/2.5 ML AMPUL.NEB NEB SCH ×4 (01:42→19:48)
[2019-06-27] MEDS: NEPRO 1,000 ML BOTTLE GT PRN ×2 (02:04→23:35)
[2019-06-27 06:10] LABS: BASOPHILS % (AUTO) 0.5 % (0.0-2.0); EOSINOPHILS % (AUTO) 15.7 % (0.0-6.0); HEMATOCRIT 24 % (39-51); HEMOGLOBIN 7.9 g/dL (13.5-17.5); LYMPHOCYTES # (AUTO) 1.1 /CMM (0.8-4.8); LYMPHOCYTES % (AUTO) 11.3 % (20.0-44.0); MEAN CORPUSCULAR HGB CONC 34 g/dl (31.0-36.0); MEAN CORPUSCULAR VOLUME 90 fL (80-96); MONOCYTES # (AUTO) 1.2 /CMM (0.1-1.30); MONOCYTES % (AUTO) 12.7 % (2.0-12.0); NEUTROPHILS # (AUTO) 5.6 /CMM (1.8-8.9); NEUTROPHILS % (AUTO) 59.8 % (43.0-81.0); PLATELET COUNT (AUTO) 198 /CMM (150-450); RED BLOOD CELL COUNT(AUTO) 2.63 MIL/uL (4.5-6.0); WHITE BLOOD COUNT (AUTO) 9.4 K/uL (4.3-11.0)
[2019-06-27 06:28] LABS: CALCIUM, SERUM 9.5 mg/dL (8.5-10.1); MAGNESIUM 2.5 mg/dL (1.8-2.4); PHOSPHORUS 5.6 mg/dL (2.5-4.9); POTASSIUM 4.5 mmol/L (3.5-5.1)
--- NOTE | 2019-06-27 06:30 | NUR ---
RN CLOSING NOTES Patient asleep, easily awaken to tactile and pain stimuli. On vent with setting noted. Suctioned PRN, breathing treatment given by RT. No respiratory distress noted within the shift. On tele monitor with NSR noted. All nursing needs attended. Blood sugar checked as ordered, no coverage of Insulin required per sliding scale ordered. Afebrile the whole shift. On GTF, tolerated well. Kept on bed clean, dry and comfortable. Endorsed to the next shift.
--- NOTE | 2019-06-27 07:25 | NUR ---
SHEET ROCK APPLICATOR OPENING NOTES Received pt in bed resting comfortably. In no acute distress, no sob noted. Respiration even and non labored. Tolerating vent setting well. Gtube intact and patent.NSR on nuclear monitoring technician HR 81. Bed on lowest position, alarm on and locked. HOB elevated , call light within reach. Will continue to monitor.
[2019-06-27] MEDS: SEVELAMER CARBONATE 0.8 GM POWD.PACK PO SCH ×3 (09:14→17:34)
[2019-06-27] MEDS: CARVEDILOL 12.5 MG TABLET PO SCH ×2 (09:14→21:50)
[2019-06-27] MEDS: AMLODIPINE BESYLATE 10 MG TABLET GT SCH (09:15)
[2019-06-27] MEDS: HYDROGEL DRESSING 90 GM TUBE TP SCH (09:21)
[2019-06-27] MEDS: SILVER SULFADIAZINE CREAM 25 GM TUBE TP SCH ×2 (09:21→09:22)
[2019-06-27] MEDS: Z GUARD REMEDY 2 OZ OINT TP SCH (12:37)
--- NOTE | 2019-06-27 15:24 | NUR ---
RN NOTE PER COBY'S NOTES, PATIENT WILL HAVE EGD TODAY, 06/27. PAGED COBY TO MADE SURE, BUT PER NURSING SERVICES MANAGER EGD SCHEDULE DEPENDS ON DR WOLFF'S SCHEDULE. AND DR WOLFF IS VERY BUSY AND BACKED UP TODAY. EGD STILL PENDING
[2019-06-27] MEDS: ACETAMINOPHEN 325 MG TABLET PO PRN (15:44)
--- NOTE | 2019-06-27 18:54 | NUR ---
DIRECTOR OF MARKETING ANALYTICS CLOSING NOTES No respiratory distress noted within the shift. On tele monitor with NSR noted. All nursing needs attended. Blood sugar checked as ordered, no coverage of Insulin required per sliding scale ordered. Febrile at around 1500, tylenol given and last temperature was 98.1. On GTF, tolerated well. Kept on bed clean, dry and comfortable. Will endorsed to the next shift.
--- NOTE | 2019-06-27 20:06 | NUR ---
ELECTRICIAN OFFICE OPENING NOTE RECEIVED PATIENT IN BED NON VERBAL OBTUNDED. ON VENT TOLERATING AT AC 18, TV 500, FI02 AT 30% WITH A SHILEY #5 NO SIGN OF SOB. PATIENT ON THE MONITOR IS SR IN THE 80'S. PATIENT HAS GTUBE OF NEPHRO RUNNING AT 55ML/HR. HAS RCW HD CATH AND A RT HAND #22 S/L. ALL SAFETY PRECAUTIONS HAVE BEEN APPLIED. WILL CONTINUE TO MONITOR PATIENT THROUGHOUT THE NIGHT.
[2019-06-27] MEDS: LOSARTAN POTASSIUM 50 MG TABLET GT SCH (22:00)
--- NOTE | 2019-06-27 22:37 | NUR ---
PHYSICIAN PRACTICE MARKET MANAGER NOTE HELD [place] DOSE AT 2200. BP CHECKED AT 2236 WAS 104/61 WITH HR OF 77.
[2019-06-28] VITALS: BP 107/67
[2019-06-28] MEDS: BLOOD SUGAR DIAGNOSTIC 1 EACH STRIP IN SCH ×5 (00:27→23:45)
[2019-06-28] MEDS: IPRATROPIUM NEB FS 0.5 MG/2.5 ML AMPUL.NEB NEB SCH ×4 (01:29→19:45)
[2019-06-28] MEDS: ALBUTEROL FS 2.5 MG/0.5 ML VIAL.NEB NEB SCH ×4 (01:29→19:44)
[2019-06-28 04:00] VITALS: BP 104/63
[2019-06-28 07:11] LABS: CALCIUM, SERUM 9.6 mg/dL (8.5-10.1); CREATININE 5.9 mg/dL (0.6-1.3); MAGNESIUM 2.6 mg/dL (1.8-2.4); PHOSPHORUS 6.5 mg/dL (2.5-4.9); POTASSIUM 4.6 mmol/L (3.5-5.1)
[2019-06-28 07:12] LABS: BASOPHILS % (AUTO) 0.3 % (0.0-2.0); EOSINOPHILS % (AUTO) 14.7 % (0.0-6.0); HEMATOCRIT 24 % (39-51); HEMOGLOBIN 7.6 g/dL (13.5-17.5); LYMPHOCYTES # (AUTO) 1.2 /CMM (0.8-4.8); LYMPHOCYTES % (AUTO) 12.5 % (20.0-44.0); MEAN CORPUSCULAR HGB CONC 32 g/dl (31.0-36.0); MEAN CORPUSCULAR VOLUME 90 fL (80-96); MONOCYTES % (AUTO) 10.3 % (2.0-12.0); NEUTROPHILS # (AUTO) 5.8 /CMM (1.8-8.9); NEUTROPHILS % (AUTO) 62.2 % (43.0-81.0); PLATELET COUNT (AUTO) 206 /CMM (150-450); RED BLOOD CELL COUNT(AUTO) 2.61 MIL/uL (4.5-6.0); WHITE BLOOD COUNT (AUTO) 9.3 K/uL (4.3-11.0)
--- NOTE | 2019-06-28 07:30 | NUR ---
TABLE GAMES SHIFT MANAGER AM NOTES RECEIVED PATIENT IN BED,OBTUNDED. WITH SHILEY 8 TRACH TO MECHANICAL VENT. STTINGS ORDERED. WELL TOLERATED. BREATHING EQUAL AND UNLABORED, NO ACUTE DISTRESS. SR HR 93 ON MONITOR, NO SIGNS OF DISCOMOFRT, RT HAND G 22 IV ACCESS, FLUSHES WELL, SITE CLEAR. RCW HD CATH IN PLACE. CDI DRESSING. PER NATHEN RESENDIZ TO USE HD ACCESS FOR EMERGENCY USE. NO BLOOD DRAW, NO ATB, OK NO IV. GTF NEPRO 55 ML/HR ON 0000 OFF 1800. MAINTAINED ASPIRATION PRECAUTIONS. HOB ELEVATED. WILL PERFORM PRESCRIBED WOUND TREATMENT IN A WHILE.WILL CONTINUE TO MONITOR. BED LOCKED AND IN LOW POSITION. SIDE RAILS UP X 3. CALL LIGHT WITHIN EASY REACH
--- NOTE | 2019-06-28 07:47 | NUR ---
RN CLOSING NOTE PATIENT IN BED WITH NO DISTRESS. TOLERATING VENT WELL NO SIGN OF SOB. ALL SAFETY PRECAUTIONS APPLIED. ENDORSED PATIENT TO MORNING SHIFT NURSE FOR NICKY.
[2019-06-28 08:00] VITALS: BP 110/72
[2019-06-28] MEDS: SEVELAMER CARBONATE 0.8 GM POWD.PACK PO SCH ×3 (09:07→17:22)
[2019-06-28] MEDS: HYDROGEL DRESSING 90 GM TUBE TP SCH (09:08)
[2019-06-28] MEDS: AMLODIPINE BESYLATE 10 MG TABLET GT SCH (09:08)
[2019-06-28] MEDS: Z GUARD REMEDY 2 OZ OINT TP SCH (09:08)
[2019-06-28] MEDS: CARVEDILOL 12.5 MG TABLET PO SCH ×2 (09:08→20:22)
[2019-06-28] MEDS: SILVER SULFADIAZINE CREAM 25 GM TUBE TP SCH ×2 (09:09→09:10)
--- NOTE | 2019-06-28 09:30 | NUR ---
RN NOTES DUE MEDS GIVEN
[2019-06-28] MEDS ORDERED: EPOETIN ALFA (10,000 UNIT) 10,000 UNIT/ML VIAL IV ONE (10:00)
[2019-06-28 12:00] VITALS: BP 104/68
[2019-06-28] MEDS: PROSOURCE / PROSTAT (PYXIS) 30 ML UDC GT SCH ×2 (14:49→17:22)
[2019-06-28 16:00] VITALS: BP 116/70
--- NOTE | 2019-06-28 18:41 | NUR ---
RN CLOSING NOTES PT RESTING IN BED, MADE COMFORTABLE. NOT IN A [place] DISTRESS. NO SIGNS OF PAIN. PRESCRIBED WOUND TREATMENT DONE EARLIER. PM CARE DONE. TURNED AND REPOSITIONED Q 2 HOURS. SUCTIONED PRN. GTF ONGOING AT 45 ML/HR. O RESIDUAL. HOB ELEVATED AT ALL TIMES. ASPIRATION PRECAUTIONS. BED LOW LOCKED, CALL LIGHT WITHIN REACH. WILL ENDORSE TO NEXT SHIFT FOR NICKY.
[2019-06-28 20:00] VITALS: BP 121/70
[2019-06-28] MEDS: LOSARTAN POTASSIUM 50 MG TABLET GT SCH (20:22)
--- NOTE | 2019-06-28 20:23 | NUR ---
RN NOTE PT CURRENTLY UNDERGOING DIALYSIS. BP STABLE. BLOOD PRESSURE MEDICATION HELD.
[2019-06-28] MEDS: NEPRO 1,000 ML BOTTLE GT PRN (22:06)
[2019-06-29] VITALS: BP 113/62
[2019-06-29] MEDS: IPRATROPIUM NEB FS 0.5 MG/2.5 ML AMPUL.NEB NEB SCH ×4 (01:59→19:53)
[2019-06-29] MEDS: ALBUTEROL FS 2.5 MG/0.5 ML VIAL.NEB NEB SCH ×4 (01:59→19:53)
[2019-06-29 04:00] VITALS: BP 115/70
[2019-06-29] MEDS: BLOOD SUGAR DIAGNOSTIC 1 EACH STRIP IN SCH ×3 (05:52→18:01)
[2019-06-29 06:14] LABS: BASOPHILS % (AUTO) 0.3 % (0.0-2.0); EOSINOPHILS % (AUTO) 10.8 % (0.0-6.0); HEMATOCRIT 23 % (39-51); HEMOGLOBIN 7.6 g/dL (13.5-17.5); LYMPHOCYTES # (AUTO) 1.3 /CMM (0.8-4.8); LYMPHOCYTES % (AUTO) 13.6 % (20.0-44.0); MEAN CORPUSCULAR HGB CONC 33 g/dl (31.0-36.0); MEAN CORPUSCULAR VOLUME 90 fL (80-96); MONOCYTES # (AUTO) 1.2 /CMM (0.1-1.30); MONOCYTES % (AUTO) 11.8 % (2.0-12.0); NEUTROPHILS # (AUTO) 6.2 /CMM (1.8-8.9); NEUTROPHILS % (AUTO) 63.5 % (43.0-81.0); PLATELET COUNT (AUTO) 209 /CMM (150-450); RED BLOOD CELL COUNT(AUTO) 2.53 MIL/uL (4.5-6.0); WHITE BLOOD COUNT (AUTO) 9.8 K/uL (4.3-11.0)
[2019-06-29 06:34] LABS: CALCIUM, SERUM 9.4 mg/dL (8.5-10.1); CREATININE 5.3 mg/dL (0.6-1.3); POTASSIUM 4.7 mmol/L (3.5-5.1)
--- NOTE | 2019-06-29 07:31 | NUR ---
RN CLOSING NOTE PATIENT IN BED IN SEMI STEVENS'S POSITION. OBTUNDED. ON MECHANICAL VENTILATOR AND TOLERATING WELL. TRACH MID LINE AND IN PLACE. RESPIRATIONS EVEN AND UNLABORED. ON TUBE FEEDING AND TOLERATING WELL. NO RESIDUAL NOTED. NO INDICATIONS OF PAIN OR DISCOMFORT. SAFETY MEASURES IN PLACE. CALL LIGHT WITHIN REACH. ENDORSED TO MORNING SHIFT FOR CONTINUITY OF CARE.
[2019-06-29 08:00] VITALS: BP 132/85
--- NOTE | 2019-06-29 08:23 | NUR ---
RT Pt received trach'd and on [facility] vent with ordered settings. Vent is plugged into red outlet w bvm @ hob. Alarms are set and audible. Pt is stable. No respiratory distress noted at this time. will continue to monitor. Addendum: 06/29/19 at 0823 by RENUKA MATHUR RT Amended: Links added.
[2019-06-29] MEDS: CARVEDILOL 12.5 MG TABLET PO SCH ×2 (09:38→21:27)
[2019-06-29] MEDS: AMLODIPINE BESYLATE 10 MG TABLET GT SCH (09:38)
[2019-06-29] MEDS: SEVELAMER CARBONATE 0.8 GM POWD.PACK PO SCH ×3 (09:39→16:26)
[2019-06-29] MEDS: HYDROGEL DRESSING 90 GM TUBE TP SCH (09:44)
[2019-06-29] MEDS: THERAHONEY GEL 1.5 OZ TUBE TP SCH (09:45)
[2019-06-29] MEDS: Z GUARD REMEDY 2 OZ OINT TP SCH (09:47)
[2019-06-29] MEDS: SILVER SULFADIAZINE CREAM 25 GM TUBE TP SCH ×2 (09:47)
[2019-06-29] MEDS: PROSOURCE / PROSTAT (PYXIS) 30 ML UDC GT SCH ×2 (11:06→16:26)
[2019-06-29 12:00] VITALS: BP 104/64
[2019-06-29] MEDS ORDERED: predniSONE 5 MG TABLET PO SCH (15:00)
[2019-06-29 16:00] VITALS: BP 129/74
[2019-06-29] MEDS: predniSONE 5 MG TABLET GT SCH (16:26)
--- NOTE | 2019-06-29 18:52 | NUR ---
ADJUNCT PHYSICS INSTRUCTOR OPENING NOTES RECEIVED PT IN BED LOOKING COMFORTABLE. PT IS NON VERBAL, OBTUNDED, OPENS EYES WITH STIMULI. PATIENT IS ON MECHANICAL VENT WITH SETTINGS SET ORDERED. TOLERATING WELL NO ACUTE DISTRESS NOTED. PT HAS A TELE MONITOR BOX. SR NOTED. HR AT 90BPM. PATIENT HAS A G TUBE IN PLACE, RUNNING 45MLS/HR. TOLERATING FEEDING WELL, NO RESIDUAL NOTED. IV SITE ON RIGHT HAND, 22 GAUGE, INTACT PATENT AND FLUSHED WELL. ALL SAFETY PRECAUTIONS MAINTAINED, CALL LIGHT WITHIN REACH WILL CONTINUE TO MONITOR.
--- NOTE | 2019-06-29 19:34 | NUR ---
SUBSTATION OPERATOR TRANSFORMING CLOSING NOTES PATIENT IN BED RESTING COMFORTABLY. NO ACUTE CHANGES TO PATIENT CONDITION DURING MY SHIFT. ON MECHANICAL VENTILATOR WITH SETTINGS TOLERATING WELL. ALL PATIENT NEEDS MET. G TUBE INTACT, PATENT AND FLUSHED WELL. TOLERATED FEEDING WELL THROUGH MY SHIFT, NO RESIDUAL NOTED. NO INDICATION OF DISCOMFORT. FAMILY AT BEDSIDE. SAFETY MAINTAINED, CALL LIGHT WITHIN REACH. ENDORSED TO KNIFE OPERATOR NURSE TO CONTINUE CARE.
[2019-06-29 20:00] VITALS: BP 127/79
[2019-06-29] MEDS: LOSARTAN POTASSIUM 50 MG TABLET GT SCH (21:27)
[2019-06-30] VITALS (8 sets, daily range): BP systolic 105–146; BP diastolic 59–94
[2019-06-30] MEDS: BLOOD SUGAR DIAGNOSTIC 1 EACH STRIP IN SCH ×4 (00:44→17:40)
[2019-06-30] MEDS: INSULIN REGULAR, HUMAN 100 UNIT/ML 3 ML VIAL SQ PRN (00:47)
[2019-06-30] MEDS: ALBUTEROL FS 2.5 MG/0.5 ML VIAL.NEB NEB SCH ×4 (02:02→19:45)
[2019-06-30] MEDS: IPRATROPIUM NEB FS 0.5 MG/2.5 ML AMPUL.NEB NEB SCH ×4 (02:02→19:45)
[2019-06-30] MEDS: NEPRO 1,000 ML BOTTLE GT PRN ×2 (03:59→22:06)
[2019-06-30 07:24] LABS: BASOPHILS % (AUTO) 0.2 % (0.0-2.0); EOSINOPHILS % (AUTO) 0.1 % (0.0-6.0); HEMATOCRIT 21 % (39-51); LYMPHOCYTES % (AUTO) 9.1 % (20.0-44.0); MEAN CORPUSCULAR HGB CONC 33 g/dl (31.0-36.0); MEAN CORPUSCULAR VOLUME 89 fL (80-96); MONOCYTES # (AUTO) 0.7 /CMM (0.1-1.30); MONOCYTES % (AUTO) 6.5 % (2.0-12.0); NEUTROPHILS # (AUTO) 9.1 /CMM (1.8-8.9); NEUTROPHILS % (AUTO) 84.1 % (43.0-81.0); PLATELET COUNT (AUTO) 211 /CMM (150-450); RED BLOOD CELL COUNT(AUTO) 2.32 MIL/uL (4.5-6.0); WHITE BLOOD COUNT (AUTO) 10.8 K/uL (4.3-11.0)
[2019-06-30 07:27] LABS: HEMOGLOBIN 6.9 g/dL (13.5-17.5)
--- NOTE | 2019-06-30 07:34 | NUR ---
RN NOTE RECIEVED ALERT FOR CRITICAL LAB VALUE OF HGB 6.9. PAGED DR. SUN.
[2019-06-30 07:39] LABS: CALCIUM, SERUM 9.7 mg/dL (8.5-10.1); CREATININE 6.5 mg/dL (0.6-1.3); POTASSIUM 5.6 mmol/L (3.5-5.1)
--- NOTE | 2019-06-30 07:41 | NUR ---
RN NOTE NOTIFIED MICHAEL HIDALGO OF HGB RESULT WITH ORDER TO TRANSFUSE 1 UNIT OF PRBCS. WILL ENDORSE TO MORNING SHIFT.
--- NOTE | 2019-06-30 07:55 | NUR ---
ms rn received patient, on bed,awake, non verbal patient,not in any form of distress, respirations even and unlabored,no sob noted, lungs have ronchi bilaterally,abdomen soft,positive bowel sound,on g tube feeding,vent dependent patient,all needs attended,will monitor patient.
[2019-06-30] MEDS: PROSOURCE / PROSTAT (PYXIS) 30 ML UDC GT SCH ×2 (09:00→17:00)
[2019-06-30] MEDS: Z GUARD REMEDY 2 OZ OINT TP SCH (09:00)
[2019-06-30] MEDS: SILVER SULFADIAZINE CREAM 25 GM TUBE TP SCH ×2 (09:00)
[2019-06-30] MEDS: THERAHONEY GEL 1.5 OZ TUBE TP SCH (09:00)
[2019-06-30] MEDS: HYDROGEL DRESSING 90 GM TUBE TP SCH (09:00)
--- NOTE | 2019-06-30 09:00 | NUR ---
ms rn due meds given,via gtube,toilerated well, npo at this time, will have bt today then egd after hd.
[2019-06-30] MEDS: SEVELAMER CARBONATE 0.8 GM POWD.PACK PO SCH ×3 (09:03→17:00)
[2019-06-30] MEDS: CARVEDILOL 12.5 MG TABLET PO SCH ×2 (09:06→21:53)
[2019-06-30] MEDS: AMLODIPINE BESYLATE 10 MG TABLET GT SCH (09:06)
[2019-06-30] MEDS: predniSONE 5 MG TABLET GT SCH (09:10)
[2019-06-30 11:41] LABS: BAND % (MANUAL) 1 % (0.0-5.0); LYMPHOCYTES % (MANUAL) 8 % (16-48); MONOCYTES % (MANUAL) 10 % (0-11.0); NEUTROPHILS % (MANUAL) 81 (42-76)
--- NOTE | 2019-06-30 14:00 | NUR ---
ms rn on bed, no distress noted,all needs attended.started on hd,tolerated well.
--- NOTE | 2019-06-30 16:16 | NUR ---
RT NOTES PATIENT RECEIVED ON MECHANICAL VENT WITH ORDERED SETTINGS. ALARMS ON AND AUDIBLE. VENT PLUGGED IN TO RED OUTLET. TRACH TUBE IN PLACE PATENT AND SECURED WITH TRACH TIE. AMBU BAG AND BACK UP TRACH BY THE BEDSIDE. NO DISTRESS AT THIS TIME. Addendum: 06/30/19 at 1617 by KEMAR SANCHEZ RT Amended: Links added.
--- NOTE | 2019-06-30 16:20 | NUR ---
ms rn hd finished,took off 1500ml as tolerated, no distress noted.
[2019-06-30 18:04] LABS: CALCIUM, SERUM 9.2 mg/dL (8.5-10.1); CREATININE 4.9 mg/dL (0.6-1.3); POTASSIUM 4.9 mmol/L (3.5-5.1)
[2019-06-30] MEDS ORDERED: FENTANYL PF 250MCG/5ML AMPUL ONE (18:06)
[2019-06-30] MEDS ORDERED: ANESTHESIA TRAY IN PYXIS 1 EA TRAY MC ONE (18:18)
--- NOTE | 2019-06-30 18:51 | NUR ---
ms rn on bed, no distress ,still doing egd.
--- NOTE | 2019-06-30 21:04 | NUR ---
PT RCVD TRACH'D ON MECHANICAL VENT WITH CHARTED SETTINGS. PT PRINCESS TX WELL. SX DONE. PT TRACH IS PATENT AND SECURE. VENT ALARMS APPEAR TO BE FUNCTIONING PROPERLY. VENT PLUGGED INTO RED OUTLET. AMBU BAG AT BEDSIDE. NO SOB NOTED. Addendum: 06/30/19 at 2105 by VIVIANE COLLIER RT Amended: Links added.
[2019-06-30] MEDS: ACETAMINOPHEN 325 MG TABLET PO PRN (21:53)
[2019-06-30] MEDS: LOSARTAN POTASSIUM 50 MG TABLET GT SCH (21:53)
[2019-07-01] VITALS: BP 122/72
[2019-07-01] MEDS: ALBUTEROL FS 2.5 MG/0.5 ML VIAL.NEB NEB SCH ×4 (01:22→20:30)
[2019-07-01] MEDS: IPRATROPIUM NEB FS 0.5 MG/2.5 ML AMPUL.NEB NEB SCH ×4 (01:22→20:31)
[2019-07-01 04:00] VITALS: BP 112/63
[2019-07-01] MEDS: ACETAMINOPHEN 325 MG TABLET PO PRN (05:06)
[2019-07-01] MEDS: BLOOD SUGAR DIAGNOSTIC 1 EACH STRIP IN SCH ×4 (05:49→17:13)
[2019-07-01 07:16] LABS: BASOPHILS % (AUTO) 0.1 % (0.0-2.0); HEMATOCRIT 24 % (39-51); HEMOGLOBIN 8.1 g/dL (13.5-17.5); LYMPHOCYTES # (AUTO) 0.9 /CMM (0.8-4.8); LYMPHOCYTES % (AUTO) 9.8 % (20.0-44.0); MEAN CORPUSCULAR HGB CONC 34 g/dl (31.0-36.0); MEAN CORPUSCULAR VOLUME 87 fL (80-96); MONOCYTES # (AUTO) 0.9 /CMM (0.1-1.30); MONOCYTES % (AUTO) 9.6 % (2.0-12.0); NEUTROPHILS # (AUTO) 7.4 /CMM (1.8-8.9); NEUTROPHILS % (AUTO) 80.5 % (43.0-81.0); PLATELET COUNT (AUTO) 194 /CMM (150-450); RED BLOOD CELL COUNT(AUTO) 2.71 MIL/uL (4.5-6.0); WHITE BLOOD COUNT (AUTO) 9.1 K/uL (4.3-11.0)
[2019-07-01 07:24] LABS: CALCIUM, SERUM 8.7 mg/dL (8.5-10.1); CREATININE 5.5 mg/dL (0.6-1.3); POTASSIUM 4.9 mmol/L (3.5-5.1)
--- NOTE | 2019-07-01 07:38 | NUR ---
INITIAL PATIENT RECEIVED ON MECHANICAL VENT WITH ORDERED SETTINGS. ALARMS ON AND AUDIBLE. VENT PLUGGED IN TO RED OUTLET. TRACH TUBE IN PLACE PATENT AND SECURED WITH TRACH TIE. AMBU BAG AND BACK UP TRACH BY THE BEDSIDE. NO DISTRESS AT THIS TIME. PT SR 74 WILL CONTINUE TO MONITOR
[2019-07-01 08:00] VITALS: BP 128/66
[2019-07-01] MEDS: PANTOPRAZOLE 40 MG VIAL IV SCH (09:48)
[2019-07-01] MEDS: SEVELAMER CARBONATE 0.8 GM POWD.PACK PO SCH ×3 (09:49→17:13)
[2019-07-01] MEDS: PROSOURCE / PROSTAT (PYXIS) 30 ML UDC GT SCH ×2 (09:49→17:13)
[2019-07-01] MEDS: CARVEDILOL 12.5 MG TABLET PO SCH ×2 (09:53→22:02)
[2019-07-01] MEDS: AMLODIPINE BESYLATE 10 MG TABLET GT SCH (09:54)
[2019-07-01] MEDS: predniSONE 5 MG TABLET GT SCH (09:55)
[2019-07-01] MEDS: HYDROGEL DRESSING 90 GM TUBE TP SCH (09:56)
[2019-07-01] MEDS: SILVER SULFADIAZINE CREAM 25 GM TUBE TP SCH ×2 (09:57)
[2019-07-01] MEDS: Z GUARD REMEDY 2 OZ OINT TP SCH (09:57)
[2019-07-01] MEDS: THERAHONEY GEL 1.5 OZ TUBE TP SCH (09:58)
[2019-07-01 12:00] VITALS: BP 132/76
[2019-07-01] MEDS: INSULIN REGULAR, HUMAN 100 UNIT/ML 3 ML VIAL SQ PRN ×2 (12:24→17:15)
[2019-07-01 15:15] LABS: HEMATOCRIT 24 % (39-51); LYMPHOCYTES # (AUTO) 0.7 /CMM (0.8-4.8); LYMPHOCYTES % (AUTO) 6.4 % (20.0-44.0); MEAN CORPUSCULAR HGB CONC 34 g/dl (31.0-36.0); MEAN CORPUSCULAR VOLUME 88 fL (80-96); MONOCYTES # (AUTO) 0.3 /CMM (0.1-1.30); MONOCYTES % (AUTO) 2.8 % (2.0-12.0); NEUTROPHILS # (AUTO) 9.4 /CMM (1.8-8.9); NEUTROPHILS % (AUTO) 90.8 % (43.0-81.0); PLATELET COUNT (AUTO) 216 /CMM (150-450); RED BLOOD CELL COUNT(AUTO) 2.72 MIL/uL (4.5-6.0); WHITE BLOOD COUNT (AUTO) 10.4 K/uL (4.3-11.0)
[2019-07-01 16:00] VITALS: BP 159/89
[2019-07-01] MEDS: NEPRO 1,000 ML BOTTLE GT PRN (16:50)
--- NOTE | 2019-07-01 18:50 | NUR ---
CLOSING ATIENT IN BED RESTING COMFORTABLY. NO ACUTE CHANGES TO PATIENT CONDITION DURING MY SHIFT. ON MECHANICAL VENTILATOR WITH SETTINGS TOLERATING WELL. ALL PATIENT NEEDS MET. G TUBE INTACT, PATENT AND FLUSHED WELL. TOLERATED FEEDING WELL THROUGH MY SHIFT, NO RESIDUAL NOTED. NO INDICATION OF DISCOMFORT. FAMILY AT BEDSIDE. SAFETY MAINTAINED, CALL LIGHT WITHIN REACH. ENDORSED TO CHOCOLATE MAKER NURSE TO CONTINUE CARE.
--- NOTE | 2019-07-01 19:55 | NUR ---
ms rn received patient, on bed,awake, non verbal patient,not in any form of distress, respirations even and unlabored,no sob noted, lungs have ronchi bilaterally,abdomen soft,positive bowel sound,on g tube feeding,vent dependent patient, safety measures in place,call light within reach, repositioned for comfort, all needs attended,will continue to monitor accordingly.
[2019-07-01 20:54] VITALS: BP 159/89
--- NOTE | 2019-07-01 21:06 | NUR ---
PT RECEIVE STABLE ON MV, SETTINGS ARE AC 18 500 +5 @ 30% FIO2, TRACH PATENT AND SECURED, AMBU BAG IS AT BEDSIDE, VENT IS PLUG IN AT RED OUTLET, ALARMS ARE ON AND AUDIBLE, WILL CONTINUE O MONITOR Addendum: 07/01/19 at 2106 by KEELY GOODEN RT Amended: Links added.
[2019-07-01] MEDS: LOSARTAN POTASSIUM 50 MG TABLET GT SCH (22:03)
[2019-07-02 00:09] VITALS: BP 131/79
[2019-07-02] MEDS: BLOOD SUGAR DIAGNOSTIC 1 EACH STRIP IN SCH ×4 (00:18→18:30)
[2019-07-02] MEDS: IPRATROPIUM NEB FS 0.5 MG/2.5 ML AMPUL.NEB NEB SCH ×4 (02:14→19:00)
[2019-07-02] MEDS: ALBUTEROL FS 2.5 MG/0.5 ML VIAL.NEB NEB SCH ×4 (02:14→19:00)
[2019-07-02 04:45] VITALS: BP 156/96
--- NOTE | 2019-07-02 07:26 | NUR ---
INITIAL PATIENT RECEIVED ON MECHANICAL VENT WITH ORDERED SETTINGS. ALARMS ON AND AUDIBLE. VENT PLUGGED IN TO RED OUTLET. TRACH TUBE IN PLACE PATENT AND SECURED WITH TRACH TIE. AMBU BAG AND BACK UP TRACH BY THE BEDSIDE. NO DISTRESS AT THIS TIME. PT SR 88 WILL CONTINUE TO MONITOR
[2019-07-02 07:33] LABS: BASOPHILS % (AUTO) 0.1 % (0.0-2.0); EOSINOPHILS % (AUTO) 0.2 % (0.0-6.0); HEMATOCRIT 23 % (39-51); HEMOGLOBIN 7.8 g/dL (13.5-17.5); LYMPHOCYTES # (AUTO) 1.3 /CMM (0.8-4.8); LYMPHOCYTES % (AUTO) 13.1 % (20.0-44.0); MEAN CORPUSCULAR HGB CONC 33 g/dl (31.0-36.0); MEAN CORPUSCULAR VOLUME 88 fL (80-96); MONOCYTES # (AUTO) 0.9 /CMM (0.1-1.30); MONOCYTES % (AUTO) 8.9 % (2.0-12.0); NEUTROPHILS % (AUTO) 77.7 % (43.0-81.0); PLATELET COUNT (AUTO) 219 /CMM (150-450); RED BLOOD CELL COUNT(AUTO) 2.64 MIL/uL (4.5-6.0); WHITE BLOOD COUNT (AUTO) 10.3 K/uL (4.3-11.0)
--- NOTE | 2019-07-02 07:33 | NUR ---
RN NOTES ALL NEEDS ATTENDED AND MET, SAFETY MEASURES INPLACED. ENDORSED TO AM NURSE FOR NICKY.
[2019-07-02 07:35] LABS: CALCIUM, SERUM 8.6 mg/dL (8.5-10.1); CREATININE 6.4 mg/dL (0.6-1.3); POTASSIUM 5.1 mmol/L (3.5-5.1)
[2019-07-02 08:00] VITALS: BP 149/84
[2019-07-02] MEDS: SEVELAMER CARBONATE 0.8 GM POWD.PACK PO SCH ×3 (08:08→18:30)
[2019-07-02] MEDS: PANTOPRAZOLE 40 MG VIAL IV SCH (08:08)
[2019-07-02] MEDS: AMLODIPINE BESYLATE 10 MG TABLET GT SCH (08:18)
[2019-07-02] MEDS: CARVEDILOL 12.5 MG TABLET PO SCH ×2 (08:19→22:33)
[2019-07-02] MEDS: Z GUARD REMEDY 2 OZ OINT TP SCH (08:20)
[2019-07-02] MEDS: HYDROGEL DRESSING 90 GM TUBE TP SCH (08:20)
[2019-07-02] MEDS: PROSOURCE / PROSTAT (PYXIS) 30 ML UDC GT SCH ×2 (08:20→18:29)
[2019-07-02] MEDS: SILVER SULFADIAZINE CREAM 25 GM TUBE TP SCH ×2 (08:21)
[2019-07-02] MEDS: THERAHONEY GEL 1.5 OZ TUBE TP SCH (08:22)
[2019-07-02] MEDS: predniSONE 5 MG TABLET GT SCH (10:01)
[2019-07-02 12:00] VITALS: BP_SYST 149; BP_DIAS 81; BP_DIAS 84
[2019-07-02] MEDS: INSULIN REGULAR, HUMAN 100 UNIT/ML 3 ML VIAL SQ PRN ×2 (12:17→18:50)
[2019-07-02] MEDS: NEPRO 1,000 ML BOTTLE GT PRN (15:35)
[2019-07-02 18:00] VITALS: BP 149/81
[2019-07-02 20:00] VITALS: BP 155/83
--- NOTE | 2019-07-02 20:23 | NUR ---
TELE-1/OLAP DEVELOPER PER LG AT ALL [facility] PT CAN NOT BE ACCEPTED UNTIL PT IS DIALYZED. HD NURSE WILL SEE PT IN THE MORNING. DC IS BEING HELD FOR THE TIME BEING. WILL CONTINUE TO MONITOR THE PT.
[2019-07-03] VITALS: BP 137/79
[2019-07-03] MEDS: BLOOD SUGAR DIAGNOSTIC 1 EACH STRIP IN SCH ×2 (00:21→05:55)
[2019-07-03] MEDS: LOSARTAN POTASSIUM 50 MG TABLET GT SCH (00:23)
[2019-07-03] MEDS: ALBUTEROL FS 2.5 MG/0.5 ML VIAL.NEB NEB SCH ×2 (00:42→08:12)
[2019-07-03] MEDS: IPRATROPIUM NEB FS 0.5 MG/2.5 ML AMPUL.NEB NEB SCH ×2 (00:42→08:12)
--- NOTE | 2019-07-03 03:54 | NUR ---
PATIENT RECEIVED ON TRACH TO VENT WITH SETTINGS OF AC 18, 500 VT, 30%, +5. SUCTIONED WITH LAVAGE FOR MINIMAL, THICK, WHITE SECRETIONS. GIVEN IN-LINE TREATMENTS WITH NO ADVERSE REACTIONS. AMBU BAG AT BEDSIDE. VENT AND PULSE OXIMETER ALARMS AUDIBLE AND VISIBLE. VENT PLUGGED INTO RED OUTLET. INNER CANNULA CHANGED. Addendum: 07/03/19 at 0355 by CHARLES MOELLER RT Amended: Links added.
[2019-07-03 04:00] VITALS: BP 130/73
[2019-07-03 08:00] VITALS: BP 139/79
[2019-07-03] MEDS: AMLODIPINE BESYLATE 10 MG TABLET GT SCH (09:00)
[2019-07-03] MEDS: CARVEDILOL 12.5 MG TABLET PO SCH (09:00)
[2019-07-03] MEDS: predniSONE 5 MG TABLET GT SCH (09:25)
[2019-07-03] MEDS: SEVELAMER CARBONATE 0.8 GM POWD.PACK PO SCH (09:27)
[2019-07-03] MEDS: PROSOURCE / PROSTAT (PYXIS) 30 ML UDC GT SCH (09:28)
--- NOTE | 2019-07-03 11:30 | NUR ---
report given to pascual at all [facility] subacute, patient stable, no s/s bleeding, bp stable, hgb 7.8, belongings checklist verified, wound pictures completed, DNR POLST sent with chart along w/ prescription, DC orders communicated regarding gi md + derm md.
[2019-07-03] MEDS: PANTOPRAZOLE 40 MG VIAL IV SCH (12:15)
== END 2019-07-03 13:29 | DRG 254 ==
LOC: ER 14:28 → TELE1 18:02
PROVIDERS: ADMIT Internal Medicine; ATTEND Nurse Practitioner Acute Care
PROC: 5A1955Z Respiratory Ventilation, Greater than 96 Consecutive Hours (ICD-10-PCS; principal; 2019-06-21)
PROC: 30233N1 Transfusion of Nonautologous Red Blood Cells into Peripheral Vein, Percutaneous Approach (ICD-10-PCS; principal; 2019-06-21)
PROC: 5A1D70Z Performance of Urinary Filtration, Intermittent, Less than 6 Hours Per Day (ICD-10-PCS; 2019-06-22)
PROC: 0JBQ0ZZ Excision of Right Foot Subcutaneous Tissue and Fascia, Open Approach (ICD-10-PCS; 2019-06-23)
PROC: 0JB90ZZ Excision of Buttock Subcutaneous Tissue and Fascia, Open Approach (ICD-10-PCS; 2019-06-23)
PROC: 0JB90ZZ Excision of Buttock Subcutaneous Tissue and Fascia, Open Approach (ICD-10-PCS; 2019-06-30)
PROC: 0DB78ZX Excision of Stomach, Pylorus, Via Natural or Artificial Opening Endoscopic, Diagnostic (ICD-10-PCS; 2019-06-30)
DX: K31.9 Disease of stomach and duodenum, unspecified (principal); E43 Unspecified severe protein-calorie malnutrition; G93.41 Metabolic encephalopathy; I13.2 Hypertensive heart and chronic kidney disease with heart failure and with stage 5 chronic kidney disease, or end stage renal disease; Z99.11 Dependence on respirator [ventilator] status; G93.1 Anoxic brain damage, not elsewhere classified; J96.10 Chronic respiratory failure, unspecified whether with hypoxia or hypercapnia; L89.623 Pressure ulcer of left heel, stage 3; L89.613 Pressure ulcer of right heel, stage 3; L89.313 Pressure ulcer of right buttock, stage 3; L89.154 Pressure ulcer of sacral region, stage 4; R53.2 Functional quadriplegia; N18.6 End stage renal disease; Z99.2 Dependence on renal dialysis; Z93.1 Gastrostomy status; N25.81 Secondary hyperparathyroidism of renal origin; D50.0 Iron deficiency anemia secondary to blood loss (chronic); I25.10 Atherosclerotic heart disease of native coronary artery without angina pectoris; I50.9 Heart failure, unspecified; E83.39 Other disorders of phosphorus metabolism; E87.5 Hyperkalemia; N25.0 Renal osteodystrophy; R13.10 Dysphagia, unspecified; D68.69 Other thrombophilia; E88.09 Other disorders of plasma-protein metabolism, not elsewhere classified; Z68.22 Body mass index [BMI] 22.0-22.9, adult; E11.22 Type 2 diabetes mellitus with diabetic chronic kidney disease; M24.574 Contracture, right foot; M24.575 Contracture, left foot; S90.822A Blister (nonthermal), left foot, initial encounter; S90.821A Blister (nonthermal), right foot, initial encounter; X58.XXXA Exposure to other specified factors, initial encounter; Y93.9 Activity, unspecified; Y92.129 Unspecified place in nursing home as the place of occurrence of the external cause; M24.542 Contracture, left hand; M24.541 Contracture, right hand; S31.501A Unspecified open wound of unspecified external genital organs, male, initial encounter; L90.5 Scar conditions and fibrosis of skin; S80.222A Blister (nonthermal), left knee, initial encounter; S80.221A Blister (nonthermal), right knee, initial encounter; S70.322A Blister (nonthermal), left thigh, initial encounter; S70.321A Blister (nonthermal), right thigh, initial encounter; S20.329A Blister (nonthermal) of unspecified front wall of thorax, initial encounter; L89.896 Pressure-induced deep tissue damage of other site; L12.0 Bullous pemphigoid; K44.9 Diaphragmatic hernia without obstruction or gangrene; Z66 Do not resuscitate
CPT/HCPCS: 31720; 36415; 70450-TC; 71045-TC; 80048-TC; 80076-TC; 82962-TC; 83735-TC; 84100-TC; 84484-TC; 85025-TC; 85730-TC; 86706; 86850-TC; 86921-TC; 87081-TC; 87340; 90935-TC; 94003-TC; 94760-TC; 94762-TC; 99082-TC; A4217; A4623; A6248; A6253; A6403; C9113; G0378; J0885; J1815; J2704; J3010; J3490; J7030; J7040; J7512; P9016-BL